=== PATIENT | female | born 1985 | race Caucasian/White ===

== ENCOUNTER 2020-11-22 19:06 | Emergency (ER) | payer BC, OTHER ==
[2020-11-22 19:23] VITALS: BP 149/90; PULSE 89; RESP 16; TEMP 98.7
--- NOTE | 2020-11-22 19:55 | ED ---
Psych HPI - General Chief Complaint: Psychiatric Symptoms Stated Complaint: Mental Health Time Seen by Provider: 11/22/20 19:24 Source: patient Mode of arrival: ambulatory - History of Present Illness Initial Comments: 35-year-old female patient presents to the emergency department today for evaluation of suicidal ideation and auditory hallucinations. Patient states she has had increase in the voices she hears over the last several days. Patient states she has been having thoughts of killing herself. Patient states that she does use heroin and methamphetamine which she thinks is contributing to her symptoms. Last use was 2 days ago. Denies alcohol use. Denies chance of , states she is currently on her period. Denies any current physical symptoms or concerns. Patient denies any recent rash, fever, chills, cough, shortness of breath, chest pain, abdominal pain, nausea, vomiting, diarrhea, constipation, back pain, numbness, tingling, dizziness, weakness, hematuria, dysuria, urinary urgency, urinary frequency, headache, visual changes, or any other complaints. - Related Data Previous Rx's Medication Instructions Recorded Sulfamethoxazole/Trimethoprim 1 tab PO Q12H 7 Days tab 08/21/16 [Bactrim DS 800-160 mg] Allergies Allergy/AdvReac Type Severity Reaction Status Date / Time No Known Allergies Allergy Verified 11/22/20 19:23 Review of Systems ROS Statement: Those systems with pertinent positive or pertinent negative responses have been documented in the HPI. ROS Other: All systems not noted in ROS Statement are negative. Past Medical History Past Medical History: No Reported History History of Any Multi-Drug Resistant Organisms: None Reported Past Surgical History: No Surgical Hx Reported Past Psychological History: Anxiety, Depression Smoking Status: Current every day smoker Past Alcohol Use History: Occasional Past Drug Use History: Heroin, Marijuana General Exam Limitations: no limitations General appearance: alert, in no apparent distress, other (This is a well- developed, well-nourished adult female patient in no acute distress. Vital signs upon presentation are temperature 98.7F, pulse 89, respirations 16, blood pressure 149/90, pulse ox 98% on room air.) Eye exam: Present: normal appearance, PERRL, EOMI. Absent: scleral icterus, conjunctival injection, periorbital swelling ENT exam: Present: normal exam, normal oropharynx, mucous membranes moist Respiratory exam: Present: normal lung sounds bilaterally. Absent: respiratory distress, wheezes, rales, rhonchi, stridor Cardiovascular Exam: Present: regular rate, normal rhythm, normal heart sounds. Absent: systolic murmur, diastolic murmur, rubs, gallop, clicks GI/Abdominal exam: Present: soft, normal bowel sounds. Absent: distended, tenderness, guarding, rebound, rigid Neurological exam: Present: alert, oriented X3, CN II-XII intact Psychiatric exam: Present: normal affect, normal mood Skin exam: Present: warm, dry, intact, normal color. Absent: rash Course Vital Signs 11/22/20 19:20 Temperature 98.7 F Pulse Rate 89 Respiratory 16 Rate Blood Pressure 149/90 O2 Sat by Pulse 98 Oximetry Medical Decision Making - Medical Decision Making 35 year-old female patient presents to the emergency department today for evaluation of suicidal ideation and hallucinations. Patient does admit to drug use including heroin and methamphetamine, last use 2 days ago. She was cleared medically and evaluated by the emergency psychiatric nurse. After being evaluated patient decided that she wanted to go home. She reported no specific plan to take her life. She is quite concerned with getting a job and paying her bills. Believes an admission would only add more stress. She agrees to return if she has any worsening symptoms. Psychiatrist and EPS nurse are in agreement. We will give outpatient referrals for mental health. She verbalizes understanding and agrees with this plan. My attending is Dr. Molina. - Lab Data Lab Results 11/22/20 Range/Units 20:07 Coronavirus (PCR) Not Detected (Not Detectd) Disposition Clinical Impression: Suicidal ideation, Hallucinations, Polysubstance abuse Disposition: Left Against Medical Advice Condition: Good Instructions (If sedation given, give patient instructions): Polysubstance Abuse (ED), Hallucinations (ED), Suicide Prevention (ED) Additional Instructions: Follow-up with outpatient mental health services as discussed. Return immediately if his symptoms worsen or change. Return for any other new, worsening, or concerning symptoms. Is patient prescribed a controlled substance at d/c from ED?: No Referrals: None,Stated [Primary Care Provider] - 1-2 days Time of Disposition: 20:52
== END 2020-11-22 20:55 | disposition left against medical advice (07) ==
LOC: EC 19:06
DX: Z03.818 Encounter for observation for suspected exposure to other biological agents ruled out (principal); R45.851 Suicidal ideations; R44.0 Auditory hallucinations; F19.10 Other psychoactive substance abuse, uncomplicated; F17.200 Nicotine dependence, unspecified, uncomplicated; Z53.29 Procedure and treatment not carried out because of patient's decision for other reasons
CPT/HCPCS: 82075; 87635; 99285

== ENCOUNTER 2022-03-14 13:06 | Inpatient (IN) | payer MEDICAID, OTHER ==
[2022-03-14] MEDS ORDERED: LORazepam 2 MG/ML INJ IM STA ×2 (13:27→16:20)
[2022-03-14] MEDS ORDERED: HALOPERIDOL LACTATE 5 MG/ML 1 ML VIAL IM STA ×2 (13:27→13:28)
[2022-03-14] MEDS ORDERED: diphenhydrAMINE 50 MG/ML 1 ML VIAL IM STA (13:28)
--- NOTE | 2022-03-14 13:32 | ED ---
General Adult HPI - General Source: patient, police, EMS Mode of arrival: EMS <ShaeJonh D - Last Filed: 03/14/22 14:49> <Omar Joaquin - Last Filed: 03/15/22 23:05> - General Chief complaint: Psychiatric Symptoms Stated complaint: Mental Health Time Seen by Provider: 03/14/22 13:10 - History of Present Illness Initial comments: Dictation was produced using [employer] dictation software. please excuse any grammatical, word or spelling errors. Chief Complaint: 36-year-old female brought in by EMS for psychiatric evaluation History of Present Illness: Patient is a 36-year-old female she is brought in by law enforcement and EMS for psychiatric evaluation. Patient is aggressive and not a reliable historian. She allegedly has a history of illicit drug abuse. According to law enforcement patient called 911 and stated she was suicidal. Upon law enforcement arrival patient began showing psychotic symptoms. EMS was called and patient was brought to the ER. Patient is yelling obscenities and is unable to provide history of present illness or medical history Unable to obtain review of systems secondary to mental status PHYSICAL EXAM: General Impression: Aggressive behavior, yelling obscenities, not in acute distress HEENT: Normocephalic atraumatic, extra-ocular movements intact, pupils equal and reactive to light bilaterally, mucous membranes moist. Cardiovascular: Heart regular rate and rhythm Chest: Able to complete full sentences, no retractions, no tachypnea Musculoskeletal: Pulses present and equal in all extremities, no peripheral edema Motor: no focal deficits noted Neurological: CN II-XII grossly intact, no focal motor or sensory deficits noted Skin: Intact with no visualized rashes Psych: Psychotic ED course: She is a 36-year-old female presents to the emergency department for acute psychotic symptoms. She also did report to enforcement that she is suicidal. Signs upon arrival are within acceptable limits. Patient is very aggressive. Verbal de-escalation was attempted however she continues to be aggressive. Patient given sedating medications and also restrained. Laboratory evaluation obtained. CBC metabolic panel is unremarkable. Covid test is negative. Patient medically cleared for EPS evaluation. EKG interpretation: Ventricular rate 84, sinus rhythm,. 125, QS 94, QTC 419. No HI prolongation, no QTC prolongation, no ST or T-wave changes noted. Overall, this EKG is unremarkable (Jonh Kaufman) - Related Data Home Medications Medication Instructions Recorded Confirmed Escitalopram [Lexapro] 10 mg PO DAILY 03/15/22 03/15/22 QUEtiapine [SEROquel] 50 mg PO BID 03/15/22 03/15/22 Allergies Allergy/AdvReac Type Severity Reaction Status Date / Time No Known Allergies Allergy Verified 03/15/22 07:42 Review of Systems ROS Other: All systems not noted in ROS Statement are negative. <Jonh Kaufman - Last Filed: 03/14/22 14:49> ROS Other: All systems not noted in ROS Statement are negative. <Omar Joaquin - Last Filed: 03/15/22 23:05> ROS Statement: Those systems with pertinent positive or pertinent negative responses have been documented in the HPI. Past Medical History Past Medical History: No Reported History History of Any Multi-Drug Resistant Organisms: None Reported Past Surgical History: No Surgical Hx Reported Past Psychological History: Anxiety, Depression Smoking Status: Current every day smoker Past Alcohol Use History: Occasional Past Drug Use History: Heroin, Marijuana <Jonh Kaufman - Last Filed: 03/14/22 14:49> General Exam General appearance: alert, in no apparent distress Head exam: Present: atraumatic, normocephalic, normal inspection Eye exam: Present: normal appearance, PERRL, EOMI. Absent: scleral icterus, conjunctival injection, periorbital swelling ENT exam: Present: normal exam, mucous membranes moist Neck exam: Present: normal inspection. Absent: tenderness, meningismus, lymphadenopathy Respiratory exam: Present: normal lung sounds bilaterally. Absent: respiratory distress, wheezes, rales, rhonchi, stridor Cardiovascular Exam: Present: regular rate, normal rhythm, normal heart sounds. Absent: systolic murmur, diastolic murmur, rubs, gallop, clicks GI/Abdominal exam: Present: soft, normal bowel sounds. Absent: distended, tenderness, guarding, rebound, rigid Extremities exam: Present: normal inspection, full ROM, normal capillary refill. Absent: tenderness, pedal edema, joint swelling, calf tenderness Back exam: Present: normal inspection Neurological exam: Present: alert, oriented X3, CN II-XII intact Psychiatric exam: Present: normal affect, normal mood Skin exam: Present: warm, dry, intact, normal color. Absent: rash <Omar Joaquin - Last Filed: 03/15/22 23:05> Course <Omar Joaquin - Last Filed: 03/15/22 23:05> Vital Signs 03/14/22 03/15/22 03/15/22 13:10 06:01 09:56 Temperature 97.6 F 97.7 F Pulse Rate 75 81 112 H Respiratory 22 16 18 Rate Blood Pressure 148/107 107/78 118/76 O2 Sat by Pulse 99 98 97 Oximetry - Reevaluation(s) Reevaluation #1: 03/15/22 22:58 Medical record is reviewed (Omar Joaquin) Reevaluation #2: 03/15/22 22:58 Patient medically clear for psychiatric evaluation (Omar Joaquin) Procedures - Restraint - Face to Face Restraint Occurrence 1 Patient's Immediate Situation: Endangers self safety, Endangers others' safety Patient's Reaction to the Intervention: Uncooperative, Angry, Bizarre Patient's Medical & Behavioral Condition: Agitated Need to Continue or Terminate Restraint or Seclusion: Continue Face to Face Eval of Restraint Date: 03/14/22 Face to Face Eval of Restraint Time: 13:32 <Jonh Kaufman - Last Filed: 03/14/22 14:49> Medical Decision Making - Lab Data Result diagrams: 03/14/22 14:02 03/14/22 14:02 <Jonh Kaufman - Last Filed: 03/14/22 14:49> - Lab Data Result diagrams: 03/14/22 14:02 03/14/22 14:02 <Omar Joaquin - Last Filed: 03/15/22 23:05> - Medical Decision Making 36 female to the emergency department for evaluation. Patient will be admitted for psychiatric evaluation and treatment (Omar Joaquin) - Lab Data Lab Results 03/14/22 03/14/22 03/14/22 Range/Units 14:02 14:02 14:02 WBC 11.8 H (3.8-10.6) k/uL RBC 4.55 (3.80-5.40) m/uL Hgb 13.4 (11.4-16.0) gm/dL Hct 41.7 (34.0-46.0) % MCV 91.7 (80.0-100.0) fL MCH 29.4 (25.0-35.0) pg MCHC 32.1 (31.0-37.0) g/dL RDW 13.3 (11.5-15.5) % Plt Count 364 (150-450) k/uL MPV 7.2 Neutrophils % 84 % Lymphocytes % 10 % Monocytes % 4 % Eosinophils % 1 % Basophils % 0 % Neutrophils # 9.8 H (1.3-7.7) k/uL Lymphocytes # 1.2 (1.0-4.8) k/uL Monocytes # 0.5 (0-1.0) k/uL Eosinophils # 0.1 (0-0.7) k/uL Basophils # 0.1 (0-0.2) k/uL Sodium 139 (137-145) mmol/L Potassium 3.6 (3.5-5.1) mmol/L Chloride 108 H (98-107) mmol/L Carbon Dioxide 19 L (22-30) mmol/L Anion Gap 12 mmol/L BUN 11 (7-17) mg/dL Creatinine 0.81 (0.52-1.04) mg/dL Est GFR (CKD-EPI)AfAm >90 (>60 ml/min/1.73 sqM) Est GFR (CKD-EPI)NonAf >90 (>60 ml/min/1.73 sqM) Glucose 116 H (74-99) mg/dL Calcium 9.7 (8.4-10.2) mg/dL Creatine Kinase 297 H (30-135) U/L HCG, Quant <2.4 mIU/mL Urine Opiates Screen Not Detected (NotDetected) Ur Oxycodone Screen Not Detected (NotDetected) Urine Methadone Screen Not Detected (NotDetected) Ur Propoxyphene Screen Not Detected (NotDetected) Ur Barbiturates Screen Not Detected (NotDetected) U Tricyclic Antidepress Detected H (NotDetected) Ur Phencyclidine Scrn Not Detected (NotDetected) Ur Amphetamines Screen Not Detected (NotDetected) U Methamphetamines Scrn Not Detected (NotDetected) U Benzodiazepines Scrn Detected H (NotDetected) Urine Cocaine Screen Not Detected (NotDetected) U Marijuana (THC) Screen Detected H (NotDetected) Coronavirus (PCR) (Not Detectd) 03/14/22 Range/Units 14:02 WBC (3.8-10.6) k/uL RBC (3.80-5.40) m/uL Hgb (11.4-16.0) gm/dL Hct (34.0-46.0) % MCV (80.0-100.0) fL MCH (25.0-35.0) pg MCHC (31.0-37.0) g/dL RDW (11.5-15.5) % Plt Count (150-450) k/uL MPV Neutrophils % % Lymphocytes % % Monocytes % % Eosinophils % % Basophils % % Neutrophils # (1.3-7.7) k/uL Lymphocytes # (1.0-4.8) k/uL Monocytes # (0-1.0) k/uL Eosinophils # (0-0.7) k/uL Basophils # (0-0.2) k/uL Sodium (137-145) mmol/L Potassium (3.5-5.1) mmol/L Chloride (98-107) mmol/L Carbon Dioxide (22-30) mmol/L Anion Gap mmol/L BUN (7-17) mg/dL Creatinine (0.52-1.04) mg/dL Est GFR (CKD-EPI)AfAm (>60 ml/min/1.73 sqM) Est GFR (CKD-EPI)NonAf (>60 ml/min/1.73 sqM) Glucose (74-99) mg/dL Calcium (8.4-10.2) mg/dL Creatine Kinase (30-135) U/L HCG, Quant mIU/mL Urine Opiates Screen (NotDetected) Ur Oxycodone Screen (NotDetected) Urine Methadone Screen (NotDetected) Ur Propoxyphene Screen (NotDetected) Ur Barbiturates Screen (NotDetected) U Tricyclic Antidepress (NotDetected) Ur Phencyclidine Scrn (NotDetected) Ur Amphetamines Screen (NotDetected) U Methamphetamines Scrn (NotDetected) U Benzodiazepines Scrn (NotDetected) Urine Cocaine Screen (NotDetected) U Marijuana (THC) Screen (NotDetected) Coronavirus (PCR) Not Detected (Not Detectd) Disposition <Jonh Kaufman - Last Filed: 03/14/22 14:49> Is patient prescribed a controlled substance at d/c from ED?: No <Omar Joaquin - Last Filed: 03/15/22 23:05> Clinical Impression: Depression, Suicidal ideation, Acute psychosis Disposition: TRANSFER TO PSYCH HOSP/UNIT Condition: Fair Referrals: Adore Boo MD [Primary Care Provider] - 1-2 days
[2022-03-14 14:14] LABS: Basophils # (A) 0.1 k/uL (0-0.2); Basophils % (A) 0 %; Eosinophils # (A) 0.1 k/uL (0-0.7); Eosinophils % (A) 1 %; HCT 41.7 % (34.0-46.0); HGB 13.4 gm/dL (11.4-16.0); Lymphocytes # (A) 1.2 k/uL (1.0-4.8); Lymphocytes % (A) 10 %; MCH 29.4 pg (25.0-35.0); MCHC 32.1 g/dL (31.0-37.0); MCV 91.7 fL (80.0-100.0); Mean Platelet Volume 7.2; Monocytes # (A) 0.5 k/uL (0-1.0); Monocytes % (A) 4 %; Neutrophils # (A) 9.8 k/uL (1.3-7.7); Neutrophils % (A) 84 %; Platelet Count 364 k/uL (150-450); RBC 4.55 m/uL (3.80-5.40); RDW 13.3 % (11.5-15.5); WBC 11.8 k/uL (3.8-10.6)
[2022-03-14 14:27] LABS: African American GFR (CKD) >90 (>60 ml/min/1.73 sqM); Anion Gap 12 mmol/L; Blood Urea Nitrogen 11 mg/dL (7-17); Calcium 9.7 mg/dL (8.4-10.2); Carbon Dioxide 19 mmol/L (22-30); Chloride 108 mmol/L (98-107); Creatine Kinase 297 U/L (30-135); Glucose 116 mg/dL (74-99); Non-African American GFR(CKD) >90 (>60 ml/min/1.73 sqM); Potassium 3.6 mmol/L (3.5-5.1); Sodium 139 mmol/L (137-145)
[2022-03-14 14:42] LABS: HCG,Quantitative Serum <2.4 mIU/mL
[2022-03-14] MEDS ORDERED: NICOTINE 7MG/24HR PATCH TRANSDERM STA (17:33)
[2022-03-15] MEDS ORDERED: NICOTINE 14MG/24HR PATCH TRANSDERM STA (07:04)
[2022-03-15] MEDS: QUEtiapine 50 MG TAB PO SCH ×2 (07:35→20:15)
[2022-03-15] MEDS ORDERED: ESCITALOPRAM 10 MG TAB PO STA (08:15)
[2022-03-15 15:47] LABS: Amphetamine Screen,Urine Not Detected (NotDetected); Barbiturate Screen,Urine Not Detected (NotDetected); Benzodiazepines Screen,Urine Detected (NotDetected); Cocaine Screen,Urine Not Detected (NotDetected); Methadone Screen, Urine Not Detected (NotDetected); Opiate Screen,Urine Not Detected (NotDetected); Oxycodone Screen, Urine Not Detected (NotDetected); Phencyclidine Screen,Urine Not Detected (NotDetected); Tricyclic Antidepressant,Urine Detected (NotDetected); Urn Cannabinoid Scrn Detected (NotDetected)
[2022-03-15] MEDS ORDERED: LORazepam 1 MG TAB PO PRN (22:24)
[2022-03-15] MEDS ORDERED: HALOPERIDOL LACTATE 5 MG/ML 1 ML VIAL IM PRN (22:24)
[2022-03-15] MEDS ORDERED: MAGNESIUM HYDROXIDE 2,400 MG/10 ML CUP PO PRN (22:24)
[2022-03-15] MEDS ORDERED: LORazepam 2 MG/ML INJ IM PRN (22:29)
[2022-03-15] MEDS ORDERED: QUEtiapine 50 MG TAB PO SCH (22:30)
[2022-03-15 23:17] LABS: Appearance,Urine Clear (Clear); Bacteria,Urine Rare /hpf; Bilirubin,Urine Negative (Negative); Blood,Urine Trace (Negative); Color,Urine Yellow; Glucose,Urine (UA) Negative (Negative); Ketones,Urine Negative (Negative); Leukocyte Esterase,Urine Negative (Negative); Mucus,Urine Rare /hpf; Nitrite,Urine Negative (Negative); Protein,Urine Negative (Negative); RBC,Urine <1 /hpf (0-5); Specific Gravity,Urine 1.012 (1.001-1.035); Squamous Epithelial Cell,Urine 1 /hpf (0-4); Urobilinogen,Urine <2.0 mg/dL (<2.0); WBC,Urine 1 /hpf (0-5)
[2022-03-16] MEDS ORDERED: LORazepam 1 MG TAB PO STA (00:13)
[2022-03-16] MEDS: ESCITALOPRAM 10 MG TAB PO SCH (08:16)
[2022-03-16] MEDS: QUEtiapine 50 MG TAB PO SCH (08:16)
[2022-03-16] MEDS: NICOTINE 21MG/24HR PATCH TRANSDERM SCH (08:42)
[2022-03-16 09:13] LABS: ALT 20 U/L (4-34); AST 31 U/L (14-36); African American GFR (CKD) >90 (>60 ml/min/1.73 sqM); Albumin 4.5 g/dL (3.5-5.0); Alkaline Phosphatase 46 U/L (38-126); Anion Gap 10 mmol/L; Blood Urea Nitrogen 12 mg/dL (7-17); Carbon Dioxide 20 mmol/L (22-30); Chloride 109 mmol/L (98-107); Glucose 93 mg/dL (74-99); Non-African American GFR(CKD) >90 (>60 ml/min/1.73 sqM); Potassium 4.3 mmol/L (3.5-5.1); Sodium 139 mmol/L (137-145); Total Bilirubin 0.1 mg/dL (0.2-1.3); Total Protein 6.9 g/dL (6.3-8.2)
[2022-03-16] MEDS: hydrOXYzine pamoate 25 MG CAP PO PRN ×2 (14:03→20:25)
--- NOTE | 2022-03-16 14:08 | P.HP ---
Psychiatric H&P - . H&P Date: 03/16/22 History & Physical: Allergies Allergy/AdvReac Type Severity Reaction Status Date / Time No Known Allergies Allergy Verified 03/15/22 07:42 Vital Signs Temp 97.2 F L 03/16/22 08:18 Pulse 90 03/16/22 08:18 Resp 20 03/16/22 08:18 BP 123/59 03/16/22 08:18 Pulse Ox 97 03/16/22 00:57 FiO2 Laboratory Last Values WBC 11.8 k/uL (3.8-10.6) H 03/14/22 14:02 RBC 4.55 m/uL (3.80-5.40) 03/14/22 14:02 Hgb 13.4 gm/dL (11.4-16.0) 03/14/22 14:02 Hct 41.7 % (34.0-46.0) 03/14/22 14:02 MCV 91.7 fL (80.0-100.0) 03/14/22 14:02 MCH 29.4 pg (25.0-35.0) 03/14/22 14:02 MCHC 32.1 g/dL (31.0-37.0) 03/14/22 14:02 RDW 13.3 % (11.5-15.5) 03/14/22 14:02 Plt Count 364 k/uL (150-450) 03/14/22 14:02 MPV 7.2 03/14/22 14:02 Neutrophils % 84 % 03/14/22 14:02 Lymphocytes % 10 % 03/14/22 14:02 Monocytes % 4 % 03/14/22 14:02 Eosinophils % 1 % 03/14/22 14:02 Basophils % 0 % 03/14/22 14:02 Neutrophils # 9.8 k/uL (1.3-7.7) H 03/14/22 14:02 Lymphocytes # 1.2 k/uL (1.0-4.8) 03/14/22 14:02 Monocytes # 0.5 k/uL (0-1.0) 03/14/22 14:02 Eosinophils # 0.1 k/uL (0-0.7) 03/14/22 14:02 Basophils # 0.1 k/uL (0-0.2) 03/14/22 14:02 Sodium 139 mmol/L (137-145) 03/16/22 08:17 Potassium 4.3 mmol/L (3.5-5.1) 03/16/22 08:17 Chloride 109 mmol/L (98-107) H 03/16/22 08:17 Carbon Dioxide 20 mmol/L (22-30) L 03/16/22 08:17 Anion Gap 10 mmol/L 03/16/22 08:17 BUN 12 mg/dL (7-17) 03/16/22 08:17 Creatinine 0.69 mg/dL (0.52-1.04) 03/16/22 08:17 Est GFR (CKD-EPI)AfAm >90 (>60 ml/min/1.73 sqM) 03/16/22 08:17 Est GFR (CKD-EPI)NonAf >90 (>60 ml/min/1.73 sqM) 03/16/22 08:17 Glucose 93 mg/dL (74-99) 03/16/22 08:17 Calcium 9.0 mg/dL (8.4-10.2) 03/16/22 08:17 Total Bilirubin 0.1 mg/dL (0.2-1.3) L 03/16/22 08:17 AST 31 U/L (14-36) 03/16/22 08:17 ALT 20 U/L (4-34) 03/16/22 08:17 Alkaline Phosphatase 46 U/L (38-126) 03/16/22 08:17 Creatine Kinase 297 U/L (30-135) H 03/14/22 14:02 Total Protein 6.9 g/dL (6.3-8.2) 03/16/22 08:17 Albumin 4.5 g/dL (3.5-5.0) 03/16/22 08:17 TSH 2.730 mIU/L (0.465-4.680) 03/16/22 08:17 HCG, Quant <2.4 mIU/mL 03/14/22 14:02 Urine Color Yellow 03/15/22 22:49 Urine Appearance Clear (Clear) 03/15/22 22:49 Urine pH 5.0 (5.0-8.0) 03/15/22 22:49 Ur Specific [place] 1.012 (1.001-1.035) 03/15/22 22:49 Urine Protein Negative (Negative) 03/15/22 22:49 Urine Glucose (UA) Negative (Negative) 03/15/22 22:49 Urine Ketones Negative (Negative) 03/15/22 22:49 Urine Blood Trace (Negative) H 03/15/22 22:49 Urine Nitrite Negative (Negative) 03/15/22 22:49 Urine Bilirubin Negative (Negative) 03/15/22 22:49 Urine Urobilinogen <2.0 mg/dL (<2.0) 03/15/22 22:49 Ur Leukocyte Esterase Negative (Negative) 03/15/22 22:49 Urine RBC <1 /hpf (0-5) 03/15/22 22:49 Urine WBC 1 /hpf (0-5) 03/15/22 22:49 Ur Squamous Epith Cells 1 /hpf (0-4) 03/15/22 22:49 Urine Bacteria Rare /hpf (None) H 03/15/22 22:49 Urine Mucus Rare /hpf (None) H 03/15/22 22:49 Urine HCG, Qual Not Detected (Not Detectd) 03/15/22 22:49 Urine Opiates Screen Not Detected (NotDetected) 03/14/22 14:02 Ur Oxycodone Screen Not Detected (NotDetected) 03/14/22 14:02 Urine Methadone Screen Not Detected (NotDetected) 03/14/22 14:02 Ur Propoxyphene Screen Not Detected (NotDetected) 03/14/22 14:02 Ur Barbiturates Screen Not Detected (NotDetected) 03/14/22 14:02 U Tricyclic Antidepress Detected (NotDetected) H 03/14/22 14:02 Ur Phencyclidine Scrn Not Detected (NotDetected) 03/14/22 14:02 Ur Amphetamines Screen Not Detected (NotDetected) 03/14/22 14:02 U Methamphetamines Scrn Not Detected (NotDetected) 03/14/22 14:02 U Benzodiazepines Scrn Detected (NotDetected) H 03/14/22 14:02 Urine Cocaine Screen Not Detected (NotDetected) 03/14/22 14:02 U Marijuana (THC) Screen Detected (NotDetected) H 03/14/22 14:02 Coronavirus (PCR) Not Detected (Not Detectd) 03/14/22 14:02 03/16/22 14:01 IDENTIFYING DATA: Patient is a 36-year-old female who currently lives with her mother and one son. She is single and unemployed. HPI: Patient presented to the hospital yesterday for psychiatric evaluation and was brought in by EMS and police. Patient was brought in on a petition and certificate. The petition was completed by patient's mother states that "patient is a potential harm to self/others, noncompliance with therapy/medication. Patient endorses suicidal ideations paranoia/delusional". Patient was evaluated in the ER and was aggressive and agitated and required prn medications for agitation. Patient apparently has a history of polysubstance abuse. Patient apparently called 911 and reported that she was suicidal. Patient was also evaluated and believed that she was psychotic. Patient's UDS was positive for TCAs, benzodiazepines and THC. Patient was seen wandering the hallways and agreeable to speak to keno writer/runner today. She appeared to be fairly calm and directable during conversation. She states that she is very distressed due to hearing "a lot of voices". She states that this is going on for the past 4-5 years. She states that the voices were telling her negative things about her and also telling her to "shoot myself". She states that she has a history of a brain injury and was "headed in the head a couple of times". She states that she was " for 18 minutes" before being revised back to life by doctors. She states that she has anxiety and depression at this time. She states that she was taking Seroquel however "it was not enough" and was not being followed by a psychiatrist. She states that she does have mild mood swings at times. She is endorsing poor sleep, fair appetite. Patient denies any suicidal or homicidal ideations intent or plan. At this time patient denies any current auditory or visual hallucinations. Patient denies any flight of ideas racing thoughts and increased in goal directed behavior. Patient admits to using marijuana occasionally and cigarettes daily. She denies any other recreational drug use. PAST PSYCHIATRIC HISTORY: Patient states that she has history of depression and traumatic brain injury. Patient was previously on Seroquel and Lexapro. She states that her last psychiatric hospitalization was 1-1/2 years ago in [place]. Patient denies any psychiatric outpatient follow-up. Patient denies any history of suicide attempts in the past. PMH: Traumatic brain injury ALLERGIES: as per EMR CHEMICAL DEPENDENCY HISTORY: as per HPI FAMILY PSYCHIATRIC/SUBSTANCE USE HISTORY: denies SOCIAL HISTORY: Patient was born and raised in [facility] and also in [place]. She states that she moved to [place] permanently at the age of 11. She states that she completed up to ninth grade in school. 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 She states that she has 1 son and currently lives with her mother. She is single and unemployed. She went to longterm about 2 years ago for driving without a license. MENTAL STATUS EXAM: General Appearance: Patient appears to have several tattoos, unkempt, stated age is alert, directable, and attempts to cooperate. Patient appears to have poor hygiene and grooming. Behavior: Patient is seated without any agitated behavior. Attempts to cooperate. Speech: Patient's speech is fluent and nonpressured. Mood/Affect: Patient reports their mood is depressed and anxious, affect is congruent and constricted. Suicidality/Homicidality: Patient denies having any homicidal ideation intent or plan. Denies any suicidal ideations intent or plan Perceptions: Patient denies any visual hallucinations and denies any auditory hallucinations Though content/process: Patient is logical, not endorsing any delusions at this time. Memory and concentration: AOX3, grossly intact for the purposes of this session. Can spell "WORLD" backwards Judgment and insight: poor STRENGTHS/WEAKNESSES: strength is that patient is resilient. Weakness is that patient has poor judgment and is impulsive INTELLECT: average IMPRESSIONS: Major depressive disorder, with psychotic features Traumatic brain injury Cannabis use disorder mild Nicotine dependence PLAN: -Patient is admitted under voluntary status to [facility] for stabilization of psychiatric symptoms and safety. Patient has signed adult voluntary form and medication consent and is placed in patient's chart. -Medications : Will start patient on Seroquel however increased her dose of 150 mg daily at bedtime for psychosis/insomnia. Continue Lexapro 10 mg daily for mood/anxiety. Added Vistaril when necessary for anxiety. -Ativan and Haldol PRN for agitation/aggression -Patient was counselled on substance abuse and desired to cut back on use -Patient was informed of the risks, benefits and side effects of the medication and patient verbally consented to taking the medications. Patient signed med consent form and was placed in chart. -Internal Medicine consult to perform medical evaluation and physical. -NRT - nicotine patch -SW on board for discharge planning. Encourage patient to participate in groups to work on coping skills.
--- NOTE | 2022-03-16 14:33 | P.HPMEDMHU ---
<Bladimir Bridges - Last Filed: 03/16/22 19:26> History of Present Illness H&P Date: 03/16/22 History of Presenting Illness: Patient is a 36-year-old female with a past medical history of previous traumati c brain injury, anxiety, depression, nicotine dependence, and daily cannabis abuse. She is currently admitted to inpatient mental health unit under psychiatric team and we have been consulted for medical management throughout her hospitalization. Patient seen and fully evaluated on mental health unit. She was alert and oriented to person, place, time, and situation. Patient reports that she has been experiencing severe anxiety and hearing voices. Patient states the voices call her a bitch and many other things. Patient also reports a history of heroin abuse but states it has been years since she last used. Patient denies having any headache, lightheadedness, dizziness, chest pain, palpitations, nausea, vomiting, or experiencing any numbness/tingling/weakness in her extremities. Patient denies having any suicidal or homicidal ideations. Patient reports smoking one pack of cigarettes daily and admits to daily cannabis use. Patient denies having any other drug use and denies alcohol use. Review of systems: Pertinent positives and negatives as discussed in HPI, a complete review of systems was performed and all other systems are negative. Physical exam: Vital signs reviewed and stable. General: Nontoxic, no distress and appears stated age. Derm: Skin warm and dry, normal coloration for ethnicity. Head: Atraumatic, normocephalic and symmetric. Eyes: EOMs intact, no lid lag, and anicteric sclera Mouth: no lip lesions, mucus membranes moist Cardiovascular: regular rate and rhythm with normal S1S2, no murmur, positive posterior tibial pulses bilaterally, and cap refill < 2 seconds. Lungs: Respirations even, regular, and unlabored on room air. Lungs CTA bilat erally, no rhonchi, no rales, no wheezing, and no accessory muscle usage. Abdominal: soft, nontender to palpation, no guarding, no appreciable organomegaly Ext: ROM intact. No gross muscle atrophy, no edema, no contractures Neuro: Speech clear, face symmetrical and CN II-XII grossly intact with no noted focal neuro deficits Psych: Alert and oriented to person, place, time, and situation. Appropriate and pleasant affect. Assessment and Plan of Care: Auditory hallucinations Major depressive disorder with psychiatric features History of traumatic brain injury Cannabis abuse disorder Nicotine dependence History of IVDA with heroin -Management of hallucinations and depression via primary admitting psychiatric team. -Recommend stopping smoking, patient provided with nicotine patch and gum. -Recommend cannabis cessation. Thank you for allowing us to participate in the care of this pleasant patient. Do not hesitate to contact us with questions. Someone can be reached from the [facility] hospitalist group all hours of the day at [phone] or via [employer]. Past Medical History Past Medical History: No Reported History History of Any Multi-Drug Resistant Organisms: None Reported Past Surgical History: No Surgical Hx Reported Past Psychological History: Anxiety, Depression Smoking Status: Current every day smoker Past Alcohol Use History: Occasional Past Drug Use History: Heroin, Marijuana Medications and Allergies Home Medications Medication Instructions Recorded Confirmed Type Escitalopram [Lexapro] 10 mg PO DAILY 03/15/22 03/15/22 History QUEtiapine [SEROquel] 50 mg PO BID 03/15/22 03/15/22 History Allergies Allergy/AdvReac Type Severity Reaction Status Date / Time No Known Allergies Allergy Verified 03/15/22 07:42 Physical Exam Vitals: Vital Signs Temp Pulse Pulse Resp BP BP Pulse Ox 03/16/22 08:18 97.2 F L 90 20 123/59 03/16/22 00:57 98.2 F 88 18 112/70 97 03/16/22 00:20 89 16 115/79 95 Cranial Nerve Examination - Cranial Nerves Cranial Nerve II- Optic: Intact Cranial Nerve III- Oculomotor: Intact Cranial Nerve IV- Trochlear: Intact Cranial Nerve V- Trigeminal: Intact Cranial Nerve - Abducens: Intact Cranial Nerve VII- Facial: Intact Cranial Nerve VIII- Auditory: Intact Cranial Nerve IX- Glossopharyngeal: Intact Cranial Nerve X- Vagus: Intact Cranial Nerve XI- Accessory: Intact Cranial Nerve XII- Hypoglossal: Intact Results CBC & Chem 7: 03/14/22 14:02 03/16/22 08:17 Labs: Abnormal Lab Results - Last 24 Hours (Table) 03/14/22 03/15/22 03/16/22 Range/Units 14:02 22:49 08:17 Chloride 109 H (98-107) mmol/L Carbon Dioxide 20 L (22-30) mmol/L Total Bilirubin 0.1 L (0.2-1.3) mg/dL Urine Blood Trace H (Negative) Urine Bacteria Rare H (None) /hpf Urine Mucus Rare H (None) /hpf U Tricyclic Antidepress Detected H (NotDetected) U Benzodiazepines Scrn Detected H (NotDetected) U Marijuana (THC) Screen Detected H (NotDetected) <DarnellKatie Jo - Last Filed: 03/16/22 22:55> History of Present Illness Bladimir Bridges NP rendered care for this patient independently, reviewed the findings and plan as documented in the note above. I did not physically speak with or examine the patient on this date. Physical Exam Osteopathic Statement: *. No significant issues noted on an osteopathic structural exam other than those noted in the History and Physical/Consult. Vitals: Vital Signs Temp Pulse Pulse Resp BP BP Pulse Ox 03/16/22 08:18 97.2 F L 90 20 123/59 03/16/22 00:57 98.2 F 88 18 112/70 97 03/16/22 00:20 89 16 115/79 95 Results CBC & Chem 7: 03/14/22 14:02 03/16/22 08:17 Labs: Abnormal Lab Results - Last 24 Hours (Table) 03/15/22 03/16/22 Range/Units 22:49 08:17 Chloride 109 H (98-107) mmol/L Carbon Dioxide 20 L (22-30) mmol/L Total Bilirubin 0.1 L (0.2-1.3) mg/dL LDL Cholesterol, Calc 138.4 H (0.0-131.0) mg/dL HDL Cholesterol 36.40 L (40.00-60.00) mg/dL Urine Blood Trace H (Negative) Urine Bacteria Rare H (None) /hpf Urine Mucus Rare H (None) /hpf
[2022-03-16 14:59] LABS: Chol/HDL Ratio 5.49 Ratio; LDL Cholesterol,Calculated 138.4 mg/dL (0.0-131.0)
[2022-03-16] MEDS ORDERED: QUEtiapine 50 MG TAB PO SCH (21:00)
[2022-03-17] MEDS: ESCITALOPRAM 10 MG TAB PO SCH (08:26)
[2022-03-17] MEDS: NICOTINE 21MG/24HR PATCH TRANSDERM SCH (08:26)
[2022-03-17] MEDS: hydrOXYzine pamoate 25 MG CAP PO PRN ×2 (08:35→20:38)
[2022-03-17] MEDS: ACETAMINOPHEN TAB 325 MG TAB PO PRN ×2 (08:36→16:52)
[2022-03-17] MEDS ORDERED: ESCITALOPRAM 10 MG TAB PO STA (09:39)
[2022-03-17] MEDS ORDERED: traZODone HCL 50 MG TAB PO PRN (09:40)
--- NOTE | 2022-03-17 09:50 | P.PN ---
Progress Note - Text Progress Note Date: 03/17/22 Interval History: Patient was seen wandering the hallways and was directable and agreeable to bibi wilks with remote mortgage underwriter in the office. Patient states that she had a bad night last night and mainly complained of hearing voices. She states that the voices intensified last night and were more negative after taking the Seroquel. She states that she is feeling not improved since yesterday. She claims that she would like to try another medication and feels distressed by the voices. She was fairly calm and cooperative. She states that she slept around 6 hours last night. She claims that she has been going to groups however claims that she has not been getting much out of them. She states that she is still dealing with anxiety during the day. At this time patient denies any suicidal or homical ideations, intent or plan. Patient denies any visual hallucinations and denies any paranoia or delusions. Patient denies any side effects from the medications and has been compliant with meds. Mental Status Exam: General Appearance: Patient appears to have several tattoos, unkempt, stated age is alert, directable, and attempts to cooperate. Patient appears to have improving hygiene and grooming. Behavior: Patient is seated without any agitated behavior. Attempts to cooperate. Speech: Patient's speech is fluent and nonpressured. Mood/Affect: Patient reports their mood is anxious, affect is congruent and constricted. Suicidality/Homicidality: Patient denies having any homicidal ideation intent or plan. Denies any suicidal ideations intent or plan Perceptions: Patient denies any visual hallucinations and denies any auditory hallucinations Though content/process: Patient is logical, not endorsing any delusions at this time. Memory and concentration: AOX3, grossly intact for the purposes of this session Judgment and insight: poor, improving mildly IMPRESSIONS: Major depressive disorder, with psychotic features Traumatic brain injury Cannabis use disorder mild Nicotine dependence Plan: -Patient continues to meet criteria for inpatient psychiatric admission for symptom stabilization and safety. Patient has signed adult voluntary form and medication consent and was placed in patient's chart. -Medications: Discontinued Seroquel and replaced with paliperidone by mouth 3 mg twice a day for psychosis. Increase Lexapro to 20 mg daily for mood/anxiety. Vistaril when necessary for anxiety. -When necessary Ativan and Haldol for agitation/aggression. -NRT - nicotine patch -SW on board for discharge planning. Encouraged the patient to participate in milieu.
[2022-03-17] MEDS: PALIPERIDONE 3 MG TAB.ER.24 PO SCH ×2 (09:53→20:19)
[2022-03-17] MEDS: IBUPROFEN 600 MG TAB PO PRN (19:09)
[2022-03-17] MEDS: BENZOCAINE 20 % GEL 11.9 GM TUBE MM PRN (20:19)
[2022-03-18] MEDS ORDERED: traZODone HCL 100 MG TAB PO STA (00:51)
[2022-03-18] MEDS: PALIPERIDONE 3 MG TAB.ER.24 PO SCH (08:19)
[2022-03-18] MEDS: ESCITALOPRAM 20 MG TAB PO SCH (08:19)
[2022-03-18] MEDS: NICOTINE 21MG/24HR PATCH TRANSDERM SCH (08:20)
[2022-03-18] MEDS: IBUPROFEN 600 MG TAB PO PRN (08:20)
[2022-03-18] MEDS ORDERED: traZODone HCL 50 MG TAB PO PRN (09:22)
--- NOTE | 2022-03-18 09:28 | P.PN ---
Progress Note - Text Progress Note Date: 03/18/22 Interval History: Patient was seen wandering the hallways and was directable and agreeable to s peak with engineering technical writer in the office. Patient continues to complain that she is still hearing voices at nighttime and throughout the day. She claims that the paliperidone has not been helping her at all. She wrote down several of the commands and voices that she heard yesterday and showed them to engineering technical writer which were all negative thoughts and statements towards her. She states that she is still feeling depressed however was fairly directable during conversation. She was fairly preoccupied with her medications. She states that she only slept about 2-3 hours last night and needed several medications to sleep. She claims that she has been going to groups however claims that she has not been getting much out of them. She states that she is still dealing with anxiety during the day. At this time patient denies any suicidal or homical ideations, intent or plan. Patient denies any visual hallucinations and denies any paranoia or delusions. Patient denies any side effects from the medications and has been compliant with meds. Mental Status Exam: General Appearance: Patient appears to have several tattoos, unkempt, stated age is alert, directable, and attempts to cooperate. Patient appears to have improving hygiene and grooming. Behavior: Patient is seated without any agitated behavior. Attempts to cooperate. Speech: Patient's speech is fluent and nonpressured. Mood/Affect: Patient reports their mood is anxious, affect is congruent and constricted. Suicidality/Homicidality: Patient denies having any homicidal ideation intent or plan. Denies any suicidal ideations intent or plan Perceptions: Patient denies any visual hallucinations and admits to auditory hallucinations Though content/process: Patient is logical, not endorsing any delusions at this time. Memory and concentration: AOX3, grossly intact for the purposes of this session Judgment and insight: poor, improving mildly IMPRESSIONS: Major depressive disorder, with psychotic features Traumatic brain injury Cannabis use disorder mild Nicotine dependence Plan: -Patient continues to meet criteria for inpatient psychiatric admission for symptom stabilization and safety. Patient has signed adult voluntary form and medication consent and was placed in patient's chart. -Medications: Restarted Seroquel due to patients request as she feels that the invega did not help her with the voices. Start Seroquel 250 mg qhs for psychosis/insomnia, can increase as needed/tolerated. Lexapro to 20 mg daily for mood/anxiety. Vistaril when necessary for anxiety. trazodone 50 mg qhs prn for insomnia -When necessary Ativan and Haldol for agitation/aggression. -NRT - nicotine patch -SW on board for discharge planning. Encouraged the patient to participate in milieu. likely discharge early next week if patient improves psychiatrically.
[2022-03-18] MEDS: QUEtiapine 50 MG TAB PO SCH (09:34)
[2022-03-18] MEDS: ACETAMINOPHEN TAB 325 MG TAB PO PRN (12:22)
[2022-03-18] MEDS: hydrOXYzine pamoate 25 MG CAP PO PRN (13:51)
[2022-03-18] MEDS: QUEtiapine 100 MG TAB PO SCH (19:54)
[2022-03-18] MEDS: traZODone HCL 50 MG TAB PO PRN (21:07)
[2022-03-19] MEDS: ESCITALOPRAM 20 MG TAB PO SCH (08:23)
[2022-03-19] MEDS: QUEtiapine 50 MG TAB PO SCH ×2 (08:23→13:30)
[2022-03-19] MEDS: NICOTINE 21MG/24HR PATCH TRANSDERM SCH (08:23)
[2022-03-19] MEDS: hydrOXYzine pamoate 25 MG CAP PO PRN ×2 (08:25→14:44)
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
[2022-03-19] MEDS: MAG HYDROX/AL HYDROX/SIMETH 30 ML CUP PO PRN (16:05)
[2022-03-19] MEDS: IBUPROFEN 600 MG TAB PO PRN (18:19)
[2022-03-19] MEDS: QUEtiapine 100 MG TAB PO SCH (20:48)
[2022-03-19] MEDS: PRAZOSIN 1 MG CAP PO SCH (20:48)
[2022-03-19] MEDS: traZODone HCL 50 MG TAB PO PRN (21:57)
[2022-03-20] MEDS: NICOTINE 21MG/24HR PATCH TRANSDERM SCH (07:59)
[2022-03-20] MEDS: QUEtiapine 50 MG TAB PO SCH ×2 (07:59→12:31)
[2022-03-20] MEDS: ESCITALOPRAM 20 MG TAB PO SCH (08:00)
[2022-03-20] MEDS: hydrOXYzine pamoate 25 MG CAP PO PRN (11:42)
[2022-03-20] MEDS: IBUPROFEN 600 MG TAB PO PRN ×2 (12:31→19:55)
[2022-03-20] MEDS ORDERED: QUEtiapine 50 MG TAB PO SCH (13:00)
--- NOTE | 2022-03-20 13:22 | P.PN ---
Progress Note - Text Progress Note Date: 03/20/22 Interval History: Patient was directable and agreeable to speak with data analyst report writer in the office. She reports she is feeling "a little better today", and reports she slept better last night than she did the night before. She reports she did not have any nightmares last night. She took the Trazodone 150 mg QHS PRN last night for sleep. She reports she is still hearing voices, has insight into the voices, will go back to her room and isolate because of the voices. She reports her mood today is "It's ok, I'm in a good mood." At this time patient denies any suicidal or homical ideations, intent or plan. Patient denies any side effects from the medications and has been compliant with meds. Mental Status Exam: General Appearance: Patient appears to have several tattoos, unkempt, stated age. Patient appears to have improving hygiene and grooming. Behavior: Patient is seated without any agitated behavior. She is alert, directable, and attempts to cooperate. Speech: Patient's speech is fluent and nonpressured. Mood/Affect: Patient reports their mood is anxious, affect is congruent and constricted. Suicidality/Homicidality: Patient denies having any homicidal ideation intent or plan. Denies any suicidal ideations intent or plan. Perceptions: Patient denies any visual hallucinations and admits to auditory hallucinations. Though content/process: Patient is logical, not endorsing any delusions at this time. Appears to be fixated on her medications. Memory and concentration: AOX3, grossly intact for the purposes of this session Judgment and insight: poor, improving mildly IMPRESSIONS: Major depressive disorder, recurrent, severe with psychotic features Rule out PTSD Traumatic brain injury Cannabis use disorder mild Nicotine dependence Plan: -Patient continues to meet criteria for inpatient psychiatric admission for symptom stabilization and safety. Patient has signed adult voluntary form and medication consent and was placed in patient's chart. -Medications: Increase Seroquel to 100 mg QAM, 50 mg daily after lunch, and 250 mg QHS for psychosis. Continue Prazosin 1 mg QHS for trauma induced nightmares. Continue Lexapro 20 mg daily for mood/anxiety. Continue Vistaril when necessary for anxiety. Change Trazodone 150 mg QHS from as needed to scheduled for insomnia. -When necessary Ativan and Haldol for agitation/aggression. -NRT - nicotine patch -SW on board for discharge planning. Encouraged the patient to participate in milieu. Likely discharge early next week if patient improves psychiatrically.
[2022-03-20] MEDS ORDERED: QUEtiapine 50 MG TAB PO STA (13:23)
[2022-03-20] MEDS: BENZOCAINE 20 % GEL 11.9 GM TUBE MM PRN (14:00)
[2022-03-20] MEDS: traZODone HCL 50 MG TAB PO SCH (19:56)
[2022-03-20] MEDS: QUEtiapine 100 MG TAB PO SCH (19:57)
[2022-03-20] MEDS: PRAZOSIN 1 MG CAP PO SCH (19:58)
[2022-03-21 05:04] VITALS: PULSE 91
[2022-03-21] MEDS: NICOTINE 21MG/24HR PATCH TRANSDERM SCH (07:53)
[2022-03-21] MEDS: ESCITALOPRAM 20 MG TAB PO SCH (07:53)
[2022-03-21] MEDS: QUEtiapine 100 MG TAB PO SCH (07:53)
[2022-03-21] MEDS: hydrOXYzine pamoate 25 MG CAP PO PRN ×3 (07:55→20:26)
[2022-03-21] MEDS: QUEtiapine 50 MG TAB PO SCH (12:46)
[2022-03-21] MEDS ORDERED: QUEtiapine 50 MG TAB PO STA ×2 (14:10)
--- NOTE | 2022-03-21 14:14 | P.PN ---
Progress Note - Text Progress Note Date: 03/21/22 Interval History: Patient was directable and agreeable to speak with show card writer in the office. She reports she is feeling "pretty ok until about noon", she states she didn't hear the voices last night or this morning, but she started hearing the voices again today around noon. She reports she did not have any nightmares last night, but reports sleep was poor last night with multiple nighttime awakenings. At this time patient denies any suicidal or homical ideations, intent or plan. Patient denies any side effects from the medications and has been compliant with meds. Mental Status Exam: General Appearance: Patient appears to have several tattoos, stated age. Patient appears to have improving hygiene and grooming, hair is nicely brushed and is wearing makeup. Behavior: Patient is seated without any agitated behavior. She is alert, directable, and attempts to cooperate. Speech: Patient's speech is fluent and nonpressured. Mood/Affect: Patient reports their mood is good, affect is congruent and constricted. Suicidality/Homicidality: Patient denies having any homicidal ideation intent or plan. Denies any suicidal ideations intent or plan. Perceptions: Patient denies any visual hallucinations and admits to auditory hallucinations. Though content/process: Patient is logical, not endorsing any delusions at this time. Memory and concentration: AOX3, grossly intact for the purposes of this session Judgment and insight: poor, improving mildly IMPRESSIONS: Major depressive disorder, recurrent, severe with psychotic features Rule out PTSD Traumatic brain injury Cannabis use disorder mild Nicotine dependence Plan: -Patient continues to meet criteria for inpatient psychiatric admission for symptom stabilization and safety. Patient has signed adult voluntary form and medication consent and was placed in patient's chart. -Medications: Increase Seroquel to 100 mg QAM, 100 mg daily at noon, and 300 mg QHS for psychosis. We discussed the risks, benefits and side effects of medications, including the risk of daytime sedation with Seroquel. Continue Prazosin 1 mg QHS for trauma induced nightmares. Continue Lexapro 20 mg daily for mood/anxiety. Continue Vistaril when necessary for anxiety. Change Trazodone 150 mg QHS from as needed to scheduled for insomnia. -When necessary Ativan and Haldol for agitation/aggression. -NRT - nicotine patch -SW on board for discharge planning. Encouraged the patient to participate in milieu. Likely discharge early next week if patient improves psychiatrically.
[2022-03-21] MEDS: PRAZOSIN 1 MG CAP PO SCH (19:52)
[2022-03-21] MEDS: traZODone HCL 50 MG TAB PO SCH (19:53)
[2022-03-21] MEDS ORDERED: QUEtiapine 100 MG TAB PO SCH (21:00)
[2022-03-22] MEDS: MAG HYDROX/AL HYDROX/SIMETH 30 ML CUP PO PRN (03:30)
[2022-03-22 03:33] VITALS: RESP 14
[2022-03-22] MEDS: QUEtiapine 100 MG TAB PO SCH (08:20)
[2022-03-22] MEDS: NICOTINE 21MG/24HR PATCH TRANSDERM SCH (08:20)
[2022-03-22] MEDS: ESCITALOPRAM 20 MG TAB PO SCH (08:20)
[2022-03-22] MEDS: hydrOXYzine pamoate 25 MG CAP PO PRN ×3 (08:36→20:56)
--- NOTE | 2022-03-22 10:13 | P.PN ---
Progress Note - Text Progress Note Date: 03/22/22 Interval History: Patient was seen wandering the hallways and was directable and agreeable to sp efe with grant writer in the office. Patient continues to complain that she is still hearing voices. She states that the voices were distressing for her however states that the Seroquel has been definitely helping her. She claims that she does feel anxious during the day and was using Vistaril which has been helping. She was fairly focused on her medications. She states that she slept about 4 hours last night which were interrupted by voices. She states that she did not have nightmares any longer. She claims that she is feeling more optimistic about her medications and was willing to have them increased. She states that she has been going to some groups. She claims that her mood has been gradually improving. At this time patient denies any suicidal or homical ideations, intent or plan. Patient denies any visual hallucinations and denies any paranoia or delusions. Patient denies any side effects from the medications and has been compliant with meds. Mental Status Exam: General Appearance: Patient appears to have several tattoos, unkempt, stated age is alert, directable, and attempts to cooperate. Patient appears to have improving hygiene and grooming. Behavior: Patient is seated without any agitated behavior. Attempts to cooperate. Speech: Patient's speech is fluent and nonpressured. Mood/Affect: Patient reports their mood is improving, affect is congruent Suicidality/Homicidality: Patient denies having any homicidal ideation intent or plan. Denies any suicidal ideations intent or plan Perceptions: Patient denies any visual hallucinations and admits to auditory camille lucinations Though content/process: Patient is logical, not endorsing any delusions at this time. Focused on medications. Memory and concentration: AOX3, grossly intact for the purposes of this session Judgment and insight: improving mildly IMPRESSIONS: Major depressive disorder, with psychotic features Traumatic brain injury Cannabis use disorder mild Nicotine dependence Plan: -Patient continues to meet criteria for inpatient psychiatric admission for symptom stabilization and safety. Patient has signed adult voluntary form and medication consent and was placed in patient's chart. -Medications: increase Seroquel 400 mg qhs for psychosis/insomnia + 100 mg daily. Lexapro to 20 mg daily for mood/anxiety. increase Vistaril to 50 mg q8hr prn for anxiety. trazodone 150 mg qhs prn for insomnia. continue with prazosin 1 mg qhs for nightmares. -When necessary Ativan and Haldol for agitation/aggression. -NRT - nicotine patch -SW on board for discharge planning. Encouraged the patient to participate in milieu. likely discharge tomorrow back home.
[2022-03-22] MEDS ORDERED: QUEtiapine 100 MG TAB PO SCH (12:00)
[2022-03-22] MEDS: PRAZOSIN 1 MG CAP PO SCH (20:08)
[2022-03-22] MEDS: traZODone HCL 50 MG TAB PO SCH (20:09)
[2022-03-22] MEDS ORDERED: QUEtiapine 400 MG TAB PO SCH (21:00)
[2022-03-22] MEDS: IBUPROFEN 600 MG TAB PO PRN (23:37)
[2022-03-23 07:17] VITALS: BP 109/65; TEMP 97.9
[2022-03-23] MEDS: NICOTINE 21MG/24HR PATCH TRANSDERM SCH (07:51)
[2022-03-23] MEDS: ESCITALOPRAM 20 MG TAB PO SCH (07:52)
[2022-03-23] MEDS: QUEtiapine 100 MG TAB PO SCH (07:52)
[2022-03-23] MEDS: hydrOXYzine pamoate 25 MG CAP PO PRN (07:53)
--- NOTE | 2022-03-23 09:22 | P.DS ---
Providers Date of admission: 03/15/22 23:45 Expected date of discharge: 03/23/22 Attending physician: Jhonny Rodriguez MD Consults: 03/15/22 22:24 Consult Physician Routine Consulting Provider: Ayaan Physician Consult Reason/Comments: H and P Do you want consulting provider notified?: Yes, Notify in am Primary care physician: Adore Boo MD - Discharge Diagnosis(es) (1) Major depressive disorder with psychotic features Current Visit: Yes Status: Acute Priority: High (2) Traumatic brain injury Current Visit: Yes Status: Acute Priority: Medium (3) Cannabis use disorder, mild, abuse Current Visit: Yes Status: Acute Priority: Medium (4) Nicotine dependence Current Visit: Yes Status: Acute Priority: Low Hospital Course: Admission HPI: Admission note was completed by database report writer "Patient is a 36-year-old female who currently lives with her mother and one son. She is single and unemployed. Patient presented to the hospital yesterday for psychiatric evaluation and was brought in by EMS and police. Patient was brought in on a petition and certificate. The petition was completed by patient's mother states that "patient is a potential harm to self/others, noncompliance with therapy/medication. Patient endorses suicidal ideations paranoia/delusional". Patient was evaluated in the ER and was aggressive and agitated and required prn medications for agitation. Patient apparently has a history of polysubstance abuse. Patient apparently called 911 and reported that she was suicidal. Patient was also evaluated and believed that she was psychotic. Patient's UDS was positive for TCAs, benzodiazepines and THC. Patient was seen wandering the hallways and agreeable to speak to database report writer today. She appeared to be fairly calm and directable during conversation. She states that she is very distressed due to hearing "a lot of voices". She states that this is going on for the past 4-5 years. She states that the voices were telling her negative things about her and also telling her to "shoot myself". She states that she has a history of a brain injury and was "headed in the head a couple of times". She states that she was " for 18 minutes" before being revised back to life by doctors. She states that she has anxiety and depression at this time. She states that she was taking Seroquel however "it was not enough" and was not being followed by a psychiatrist. She states that she does have mild mood swings at times. She is endorsing poor sleep, fair appetite. Patient denies any suicidal or homicidal ideations intent or plan. At this time patient denies any current auditory or visual hallucinations. Patient denies any flight of ideas racing thoughts and increased in goal directed behavior. Patient admits to using marijuana occas ionally and cigarettes daily. She denies any other recreational drug use." Hospital course: Upon admission to the unit patient was directable and agreeable to commence treatment and signed adult voluntary form . Patient got along well with other patients on the unit and followed unit protocol. Patient was compliant with the medications and denied any side effects throughout hospital course. Patient was started on Seroquel and increased her dose of 400 mg daily at bedtime +100 mg daily for psychosis/insomnia. Patient is also stressed restarted back on Lexapro and increased her dose of 20 mg daily for mood/anxiety. Patient was also started on trazodone increased to a dose of 150 mg daily at bedtime for insomnia. Patient was also started on prazosin 1 mg daily at bedtime for nightmares and Vistaril when necessary for anxiety. Patient spoke of her stressors and engaged in therapy both group and individual. Patient was also seen by medical team for history and physical exam. Throughout the course of the hospitalization patient gradually improved with regards to mood, anxiety, psychosis, sleep and became more future oriented with improved insight and judgment. On the day of discharge patient denied any suicidal or homicidal ideations intent or plan denied any auditory or visual hallucinations. Patient endorsed wanting to live for her health and her future. The patient denied any access to guns or weapons. Patient denied any paranoia and did not endorse any delusions. Patient does have a significant history of substance abuse and was counseled on abstaining from all substances including alcohol and marijuana. Patient elected to do outpatient substance use treatment program through [facility]. Patient was also counseled on the medications and need for regular compliance a nd was encouraged to follow-up with their outpatient appointment for mental health and also for primary care. Prior to discharge a family meeting will be arranged by social insurance specialist to answer any questions and ensure safety upon discharge. Mental status exam: General Appearance: Patient appears to be stated age is alert, pleasant, and cooperative. Patient is in no acute distress and has improved hygiene and grooming Behavior: Patient is calmly seated without any agitated behavior. Speech: Patient's speech is fluent and nonpressured. Mood/Affect: Patient reports their mood is "better", affect is congruent and euthymic. Suicidality/Homicidality: Patient denies having any suicidal or homicidal ideation intent or plan. Perceptions: Patient denies any auditory or visual hallucinations. Though content/process: There is no evidence of any delusional thought content and thought process is linear and goal-directed. more future oriented Memory and concentration: AOX3, grossly intact for the purposes of this session. Can spell "WORLD" backwards correctly. Judgment and insight: chronically poor, however has improved with guarded prognosis Impression: Major depressive disorder, with psychotic features Traumatic brain injury Cannabis use disorder mild Nicotine dependence Plan: -Continue with discharge today as patient has improved and stabilized psychiatrically and is not currently an imminent threat to herself and/or others. -Continue medications: Seroquel 400 mg daily at bedtime +100 mg daily for psychosis/insomnia, Lexapro 20 mg daily for mood/anxiety, Vistaril 50 mg twice a day when necessary for anxiety, trazodone 150 mg daily at bedtime for insomnia, prazosin 1 mg daily at bedtime for nightmares. -Patient was counseled on the need for medication compliance and appropriate follow-up at mental health and also primary care for medical issues. Patient verbalized understanding and agreed. -Social work to arrange for and conduct family meeting to ensure safety upon d ischarge and answer any questions/concerns. Social work also to arrange for patients follow up appointments with [facility] for psychiatric care along with follow up with primary care provider. -Patient counseled on abstaining from recreational drugs and marijuana and alcohol. Was informed/educated on the adverse effects on their physical and mental health. Patient verbally agreed and understood. -Patient was instructed to return to the hospital or seek immediate medical care if their psychiatric or medical symptoms do worsen or reoccur. Allergies Allergy/AdvReac Type Severity Reaction Status Date / Time No Known Allergies Allergy Verified 03/20/22 16:23 Laboratory Results WBC 11.8 k/uL (3.8-10.6) H 03/14/22 14:02 RBC 4.55 m/uL (3.80-5.40) 03/14/22 14:02 Hgb 13.4 gm/dL (11.4-16.0) 03/14/22 14:02 Hct 41.7 % (34.0-46.0) 03/14/22 14:02 MCV 91.7 fL (80.0-100.0) 03/14/22 14:02 MCH 29.4 pg (25.0-35.0) 03/14/22 14:02 MCHC 32.1 g/dL (31.0-37.0) 03/14/22 14:02 RDW 13.3 % (11.5-15.5) 03/14/22 14:02 Plt Count 364 k/uL (150-450) 03/14/22 14:02 MPV 7.2 03/14/22 14:02 Neutrophils % 84 % 03/14/22 14:02 Lymphocytes % 10 % 03/14/22 14:02 Monocytes % 4 % 03/14/22 14:02 Eosinophils % 1 % 03/14/22 14:02 Basophils % 0 % 03/14/22 14:02 Neutrophils # 9.8 k/uL (1.3-7.7) H 03/14/22 14:02 Lymphocytes # 1.2 k/uL (1.0-4.8) 03/14/22 14:02 Monocytes # 0.5 k/uL (0-1.0) 03/14/22 14:02 Eosinophils # 0.1 k/uL (0-0.7) 03/14/22 14:02 Basophils # 0.1 k/uL (0-0.2) 03/14/22 14:02 Sodium 139 mmol/L (137-145) 03/16/22 08:17 Potassium 4.3 mmol/L (3.5-5.1) 03/16/22 08:17 Chloride 109 mmol/L (98-107) H 03/16/22 08:17 Carbon Dioxide 20 mmol/L (22-30) L 03/16/22 08:17 Anion Gap 10 mmol/L 03/16/22 08:17 BUN 12 mg/dL (7-17) 03/16/22 08:17 Creatinine 0.69 mg/dL (0.52-1.04) 03/16/22 08:17 Est GFR (CKD-EPI)AfAm >90 (>60 ml/min/1.73 sqM) 03/16/22 08:17 Est GFR (CKD-EPI)NonAf >90 (>60 ml/min/1.73 sqM) 03/16/22 08:17 Glucose 93 mg/dL (74-99) 03/16/22 08:[address] Glu mg/dL 104 03/16/22 08:17 Hemoglobin A1c 5.3 % (0.0-6.0) 03/16/22 08:17 Calcium 9.0 mg/dL (8.4-10.2) 03/16/22 08:17 Total Bilirubin 0.1 mg/dL (0.2-1.3) L 03/16/22 08:17 AST 31 U/L (14-36) 03/16/22 08:17 ALT 20 U/L (4-34) 03/16/22 08:17 Alkaline Phosphatase 46 U/L (38-126) 03/16/22 08:17 Creatine Kinase 297 U/L (30-135) H 03/14/22 14:02 Total Protein 6.9 g/dL (6.3-8.2) 03/16/22 08:17 Albumin 4.5 g/dL (3.5-5.0) 03/16/22 08:17 Triglycerides 126.00 mg/dL (0.00-149.00) 03/16/22 08:17 Cholesterol 200.00 mg/dL (0.00-200.00) 03/16/22 08:17 LDL Cholesterol, Calc 138.4 mg/dL (0.0-131.0) H 03/16/22 08:17 VLDL Cholesterol, Calc 25.20 mg/dL (5.00-40.00) 03/16/22 08:17 HDL Cholesterol 36.40 mg/dL (40.00-60.00) L 03/16/22 08:17 Cholesterol/HDL Ratio 5.49 Ratio 03/16/22 08:17 TSH 2.730 mIU/L (0.465-4.680) 03/16/22 08:17 HCG, Quant <2.4 mIU/mL 03/14/22 14:02 Urine Color Yellow 03/15/22 22:49 Urine Appearance Clear (Clear) 03/15/22 22:49 Urine pH 5.0 (5.0-8.0) 03/15/22 22:49 Ur Specific Holley 1.012 (1.001-1.035) 03/15/22 22:49 Urine Protein Negative (Negative) 03/15/22 22:49 Urine Glucose (UA) Negative (Negative) 03/15/22 22:49 Urine Ketones Negative (Negative) 03/15/22 22:49 Urine Blood Trace (Negative) H 03/15/22 22:49 Urine Nitrite Negative (Negative) 03/15/22 22: Urine Bilirubin Negative (Negative) 03/15/22 22: Urine Urobilinogen <2.0 mg/dL (<2.0) 03/15/22 22: Ur Leukocyte Esterase Negative (Negative) 03/15/22 22:49 Urine RBC <1 /hpf (0-5) 03/15/22 22:49 Urine WBC 1 /hpf (0-5) 03/15/22 22:49 Ur Squamous Epith Cells 1 /hpf (0-4) 03/15/22 22:49 Urine Bacteria Rare /hpf (None) H 03/15/22 22:49 Urine Mucus Rare /hpf (None) H 03/15/22 22:49 Urine HCG, Qual Not Detected (Not Detectd) 03/15/22 22:49 Urine Opiates Screen Not Detected (NotDetected) 03/14/22 14:02 Ur Oxycodone Screen Not Detected (NotDetected) 03/14/22 14:02 Urine Methadone Screen Not Detected (NotDetected) 03/14/22 14:02 Ur Propoxyphene Screen Not Detected (NotDetected) 03/14/22 14:02 Ur Barbiturates Screen Not Detected (NotDetected) 03/14/22 14:02 U Tricyclic Antidepress Detected (NotDetected) H 03/14/22 14:02 Ur Phencyclidine Scrn Not Detected (NotDetected) 03/14/22 14:02 Ur Amphetamines Screen Not Detected (NotDetected) 03/14/22 14:02 U Methamphetamines Scrn Not Detected (NotDetected) 03/14/22 14:02 U Benzodiazepines Scrn Detected (NotDetected) H 03/14/22 14:02 Urine Cocaine Screen Not Detected (NotDetected) 03/14/22 14:02 U Marijuana (THC) Screen Detected (NotDetected) H 03/14/22 14:02 Coronavirus (PCR) Not Detected (Not Detectd) 03/14/22 14:02 Vital Signs Temp 97.9 F 03/23/22 07:16 Pulse 91 03/23/22 07:16 Resp 14 03/22/22 03:32 BP 109/65 03/23/22 07:16 Pulse Ox 97 03/23/22 07:16 FiO2 Patient Condition at Discharge: Stable Plan - Discharge Summary Discharge Rx Participant: No New Discharge Prescriptions: New Escitalopram [Lexapro] 20 mg PO DAILY 30 Days tab Ibuprofen [Motrin] 600 mg PO QID PRN 14 Days tab PRN Reason: Moderate Pain Benzocaine 20 % Gel [Orajel] 1 applic MM Q8H PRN #0 each PRN Reason: Toothache QUEtiapine [SEROquel] 100 mg PO DAILY 30 Days tab QUEtiapine [SEROquel] 400 mg PO HS 30 Days tab hydrOXYzine pamoate [Vistaril] 50 mg PO BID PRN 14 Days cap PRN Reason: Anxiety Nicotine 21Mg/24Hr Patch [Habitrol] 1 patch TRANSDERM DAILY 14 Days patch Prazosin [Minipress] 1 mg PO HS 30 Days cap traZODone HCL 150 mg PO HS 30 Days tablet Discontinued QUEtiapine [SEROquel] 50 mg PO BID Escitalopram [Lexapro] 10 mg PO DAILY Discharge Medication List Benzocaine 20 % Gel [Orajel] 1 applic MM Q8H PRN #0 each 03/23/22 [Rx] Escitalopram [Lexapro] 20 mg PO DAILY 30 Days tab 03/23/22 [Rx] Ibuprofen [Motrin] 600 mg PO QID PRN 14 Days tab 03/23/22 [Rx] Nicotine 21Mg/24Hr Patch [Habitrol] 1 patch TRANSDERM DAILY 14 Days patch 03/23/22 [Rx] Prazosin [Minipress] 1 mg PO HS 30 Days cap 03/23/22 [Rx] QUEtiapine [SEROquel] 100 mg PO DAILY 30 Days tab 03/23/22 [Rx] QUEtiapine [SEROquel] 400 mg PO HS 30 Days tab 03/23/22 [Rx] hydrOXYzine pamoate [Vistaril] 50 mg PO BID PRN 14 Days cap 03/23/22 [Rx] traZODone HCL 150 mg PO HS 30 Days tablet 03/23/22 [Rx] Follow up Appointment(s)/Referral(s): Adore Boo MD [Primary Care Provider] - 1-2 days Activity/Diet/Wound Care/Special Instructions: Activity and diet as tolerated. Avoid the use of street drugs and alcohol. Take all medications as prescribed. When you are in need of refills on your medications please contact your medical provider and/or outpatient psychiatrist to have this done. Please go to scheduled outpatient appointment for aftercare treatment. If symptoms return or become worse, call the crisis line at and/or go to the nearest emergency room for evaluation Discharge Disposition: HOME SELF-CARE
== END 2022-03-23 15:46 | disposition home or self-care (01) | DRG 885 ==
LOC: EC 13:06 → 3MHU 03-15 23:45
PROVIDERS: ADMIT Psychiatry & Neurology Psychiatry; ATTEND Psychiatry & Neurology Psychiatry
DX: F33.3 Major depressive disorder, recurrent, severe with psychotic symptoms (principal); F23 Brief psychotic disorder; R45.851 Suicidal ideations; F12.90 Cannabis use, unspecified, uncomplicated; F17.210 Nicotine dependence, cigarettes, uncomplicated; F41.9 Anxiety disorder, unspecified; F51.5 Nightmare disorder; G47.00 Insomnia, unspecified; S06.9X9S Unspecified intracranial injury with loss of consciousness of unspecified duration, sequela; Z20.822 Contact with and (suspected) exposure to COVID-19; Z79.899 Other long term (current) drug therapy; Z91.410 Personal history of adult physical and sexual abuse
CPT/HCPCS: 36415; 80048; 80053; 80061; 80306; 81001; 81025; 82075; 82550; 83036; 84443; 84702; 85025; 87635; 93005; 96372; 99285

== ENCOUNTER 2022-04-19 21:12 | Inpatient (IN) | payer OTHER ==
--- NOTE | 2022-04-19 21:53 | ED ---
Overdose HPI - General Chief Complaint: Overdose Stated Complaint: Overdose Time Seen by Provider: 04/19/22 21:22 Source: patient, RN notes reviewed, old records reviewed Mode of arrival: EMS Limitations: altered mental status, physical limitation - History of Present Illness Initial Comments: This is a 36-year-old female the emergency department for evaluation of an suspected are unknown overdose. There is opiate involved as she did respond to Narcan per EMS. Patient does have a mild psychiatric history unsure of any other history and patient is unwilling and unable to participate history taking MD Complaint: accidental overdose -: unknown Intent: unwilling to say How Overdose Was Discovered: family/friend present at time, called 911 Context: Intentional Overdose: drug/ETOH problems Context: Accidental Overdose: wanted to get high Associated Symptoms: depression Treatments Prior to Arrival: narcan - Related Data Home Medications Medication Instructions Recorded Confirmed Nicotine 21Mg/24Hr Patch [Habitrol] 1 patch TRANSDERM DAILY PRN 04/19/22 04/19/22 Prazosin HCl [Minipress] 2 mg PO HS 04/19/22 04/19/22 hydrOXYzine HCL [Atarax] 50 mg PO BID PRN 04/19/22 04/19/22 Previous Rx's Medication Instructions Recorded Benzocaine 20 % Gel [Orajel] 1 applic MM Q8H PRN #0 each 03/23/22 Escitalopram [Lexapro] 20 mg PO DAILY 30 Days tab 03/23/22 Ibuprofen [Motrin] 600 mg PO QID PRN 14 Days tab 03/23/22 QUEtiapine [SEROquel] 100 mg PO DAILY 30 Days tab 03/23/22 QUEtiapine [SEROquel] 400 mg PO HS 30 Days tab 03/23/22 traZODone HCL 150 mg PO HS 30 Days tablet 03/23/22 Allergies Allergy/AdvReac Type Severity Reaction Status Date / Time No Known Allergies Allergy Verified 04/19/22 21:42 Review of Systems ROS Statement: Those systems with pertinent positive or pertinent negative responses have been documented in the HPI. ROS Other: All systems not noted in ROS Statement are negative. Past Medical History Past Medical History: No Reported History History of Any Multi-Drug Resistant Organisms: None Reported Past Surgical History: No Surgical Hx Reported Past Psychological History: Anxiety, Depression Smoking Status: Current every day smoker Past Alcohol Use History: Occasional Past Drug Use History: Heroin, Marijuana General Exam Limitations: altered mental status, physical limitation General appearance: anxious, lethargic, obtunded, in distress Head exam: Present: atraumatic, normocephalic, normal inspection Eye exam: Present: normal appearance, PERRL, EOMI. Absent: scleral icterus, conjunctival injection, periorbital swelling ENT exam: Present: normal exam, mucous membranes moist Neck exam: Present: normal inspection. Absent: tenderness, meningismus, lymphadenopathy Respiratory exam: Present: normal lung sounds bilaterally. Absent: respiratory distress, wheezes, rales, rhonchi, stridor Cardiovascular Exam: Present: regular rate, normal rhythm, normal heart sounds. Absent: systolic murmur, diastolic murmur, rubs, gallop, clicks GI/Abdominal exam: Present: soft, normal bowel sounds. Absent: distended, tenderness, guarding, rebound, rigid Extremities exam: Present: normal inspection, full ROM, normal capillary refill. Absent: tenderness, pedal edema, joint swelling, calf tenderness Back exam: Present: normal inspection Neurological exam: Present: alert, oriented X3, CN II-XII intact Psychiatric exam: Present: normal affect, normal mood Skin exam: Present: warm, dry, intact, normal color. Absent: rash Course Vital Signs 04/19/22 04/19/22 21:41 22:55 Temperature 97.3 F L Pulse Rate 95 Respiratory 16 2 L Rate Blood Pressure 118/78 O2 Sat by Pulse 96 Oximetry - Reevaluation(s) Reevaluation #1: 04/19/22 22:28 Records reviewed Reevaluation #2: 04/19/22 22:28 Condition initially leaning towards discharge her wanting to elope but then became significantly somnolent and less responsive and rest for drive continue to diminish patient required more Narcan Medical Decision Making - Medical Decision Making 36 female will be admitted for monitoring, recurrent OD, somnolence, becoming apneic requiring narcan more than 2x. - Lab Data Result diagrams: 04/19/22 22:51 04/19/22 22:51 Lab Results 04/19/22 04/19/22 Range/Units 22:51 22:51 WBC 28.5 H (3.8-10.6) k/uL RBC 4.07 (3.80-5.40) m/uL Hgb 12.6 (11.4-16.0) gm/dL Hct 38.1 (34.0-46.0) % MCV 93.5 (80.0-100.0) fL MCH 31.0 (25.0-35.0) pg MCHC 33.2 (31.0-37.0) g/dL RDW 13.3 (11.5-15.5) % Plt Count 354 (150-450) k/uL MPV 7.6 Neutrophils % 88 % Lymphocytes % 6 % Monocytes % 5 % Eosinophils % 1 % Basophils % 1 % Neutrophils # 25.0 H (1.3-7.7) k/uL Lymphocytes # 1.6 (1.0-4.8) k/uL Monocytes # 1.3 H (0-1.0) k/uL Eosinophils # 0.3 (0-0.7) k/uL Basophils # 0.2 (0-0.2) k/uL Sodium 140 (137-145) mmol/L Potassium 4.5 (3.5-5.1) mmol/L Chloride 105 (98-107) mmol/L Carbon Dioxide 27 (22-30) mmol/L Anion Gap 8 mmol/L BUN 16 (7-17) mg/dL Creatinine 0.98 (0.52-1.04) mg/dL Est GFR (CKD-EPI)AfAm 85 (>60 ml/min/1.73 sqM) Est GFR (CKD-EPI)NonAf 74 (>60 ml/min/1.73 sqM) Glucose 99 (74-99) mg/dL Calcium 9.0 (8.4-10.2) mg/dL Total Bilirubin 0.2 (0.2-1.3) mg/dL AST 59 H (14-36) U/L ALT 39 H (4-34) U/L Alkaline Phosphatase 61 (38-126) U/L Total Protein 7.5 (6.3-8.2) g/dL Albumin 4.9 (3.5-5.0) g/dL Lipase 67 (23-300) U/L Salicylates <1.0 mg/dL Acetaminophen <10.0 ug/mL Serum Alcohol <10 mg/dL Critical Care Time Critical Care Time: Yes Total Critical Care Time: 31 Disposition Clinical Impression: Drug overdose, Accidental drug overdose, Poisoning by opiates and related narcotics, other Disposition: ADMITTED IP TO THIS HOSP Condition: Fair Instructions (If sedation given, give patient instructions): Adult Overdose (ED) Is patient prescribed a controlled substance at d/c from ED?: No Referrals: None,Stated [Primary Care Provider] - 1-2 days Time of Disposition: 23:05
[2022-04-19] MEDS ORDERED: SODIUM CHLORIDE 0.9% 1,000 ML IV STA (22:22)
[2022-04-19] MEDS ORDERED: NALOXONE 0.4 MG/ML 1 ML VIAL IM STA (22:22)
[2022-04-19 23:02] LABS: Basophils # (A) 0.2 k/uL (0-0.2); Basophils % (A) 1 %; Eosinophils # (A) 0.3 k/uL (0-0.7); Eosinophils % (A) 1 %; HCT 38.1 % (34.0-46.0); HGB 12.6 gm/dL (11.4-16.0); Lymphocytes # (A) 1.6 k/uL (1.0-4.8); Lymphocytes % (A) 6 %; MCHC 33.2 g/dL (31.0-37.0); MCV 93.5 fL (80.0-100.0); Mean Platelet Volume 7.6; Monocytes # (A) 1.3 k/uL (0-1.0); Monocytes % (A) 5 %; Neutrophils % (A) 88 %; Platelet Count 354 k/uL (150-450); RBC 4.07 m/uL (3.80-5.40); RDW 13.3 % (11.5-15.5); WBC 28.5 k/uL (3.8-10.6)
[2022-04-19 23:15] LABS: ALT 39 U/L (4-34); AST 59 U/L (14-36); Acetaminophen <10.0 ug/mL; African American GFR (CKD) 85 (>60 ml/min/1.73 sqM); Albumin 4.9 g/dL (3.5-5.0); Alcohol <10 mg/dL; Alkaline Phosphatase 61 U/L (38-126); Anion Gap 8 mmol/L; Blood Urea Nitrogen 16 mg/dL (7-17); Carbon Dioxide 27 mmol/L (22-30); Chloride 105 mmol/L (98-107); Glucose 99 mg/dL (74-99); Lipase 67 U/L (23-300); Non-African American GFR(CKD) 74 (>60 ml/min/1.73 sqM); Potassium 4.5 mmol/L (3.5-5.1); Salicylate <1.0 mg/dL; Sodium 140 mmol/L (137-145); Total Bilirubin 0.2 mg/dL (0.2-1.3); Total Protein 7.5 g/dL (6.3-8.2)
[2022-04-19] MEDS ORDERED: NALOXONE 0.4 MG/ML 1 ML VIAL IV PRN (23:18)
[2022-04-19] MEDS ORDERED: ONDANSETRON 4 MG/2 ML VIAL IVP PRN (23:18)
[2022-04-20 02:39] LABS: Amphetamine Screen,Urine Not Detected (NotDetected); Benzodiazepines Screen,Urine Not Detected (NotDetected); Cocaine Screen,Urine Not Detected (NotDetected); Opiate Screen,Urine Not Detected (NotDetected); Phencyclidine Screen,Urine Not Detected (NotDetected); Urn Cannabinoid Scrn Not Detected (NotDetected)
[2022-04-20 02:40] LABS: Barbiturate Screen,Urine Not Detected (NotDetected); Methadone Screen, Urine Not Detected (NotDetected); Oxycodone Screen, Urine Not Detected (NotDetected); Tricyclic Antidepressant,Urine Detected (NotDetected)
[2022-04-20] MEDS ORDERED: NICOTINE 14MG/24HR PATCH TRANSDERM STA (03:05)
[2022-04-20] MEDS ORDERED: LORazepam 2 MG/ML INJ IV STA (04:12)
[2022-04-20] MEDS ORDERED: LORazepam 2 MG/ML INJ IV PRN (04:12)
[2022-04-20] MEDS ORDERED: QUEtiapine 25 MG TAB PO STA (04:30)
[2022-04-20] MEDS ORDERED: LORazepam 1 MG/0.5 ML VIAL IV PRN (11:14)
[2022-04-20] MEDS: HALOPERIDOL LACTATE 5 MG/ML 1 ML VIAL IM PRN ×2 (12:35→21:21)
[2022-04-20 12:47] LABS: Basophils % (A) 0 %; Eosinophils % (A) 0 %; HCT 36.7 % (34.0-46.0); Lymphocytes # (A) 1.3 k/uL (1.0-4.8); Lymphocytes % (A) 8 %; MCH 31.2 pg (25.0-35.0); MCHC 32.8 g/dL (31.0-37.0); MCV 95.2 fL (80.0-100.0); Monocytes # (A) 0.8 k/uL (0-1.0); Monocytes % (A) 5 %; Neutrophils # (A) 14.2 k/uL (1.3-7.7); Neutrophils % (A) 86 %; Platelet Count 340 k/uL (150-450); RBC 3.85 m/uL (3.80-5.40); RDW 13.9 % (11.5-15.5); WBC 16.5 k/uL (3.8-10.6)
[2022-04-20 13:23] LABS: ALT 31 U/L (4-34); AST 38 U/L (14-36); African American GFR (CKD) >90 (>60 ml/min/1.73 sqM); Albumin 4.5 g/dL (3.5-5.0); Alkaline Phosphatase 60 U/L (38-126); Anion Gap 5 mmol/L; Blood Urea Nitrogen 14 mg/dL (7-17); Calcium 8.4 mg/dL (8.4-10.2); Carbon Dioxide 25 mmol/L (22-30); Chloride 107 mmol/L (98-107); Glucose 68 mg/dL (74-99); Non-African American GFR(CKD) >90 (>60 ml/min/1.73 sqM); Potassium 4.1 mmol/L (3.5-5.1); Sodium 137 mmol/L (137-145); Total Bilirubin 0.2 mg/dL (0.2-1.3); Total Protein 6.9 g/dL (6.3-8.2)
--- NOTE | 2022-04-20 14:09 | XR ---
EXAMINATION TYPE: XR chest 1V portable DATE OF EXAM: 04/20/2022 Comparison: 08/20/2016 Clinical History: 36-year-old female pneumonia Findings: Low lung volumes. Heart upper limits of normal in size. Increased interstitial and patchy bibasilar o pacities. No pleural effusion. Impression: Hypoventilatory changes. Increased interstitial density and patchy bibasilar infiltrates. Correlate f or underlying pneumonia.
--- NOTE | 2022-04-20 14:21 | HP ---
HISTORY AND PHYSICAL DATE OF SERVICE: 04/20/2022 CHIEF COMPLAINT: Overdose. HISTORY OF PRESENT ILLNESS: This 36-year-old woman with a past medical history of psychiatric problems and previous overdose, admitted with a history of overdose, possibly tricyclics. The patient is combative. Patient is confused. The patient unable to give coherent history. The patient is being closely monitored at this time. The white count is elevated. Urine drug screen is positive for tricyclics. PAST MEDICAL HISTORY: History of depression, schizophrenia, overdose. MEDICATIONS: Home medications reviewed and include: Minipress. Dose and the rest of the medications noted. ALLERGIES: None. Family history, social history and review of systems could not be taken because of patient's change in mental status. PHYSICAL EXAMINATION: Pulse is 85, blood pressure 123/82, respirations 16. HEENT: Conjunctivae normal. NECK: No JVD. CARDIOVASCULAR: S1, S2. RESPIRATION: Breath sounds diminished in the bases. A few scattered rhonchi. ABDOMEN: Soft, nontender. NERVOUS SYSTEM could not be examined completely. Moves all 4 limbs. SKIN: No ulcers, rashes or bleeding. JOINTS: No active deforming arthropathy. LYMPHATICS: No lymph nodes palpable in the neck, axillae or groin. LAB: WBC 28.2. ASSESSMENT: 1. Status post overdose. 2. Increased WBC. 3. History of anxiety, depression. 4. Schizophrenia. 5. History of previous substance abuse. RECOMMENDATIONS AND DISCUSSION: This 36 -year-old woman presented with multiple complex medical issues, we will monitor the patient closely. I recommend close monitoring. Haldol p.r.n. Repeat labs. UA with micro and portable chest x-ray. Otherwise psychiatric evaluation. Cultures. Guarded prognosis because of multiple complex medical issues. Further recommendations to follow. See orders for details. MMODL / IJN: [id number] /
--- NOTE | 2022-04-20 14:26 | P.CN ---
Psychiatric Consult - . Consult date: 04/20/22 Consult:: 04/20/22 14:25 IDENTIFYING DATA: This patient is a , unemployed, 36-year-old female with significant history of substance abuse who presented to the hospital after an overdose HISTORY OF PRESENT ILLNESS: The patient presented to the hospital on 04/19/1022, brought to the hospital by EMS for evaluation of a suspected overdose. The patient did receive Narcan and responded to this medication. The patient was subsequently admitted onto the medical floor. However, the patient was noted to be very agitated and violent requiring restraints and the administration of IM Haldol. The overdose was discovered by family/friend that was present at the time notified EMS services. Upon evaluation on the medical floor, the patient maintains that she was just trying to get high. She is denying that the overdose was with any intention to try and kill herself. She reports that she was using intranasal heroin. However when asked about suicidal ideation, the patient does admit to suicidal ideation and states that she was expressing some suicidal thoughts yesterday as well. She reports no homicidal ideation, intention, and/or plan. History is limited at this time as the patient appears to be quite delirious with waxing and waning cognition. She is unable to recall being agitated and violent toward staff earlier today. She is expressing a desire to eat. She is otherwise unable to provide any clear history of events leading up to this hospitalization. She reports that she "does not remember anything." PAST PSYCHIATRIC HISTORY: Patient has a history of major depressive disorder with psychotic features, traumatic brain injury, nicotine dependence, and cannabis use disorder. She was last discharged from our psychiatric unit in the beginning of March 2022 on a regimen of Lexapro, Seroquel, Vistaril, trazodone, and prazosin. The patient was hospitalized on our unit from 03/16/2022 to 03/23/2022. No reported past suicide attempts. PAST MEDICAL HISTORY: Past Medical History: No Reported History History of Any Multi-Drug Resistant Organisms: None Reported Past Surgical History: No Surgical Hx Reported Past Psychological History: Anxiety, Depression Smoking Status: Current every day smoker Past Alcohol Use History: Occasional Past Drug Use History: Heroin, Marijuana ALLERGIES: NO KNOWN DRUG ALLERGIES CHEMICAL DEPENDENCY HISTORY: The patient admits to cannabis use. She reports that she was using intranasal heroin. She is unable to answer any further questions regarding her chemical dependency history. FAMILY PSYCHIATRIC/SUBSTANCE USE HISTORY: Patient denies. SOCIAL HISTORY: Patient was born and raised in [place], [place] relocated to [place]. She moved to [place] at the age of 11. She completed up to ninth grade of school. 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 She has 1 son and currently lives with her mother. MENTAL STATUS EXAM: General Appearance: Patient appears to be stated age is with waxing and waning cognition. Patient appears to have disheveled hygiene and grooming wearing hospital gown with poor eye contact. There is blood all over her bed sheets. Behavior: Patient is seated upright in bed and currently in soft restraints. The patient displays psychomotor agitation. Speech: Patient's speech is repetitive, nonlinear and at times nonsensical. Mood/Affect: Patient reports their mood is "I'm okay", affect is confused. Suicidality/Homicidality: Patient admits to suicidal ideation and denies any homicidal ideation. Perceptions: Patient denies any visual hallucinations and denies any auditory hallucinations Though content/process: Patient appears to be grossly disorganized. Memory and concentration: Currently, the patient is alert and oriented to person and place only. She guesses the month to be March. Judgment and insight: Very poor. IMPRESSIONS: Overdose - suspected heroin overdose Opiate use disorder Major depressive disorder, as per history Traumatic brain injury Cannabis use disorder Nicotine dependence PLAN: -At this time, it is difficult to ascertain whether the patient is requiring inpatient psychiatric admission. She appears to be acutely under the influence substances or in substance withdrawal. We will continue to reassess the patient as to whether she will require inpatient psychiatric admission. -Delirium precautions recommended with patient including - avoiding use of narcotics and CLAIM EXAMINER sedatives, limit anticholinergic medications when possible, frequent re-orientation, minimize use of restraints, open window shades during the day and close them at night -Would recommend the following medication changes/additions: Agree with Haldol and Ativan for agitation. We will restart Seroquel at 100 mg at bedtime for mood stabilization/psychosis -Continue 1:1 sitter for safety -Cannot leave AMA at this time. Patient will need a petition and certification if attempting to leave AMA. -Will continue to follow along 04/20/22 14:25
[2022-04-20 18:08] LABS: Appearance,Urine Turbid (Clear); Bacteria,Urine Rare /hpf; Bilirubin,Urine Negative (Negative); Blood,Urine Negative (Negative); Calcium Oxalate Crystals,Urine Many /hpf; Color,Urine Yellow; Glucose,Urine (UA) Negative (Negative); Ketones,Urine Negative (Negative); Leukocyte Esterase,Urine Negative (Negative); Mucus,Urine Rare /hpf; Nitrite,Urine Negative (Negative); PH, Urine 5.5 (5.0-8.0); Protein,Urine Trace (Negative); RBC,Urine <1 /hpf (0-5); Specific Gravity,Urine 1.023 (1.001-1.035); Squamous Epithelial Cell,Urine 3 /hpf (0-4); Urobilinogen,Urine <2.0 mg/dL (<2.0)
[2022-04-20] MEDS ORDERED: QUEtiapine 100 MG TAB PO SCH (21:00)
[2022-04-21 08:29] LABS: Basophils % (A) 0 %; Eosinophils # (A) 0.1 k/uL (0-0.7); Eosinophils % (A) 2 %; HGB 11.6 gm/dL (11.4-16.0); Lymphocytes # (A) 1.3 k/uL (1.0-4.8); Lymphocytes % (A) 16 %; MCH 31.2 pg (25.0-35.0); MCHC 33.2 g/dL (31.0-37.0); MCV 93.8 fL (80.0-100.0); Mean Platelet Volume 7.3; Monocytes # (A) 0.5 k/uL (0-1.0); Monocytes % (A) 5 %; Neutrophils # (A) 6.3 k/uL (1.3-7.7); Neutrophils % (A) 75 %; Platelet Count 318 k/uL (150-450); RBC 3.73 m/uL (3.80-5.40); RDW 13.9 % (11.5-15.5); WBC 8.4 k/uL (3.8-10.6)
[2022-04-21 08:43] LABS: ALT 27 U/L (4-34); AST 49 U/L (14-36); African American GFR (CKD) >90 (>60 ml/min/1.73 sqM); Albumin 3.9 g/dL (3.5-5.0); Alkaline Phosphatase 53 U/L (38-126); Anion Gap 7 mmol/L; Blood Urea Nitrogen 8 mg/dL (7-17); Calcium 8.2 mg/dL (8.4-10.2); Carbon Dioxide 24 mmol/L (22-30); Chloride 103 mmol/L (98-107); Glucose 109 mg/dL (74-99); Non-African American GFR(CKD) >90 (>60 ml/min/1.73 sqM); Potassium 3.9 mmol/L (3.5-5.1); Sodium 134 mmol/L (137-145); Total Bilirubin 0.1 mg/dL (0.2-1.3); Total Protein 6.1 g/dL (6.3-8.2)
--- NOTE | 2022-04-21 13:59 | PN ---
PROGRESS NOTE DATE OF SERVICE: 04/21/2022 This 36-year-old woman was admitted with overdose is still combative and agitated. Psychiatry is following the patient closely. No fever. No cough. PHYSICAL EXAMINATION: Pulse is 88, blood pressure 120/80. Respirations 16. Chest: Clear to auscultation. Cardiovascular: S1, S2. Abdomen: Soft. Nervous system: No focal deficits. LABS: Reviewed. Sodium 134. Rest of the labs are reviewed. ASSESSMENT: 1. Status post overdose. 2. Increased WBC. 3. History of anxiety, depression. 4. Schizophrenia. 5. History of previous substance abuse. RECOMMENDATIONS AND DISCUSSION: I recommend to continue current medications, management and symptomatic treatment. Bebe Emmanuel. Otherwise, closely follow with Psychiatry. Further recommendations to follow. Prognosis guarded. MMODL / IJN: [id number] /
--- NOTE | 2022-04-21 14:02 | P.PN ---
Progress Note - Text Progress Note Date: 04/21/22 Interval History: Patient was seen resting in bed and was directable and agreeable to speak with director underwriter sales in her room. Currently, the patient vehemently denying any suicidal or homicidal ideation, intention, and/or plan. The patient states that this was an accidental overdose and that she just wanted to get high. She has been reiterating this statement since admission. The patient has been requesting to be placed back on her Seroquel in order to "calm her nerves." She is currently denying any auditory or visual hallucinations. She reports no paranoia or other delusions. The patient reports that she is feeling better today in regards to the substance use however appears to be pre-contemplative about quitting. She is not endorsing any other psychiatric symptoms at this time. She is tolerating her medications well. Mental Status Exam: General Appearance: Patient appears to be stated age is alert, directable, and cooperative. Behavior: Patient is calmly seated without any agitated behavior. Speech: Patient's speech is fluent and nonpressured. Mood/Affect: Mood is improving mildly, affect is congruent and constricted. Suicidality/Homicidality: Patient denies having any suicidal or homicidal ideation intent or plan. Perceptions: Patient denies any visual hallucinations and denies any auditory hallucinations Though content/process: There is no evidence of any delusional thought content and thought process is linear and goal-directed. Memory and concentration: AOX3, grossly intact for the purposes of this session Judgment and insight: Improving mildly Vital Signs Temp 98.3 F 04/21/22 04:00 Pulse 88 04/21/22 12:00 Resp 16 04/21/22 12:00 BP 124/82 04/21/22 12:00 Pulse Ox 95 04/21/22 12:00 FiO2 Intake & Output 04/20/22 04/21/22 04/21/22 18:59 06:59 18:59 Intake Total 120 600 118 Balance 120 600 118 Intake: Oral 120 600 118 Other: Voiding Method Toilet Toilet # Voids 5 # Bowel Movements 0 Laboratory Results - Last 24 Hours 04/20/22 04/21/22 04/21/22 17:00 06:47 06:47 WBC 8.4 RBC 3.73 L Hgb 11.6 Hct 35.0 MCV 93.8 MCH 31.2 MCHC 33.2 RDW 13.9 Plt Count 318 MPV 7.3 Neutrophils % 75 Lymphocytes % 16 Monocytes % 5 Eosinophils % 2 Basophils % 0 Neutrophils # 6.3 Lymphocytes # 1.3 Monocytes # 0.5 Eosinophils # 0.1 Basophils # 0.0 Sodium 134 L Potassium 3.9 Chloride 103 Carbon Dioxide 24 Anion Gap 7 BUN 8 Creatinine 0.69 Est GFR (CKD-EPI)AfAm >90 Est GFR (CKD-EPI)NonAf >90 Glucose 109 H Calcium 8.2 L Total Bilirubin 0.1 L AST 49 H ALT 27 Alkaline Phosphatase 53 Total Protein 6.1 L Albumin 3.9 Urine Color Yellow Urine Appearance Turbid H Urine pH 5.5 Ur Specific [place] 1.023 Urine Protein Trace H Urine Glucose (UA) Negative Urine Ketones Negative Urine Blood Negative Urine Nitrite Negative Urine Bilirubin Negative Urine Urobilinogen <2.0 Ur Leukocyte Esterase Negative Urine RBC <1 Ur Squamous Epith Cells 3 Calcium Oxalate Crystal Many H Urine Bacteria Rare H Urine Mucus Rare H Allergies Allergy/AdvReac Type Severity Reaction Status Date / Time No Known Allergies Allergy Verified 04/19/22 21:42 Assessment Overdose - suspected heroin overdose Opiate use disorder Major depressive disorder, as per history Traumatic brain injury Cannabis use disorder Nicotine dependence Plan: -At this time, the patient does not present with criteria for inpatient psychiatric admission. She is being maintained denying any suicidal or homicidal ideation, intention, and/or plan. It appears that her overdose was accidental and her primary diagnosis is substance use related. The patient will remain at chronically elevated risk compared to the general population due to her substance abuse however inpatient psychiatric admission is currently not warranted. -Delirium precautions recommended with patient including - avoiding use of narcotics and RISK INVESTIGATOR sedatives, limit anticholinergic medications when possible, frequent re-orientation, minimize use of restraints, open window shades during the day and close them at night -Would recommend the following medication changes/additions: We will restart the patient's Seroquel at 100 mg by mouth every morning and 400 mg at bedtime for mood stabilization Restart Lexapro 20 mg by mouth daily for depression/anxiety We will hold prazosin at this time as the patient has been hypotensive. -Continue 1:1 sitter for safety for now as the patient is a high elopement risk. Should the patient continued to display appropriate behavior, consider discontinuing sitter as per staff discretion. -Recommend outpatient psychiatric follow-up. Recommend the patient is also given resources for substance abuse rehabilitation or outpatient substance abuse treatment. However, the patient appears to be pre-contemplative at this time. -Psychiatry will sign off at this time. Please call us or reconsult us if necessary.
[2022-04-21] MEDS ORDERED: QUEtiapine 200 MG TAB PO SCH (21:00)
[2022-04-21] MEDS: NICOTINE 21MG/24HR PATCH TRANSDERM SCH (21:27)
[2022-04-22 05:42] VITALS: TEMP 98.7
[2022-04-22] MEDS: NICOTINE 21MG/24HR PATCH TRANSDERM SCH (08:52)
[2022-04-22 08:55] VITALS: BP 127/72; PULSE 85; RESP 16
[2022-04-22] MEDS ORDERED: QUEtiapine 100 MG TAB PO SCH (09:00)
[2022-04-22] MEDS ORDERED: ESCITALOPRAM 20 MG TAB PO SCH (09:00)
[2022-04-22 09:11] LABS: ALT 26 U/L (4-34); AST 42 U/L (14-36); African American GFR (CKD) >90 (>60 ml/min/1.73 sqM); Albumin 4.1 g/dL (3.5-5.0); Alkaline Phosphatase 54 U/L (38-126); Anion Gap 7 mmol/L; Blood Urea Nitrogen 13 mg/dL (7-17); Calcium 8.9 mg/dL (8.4-10.2); Carbon Dioxide 24 mmol/L (22-30); Chloride 105 mmol/L (98-107); Glucose 90 mg/dL (74-99); Non-African American GFR(CKD) >90 (>60 ml/min/1.73 sqM); Potassium 3.9 mmol/L (3.5-5.1); Sodium 136 mmol/L (137-145); Total Bilirubin 0.2 mg/dL (0.2-1.3); Total Protein 6.5 g/dL (6.3-8.2)
--- NOTE | 2022-04-22 18:32 | P.DS ---
Providers Date of admission: 04/19/22 23:18 Expected date of discharge: 04/22/22 Attending physician: Ravindra Person Consults: 04/19/22 23:18 Consult Physician Routine Consulting Provider: Jesse Benavidez Consult Reason/Comments: OD Do you want consulting provider notified?: Yes 04/20/22 12:08 Consult Physician Routine Consulting Provider: Psychiatry - [facility] Psych[facility]ry Consult Reason/Comments: overdose/history of overdose Do you want consulting provider notified?: Yes Primary care physician: Stated None Hospital Course: Final diagnosis Status post overdose Increased WBC History of anxiety and depression Schizophrenia History of previous substance abuse Discharge disposition Patient is being discharged in a stable condition with guarded prognosis to home. Patient will follow-up with Dr. Roche in the outpatient setting upon discharge. Patient is to follow up with [facility] as well. Total time taken is greater than 35 minutes. Hospital course This is a 36-year-old female who was recently admitted with overdose and altered mental status. Patient was evaluated by psychiatry and cleared to follow up in the outpatient setting. Patient was resumed on home dose of seroquel and recommend follow up with [facility] on discharge. Currently no reports of chest pain, shortness of breath, or palpitations. Patient is afebrile. No reports of nausea or vomiting and patient is tolerating diet. Patient will be discharged home today. Guarded prognosis as patient is high risk for readmissions and continued drug abuse. Physical Exam: On exam vital signs are stable. Cardio S1, S2 are muffled. Respiratory system shows diminished breath sounds at the bases with no wheezing or rhonchi noted. Abdomen is soft and obese, and nontender. Nervous system shows no focal deficits and steady gait. Please refer to medication reconciliation sheet for a list of medications. The impression and plan of care has been dictated by Sharon Hernandez, Nurse Practitioner as directed. Dr. Doyle MD I have performed a history and examination and MDM of this patient, discussed the same with the dictator, and agree with the dictator's assessment and plan as written ,documented as a scribe. Based on total visit time, I have performed more than 50% of the visit. Patient Condition at Discharge: Fair Plan - Discharge Summary New Discharge Prescriptions: Continue Escitalopram [Lexapro] 20 mg PO DAILY 30 Days tab Ibuprofen [Motrin] 600 mg PO QID PRN 14 Days tab PRN Reason: Moderate Pain Benzocaine 20 % Gel [Orajel] 1 applic MM Q8H PRN #0 each PRN Reason: Toothache QUEtiapine [SEROquel] 100 mg PO DAILY 30 Days tab QUEtiapine [SEROquel] 400 mg PO HS 30 Days tab Nicotine 21Mg/24Hr Patch [Habitrol] 1 patch TRANSDERM DAILY PRN PRN Reason: Nicotine Cravings hydrOXYzine HCL [Atarax] 50 mg PO BID PRN PRN Reason: Anxiety Discontinued traZODone HCL 150 mg PO HS 30 Days tablet Prazosin HCl [Minipress] 2 mg PO HS Discharge Medication List Benzocaine 20 % Gel [Orajel] 1 applic MM Q8H PRN #0 each 03/23/22 [Rx] Escitalopram [Lexapro] 20 mg PO DAILY 30 Days tab 03/23/22 [Rx] Ibuprofen [Motrin] 600 mg PO QID PRN 14 Days tab 03/23/22 [Rx] QUEtiapine [SEROquel] 100 mg PO DAILY 30 Days tab 03/23/22 [Rx] QUEtiapine [SEROquel] 400 mg PO HS 30 Days tab 03/23/22 [Rx] Nicotine 21Mg/24Hr Patch [Habitrol] 1 patch TRANSDERM DAILY PRN 04/19/22 [History] hydrOXYzine HCL [Atarax] 50 mg PO BID PRN 04/19/22 [History] Follow up Appointment(s)/Referral(s): Kristina Roche MD [STAFF PHYSICIAN] - 1 Week None,Stated [Primary Care Provider] - 1-2 days Patient Instructions/Handouts: Adult Overdose (ED) Activity/Diet/Wound Care/Special Instructions: Patient needs substance abuse and [facility] information for discharge Activity Limited until follow-up Follow-up with primary care provider on discharge Continue medications as prescribed Continue to hold Minipress due to lower blood pressures Continue current diet Follow-up with community mental health about substance use and counseling Discharge Disposition: HOME SELF-CARE
== END 2022-04-22 11:39 | disposition home or self-care (01) | DRG 918 ==
LOC: EC 21:12 → 3SCARD 23:18
PROVIDERS: ADMIT Hospitalist; ATTEND Hospitalist
DX: T40.602A Poisoning by unspecified narcotics, intentional self-harm, initial encounter (principal); F11.10 Opioid abuse, uncomplicated; F12.10 Cannabis abuse, uncomplicated; F17.210 Nicotine dependence, cigarettes, uncomplicated; R45.1 Restlessness and agitation; F20.9 Schizophrenia, unspecified; Z87.820 Personal history of traumatic brain injury; Z56.0 Unemployment, unspecified; Z28.310 Unvaccinated for COVID-19; Z28.21 Immunization not carried out because of patient refusal; Z78.1 Physical restraint status; Z79.899 Other long term (current) drug therapy
CPT/HCPCS: 36415; 71045; 80053; 80143; 80179; 80306; 80320; 81001; 81025; 83690; 85025; 87040; 94760; 96372; 99291

== ENCOUNTER 2022-10-27 19:33 | Inpatient (IN) | payer MEDICAID, OTHER ==
--- NOTE | 2022-10-27 22:20 | ED ---
Psych HPI - History of Present Illness MD Complaint: altered mental status -: unknown Associated Psychiatric Symptoms: racing thoughts, auditory hallucinations, visual hallucinations, delusions Quality: constant Improves With: none Worsens With: none Context: recent drug abuse Associated Symptoms: confusion Treatments Prior to Arrival: none <Omar Joaquin - Last Filed: 10/28/22 03:12> - General Source: patient, EMS Mode of arrival: EMS <Shanthi Solomon Jo - Last Filed: 11/04/22 01:12> - General Chief Complaint: Psychiatric Symptoms Stated Complaint: Mental Health Time Seen by Provider: 10/27/22 19:50 - History of Present Illness Initial Comments: 37-year-old female who presents to the emergency department accompanied by [facility]'s office. They were called for a domestic to the patient's house. She was there with her mother who called police. Mother that the patient smoked methamphetamine 3 days ago and has been hallucinating. She states that she has been scratching at the diane. Patient has been physically aggressive to her. The patient reports that that the devil has followed her since she was 4 years old. She has been hospitalized multiple times. The voice is telling her that she is worthless. She has multiple nonsensical statements such as "I punched god in the stomach". She denies concern for . Denies alcohol use. HPI is limited because of the patient's current mental status (JuanitoJoseShanthi Jo) - Related Data Previous Rx's Medication Instructions Recorded Ibuprofen [Motrin] 600 mg PO QID PRN 14 Days tab 03/23/22 Escitalopram [Lexapro] 20 mg PO DAILY 30 Days #30 tab 11/01/22 Nicotine 14Mg/24Hr Patch [Habitrol] 1 patch TRANSDERM DAILY 14 Days 11/01/22 #14 patch Prazosin [Minipress] 2 mg PO HS 30 Days #60 cap 11/01/22 QUEtiapine [SEROquel] 100 mg PO DAILY 30 Days #30 tab 11/01/22 QUEtiapine [SEROquel] 200 mg PO HS 30 Days #30 tab 11/01/22 hydrOXYzine pamoate [Vistaril] 50 mg PO DAILY PRN 30 Days #60 cap 11/01/22 traZODone HCL 150 mg PO HS PRN 30 Days #30 tablet 11/01/22 Allergies Allergy/AdvReac Type Severity Reaction Status Date / Time No Known Allergies Allergy Verified 10/28/22 04:27 Review of Systems ROS Other: All systems not noted in ROS Statement are negative. <Omar Joaquin - Last Filed: 10/28/22 03:12> ROS Other: All systems not noted in ROS Statement are negative. <Shanthi Solomon Jo - Last Filed: 11/04/22 01:12> ROS Statement: Those systems with pertinent positive or pertinent negative responses have been documented in the HPI. Past Medical History Past Medical History: No Reported History History of Any Multi-Drug Resistant Organisms: None Reported Past Surgical History: No Surgical Hx Reported Past Psychological History: Anxiety, Depression, Schizophrenia Additional Psychological History / Comment(s): Hallucinations Smoking Status: Current every day smoker Past Alcohol Use History: Occasional Past Drug Use History: Heroin, Marijuana, Methamphetamine <Shanthi Solomon Jo - Last Filed: 11/04/22 01:12> General Exam Limitations: altered mental status General appearance: alert, in no apparent distress, anxious Head exam: Present: atraumatic, normocephalic, normal inspection Eye exam: Present: normal appearance, PERRL, EOMI. Absent: scleral icterus, conjunctival injection, periorbital swelling ENT exam: Present: normal exam, mucous membranes moist Neck exam: Present: normal inspection. Absent: tenderness, meningismus, lymphadenopathy Respiratory exam: Present: normal lung sounds bilaterally. Absent: respiratory distress, wheezes, rales, rhonchi, stridor Cardiovascular Exam: Present: regular rate, normal rhythm, normal heart sounds. Absent: systolic murmur, diastolic murmur, rubs, gallop, clicks GI/Abdominal exam: Present: soft, normal bowel sounds. Absent: distended, tenderness, guarding, rebound, rigid Extremities exam: Present: normal inspection, full ROM, normal capillary refill. Absent: tenderness, pedal edema, joint swelling, calf tenderness Back exam: Present: normal inspection Neurological exam: Present: alert, oriented X3, CN II-XII intact Psychiatric exam: Present: normal affect, normal mood Skin exam: Present: warm, dry, intact, normal color. Absent: rash <Omar Joaquin - Last Filed: 10/28/22 03:12> Limitations: altered mental status General appearance: alert, in no apparent distress, anxious Head exam: Present: atraumatic, normocephalic, normal inspection Eye exam: Present: normal appearance, PERRL, EOMI. Absent: scleral icterus, conjunctival injection, periorbital swelling ENT exam: Present: normal exam, mucous membranes dry Neck exam: Present: normal inspection. Absent: tenderness, meningismus, lymphadenopathy Respiratory exam: Present: normal lung sounds bilaterally. Absent: respiratory distress, wheezes, rales, rhonchi, stridor Cardiovascular Exam: Present: normal rhythm, tachycardia, normal heart sounds. Absent: systolic murmur, diastolic murmur, rubs, gallop, clicks GI/Abdominal exam: Present: soft, normal bowel sounds. Absent: distended, tenderness, guarding, rebound, rigid Extremities exam: Present: normal inspection, full ROM, normal capillary refill. Absent: tenderness, pedal edema, joint swelling, calf tenderness Back exam: Present: normal inspection Neurological exam: Present: alert, oriented X3, CN II-XII intact Psychiatric exam: Present: agitated, anxious, manic Skin exam: Present: warm, dry, intact, normal color. Absent: rash <Shanthi Solomon - Last Filed: 11/04/22 01:12> Course <Omar Joaquin - Last Filed: 10/28/22 03:12> Vital Signs 10/27/22 19:39 Temperature 98.5 F Pulse Rate 102 H Respiratory 22 Rate O2 Sat by Pulse 95 Oximetry - Reevaluation(s) Reevaluation #1: 10/28/22 03:12 Medical records reviewed Medical clear for psychiatric evaluation (Omar Joaquin) Medical Decision Making <Omar Joaquin - Last Filed: 10/28/22 03:12> - Lab Data Result diagrams: 10/28/22 11:36 10/28/22 11:36 <Shanthi Solomon - Last Filed: 11/04/22 01:12> - Medical Decision Making 29 female will be admitted for psychiatric evaluation and treatment ( Omar Joaquin) Was pt. sent in by a medical professional or institution? police Did you speak to anyone other than the patient for history? EMS, police Did you review nursing and triage notes? yes and I agree Were old charts reviewed? yes, old ER visits Differential Diagnosis? depression, anxiety, SI, HI, drug use, alcoholism EKG interpreted by me (3pts min.)? no X-rays interpreted by me (1pt min.)? no] CT interpreted by me (1pt min.)? no U/S interpreted by me (1pt. min.)? no What testing was considered but not performed? (CT, X-rays, U/S, labs)? Why? none What meds were considered but not given? Why? sedation however patient is cooperative Did you discuss the management of the patient with other professionals? EPS nurse Did you reconcile home meds? yes Was smoking cessation discussed for >3mins.? yes Was critical care preformed (if so, how long)? no Were there social determinants of health that impacted care today? How? (Homelessness, low income, unemployed, alcoholism, drug addiction, transportatio n, low edu. Level, literacy, decrease access to med. care, usp, rehab)? drug addiction Was there de-escalation of care discussed even if they declined? (Discuss DNR or withdrawal of care, Hospice)? no What co-morbidities impacted this encounter? (DM, HTN, Smoking, COPD, CAD, Cancer, CVA, Hep., AIDS, mental health diagnosis, sleep apnea, morbid obesity)? poly drug abuse Was patient admitted / discharged? Upon arrival patient was placed into room 23. I did review the patient's physician by the police radio dispatcher. I evaluated the patient myself. Requested a urine sample. Patient is not intoxicated and therefore cleared for EPS evaluation at this time Undiagnosed new problem with uncertain prognosis? yes Drug Therapy requiring intensive monitoring for toxicity (Heparin, Nitro, Insulin, Cardizem)? no Were any procedures done? no Diagnosis/symptom? acute psychosis Acute, or Chronic, or Acute on Chronic? acute on chronic Uncomplicated (without systemic symptoms) or Complicated (systemic symptoms)? complicated Side effects of treatment? sedation Exacerbation, Progression, or Severe Exacerbation] exacerbation Poses a threat to life or bodily function? yes (Shanthi Solomon) - Lab Data Lab Results 10/28/22 10/28/22 10/28/22 Range/Units 00:32 00:32 02:03 Urine Color Yellow Urine Appearance Cloudy H (Clear) Urine pH 5.5 (5.0-8.0) Ur Specific [place] 1.032 (1.001-1.035) Urine Protein Trace H (Negative) Urine Glucose (UA) Negative (Negative) Urine Ketones Negative (Negative) Urine Blood Trace H (Negative) Urine Nitrite Negative (Negative) Urine Bilirubin Negative (Negative) Urine Urobilinogen <2.0 (<2.0) mg/dL Ur Leukocyte Esterase Negative (Negative) Urine RBC 1 (0-5) /hpf Urine WBC 1 (0-5) /hpf Ur Squamous Epith Cells 10 H (0-4) /hpf Hyaline Casts 1 (0-2) /lpf Urine Mucus Rare H (None) /hpf Urine HCG, Qual Not Detected (Not Detectd) Urine Opiates Screen Not Detected (NotDetected) Ur Oxycodone Screen Not Detected (NotDetected) Urine Methadone Screen Not Detected (NotDetected) Ur Propoxyphene Screen Not Detected (NotDetected) Ur Barbiturates Screen Not Detected (NotDetected) U Tricyclic Antidepress Detected H (NotDetected) Ur Phencyclidine Scrn Not Detected (NotDetected) Ur Amphetamines Screen Detected H (NotDetected) U Methamphetamines Scrn Detected H (NotDetected) U Benzodiazepines Scrn Not Detected (NotDetected) Urine Cocaine Screen Not Detected (NotDetected) U Marijuana (THC) Screen Not Detected (NotDetected) Coronavirus (PCR) Not Detected (Not Detectd) Disposition Is patient prescribed a controlled substance at d/c from ED?: No <Omar Joaquin - Last Filed: 10/28/22 03:12> <Shanthi Solomon A - Last Filed: 11/04/22 01:12> Clinical Impression: Drug overdose, Accidental drug overdose, Acute psychosis, Depression Disposition: TRANSFER TO PSYCH HOSP/UNIT Condition: Stable
[2022-10-28 01:20] LABS: Amphetamine Screen,Urine Detected (NotDetected); Barbiturate Screen,Urine Not Detected (NotDetected); Benzodiazepines Screen,Urine Not Detected (NotDetected); Cocaine Screen,Urine Not Detected (NotDetected); Methadone Screen, Urine Not Detected (NotDetected); Opiate Screen,Urine Not Detected (NotDetected); Oxycodone Screen, Urine Not Detected (NotDetected); Phencyclidine Screen,Urine Not Detected (NotDetected); Tricyclic Antidepressant,Urine Detected (NotDetected); Urn Cannabinoid Scrn Not Detected (NotDetected)
[2022-10-28 02:14] LABS: Appearance,Urine Cloudy (Clear); Bilirubin,Urine Negative (Negative); Blood,Urine Trace (Negative); Color,Urine Yellow; Glucose,Urine (UA) Negative (Negative); Hyaline Casts,Urine 1 /lpf (0-2); Ketones,Urine Negative (Negative); Leukocyte Esterase,Urine Negative (Negative); Mucus,Urine Rare /hpf; Nitrite,Urine Negative (Negative); PH, Urine 5.5 (5.0-8.0); Protein,Urine Trace (Negative); RBC,Urine 1 /hpf (0-5); Specific Gravity,Urine 1.032 (1.001-1.035); Squamous Epithelial Cell,Urine 10 /hpf (0-4); Urobilinogen,Urine <2.0 mg/dL (<2.0); WBC,Urine 1 /hpf (0-5)
[2022-10-28] MEDS ORDERED: HALOPERIDOL LACTATE 5 MG/ML 1 ML VIAL IM PRN (02:55)
[2022-10-28] MEDS ORDERED: ACETAMINOPHEN TAB 325 MG TAB PO PRN (02:55)
[2022-10-28] MEDS ORDERED: MAG HYDROX/AL HYDROX/SIMETH 30 ML CUP PO PRN (02:55)
[2022-10-28] MEDS ORDERED: MAGNESIUM HYDROXIDE 2,400 MG/10 ML CUP PO PRN (02:55)
[2022-10-28] MEDS ORDERED: haloperidoL 5 MG TAB PO PRN (02:59)
[2022-10-28] MEDS ORDERED: LORazepam 2 MG/ML INJ IM PRN (02:59)
[2022-10-28] MEDS: LORazepam 1 MG TAB PO PRN (03:40)
[2022-10-28] MEDS: traZODone HCL 50 MG TAB PO PRN ×2 (03:42→20:54)
[2022-10-28] MEDS: ESCITALOPRAM 20 MG TAB PO SCH (08:27)
[2022-10-28] MEDS: NICOTINE 14MG/24HR PATCH TRANSDERM SCH (08:27)
[2022-10-28 12:13] LABS: Basophils # (A) 0.1 k/uL (0-0.2); Basophils % (A) 1 %; Eosinophils # (A) 0.5 k/uL (0-0.7); Eosinophils % (A) 6 %; HCT 41.6 % (34.0-46.0); HGB 14.1 gm/dL (11.4-16.0); Lymphocytes # (A) 1.9 k/uL (1.0-4.8); Lymphocytes % (A) 22 %; MCHC 33.9 g/dL (31.0-37.0); MCV 85.8 fL (80.0-100.0); Mean Platelet Volume 7.4; Monocytes # (A) 0.6 k/uL (0-1.0); Monocytes % (A) 7 %; Neutrophils # (A) 5.2 k/uL (1.3-7.7); Neutrophils % (A) 62 %; Platelet Count 322 k/uL (150-450); RBC 4.85 m/uL (3.80-5.40); RDW 13.5 % (11.5-15.5); WBC 8.4 k/uL (3.8-10.6)
[2022-10-28 12:36] LABS: ALT 23 U/L (4-34); AST 30 U/L (14-36); African American GFR (CKD) >90 (>60 ml/min/1.73 sqM); Albumin 4.5 g/dL (3.5-5.0); Alkaline Phosphatase 55 U/L (38-126); Anion Gap 8 mmol/L; Blood Urea Nitrogen 23 mg/dL (7-17); Calcium 9.5 mg/dL (8.4-10.2); Carbon Dioxide 25 mmol/L (22-30); Chloride 107 mmol/L (98-107); Glucose 107 mg/dL (74-99); Non-African American GFR(CKD) >90 (>60 ml/min/1.73 sqM); Sodium 140 mmol/L (137-145); Total Bilirubin 0.4 mg/dL (0.2-1.3); Total Protein 7.2 g/dL (6.3-8.2)
[2022-10-28] MEDS ORDERED: hydrOXYzine pamoate 25 MG CAP PO PRN (14:40)
--- NOTE | 2022-10-28 14:42 | P.HP ---
Psychiatric H&P - . H&P Date: 10/28/22 History & Physical: Allergies Allergy/AdvReac Type Severity Reaction Status Date / Time No Known Allergies Allergy Verified 10/28/22 04:27 Vital Signs Temp 97.3 F L 10/28/22 03:31 Pulse 83 10/28/22 03:31 Resp 18 10/28/22 03:31 BP 129/56 10/28/22 03:31 Pulse Ox 98 10/28/22 03:31 FiO2 Intake & Output 10/27/22 10/28/22 10/28/22 18:59 06:59 18:59 Weight 74.3 kg Laboratory Last Values WBC 8.4 k/uL (3.8-10.6) 10/28/22 11:36 RBC 4.85 m/uL (3.80-5.40) 10/28/22 11:36 Hgb 14.1 gm/dL (11.4-16.0) 10/28/22 11:36 Hct 41.6 % (34.0-46.0) 10/28/22 11:36 MCV 85.8 fL (80.0-100.0) 10/28/22 11:36 MCH 29.0 pg (25.0-35.0) 10/28/22 11:36 MCHC 33.9 g/dL (31.0-37.0) 10/28/22 11:36 RDW 13.5 % (11.5-15.5) 10/28/22 11:36 Plt Count 322 k/uL (150-450) 10/28/22 11:36 MPV 7.4 10/28/22 11:36 Neutrophils % 62 % 10/28/22 11:36 Lymphocytes % 22 % 10/28/22 11:36 Monocytes % 7 % 10/28/22 11:36 Eosinophils % 6 % 10/28/22 11:36 Basophils % 1 % 10/28/22 11:36 Neutrophils # 5.2 k/uL (1.3-7.7) 10/28/22 11:36 Lymphocytes # 1.9 k/uL (1.0-4.8) 10/28/22 11:36 Monocytes # 0.6 k/uL (0-1.0) 10/28/22 11:36 Eosinophils # 0.5 k/uL (0-0.7) 10/28/22 11:36 Basophils # 0.1 k/uL (0-0.2) 10/28/22 11:36 Sodium 140 mmol/L (137-145) 10/28/22 11:36 Potassium 4.0 mmol/L (3.5-5.1) 10/28/22 11:36 Chloride 107 mmol/L (98-107) 10/28/22 11:36 Carbon Dioxide 25 mmol/L (22-30) 10/28/22 11:36 Anion Gap 8 mmol/L 10/28/22 11:36 BUN 23 mg/dL (7-17) H 10/28/22 11:36 Creatinine 0.81 mg/dL (0.52-1.04) 10/28/22 11:36 Est GFR (CKD-EPI)AfAm >90 (>60 ml/min/1.73 sqM) 10/28/22 11:36 Est GFR (CKD-EPI)NonAf >90 (>60 ml/min/1.73 sqM) 10/28/22 11:36 Glucose 107 mg/dL (74-99) H 10/28/22 11:36 Calcium 9.5 mg/dL (8.4-10.2) 10/28/22 11:36 Total Bilirubin 0.4 mg/dL (0.2-1.3) 10/28/22 11:36 AST 30 U/L (14-36) 10/28/22 11:36 ALT 23 U/L (4-34) 10/28/22 11:36 Alkaline Phosphatase 55 U/L (38-126) 10/28/22 11:36 Total Protein 7.2 g/dL (6.3-8.2) 10/28/22 11:36 Albumin 4.5 g/dL (3.5-5.0) 10/28/22 11:36 TSH 1.340 mIU/L (0.465-4.680) 10/28/22 11:36 Urine Color Yellow 10/28/22 00:32 Urine Appearance Cloudy (Clear) H 10/28/22 00:32 Urine pH 5.5 (5.0-8.0) 10/28/22 00:32 Ur Specific [place] 1.032 (1.001-1.035) 10/28/22 00:32 Urine Protein Trace (Negative) H 10/28/22 00:32 Urine Glucose (UA) Negative (Negative) 10/28/22 00:32 Urine Ketones Negative (Negative) 10/28/22 00:32 Urine Blood Trace (Negative) H 10/28/22 00:32 Urine Nitrite Negative (Negative) 10/28/22 00:32 Urine Bilirubin Negative (Negative) 10/28/22 00:32 Urine Urobilinogen <2.0 mg/dL (<2.0) 10/28/22 00:32 Ur Leukocyte Esterase Negative (Negative) 10/28/22 00:32 Urine RBC 1 /hpf (0-5) 10/28/22 00:32 Urine WBC 1 /hpf (0-5) 10/28/22 00:32 Ur Squamous Epith Cells 10 /hpf (0-4) H 10/28/22 00:32 Hyaline Casts 1 /lpf (0-2) 10/28/22 00:32 Urine Mucus Rare /hpf (None) H 10/28/22 00:32 Urine HCG, Qual Not Detected (Not Detectd) 10/28/22 00:32 Urine Opiates Screen Not Detected (NotDetected) 10/28/22 00:32 Ur Oxycodone Screen Not Detected (NotDetected) 10/28/22 00:32 Urine Methadone Screen Not Detected (NotDetected) 10/28/22 00:32 Ur Propoxyphene Screen Not Detected (NotDetected) 10/28/22 00:32 Ur Barbiturates Screen Not Detected (NotDetected) 10/28/22 00:32 U Tricyclic Antidepress Detected (NotDetected) H 10/28/22 00:32 Ur Phencyclidine Scrn Not Detected (NotDetected) 10/28/22 00:32 Ur Amphetamines Screen Detected (NotDetected) H 10/28/22 00:32 U Methamphetamines Scrn Detected (NotDetected) H 10/28/22 00:32 U Benzodiazepines Scrn Not Detected (NotDetected) 10/28/22 00:32 Urine Cocaine Screen Not Detected (NotDetected) 10/28/22 00:32 U Marijuana (THC) Screen Not Detected (NotDetected) 10/28/22 00:32 Coronavirus (PCR) Not Detected (Not Detectd) 10/28/22 02:03 10/28/22 13:53 IDENTIFYING DATA: Patient is a 37-year-old female who currently lives with her mother in a house, has 1 son. She is single and unemployed. HPI: Patient presented to the hospital yesterday for psychiatric evaluation and was brought in by EMS and police. Patient was brought in on a petition and certificate. Patient was admitted involuntarily to the mental health unit. Patient apparently was scratching out diane acting bizarre and also endorsing hallucinations. Patient has a history of methamphetamine abuse and also currently follows up at [facility] with Dr. Antony for major depression and polysubstance abuse. Patient claims that "the voices came back" and claims that she has been dealing with them for several days now. She claims that she has been "having a conversation with them". She claims that she was also scratching the diane and feeling that "demons and devils were after me". She also claims that she was able to smell it as well. She states that the voices were "following me around". She was describing elevated levels of anxiety and paranoia. She claims that she has not been following up with her psychiatrist or taking her medications. She is endorsing poor sleep, fair appetite. Patient denies any suicidal or homicidal ideations intent or plan. Patient admits to using meth however was minimizing it and cigarettes daily. She denies any other recreational drug use. PAST PSYCHIATRIC HISTORY: Patient states that she has history of depression and traumatic brain injury, ptsd, polysubstance abuse. Patient was previously on Seroquel and Lexapro and prazosin. her last psychiatric hospitalization was on 04/07 on the [facility]. Patient denies any psychiatric outpatient follow-up. Patient denies any history of suicide attempts in the past. PMH: Traumatic brain injury ALLERGIES: as per EMR CHEMICAL DEPENDENCY HISTORY: as per HPI FAMILY PSYCHIATRIC/SUBSTANCE USE HISTORY: denies SOCIAL HISTORY: Patient was born and raised in [facility] [place] [facility] and also in [place]. She states that she moved to [place] permanently at the age of 11. She states that she completed up to ninth grade in school. 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 She states that she has 1 son and currently lives with her mother. She is single and unemployed. She went to penitentiary about 2 years ago for driving without a license. MENTAL STATUS EXAM: General Appearance: Patient appears to have several tattoos, unkempt, stated age is alert, directable, and attempts to cooperate. Patient appears to have poor hygiene and grooming. Behavior: Patient is seated without any agitated behavior. Attempts to cooperate. responding to internal stimuli Speech: Patient's speech is fluent and nonpressured. Mood/Affect: Patient reports their mood is anxious, affect is congruent and constricted. Suicidality/Homicidality: Patient denies having any homicidal ideation intent or plan. Denies any suicidal ideations intent or plan Perceptions: Patient denies any visual hallucinations and denies any auditory hallucinations Though content/process: Patient is illogical at times. focused on hallucinations. Memory and concentration: AOX3, grossly intact for the purposes of this session. Can spell "WORLD" backwards Judgment and insight: poor STRENGTHS/WEAKNESSES: strength is that patient is resilient. Weakness is that emily joy has poor judgment and is impulsive INTELLECT: average IMPRESSIONS: Psychosis NOS, likely substance induced Traumatic brain injury PTSD methamphetamine abuse Nicotine dependence PLAN: -Patient is admitted under voluntary status to [facility] for stabilization of psychiatric symptoms and safety. Patient has signed adult voluntary form and medication consent and is placed in patient's chart. -Medications : Will start patient on Seroquel 150 mg daily at bedtime for psychosis/insomnia + 50 mg daily. Continue Lexapro 20 mg daily for mood/anxiety. Vistaril when necessary for anxiety. prazosin 2 mg qhs for nightmares, trazodone prn for sleep. -Ativan and Haldol PRN for agitation/aggression -Patient was counselled on substance abuse and desired to cut back on use, was superficial. -Patient was informed of the risks, benefits and side effects of the medication and patient verbally consented to taking the medications. Patient signed med consent form and was placed in chart. -Internal Medicine consult to perform medical evaluation and physical. -NRT - nicotine patch -SW on board for discharge planning. Encourage patient to participate in groups to work on coping skills.
[2022-10-28] MEDS: QUEtiapine 50 MG TAB PO SCH (18:01)
--- NOTE | 2022-10-28 18:17 | P.MDCNMH ---
<Bladimir Bridges - Last Filed: 10/28/22 18:07> History of Present Illness H&P Date: 10/28/22 History of Presenting Illness: Patient is a 37-year-old female with a past medical history of IVDA with heroin and methamphetamine use, anxiety, depression, nicotine dependence, and PTSD. She is currently admitted to inpatient mental health unit under primary admitting psychiatric team and we have been consulted for medical H&P.. Upon evaluation patient ambulatory and psychiatric unit. Walking up and down halls. Patient was agreeable to sit at table and talk for a few moments. Patient reports previous history of IVDA with heroin but states that she has not used in greater than 1 year but reports she has continued to use methamphetamines and smokes one pack of cigarettes daily. Patient denies having any other drug or alcohol use. Currently patient appears very fidgety and anxious but is coopera tive throughout examination. She denies having any complaints at this time including headache, lightheadedness, dizziness, chest pain, palpitations, cough or congestion, or experiencing any numbness/tingling/weakness in her extremities. Patient denies currently having visual or auditory hallucinations. She denies having any suicidal or homicidal ideations. Review of systems: Pertinent positives and negatives as discussed in HPI, a complete review of systems was performed and all other systems are negative. Physical exam: Vital signs reviewed and stable. General: Nontoxic, no distress and appears stated age. Derm: Skin warm and dry, normal coloration for ethnicity. Head: Atraumatic, normocephalic and symmetric. Eyes: EOMs intact, no lid lag, and anicteric sclera Mouth: no lip lesions, mucus membranes moist Cardiovascular: regular rate and rhythm with normal S1S2, no murmur Lungs: Respirations even, regular, and unlabored on room air. Lungs CTA bilaterally, no rhonchi, no rales, no wheezing, and no accessory muscle usage. Abdominal: soft, nontender to palpation, no guarding, no appreciable organomegaly Ext: ROM intact. No gross muscle atrophy, no edema, no contractures. Ambulatory with a steady gait without assistance. Neuro: Speech rapid, face symmetrical and CN II-XII grossly intact with no noted focal neuro deficits Psych: Alert and oriented to person, place, time, and situation. Anxious and fidgety but cooperative with assessment. Assessment and Plan of Care: Methamphetamine abuse -Recommend cessation, discussed this with patient as well as risks of continued use. Patient states she would like to get clean. Nicotine dependence -Recommend smoking cessation. -Nicotine patch Acute psychosis, likely substance induced from methamphetamine abuse Anxiety and depression -Management per primary admitting psychiatric teams including medication management. Thank you for allowing us to participate in the care of this pleasant patient. Do not hesitate to contact us with questions. Someone can be reached from the [facility] hospitalist group all hours of the day at [phone] or via [employer]. Past Medical History Past Medical History: No Reported History History of Any Multi-Drug Resistant Organisms: None Reported Past Surgical History: No Surgical Hx Reported Past Anesthesia/Blood Transfusion Reactions: No Reported Reaction Past Psychological History: Anxiety, Depression, Schizophrenia Additional Psychological History / Comment(s): Hallucinations Smoking Status: Current every day smoker Past Alcohol Use History: None Reported, Occasional Past Drug Use History: Heroin, Marijuana, Methamphetamine Medications and Allergies Home Medications Medication Instructions Recorded Confirmed Type Benzocaine 20 % Gel [Orajel] 1 applic MM Q8H PRN #0 each 03/23/22 10/28/22 Rx Escitalopram [Lexapro] 20 mg PO DAILY 30 Days tab 03/23/22 10/28/22 Rx Ibuprofen [Motrin] 600 mg PO QID PRN 14 Days tab 03/23/22 10/28/22 Rx QUEtiapine [SEROquel] 100 mg PO DAILY 30 Days tab 03/23/22 10/28/22 Rx QUEtiapine [SEROquel] 400 mg PO HS 30 Days tab 03/23/22 10/28/22 Rx Nicotine 21Mg/24Hr Patch [Habitrol] 1 patch TRANSDERM DAILY PRN 04/19/22 10/28/22 History hydrOXYzine HCL [Atarax] 50 mg PO BID PRN 04/19/22 10/28/22 History Allergies Allergy/AdvReac Type Severity Reaction Status Date / Time No Known Allergies Allergy Verified 10/28/22 04:27 Physical Exam Vitals: Vital Signs Temp Pulse Pulse Resp BP Pulse Ox 10/28/22 03:31 97.3 F L 83 18 129/56 98 10/27/22 19:39 98.5 F 102 H 22 95 Intake and Output 10/28/22 10/28/22 10/28/22 06:59 14:59 22:59 Other: Weight 74.3 kg Cranial Nerve Examination - Cranial Nerves Cranial Nerve II- Optic: Intact Cranial Nerve III- Oculomotor: Intact Cranial Nerve IV- Trochlear: Intact Cranial Nerve V- Trigeminal: Intact Cranial Nerve - Abducens: Intact Cranial Nerve VII- Facial: Intact Cranial Nerve VIII- Auditory: Intact Cranial Nerve IX- Glossopharyngeal: Intact Cranial Nerve X- Vagus: Intact Cranial Nerve XI- Accessory: Intact Cranial Nerve XII- Hypoglossal: Intact Results CBC & Chem 7: 10/28/22 11:36 10/28/22 11:36 Labs: Abnormal Lab Results - Last 24 Hours (Table) 10/28/22 10/28/22 Range/Units 00:32 11:36 BUN 23 H (7-17) mg/dL Glucose 107 H (74-99) mg/dL Urine Appearance Cloudy H (Clear) Urine Protein Trace H (Negative) Urine Blood Trace H (Negative) Ur Squamous Epith Cells 10 H (0-4) /hpf Urine Mucus Rare H (None) /hpf U Tricyclic Antidepress Detected H (NotDetected) Ur Amphetamines Screen Detected H (NotDetected) U Methamphetamines Scrn Detected H (NotDetected) <Katie Patrick A - Last Filed: 10/28/22 19:01> History of Present Illness Bladimir Bridges NP rendered care for this patient independently, reviewed the findings and plan as documented in the note above. I did not physically speak with or examine the patient on this date. Physical Exam Osteopathic Statement: *. No significant issues noted on an osteopathic structural exam other than those noted in the History and Physical/Consult. Vitals: Vital Signs Temp Pulse Pulse Resp BP Pulse Ox 10/28/22 03:31 97.3 F L 83 18 129/56 98 10/27/22 19:39 98.5 F 102 H 22 95 Intake and Output 10/28/22 10/28/22 10/28/22 06:59 14:59 22:59 Other: Weight 74.3 kg Results CBC & Chem 7: 10/28/22 11:36 10/28/22 11:36 Labs: Abnormal Lab Results - Last 24 Hours (Table) 10/28/22 10/28/22 Range/Units 00:32 11:36 BUN 23 H (7-17) mg/dL Glucose 107 H (74-99) mg/dL Urine Appearance Cloudy H (Clear) Urine Protein Trace H (Negative) Urine Blood Trace H (Negative) Ur Squamous Epith Cells 10 H (0-4) /hpf Urine Mucus Rare H (None) /hpf U Tricyclic Antidepress Detected H (NotDetected) Ur Amphetamines Screen Detected H (NotDetected) U Methamphetamines Scrn Detected H (NotDetected)
[2022-10-28] MEDS: PRAZOSIN 1 MG CAP PO SCH (20:54)
[2022-10-28] MEDS ORDERED: QUEtiapine 50 MG TAB PO SCH (21:00)
[2022-10-28] MEDS ORDERED: PRAZOSIN 1 MG CAP PO SCH (21:00)
[2022-10-28] MEDS ORDERED: QUEtiapine 100 MG TAB PO SCH (21:00)
[2022-10-29] MEDS: ESCITALOPRAM 20 MG TAB PO SCH (08:50)
[2022-10-29] MEDS: NICOTINE 14MG/24HR PATCH TRANSDERM SCH (08:50)
[2022-10-29] MEDS: QUEtiapine 50 MG TAB PO SCH (08:50)
[2022-10-29] MEDS ORDERED: QUEtiapine 50 MG TAB PO STA (13:48)
--- NOTE | 2022-10-29 14:20 | P.PN ---
Progress Note - Text Progress Note Date: 10/29/22 Interval History: Patient was seen [wandering the hallways] and was directable and agreeable to speak with publications writer in the office. [ Patient appears to have improvement in her hygiene and grooming. She also was not responding to internal stimuli today. More focused with her attention. She also was displaying improvement in her irritability and also concentration. She was logical in her thought processes. She states that she is doing a bit better however continues to have anxiety. She states that she did not sleep well last night with the Seroquel dose and wanted it increased in both the a.m. and also nighttime dose. She is denying any side effects at this time. Claims that she is going to some groups. Continues to have superficial insight and minimizing her drug use]. At this time patient denies any suicidal or homical ideations, intent or plan. Patient denies any auditory, visual hallucinations and denies any paranoia or delusions. Patient denies any side effects from the medications and has been compliant with meds. Mental Status Exam: General Appearance: Patient appears to have several tattoos, unkempt, stated age is alert, directable, and attempts to cooperate. Patient appears to have improving hygiene and grooming. Behavior: Patient is seated without any agitated behavior. Attempts to cooperate. not responding to internal stimuli Speech: Patient's speech is fluent and nonpressured. Mood/Affect: Patient reports their mood is anxious, improving mildly, affect is congruent Suicidality/Homicidality: Patient denies having any homicidal ideation intent or plan. Denies any suicidal ideations intent or plan Perceptions: Patient denies any visual hallucinations and denies any auditory hallucinations Though content/process: Patient is more logical today, goal oriented. Not endorsing any paranoia. 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 Patient has signed [adult voluntary form and] [medication consent] and was placed in patient's chart. -Medications: [increase ]Seroquel 200 mg daily at bedtime for psychosis/insomnia + 100 mg daily. Continue Lexapro 20 mg daily for mood/anxiety. Vistaril when necessary for anxiety. prazosin 2 mg qhs for nightmares, trazodone prn for sleep. -When necessary Ativan and Haldol for agitation/aggression. -NRT - [nicotine patch] -SW on board for discharge planning. Encouraged the patient to participate in milieu. likely discharge tuesdayif patient continues to improve. patient is minimizing her drug use and declines inpt rehab.
[2022-10-29] MEDS: PRAZOSIN 1 MG CAP PO SCH (20:53)
[2022-10-29] MEDS: QUEtiapine 200 MG TAB PO SCH (20:53)
[2022-10-29] MEDS: traZODone HCL 50 MG TAB PO PRN (20:53)
[2022-10-30] MEDS: ESCITALOPRAM 20 MG TAB PO SCH (08:58)
[2022-10-30] MEDS: QUEtiapine 100 MG TAB PO SCH (08:58)
[2022-10-30] MEDS: NICOTINE 14MG/24HR PATCH TRANSDERM SCH (08:58)
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
[2022-10-30] MEDS: PRAZOSIN 1 MG CAP PO SCH (20:24)
[2022-10-30] MEDS: traZODone HCL 50 MG TAB PO PRN (20:25)
[2022-10-30] MEDS: QUEtiapine 200 MG TAB PO SCH (20:25)
[2022-10-31] MEDS: NICOTINE 14MG/24HR PATCH TRANSDERM SCH (09:04)
[2022-10-31] MEDS: ESCITALOPRAM 20 MG TAB PO SCH (09:04)
[2022-10-31] MEDS: QUEtiapine 100 MG TAB PO SCH (09:05)
[2022-10-31] MEDS: LORazepam 1 MG TAB PO PRN (18:22)
[2022-10-31] MEDS: QUEtiapine 200 MG TAB PO SCH (20:23)
[2022-10-31] MEDS: PRAZOSIN 1 MG CAP PO SCH (20:23)
[2022-10-31] MEDS: traZODone HCL 50 MG TAB PO PRN (20:23)
[2022-11-01] MEDS: ESCITALOPRAM 20 MG TAB PO SCH (08:44)
[2022-11-01] MEDS: QUEtiapine 100 MG TAB PO SCH (08:44)
[2022-11-01] MEDS: NICOTINE 14MG/24HR PATCH TRANSDERM SCH (08:44)
[2022-11-01] MEDS: LORazepam 1 MG TAB PO PRN (08:44)
[2022-11-01 08:47] VITALS: BP 116/58; PULSE 100; RESP 16; TEMP 97.7
--- NOTE | 2022-11-01 11:29 | P.DS ---
Providers Date of admission: 10/28/22 02:51 Expected date of discharge: 11/01/22 Attending physician: Jhonny Rodriguez MD Consults: 10/28/22 02:55 Consult Physician Routine Consulting Provider: Ayaan Lackey Consult Reason/Comments: H&P for Mental Health Admisison Do you want consulting provider notified?: Yes Primary care physician: Stated None - Discharge Diagnosis(es) (1) Unspecified psychosis Current Visit: Yes Status: Acute Priority: High (2) Traumatic brain injury Current Visit: Yes Status: Acute Priority: Medium (3) PTSD (post-traumatic stress disorder) Current Visit: Yes Status: Acute Priority: Medium (4) Methamphetamine abuse Current Visit: Yes Status: Acute Priority: High (5) Nicotine dependence Current Visit: Yes Status: Acute Priority: Low Hospital Course: Admission HPI: Admission note was completed by poem writer "Patient is a 37-year-old female who currently lives with her mother in a house, has 1 son. She is single and unemployed. Patient presented to the hospital yesterday for psychiatric evaluation and was brought in by EMS and police. Patient was brought in on a petition and certificate. Patient was admitted involuntarily to the mental health unit. Patient apparently was scratching out diane acting bizarre and also endorsing hallucinations. Patient has a history of methamphetamine abuse and also currently follows up at [facility] with Dr. Antony for major depression and polysubstance abuse. Patient claims that "the voices came back" and claims that she has been dealing with them for several days now. She claims that she has been "having a conversation with them". She claims that she was also scratching the diane and feeling that "demons and devils were after me". She also claims that she was able to smell it as well. She states that the voices were "following me around". She was describing elevated levels of anxiety and para noia. She claims that she has not been following up with her psychiatrist or taking her medications. She is endorsing poor sleep, fair appetite. Patient denies any suicidal or homicidal ideations intent or plan. Patient admits to using meth however was minimizing it and cigarettes daily. She denies any other recreational drug use." Hospital course: Upon admission to the unit patient was directable and agreeable to commence treatment and signed adult voluntary form. Patient got along well with other patients on the unit and followed unit protocol. Patient was compliant with the medications and denied any side effects throughout hospital course. Patient was started on Seroquel 100 mg daily +200 mg daily at bedtime for psychosis/insomnia, Lexapro 20 mg daily for mood/anxiety, Vistaril when necessary for anxiety, prazosin 2 mg daily at bedtime for nightmares, trazodone when necessary for sleep. Patient spoke of her stressors and engaged in therapy both group and individual. Patient was also seen by medical team for history and physical exam. Throughout the course of the hospitalization patient gradually improved with regards to mood, anxiety, sleep and returned back to their baseline level of functioning. On the day of discharge patient denied any suicidal or homicidal ideations intent or plan denied any auditory or visual hallucinations. Patient endorsed wanting to live for her health and her future. The patient denied any access to guns or weapons. Patient denied any paranoia and did not endorse any delusions. Patient does have a significant history of substance abuse and was counseled on abstaining from all substances including alcohol and marijuana. Patient was offered however declined inpatient substance- abuse rehab. Patient was also counseled on the medications and need for regular compliance and was encouraged to follow-up with their outpatient appointment for mental health and also for primary care. Prior to discharge a family meeting will be arranged by social science instructor to answer any questions and ensure safety upon discharge. Mental status exam: General Appearance: Patient appears to be stated age is alert, pleasant, and cooperative. Patient is in no acute distress and has improved hygiene and grooming Behavior: Patient is calmly seated without any agitated behavior. Speech: Patient's speech is fluent and nonpressured. Mood/Affect: Patient reports their mood is "better", affect is congruent and euthymic. Suicidality/Homicidality: Patient denies having any suicidal or homicidal ideation intent or plan. Perceptions: Patient denies any auditory or visual hallucinations. Though content/process: There is no evidence of any delusional thought content and thought process is linear and goal-directed. more future oriented Memory and concentration: AOX3, grossly intact for the purposes of this session. Can spell "WORLD" backwards correctly. Judgment and insight: chronically poor, however has improved with guarded prognosis Impression: Psychosis unspecified, likely substance-induced Dramatic brain injury PTSD Methamphetamine abuse Nicotine dependence Plan: -Continue with discharge today as patient has improved and stabilized psychiatrically and is not currently an imminent threat to herself and/or others. Patient will remain at chronically elevated risk for harm to self and/or others due to her polysubstance abuse. -Continue medications: Seroquel 100 mg daily +200 mg daily at bedtime for psychosis/insomnia, Lexapro 20 mg daily for mood/anxiety, Vistaril when necessary for anxiety, prazosin 2 mg daily at bedtime for nightmares, trazodone 150 mg when necessary for sleep. -Patient was counseled on the need for medication compliance and appropriate follow-up at mental health and also primary care for medical issues. Patient verbalized understanding and agreed. -Social work to arrange for and conduct family meeting to ensure safety upon discharge and answer any questions/concerns. Social work also to arrange for patients follow up appointments with [facility] for psychiatric care along with follow up with primary care provider. -Patient counseled on abstaining from recreational drugs and marijuana and alcohol. Was informed/educated on the adverse effects on their physical and mental health. Patient verbally agreed and understood. Patient was offered substance abuse treatment however declined at this time. -Patient was instructed to return to the hospital or seek immediate medical care if their psychiatric or medical symptoms do worsen or reoccur. Allergies Allergy/AdvReac Type Severity Reaction Status Date / Time No Known Allergies Allergy Verified 10/28/22 04:27 Laboratory Results WBC 8.4 k/uL (3.8-10.6) 10/28/22 11:36 RBC 4.85 m/uL (3.80-5.40) 10/28/22 11:36 Hgb 14.1 gm/dL (11.4-16.0) 10/28/22 11:36 Hct 41.6 % (34.0-46.0) 10/28/22 11:36 MCV 85.8 fL (80.0-100.0) 10/28/22 11:36 MCH 29.0 pg (25.0-35.0) 10/28/22 11:36 MCHC 33.9 g/dL (31.0-37.0) 10/28/22 11:36 RDW 13.5 % (11.5-15.5) 10/28/22 11:36 Plt Count 322 k/uL (150-450) 10/28/22 11:36 MPV 7.4 10/28/22 11:36 Neutrophils % 62 % 10/28/22 11:36 Lymphocytes % 22 % 10/28/22 11:36 Monocytes % 7 % 10/28/22 11:36 Eosinophils % 6 % 10/28/22 11:36 Basophils % 1 % 10/28/22 11:36 Neutrophils # 5.2 k/uL (1.3-7.7) 10/28/22 11:36 Lymphocytes # 1.9 k/uL (1.0-4.8) 10/28/22 11:36 Monocytes # 0.6 k/uL (0-1.0) 10/28/22 11:36 Eosinophils # 0.5 k/uL (0-0.7) 10/28/22 11:36 Basophils # 0.1 k/uL (0-0.2) 10/28/22 11:36 Sodium 140 mmol/L (137-145) 10/28/22 11:36 Potassium 4.0 mmol/L (3.5-5.1) 10/28/22 11:36 Chloride 107 mmol/L (98-107) 10/28/22 11:36 Carbon Dioxide 25 mmol/L (22-30) 10/28/22 11:36 Anion Gap 8 mmol/L 10/28/22 11:36 BUN 23 mg/dL (7-17) H 10/28/22 11:36 Creatinine 0.81 mg/dL (0.52-1.04) 10/28/22 11:36 Est GFR (CKD-EPI)AfAm >90 (>60 ml/min/1.73 sqM) 10/28/22 11:36 Est GFR (CKD-EPI)NonAf >90 (>60 ml/min/1.73 sqM) 10/28/22 11:36 Glucose 107 mg/dL (74-99) H 10/28/22 11:36 Calcium 9.5 mg/dL (8.4-10.2) 10/28/22 11:36 Total Bilirubin 0.4 mg/dL (0.2-1.3) 10/28/22 11:36 AST 30 U/L (14-36) 10/28/22 11:36 ALT 23 U/L (4-34) 10/28/22 11:36 Alkaline Phosphatase 55 U/L (38-126) 10/28/22 11:36 Total Protein 7.2 g/dL (6.3-8.2) 10/28/22 11:36 Albumin 4.5 g/dL (3.5-5.0) 10/28/22 11:36 TSH 1.340 mIU/L (0.465-4.680) 10/28/22 11:36 Urine Color Yellow 10/28/22 00:32 Urine Appearance Cloudy (Clear) H 10/28/22 00:32 Urine pH 5.5 (5.0-8.0) 10/28/22 00:32 Ur Specific [place] 1.032 (1.001-1.035) 10/28/22 00:32 Urine Protein Trace (Negative) H 10/28/22 00:32 Urine Glucose (UA) Negative (Negative) 10/28/22 00:32 Urine Ketones Negative (Negative) 10/28/22 00:32 Urine Blood Trace (Negative) H 10/28/22 00:32 Urine Nitrite Negative (Negative) 10/28/22 00:32 Urine Bilirubin Negative (Negative) 10/28/22 00:32 Urine Urobilinogen <2.0 mg/dL (<2.0) 10/28/22 00:32 Ur Leukocyte Esterase Negative (Negative) 10/28/22 00:32 Urine RBC 1 /hpf (0-5) 10/28/22 00:32 Urine WBC 1 /hpf (0-5) 10/28/22 00:32 Ur Squamous Epith Cells 10 /hpf (0-4) H 10/28/22 00:32 Hyaline Casts 1 /lpf (0-2) 10/28/22 00:32 Urine Mucus Rare /hpf (None) H 10/28/22 00:32 Urine HCG, Qual Not Detected (Not Detectd) 10/28/22 00:32 Urine Opiates Screen Not Detected (NotDetected) 10/28/22 00:32 Ur Oxycodone Screen Not Detected (NotDetected) 10/28/22 00:32 Urine Methadone Screen Not Detected (NotDetected) 10/28/22 00:32 Ur Propoxyphene Screen Not Detected (NotDetected) 10/28/22 00:32 Ur Barbiturates Screen Not Detected (NotDetected) 10/28/22 00:32 U Tricyclic Antidepress Detected (NotDetected) H 10/28/22 00:32 Ur Phencyclidine Scrn Not Detected (NotDetected) 10/28/22 00:32 Ur Amphetamines Screen Detected (NotDetected) H 10/28/22 00:32 U Methamphetamines Scrn Detected (NotDetected) H 10/28/22 00:32 U Benzodiazepines Scrn Not Detected (NotDetected) 10/28/22 00:32 Urine Cocaine Screen Not Detected (NotDetected) 10/28/22 00:32 U Marijuana (THC) Screen Not Detected (NotDetected) 10/28/22 00:32 Coronavirus (PCR) Not Detected (Not Detectd) 10/28/22 02:03 Vital Signs Temp 97.7 F 11/01/22 08:46 Pulse 100 11/01/22 08:46 Resp 16 11/01/22 08:46 BP 116/58 11/01/22 08:46 Pulse Ox 98 11/01/22 08:46 FiO2 Allergies Allergy/AdvReac Type Severity Reaction Status Date / Time No Known Allergies Allergy Verified 10/28/22 04:27 Patient Condition at Discharge: Stable Plan - Discharge Summary Discharge Rx Participant: Yes New Discharge Prescriptions: New Nicotine 14Mg/24Hr Patch [Habitrol] 1 patch TRANSDERM DAILY 14 Days #14 patch QUEtiapine [SEROquel] 200 mg PO HS 30 Days #30 tab traZODone HCL 150 mg PO HS PRN 30 Days #30 tablet PRN Reason: Insomnia Prazosin [Minipress] 2 mg PO HS 30 Days #60 cap QUEtiapine [SEROquel] 100 mg PO DAILY 30 Days #30 tab hydrOXYzine pamoate [Vistaril] 50 mg PO DAILY PRN 30 Days #60 cap PRN Reason: Anxiety Continue Ibuprofen [Motrin] 600 mg PO QID PRN 14 Days tab PRN Reason: Moderate Pain Escitalopram [Lexapro] 20 mg PO DAILY 30 Days #30 tab Discontinued Benzocaine 20 % Gel [Orajel] 1 applic MM Q8H PRN #0 each PRN Reason: Toothache QUEtiapine [SEROquel] 100 mg PO DAILY 30 Days tab QUEtiapine [SEROquel] 400 mg PO HS 30 Days tab Nicotine 21Mg/24Hr Patch [Habitrol] 1 patch TRANSDERM DAILY PRN PRN Reason: Nicotine Cravings hydrOXYzine HCL [Atarax] 50 mg PO BID PRN PRN Reason: Anxiety Discharge Medication List Ibuprofen [Motrin] 600 mg PO QID PRN 14 Days tab 03/23/22 [Rx] Escitalopram [Lexapro] 20 mg PO DAILY 30 Days #30 tab 11/01/22 [Rx] Nicotine 14Mg/24Hr Patch [Habitrol] 1 patch TRANSDERM DAILY 14 Days #14 patch 11/01/22 [Rx] Prazosin [Minipress] 2 mg PO HS 30 Days #60 cap 11/01/22 [Rx] QUEtiapine [SEROquel] 100 mg PO DAILY 30 Days #30 tab 11/01/22 [Rx] QUEtiapine [SEROquel] 200 mg PO HS 30 Days #30 tab 11/01/22 [Rx] hydrOXYzine pamoate [Vistaril] 50 mg PO DAILY PRN 30 Days #60 cap 11/01/22 [Rx] traZODone HCL 150 mg PO HS PRN 30 Days #30 tablet 11/01/22 [Rx] Follow up Appointment(s)/Referral(s): [facility] [Outside] - 11/02/22 2:00 pm (11/02/2022 2:00PM - 3:00PM [facility] ) [facility] [NON-STAFF] - 1 Week Patient Instructions/Handouts: How to Stop Smoking (DC), Depression (DC), Psychotic Disorder (DC) Activity/Diet/Wound Care/Special Instructions: Avoid the use of street drugs and alcohol. Take all prescriptions as prescribed. When you are in need of refills on your medications, please contact your medical provider and/or outpatient psychiatrist to have this done. Please go to scheduled outpatient appointment for aftercare treatment. If symptoms ret urn or become worse, call the crisis line at and/or go to the nearest emergency room for evaluation Discharge Disposition: HOME SELF-CARE
== END 2022-11-01 16:50 | disposition home or self-care (01) | DRG 897 ==
LOC: EC 19:33 → 3MHU 10-28 02:51
PROVIDERS: ADMIT Psychiatry & Neurology Psychiatry; ATTEND Psychiatry & Neurology Psychiatry
DX: F15.151 Other stimulant abuse with stimulant-induced psychotic disorder with hallucinations (principal); S06.9XAA Unspecified intracranial injury with loss of consciousness status unknown, initial encounter; F20.9 Schizophrenia, unspecified; F17.210 Nicotine dependence, cigarettes, uncomplicated; Z71.6 Tobacco abuse counseling; F43.10 Post-traumatic stress disorder, unspecified; F12.90 Cannabis use, unspecified, uncomplicated; F15.10 Other stimulant abuse, uncomplicated; G47.00 Insomnia, unspecified; Z79.899 Other long term (current) drug therapy; Z71.51 Drug abuse counseling and surveillance of drug abuser
CPT/HCPCS: 80053; 80306; 81001; 81025; 82075; 84443; 85025; 87635; 99285

== ENCOUNTER 2024-02-06 21:23 | Emergency (ER) | payer OTHER ==
--- NOTE | 2024-02-06 21:40 | ED ---
General Adult HPI - General Source: patient Mode of arrival: ambulatory Limitations: no limitations <Fabrizio Kumar - Last Filed: 02/06/24 21:40> <Jonh Kaufman - Last Filed: 02/07/24 05:09> <VestaraquelSameer pollock - Last Filed: 02/07/24 14:13> - General Chief complaint: Psychiatric Symptoms Stated complaint: Psychiatric, hearing voices Time Seen by Provider: 02/06/24 21:39 - History of Present Illness Initial comments: 38-year-old female presenting for psychiatric evaluation. Patient reports seeing and hearing things. Reports that the devil is telling her to do things. Denies suicidal or homicidal ideation. (Fabrizio Kumar) Dictation was produced using [employer] dictation software. please excuse any grammatical, word or spelling errors. Chief Complaint: 38-year-old female presents to the emergency department for psychotic symptoms History of Present Illness: Patient 38-year-old female presents to the emergency department. Patient having auditory hallucinations. Patient denies any suicidal homicidal ideation. She states that the voices are of the devil giving her instructions. Patient denies any medical complaints. The ROS documented in this emergency department record has been reviewed and confirmed by me. Those systems with pertinent positive or negative responses have been documented in the HPI. All other systems are other negative and/or noncontributory. (Jonh Kaufman) - Related Data Home Medications Medication Instructions Recorded Confirmed Nicotine 14Mg/24Hr Patch [Habitrol] 1 patch TRANSDERM DAILY PRN 02/07/24 02/07/24 Prazosin HCl 4 mg PO HS 02/07/24 02/07/24 QUEtiapine FUMARATE [SEROquel] 400 mg PO HS 02/07/24 02/07/24 QUEtiapine [SEROquel] 150 mg PO DAILY 02/07/24 02/07/24 hydrOXYzine pamoate [Vistaril] 50 mg PO BID 02/07/24 02/07/24 traZODone HCL 150 mg PO HS 02/07/24 02/07/24 Previous Rx's Medication Instructions Recorded Ibuprofen [Motrin] 600 mg PO QID PRN 14 Days tab 03/23/22 Escitalopram [Lexapro] 20 mg PO DAILY 30 Days #30 tab 11/01/22 Allergies Allergy/AdvReac Type Severity Reaction Status Date / Time No Known Allergies Allergy Verified 02/07/24 11:16 Review of Systems ROS Other: All systems not noted in ROS Statement are negative. <Fabrizio Kumar - Last Filed: 02/06/24 21:40> ROS Other: All systems not noted in ROS Statement are negative. <Jonh Kaufman - Last Filed: 02/07/24 05:09> ROS Other: All systems not noted in ROS Statement are negative. <DharaSameer Adelso - Last Filed: 02/07/24 14:13> ROS Statement: Those systems with pertinent positive or pertinent negative responses have been documented in the HPI. Past Medical History Past Medical History: No Reported History History of Any Multi-Drug Resistant Organisms: None Reported Past Surgical History: No Surgical Hx Reported Past Anesthesia/Blood Transfusion Reactions: No Reported Reaction Past Psychological History: Anxiety, Depression, Schizophrenia Smoking Status: Current every day smoker Past Alcohol Use History: Occasional Past Drug Use History: Heroin, Marijuana, Methamphetamine <Fabrizio Kumar - Last Filed: 02/06/24 21:40> General Exam Limitations: no limitations <Fabrizio Kumar - Last Filed: 02/06/24 21:40> <Jonh Kaufman - Last Filed: 02/07/24 05:09> - General Exam Comments Initial Comments: Visual Physical Exam Vital signs reviewed General: nontoxic. Head: Normocephalic, atraumatic Eyes: PERRLA, EOMI ENT: Airway patent Chest: Nonlabored breathing Skin: No visual rash, normal skin tone Musculoskeletal: No gross abnormalities (Fabrizio Kumar) General: Well-appearing, nontoxic, no acute distress. Head: Normocephalic, atraumatic Eyes: PERRLA, EOMI ENT: Airway patent Chest: Nonlabored breathing Skin: No visual rash, normal skin tone Neuro: Alert and oriented 3 Musculoskeletal: No gross abnormalities (Jonh Kaufman) Course Vital Signs 02/06/24 21:24 Temperature 97.7 F Pulse Rate 109 H Respiratory 18 Rate Blood Pressure 156/111 O2 Sat by Pulse 98 Oximetry Medical Decision Making <Fabrizio Kumar - Last Filed: 02/06/24 21:40> <ShaeJonh D - Last Filed: 02/07/24 05:09> <Sameer Jules - Last Filed: 02/07/24 14:13> - Medical Decision Making Quicknote portion performed. Signed Fabrizio Kumar PA-C (Fabrizio Kumar) Was pt. sent in by a medical professional or institution (, PA, CODING FILE CLERK, urgent care, hospital, or long term...) When possible be specific @ -No Did you speak to anyone other than the patient for history (EMS, parent, family, police, friend...)? What history was obtained from this source @ -No Did you review nursing and triage notes (agree or disagree)? Why? @ -I reviewed and agree with nursing and triage notes Were old charts reviewed (outside hosp., previous admission, EMS record, old EKG, old radiological studies, urgent care reports/EKG's, long term records)? Report findings @ -No old charts were reviewed Differential Diagnosis (chest pain, altered mental status, abdominal pain women, abdominal pain men, vaginal bleeding, musculoskeletal, weakness, fever, dyspnea, syncope, headache, dizziness, GI bleed, back pain, seizure, CVA, palpatations, mental health)? @ -Differential Mental Health: Depression, anxiety, bipolar, psychosis, schizophrenia, borderline personality, situational depression, adjustment disorder, behavioral disorder, brain tumor, malingering, substance abuse, encephalopathy, medication reaction, dementia, hypothyroidism, degenerative neurologic disorder, lupus.... This is not meant to be all-inclusive list EKG interpreted by me (3pts min.). @ -None done X-rays interpreted by me (1pt min.). @ -None done CT interpreted by me (1pt min.). @ -None done U/S interpreted by me (1pt. min.). @ -None done What testing was considered but not performed or refused? (CT, X-rays, U/S, labs)? Why? @ -None What meds were considered but not given or refused? Why? @ -None Did you discuss the management of the patient with other professionals (professionals i.e. , PA, CODING FILE CLERK, lab, RT, psych nurse, social service technician, color printer operator, teacher, security vehicle patrol officer, case repairer)? Give summary @ -No Was smoking cessation discussed for >3mins.? @ -No Was critical care preformed (if so, how long)? @ -No Were there social determinants of health that impacted care today? How? (Homelessness, low income, unemployed, alcoholism, drug addiction, transportation, low edu. Level, literacy, decrease access to med. care, custodial, rehab)? @ -No Was there de-escalation of care discussed even if they declined (Discuss DNR or withdrawal of care, Hospice)? DNR status @ -No What co-morbidities impacted this encounter? (DM, HTN, Smoking, COPD, CAD, Cancer, CVA, ARF, Chemo, Hep., AIDS, mental health diagnosis, sleep apnea, morbid obesity)? @ -None Was patient admitted / discharged? Hospital course, mention meds given and route, prescriptions, significant lab abnormalities, going to OR and other perti nent info. @ -38-year-old female presents to the emergency department with acute psychotic symptoms. Vital signs upon arrival are within acceptable limits. Patient medically cleared. Pending EPS recommendations. Undiagnosed new problem with uncertain prognosis? @ -No Drug Therapy requiring intensive monitoring for toxicity (Heparin, Nitro, Insulin, Cardizem)? @ -No Were any procedures done? @ -No Diagnosis/symptom? Acute, or Chronic, or Acute on Chronic? Uncomplicated (without systemic symptoms) or Complicated (systemic symptoms)? @ -psychosis Side effects of treatment? @ -No Exacerbation, Progression, or Severe Exacerbation? @ -No Poses a threat to life or bodily function? How? (Chest pain, USA, OR, pneumonia, PE, COPD, DKA, ARF, appy, cholecystitis, CVA, Diverticulitis, Homicidal, Suicidal, threat to staff... and all critical care pts) @ -yes (Jonh Kaufamn) Patient care signed out at shift change awaiting EPS evaluation. Patient does admit to methamphetamine use. She has been medically cleared and was evaluated by EPS who recommended continued outpatient follow-up with [facility]. I do agree with this assessment. (Sameer Jules) - Lab Data Lab Results 02/07/24 Range/Units 11:05 Urine Opiates Screen Not Detected (NotDetected) Ur Oxycodone Screen Not Detected (NotDetected) Urine Methadone Screen Not Detected (NotDetected) Ur Barbiturates Screen Not Detected (NotDetected) U Tricyclic Antidepress Detected H (NotDetected) Ur Phencyclidine Scrn Not Detected (NotDetected) Ur Amphetamines Screen Detected H (NotDetected) U Methamphetamines Scrn Detected H (NotDetected) U Benzodiazepines Scrn Not Detected (NotDetected) Urine Cocaine Screen Not Detected (NotDetected) U Marijuana (THC) Screen Not Detected (NotDetected) Disposition <Fabrizio Kumar - Last Filed: 02/06/24 21:40> <Jonh Kaufman - Last Filed: 02/07/24 05:09> Is patient prescribed a controlled substance at d/c from ED?: No Time of Disposition: 14:13 <Sameer Jules - Last Filed: 02/07/24 14:13> Clinical Impression: Acute psychosis, Methamphetamine abuse Disposition: HOME SELF-CARE Condition: Fair Instructions (If sedation given, give patient instructions): Methamphetamine Abuse (ED) Additional Instructions: Please follow-up with community mental health. Referrals: Bhargav Rosario MD [Primary Care Provider] - 1-2 days
[2024-02-06 21:43] VITALS: RESP 18
[2024-02-07 11:42] LABS: Amphetamine Screen,Urine Detected (NotDetected); Barbiturate Screen,Urine Not Detected (NotDetected); Benzodiazepines Screen,Urine Not Detected (NotDetected); Cocaine Screen,Urine Not Detected (NotDetected); Methadone Screen, Urine Not Detected (NotDetected); Opiate Screen,Urine Not Detected (NotDetected); Oxycodone Screen, Urine Not Detected (NotDetected); Phencyclidine Screen,Urine Not Detected (NotDetected); Tricyclic Antidepressant,Urine Detected (NotDetected); Urn Cannabinoid Scrn Not Detected (NotDetected)
[2024-02-07 15:00] VITALS: BP 128/86; PULSE 68; TEMP 98.1
== END 2024-02-07 14:35 | disposition home or self-care (01) ==
LOC: EC 21:23
DX: F23 Brief psychotic disorder (principal); F15.10 Other stimulant abuse, uncomplicated; F17.200 Nicotine dependence, unspecified, uncomplicated
CPT/HCPCS: 80306; 82075; 99284

== ENCOUNTER 2024-02-13 01:23 | Inpatient (IN) | payer MEDICAID, OTHER ==
--- NOTE | 2024-02-13 02:53 | ED ---
Psych HPI - General Chief Complaint: Psychiatric Symptoms Stated Complaint: Mental health Time Seen by Provider: 02/13/24 01:30 Source: patient Mode of arrival: ambulatory - History of Present Illness Initial Comments: 38-year-old female brought into the emergency department with suicidal ideations. States that she is hearing voices that are telling her to harm herse lf. This has been going on for the past 2 weeks. States that the symptoms are getting worse. She has been taking her medications as directed without any improvement in her symptoms. She denies concern for . No drug or alcohol use. No other alleviating, precipitating or modifying factors - Related Data Previous Rx's Medication Instructions Recorded Escitalopram [Lexapro] 20 mg PO DAILY 30 Days #30 tab 02/17/24 Nicotine 21Mg/24Hr Patch [Habitrol] 1 patch TRANSDERM DAILY 14 Days 02/17/24 #14 patch Prazosin [Minipress] 2 mg PO HS 30 Days #60 cap 02/17/24 QUEtiapine [SEROquel] 100 mg PO HS 30 Days #30 tablet 02/17/24 QUEtiapine [SEROquel] 400 mg PO HS 30 Days #30 tab 02/17/24 hydrOXYzine pamoate [Vistaril] 50 mg PO DAILY 30 Days #60 cap 02/17/24 Allergies Allergy/AdvReac Type Severity Reaction Status Date / Time No Known Allergies Allergy Verified 02/07/24 11:16 Review of Systems ROS Statement: Those systems with pertinent positive or pertinent negative responses have been documented in the HPI. ROS Other: All systems not noted in ROS Statement are negative. Past Medical History Past Medical History: No Reported History History of Any Multi-Drug Resistant Organisms: None Reported Past Surgical History: No Surgical Hx Reported Past Anesthesia/Blood Transfusion Reactions: No Reported Reaction Past Psychological History: Anxiety, Depression, Schizophrenia Smoking Status: Current every day smoker Past Alcohol Use History: Occasional Past Drug Use History: Heroin, Marijuana, Methamphetamine - Past Family History Father Family Medical History: No Reported History Mother Family Medical History: No Reported History General Exam Limitations: no limitations General appearance: alert, in no apparent distress Head exam: Present: atraumatic, normocephalic, normal inspection Eye exam: Present: normal appearance, PERRL, EOMI. Absent: scleral icterus, conjunctival injection, periorbital swelling ENT exam: Present: normal exam, mucous membranes moist Neck exam: Present: normal inspection. Absent: tenderness, meningismus, ly mphadenopathy Respiratory exam: Present: normal lung sounds bilaterally. Absent: respiratory distress, wheezes, rales, rhonchi, stridor Cardiovascular Exam: Present: regular rate, normal rhythm, normal heart sounds. Absent: systolic murmur, diastolic murmur, rubs, gallop, clicks GI/Abdominal exam: Present: soft, normal bowel sounds. Absent: distended, tenderness, guarding, rebound, rigid Extremities exam: Present: normal inspection, full ROM, normal capillary refill. Absent: tenderness, pedal edema, joint swelling, calf tenderness Back exam: Present: normal inspection Neurological exam: Present: alert, oriented X3, CN II-XII intact Psychiatric exam: Present: depressed, suicidal ideation Skin exam: Present: warm, dry, intact, normal color. Absent: rash Course Vital Signs 02/13/24 02/13/24 01:26 05:04 Temperature 98.4 F 97.9 F Pulse Rate 90 77 Respiratory 16 17 Rate Blood Pressure 134/90 125/82 O2 Sat by Pulse 97 98 Oximetry Medical Decision Making - Medical Decision Making Was pt. sent in by a medical professional or institution (, PA, ROBOTIC WELDING OPERATOR, urgent care, hospital, or longterm...) When possible be specific @ -No Did you speak to anyone other than the patient for history (EMS, parent, family, police, friend...)? What history was obtained from this source @ -No Did you review nursing and triage notes (agree or disagree)? Why? @ -I reviewed and agree with nursing and triage notes Were old charts reviewed (outside hosp., previous admission, EMS record, old EKG, old radiological studies, urgent care reports/EKG's, longterm records)? Report findings @ -No old charts were reviewed Differential Diagnosis (chest pain, altered mental status, abdominal pain women, abdominal pain men, vaginal bleeding, weakness, fever, dyspnea, syncope, hea dache, dizziness, GI bleed, back pain, seizure, CVA, palpatations, mental health, musculoskeletal)? @ -Differential Mental Health Depression, anxiety, bipolar, psychosis, schizophrenia, borderline personality, situational depression, adjustment disorder, behavioral disorder, brain tumor, malingering, substance abuse, encephalopathy, medication reaction, dementia, hypothyroidism, degenerative neurologic disorder, lupus.... This is not meant to be all-inclusive list EKG interpreted by me (3pts min.). @ -Not done X-rays interpreted by me (1pt min.). @ -None done CT interpreted by me (1pt min.). @ -None done U/S interpreted by me (1pt. min.). @ -None done What testing was considered but not performed or refused? (CT, X-rays, U/S, labs)? Why? @ -None What meds were considered but not given or refused? Why? @ -None Did you discuss the management of the patient with other professionals (professionals i.e. , PA, ROBOTIC WELDING OPERATOR, lab, RT, psych nurse, forensic social worker, company manager, teacher, disability insurance hearing officer, case management coordinator)? Give summary @ -Spoke with the EPS nurse who evaluated the patient Was smoking cessation discussed for >3mins.? @ -No Was critical care preformed (if so, how long)? @ -No Were there social determinants of health that impacted care today? How? (Homelessness, low income, unemployed, alcoholism, drug addiction, transportation, low edu. Level, literacy, decrease access to med. care, longterm, rehab)? @ -No Was there de-escalation of care discussed even if they declined (Discuss DNR or withdrawal of care, Hospice)? DNR status @ -No What co-morbidities impacted this encounter? (DM, HTN, Smoking, COPD, CAD, Cancer, CVA, ARF, Chemo, Hep., AIDS, mental health diagnosis, sleep apnea, morbid obesity)? @ -Methamphetamine abuse, depression Was patient admitted / discharged? Hospital course, mention meds given and route, prescriptions, significant lab abnormalities, going to OR and other pertinent info. @ -Upon arrival patient seen and evaluated. Thorough history and physical exam was performed. She is evaluated by EPS. They do feel that the patient requires admission. Patient admitted to the psychiatric floor in stable condition with a guarded prognosis Undiagnosed new problem with uncertain prognosis? @ -No Drug Therapy requiring intensive monitoring for toxicity (Heparin, Nitro, Insulin, Cardizem)? @ -No Were any procedures done? @ -No Diagnosis/symptom? @ -Acute depression, acute psychosis, suicidal ideations, methamphetamine abuse Acute, or Chronic, or Acute on Chronic? @ -Acute Uncomplicated (without systemic symptoms) or Complicated (systemic symptoms)? @ -Complicated Side effects of treatment? @ -No Exacerbation, Progression, or Severe Exacerbation? @ -No Poses a threat to life or bodily function? How? (Chest pain, USA, SD, pneumonia, PE, COPD, DKA, ARF, appy, cholecystitis, CVA, Diverticulitis, Homicidal, Suicidal, threat to staff... and all critical care pts) @ -Yes as patient is reporting suicidal ideations - Lab Data Result diagrams: 02/14/24 10:59 02/14/24 10:59 Lab Results 02/13/24 Range/Units 05:04 Influenza Type A (PCR) Not Detected (Not Detectd) Influenza Type B (PCR) Not Detected (Not Detectd) RSV (PCR) Not Detected (Not Detectd) SARS-CoV-2 (PCR) Not Detected (Not Detectd) Disposition Clinical Impression: Major depressive disorder with psychotic features, Suicidal ideation Disposition: ADMITTED IP TO THIS [facility] Condition: Stable Is patient prescribed a controlled substance at d/c from ED?: No
[2024-02-13] MEDS: NICOTINE 21MG/24HR PATCH TRANSDERM STA (02:55)
[2024-02-13] MEDS ORDERED: HALOPERIDOL LACTATE 5 MG/ML 1 ML VIAL IM PRN (06:12)
[2024-02-13] MEDS ORDERED: MAGNESIUM HYDROXIDE 2,400 MG/30 ML CUP PO PRN (06:12)
[2024-02-13] MEDS ORDERED: ACETAMINOPHEN TAB 325 MG TAB PO PRN (06:12)
[2024-02-13] MEDS ORDERED: IBUPROFEN 600 MG TAB PO PRN (06:12)
[2024-02-13] MEDS ORDERED: LORazepam 2 MG/ML INJ IM PRN (06:12)
[2024-02-13] MEDS ORDERED: MAG HYDROX/AL HYDROX/SIMETH 355 ML BOTTLE PO PRN (08:00)
[2024-02-13] MEDS: NICOTINE 21MG/24HR PATCH TRANSDERM SCH (09:12)
[2024-02-13] MEDS: ESCITALOPRAM 20 MG TAB PO SCH (09:13)
[2024-02-13] MEDS: hydrOXYzine pamoate 25 MG CAP PO SCH (09:13)
[2024-02-13] MEDS: QUEtiapine 50 MG TAB PO SCH (09:13)
--- NOTE | 2024-02-13 11:37 | P.HP ---
Psychiatric H&P - . H&P Date: 02/13/24 History & Physical: Allergies Allergy/AdvReac Type Severity Reaction Status Date / Time No Known Allergies Allergy Verified 02/07/24 11:16 Vital Signs Temp 98.3 F 02/13/24 06:34 Pulse 100 02/13/24 06:34 Resp 18 02/13/24 06:34 BP 118/74 02/13/24 06:34 Pulse Ox 96 02/13/24 06:34 FiO2 Intake & Output 02/12/24 02/13/24 02/13/24 18:59 06:59 18:59 Weight 69.201 kg Laboratory Last Values Influenza Type A (PCR) Not Detected (Not Detectd) 02/13/24 05:04 Influenza Type B (PCR) Not Detected (Not Detectd) 02/13/24 05:04 RSV (PCR) Not Detected (Not Detectd) 02/13/24 05:04 SARS-CoV-2 (PCR) Not Detected (Not Detectd) 02/13/24 05:04 02/13/24 09:06 IDENTIFYING DATA: Patient is a 38-year-old female, who currently lives alone in an apartment, has 1 son. She is single and unemployed. HPI: Patient presented to the hospital on 02/11. As per EPS note, "Patient presents to the ED with suicidal ideation. Patient states "hearing voices and I want to kill myself" Patient reports that the voices " are telling me to kill myself". Patient reports that she would shoot herself or cut herself. patient denies access to guns. Patient reports that she attempted suicide "a couple of weeks ago" when asked what she did patient states " I don't know". When asked if she could keep herself safe at home alone if she were discharged, patient stated no. Patient unable to safety plan." Patient was seen at the bedside, patient was disheveled, and sleeping. Patient refused to come into the office to speak with scientific writer. Patient uncooperative. P atient is currently endorsing auditory hallucinations. Patient denies any suicidal or homicidal ideations intent or plan. At this time patient endorses auditory and denies visual hallucinations. Patient denies any flight of ideas racing thoughts and increased in goal directed behavior. Patient UDS was positive for methamphetamines and amphetamines. PAST PSYCHIATRIC HISTORY: Patient states that she has history of depression and traumatic brain injury, ptsd, polysubstance abuse. Patient was previously on Seroquel and Lexapro and prazosin. her last psychiatric hospitalization was on 11/08 on the [facility]. Patient follows up through [facility]. Patient denies any history of suicide attempts in the past. PMH:As per ER note ALLERGIES: as per EMR CHEMICAL DEPENDENCY HISTORY: as per HPI FAMILY PSYCHIATRIC/SUBSTANCE USE HISTORY: Denies SOCIAL HISTORY: Patient was born and raised in [facility] and also in [place]. She states that she moved to [place] permanently at the age of 11. She states that she completed up to ninth grade in school. 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 She states that she has 1 son and currently lives with her mother. She is single and unemployed. She went to penitentiary about 3 years ago for driving without a license. MENTAL STATUS EXAM: General Appearance: Patient appears to have several tattoos, unkempt, stated age is somnolent, nondirectable, and will not cooperate. Patient appears to have poor hygiene and grooming. Behavior: Patient is seated without any agitated behavior. mostly somnolent. does not cooperate. responding to internal stimuli Speech: Patient's speech is fluent and nonpressured. Mood/Affect: Patient reports their mood is :fine" affect is constricted, Suicidality/Homicidality: Patient denies having any homicidal ideation intent or plan. Denies any suicidal ideations intent or plan Perceptions: Patient denies any visual hallucinations and admits to auditory hallucinations, non specific. Though content/process: Patient is illogical at times. concrete, evasive. Memory and concentration: AOX2-3, uncooperative with the rest. Judgment and insight: poor STRENGTHS/WEAKNESSES: strength is that patient is resilient. Weakness is that patient has poor judgment and is impulsive INTELLECT: Average IMPRESSIONS: Psychosis NOS history of depressive disorder Traumatic brain injury PTSD methamphetamine abuse Nicotine dependence PLAN: -Patient is admitted under voluntary status to [facility] for stabilization of psychiatric symptoms and safety. Patient has signed adult voluntary form and medication consent and is placed in patient's chart. -Medications : Discontinued morning dose of Seroquel, continue with nighttime dose of 400 mg p.o. Seroquel for mood stabilization/psychosis/insomnia, continue with Lexapro 20 mg daily for mood/anxiety. Continue with home dose of Minipress 2 mg nightly for nightmares. Vistaril as needed for anxiety. -Ativan and Haldol PRN for agitation/aggression -Patient was counselled on substance abuse -Patient was informed of the risks, benefits and side effects of the medication, she did not sign the medications. -Internal Medicine consult to perform medical evaluation and physical. -NRT -nicotine patch -SW on board for discharge planning. Encourage patient to participate in groups to work on coping skills. Will offer patient rehab once she is more stable.
[2024-02-13] MEDS: QUEtiapine 400 MG TAB PO SCH (20:18)
[2024-02-13] MEDS: PRAZOSIN 1 MG CAP PO SCH (20:18)
[2024-02-13] MEDS ORDERED: PRAZOSIN 1 MG CAP PO SCH (21:00)
[2024-02-13] MEDS ORDERED: traZODone HCL 50 MG TAB PO SCH (21:00)
--- NOTE | 2024-02-14 01:42 | P.PN ---
Progress Note - Text Progress Note Date: 02/14/24 Attempted to see the patient in the mental health unit. The patient refused to be seen or be evaluated.
--- NOTE | 2024-02-14 10:26 | P.PN ---
Progress Note - Text Progress Note Date: 02/14/24 Interval history: PAtient was seen today in the hallways and was agreeable to speak to proposal writer in the office. She appears to be more awake today. she claims that she does not remember getting onto the unit or speaking with proposal writer. Patient claims that she has not given a urine drug screen yet however will do so today. She did admit to using methamphetamine prior to coming into the hospital. States that she was hearing demons and other voices talking you were telling her to kill herself. She states that she is still hearing the voices and still has thoughts of harming herself, no specific plan. She denies any homicidal ideations no visual hallucinations. States that she is trying to go to groups. She was fairly superficial about her drug use and had very poor insight as to how it is causing her mental health condition and symptoms. She states that her appetite is fair. She was fairly focused on having her Seroquel increased despite proposal writer offering her other antipsychotics to help further. She claims that she was able to sleep last night, did have some weird dreams. MENTAL STATUS EXAM: General Appearance: Patient appears to have several tattoos, unkempt, stated age is alert, directable, more cooperative today. Patient appears to have improving mildly hygiene and grooming. Behavior: Patient is seated without any agitated behavior. More awake today, fairly superficial vague and evasive. not responding to internal stimuli Speech: Patient's speech is fluent and nonpressured. [place] Mood/Affect: Patient reports their mood is depressed affect is constricted, Suicidality/Homicidality: Patient denies having any homicidal ideation intent or plan. Admits to having suicidal thoughts, no plan. Perceptions: Patient denies any visual hallucinations and admits to auditory hallucinations, of demons talking to her Though content/process: Patient is illogical today, fairly evasive, concrete and vague. Memory and concentration: AOX3, follows commands. Judgment and insight: poor, improving mildly IMPRESSIONS: Psychosis NOS, likely secondary to methamphetamine use history of depressive disorder Traumatic brain injury PTSD methamphetamine abuse Nicotine dependence PLAN: -Patient is admitted under voluntary status to [facility]HU for stabilization of psychiatric symptoms and safety. Patient has signed adult voluntary form and medication consent and is placed in patient's chart. -Medications : at patient's request will increase nighttime dose of Seroquel 500 mg p.o. nightly for mood stabilization/psychosis/insomnia, continue with Lexapro 20 mg daily for mood/anxiety. Continue with home dose of Minipress 2 mg nightly for nightmares. Vistaril as needed for anxiety. If patient's psychiatric symptoms do not improve then consider switching to Risperdal. -Ativan and Haldol PRN for agitation/aggression -NRT -nicotine patch -SW on board for discharge planning. Encourage patient to participate in groups to work on coping skills. Patient states that she is agreeable to call the access line for rehab today, she would like to go to [facility] [facility] [place] upon discharge.
[2024-02-14 11:42] LABS: Basophils # (A) 0.1 k/uL (0-0.2); Basophils % (A) 1 %; Eosinophils # (A) 0.3 k/uL (0-0.7); Eosinophils % (A) 3 %; HCT 44.3 % (34.0-46.0); HGB 14.3 gm/dL (11.4-16.0); Lymphocytes # (A) 1.6 k/uL (1.0-4.8); Lymphocytes % (A) 16 %; MCH 28.4 pg (25.0-35.0); MCHC 32.4 g/dL (31.0-37.0); MCV 87.8 fL (80.0-100.0); Mean Platelet Volume 7.6; Monocytes # (A) 0.5 k/uL (0-1.0); Monocytes % (A) 5 %; Neutrophils # (A) 7.4 k/uL (1.3-7.7); Neutrophils % (A) 74 %; Platelet Count 401 k/uL (150-450); RBC 5.05 m/uL (3.80-5.40); WBC 9.9 k/uL (3.8-10.6)
[2024-02-14 12:03] LABS: ALT 17 U/L (4-34); AST 19 U/L (14-36); African American GFR (CKD) >90 (>60 ml/min/1.73 sqM); Albumin 4.4 g/dL (3.5-5.0); Alkaline Phosphatase 60 U/L (38-126); Anion Gap 6 mmol/L; Blood Urea Nitrogen 15 mg/dL (7-17); Calcium 9.5 mg/dL (8.4-10.2); Carbon Dioxide 25 mmol/L (22-30); Chloride 106 mmol/L (98-107); Glucose 77 mg/dL (74-99); Non-African American GFR(CKD) 82 (>60 ml/min/1.73 sqM); Potassium 4.3 mmol/L (3.5-5.1); Sodium 137 mmol/L (137-145); Total Bilirubin 0.4 mg/dL (0.2-1.3)
[2024-02-14 14:40] LABS: Appearance,Urine Clear (Clear); Bilirubin,Urine Negative (Negative); Blood,Urine Negative (Negative); Color,Urine Light Yellow; Glucose,Urine (UA) Negative (Negative); Ketones,Urine Negative (Negative); Leukocyte Esterase,Urine Negative (Negative); Nitrite,Urine Negative (Negative); Protein,Urine Negative (Negative); Specific Gravity,Urine 1.013 (1.001-1.035); Urobilinogen,Urine <2.0 mg/dL (<2.0)
[2024-02-14 14:52] LABS: Cocaine Screen,Urine Not Detected (NotDetected); Phencyclidine Screen,Urine Not Detected (NotDetected); Urn Cannabinoid Scrn Not Detected (NotDetected)
[2024-02-14 14:53] LABS: Amphetamine Screen,Urine Detected (NotDetected); Barbiturate Screen,Urine Not Detected (NotDetected); Benzodiazepines Screen,Urine Not Detected (NotDetected); Methadone Screen, Urine Not Detected (NotDetected); Opiate Screen,Urine Not Detected (NotDetected); Oxycodone Screen, Urine Not Detected (NotDetected); Tricyclic Antidepressant,Urine Detected (NotDetected)
[2024-02-14] MEDS: QUEtiapine 100 MG TAB PO SCH (20:37)
[2024-02-14 21:32] LABS: Chol/HDL Ratio 5.67 Ratio; LDL Cholesterol,Calculated 152.3 mg/dL (0.0-131.0)
--- NOTE | 2024-02-15 03:30 | P.CONS ---
History of Present Illness - Reason for Consult Consult date: 02/14/24 - History of Present Illness The patient is a 38-year-old female with a PMH of polysubstance abuse who had presented to the emergency room with complaints of hallucinations and depression with suicidal ideation. Patient was admitted to the mental health unit where she was seen and evaluated. Patient reports that she continues to struggle with substance abuse with most recently using methamphetamine just a few days prior to presentation. She denied any physical complaints at the time of interview. Denied experiencing chest discomfort, shortness of breath, fever, chills, cough, nausea, vomiting, abdominal pain, diarrhea. Reports a prior history of using heroin, crack cocaine, and methamphetamine. Review of systems: Pertinent positives and negatives as discussed in HPI, a complete review of systems was performed and all other systems are negative. Physical examination: General: non toxic, no distress, appears at stated age, normal weight Derm: no unusual rashes/lesions, no unusual ecchymoses, warm, dry Head: atraumatic, normocephalic, symmetric Eyes: EOMI, no lid lag, anicteric sclera ENT: Nose and ears atraumatic, no thrush, no pharyngeal erythema Neck: trachea midline, supple Mouth: no lip lesion, mucus membranes moist Cardiovascular: S1S2 reg, no murmur, no edema Lungs: CTA bilateral, no rhonchi, no rales , no accessory muscle use Abdominal: soft, nontender to palpation, no guarding Ext: no gross muscle atrophy, no contractures, Neuro: No gross focal neuro deficits noted Psych: Alert, oriented, appropriate affect Assessment: Polysubstance abuse Psychosis and depression Imaging: None performed Data Review: Reviewed with urine toxicology positive for methamphetamines and TCAs with UA unremarkable Plan: Advised on the importance of cessation from substance use Defer management of psychosis and depression to primary psychiatry service Thank you for allowing us to participate in the care of this patient. We will follow peripherally. Do not hesitate to contact us with questions. Someone can be reached from the [facility] hospitalist group at all hours of the day at [phone]. Past Medical History Past Medical History: No Reported History History of Any Multi-Drug Resistant Organisms: None Reported Past Surgical History: No Surgical Hx Reported Past Anesthesia/Blood Transfusion Reactions: No Reported Reaction Smoking Status: Current every day smoker - Past Family History Father Family Medical History: No Reported History Mother Family Medical History: No Reported History Medications and Allergies Home Medications Medication Instructions Recorded Confirmed Type Ibuprofen [Motrin] 600 mg PO QID PRN 14 Days tab 03/23/22 02/13/24 Rx Escitalopram [Lexapro] 20 mg PO DAILY 30 Days #30 tab 11/01/22 02/13/24 Rx Nicotine 14Mg/24Hr Patch [Habitrol] 1 patch TRANSDERM DAILY PRN 02/07/24 02/13/24 History Prazosin HCl 4 mg PO HS 02/07/24 02/13/24 History QUEtiapine FUMARATE [SEROquel] 400 mg PO HS 02/07/24 02/13/24 History QUEtiapine [SEROquel] 150 mg PO DAILY 02/07/24 02/13/24 History hydrOXYzine pamoate [Vistaril] 50 mg PO BID 02/07/24 02/13/24 History traZODone HCL 150 mg PO HS 02/07/24 02/13/24 History Allergies Allergy/AdvReac Type Severity Reaction Status Date / Time No Known Allergies Allergy Verified 02/07/24 11:16 Physical Exam Vitals: Vital Signs Temp Pulse Resp BP Pulse Ox 02/14/24 06:00 97.9 F 66 18 104/65 98 Results CBC & Chem 7: 02/14/24 10:59 02/14/24 10:59 Labs: Abnormal Lab Results - Last 24 Hours (Table) 02/14/24 02/14/24 Range/Units 01:54 10:59 Triglycerides 202.00 H (0.00-149.00) mg/dL Cholesterol 234.00 H (0.00-200.00) mg/dL LDL Cholesterol, Calc 152.3 H (0.0-131.0) mg/dL VLDL Cholesterol, Calc 40.40 H (5.00-40.00) mg/dL U Tricyclic Antidepress Detected H (NotDetected) Ur Amphetamines Screen Detected H (NotDetected) U Methamphetamines Scrn Detected H (NotDetected)
[2024-02-15 09:18] LABS: Urine Alcohol Negative (Negative); Urine Barbiturate Negative (Negative); Urine Cocaine Negative (Negative); Urine Methadone Negative (Negative); Urine Opiates Negative (Negative); Urine Phencyclidine Negative (Negative)
--- NOTE | 2024-02-15 11:27 | P.PN ---
Progress Note - Text Progress Note Date: 02/15/24 Interval history: PAtient was seen today in the hallways and was agreeable to speak to magnetic tape typewriter operator in the office. She states she is doing better. States she slept well last night. States that she is trying to go to groups. She remains superficial and minimizing her drug use. Continues to have relatively superficial/poor insight into her mental illness. She states that her appetite is fair. She claims she is still quite anxious, and focused on discharge. She does not endorse homicidal or suicidal ideations. She does not endorse paranoid, or auditory or visual hallucinations. Claims that she slept a bit better last night with the Seroquel. She is claiming that she is still fairly anxious during the day. MENTAL STATUS EXAM: General Appearance: Patient appears to have several tattoos, unkempt, stated age is alert, directable, more cooperative today. Patient appears to have improving mildly hygiene and grooming. Behavior: Patient is seated without any agitated behavior. More awake today, fairly superficial vague and evasive. not responding to internal stimuli Speech: Patient's speech is fluent and nonpressured. [place] Mood/Affect: Patient reports their mood is anxiouis affect is constricted, Suicidality/Homicidality: Patient denies having any homicidal ideation intent or plan. denies having suicidal thoughts Perceptions: Patient denies any visual hallucinations and denies auditory hallucinations, Though content/process: Patient is more cooperative today, still fairly evasive, concrete and vague. Memory and concentration: AOX3, follows commands. 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 Patient has signed adult voluntary form and medication consent and is placed in patient's chart. -Medications : Seroquel 500 mg p.o. nightly for mood sta bilization/psychosis/insomnia, Lexapro 20 mg daily for mood/anxiety. Minipress 2 mg nightly for nightmares. Start Vistaril 50 mg daily for anxiety. If patient's psychiatric symptoms do not improve then consider switching to Risperdal. -Will, Ativan and Haldol PRN for agitation/aggression -NRT -nicotine patch -SW on board for discharge planning. Encourage patient to participate in groups to work on coping skills. Likely discharge Tuesday vs Tuesday. Awaiting placement for rehab, patient claims that she completed her screening.
[2024-02-15] MEDS: hydrOXYzine pamoate 25 MG CAP PO SCH (11:41)
[2024-02-15] MEDS: hydrOXYzine pamoate 25 MG CAP PO PRN (20:12)
--- NOTE | 2024-02-16 11:51 | P.PN ---
Progress Note - Text Progress Note Date: 02/16/24 Interval history: PAtient was seen today in the hallways and was agreeable to speak to commercial lines underwriter in the office. She states she is doing better. She states that her anxiety is ok, and her mood is good. States that she is trying to go to groups. Continues to have relatively superficial/poor insight into her mental illness, and drug use. She states that her appetite is fair. She is focused on discharge, she claims that she is losing her car and her apartment, because of being in here. She does not endorse homicidal or suicidal ideations. She does not endorse paranoid, or auditory or visual hallucinations. Claims that she slept a bit better last night with the Seroquel. She is claiming that she is still fairly anxious during the day. MENTAL STATUS EXAM: General Appearance: Patient appears to have several tattoos, unkempt, stated age is alert, directable, more cooperative today. Patient appears to have improving mildly hygiene and grooming. Behavior: Patient is seated without any agitated behavior. More awake today, fairly superficial vague and evasive. mildly improving Speech: Patient's speech is fluent and nonpressured. [place], improving mildly Mood/Affect: Patient reports their mood is anxiouis affect is constricted, Suicidality/Homicidality: Patient denies having any homicidal ideation intent or plan. denies having suicidal thoughts Perceptions: Patient denies any visual hallucinations and denies auditory hallucinations, Though content/process: Patient is more cooperative today, still fairly evasive, concrete and vague. mildly improving Memory and concentration: AOX3, follows commands. 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 Patient has signed adult voluntary form and medication consent and is placed in patient's chart. -Medications : Seroquel 500 mg p.o. nightly for mood stabilization/psychosis/insomnia, Lexapro 20 mg daily for mood/anxiety. Minipress 2 mg nightly for nightmares. Vistaril 50 mg daily for anxiety. -Ativan and Haldol PRN for agitation/aggression -NRT - nicotine patch -SW on board for discharge planning. Encourage patient to participate in groups to work on coping skills. Likely discharge Tuesday back to her apartment. Awaiting placement for rehab, patient claims that she completed her screening.
[2024-02-16] MEDS: LORazepam 1 MG TAB PO PRN (12:43)
[2024-02-16] MEDS: haloperidoL 5 MG TAB PO PRN (15:14)
[2024-02-17 06:42] VITALS: RESP 14; TEMP 97.2
--- NOTE | 2024-02-17 10:35 | P.DS ---
Providers Date of admission: 02/13/24 05:54 Expected date of discharge: 02/17/24 Attending physician: Jhonny Rodriguez MD Consults: 02/13/24 06:12 Consult Physician Routine Consulting Provider: Zahra Veliz Consult Reason/Comments: medical H&P Do you want consulting provider notified?: Yes Primary care physician: Bhargav Martined - Discharge Diagnosis(es) (1) Methamphetamine-induced psychotic disorder Current Visit: Yes Status: Acute Priority: High (2) Depressive disorder Current Visit: Yes Status: Acute Priority: High (3) Methamphetamine abuse Current Visit: No Status: Acute Priority: High (4) Nicotine dependence Current Visit: No Status: Acute Priority: Low (5) PTSD (post-traumatic stress disorder) Current Visit: No Status: Acute Priority: Medium (6) Traumatic brain injury Current Visit: No Status: Acute Priority: Medium Hospital Course: Admission HPI: Admission note was completed by song writer "Patient presented to the hospital on 02/11. As per EPS note, "Patient presents to the ED with suicidal ideation. Patient states "hearing voices and I want to kill myself" Patient reports that the voices " are telling me to kill myself". Patient reports that she would shoot herself or cut herself. patient denies access to guns. Patient reports that she attempted suicide "a couple of weeks ago" when asked what she did patient states " I don't know". When asked if she could keep herself safe at home alone if she were discharged, patient stated no. Patient unable to safety plan." Patient was seen at the bedside, patient was disheveled, and sleeping. Patient refused to come into the office to speak with song writer. Patient uncooperative. Patient is currently endorsing auditory hallucinations. Patient denies any suicidal or homicidal ideations intent or plan. At this time patient endorses auditory and denies visual hallucinations. Patient denies any flight of ideas racing thoughts and increased in goal directed behavior. Patient UDS was positive for methamphetamines and amphetamines." Hospital course: Upon admission to the unit patient was directable and agreeable to commence treatment and signed adult voluntary form. Patient was initially fairly guarded, isolative however with time and treatment she eventually got along well with other patients on the unit and followed unit protocol. Patient was compliant with the medications and denied any side effects throughout hospital course. Patient was started on Seroquel 500 mg nightly for mood stabilization/psychosis/insomnia, Lexapro 20 mg daily for mood/anxiety, Minipress 2 mg nightly for nightmares, Vistaril 50 mg daily for anxiety. Patient spoke of her stressors and engaged in therapy both group and individual. Patient was also seen by medical team for history and physical exam. Throughout the course of the hospitalization patient gradually improved with regards to mood, anxiety, impulsivity, psychosis, sleep and returned back to their baseline level of functioning. On the day of discharge patient denied any suicidal or homicidal ideations intent or plan denied any auditory or visual hallucinations. Patient endorsed wanting to live for her health and her mandaeism. The patient denied any access to guns or weapons. Patient denied any paranoia and did not endorse any delusions. Patient does have a significant history of substance abuse and was counseled on abstaining from all substances including alcohol and marijuana. Patient was offered however declined inpatient substance-abuse rehab. Patient elected to do outpatient substance use treatment program through [facility]. Patient was also counseled on the medications and need for regular compliance and was encouraged to follow-up with their outpatient appointment for mental health and also for primary care. Mental status exam: General Appearance: Patient appears to be thin, stated age is alert, pleasant, and cooperative. Patient is in no acute distress and has improved hygiene and grooming Behavior: Patient is calmly seated without any agitated behavior. Speech: Patient's speech is fluent and nonpressured. Mood/Affect: Patient reports their mood is "better", affect is congruent Suicidality/Homicidality: Patient denies having any suicidal or homicidal ideation intent or plan. Perceptions: Patient denies any auditory or visual hallucinations. Though content/process: There is no evidence of any delusional thought content and thought process is linear and goal-directed. More future oriented Memory and concentration: AOX3, grossly intact for the purposes of this session. Can spell "WORLD" backwards correctly. Judgment and insight: Chronically poor, however has improved with guarded prognosis Impression: Psychosis secondary to methamphetamine use history of depressive disorder History of traumatic brain injury History of PTSD methamphetamine abuse Nicotine dependence Plan: -Continue with discharge today as patient has improved and stabilized psychiatrically and is not currently an imminent threat to herself and/or others. Patient will remain at chronically elevated risk for harm to self and/or others due to his impulsivity and polysubstance abuse. -Continue medications: Seroquel 500 mg p.o. nightly for mood stabilization/psychosis/insomnia, Lexapro 20 mg daily for mood/anxiety, Minipress 2 mg nightly for nightmares, Vistaril 50 mg daily for anxiety. -Patient was counseled on the need for medication compliance and appropriate follow-up at mental health and also primary care for medical issues. Patient verbalized understanding and agreed. -Social work to arrange for discharge tomorrow. Social work also to arrange for patients follow up appointments with [facility] for psychiatric care along with follow up with primary care provider. -Patient counseled on abstaining from recreational drugs and marijuana and alcohol. Was informed/educated on the adverse effects on their physical and mental health. Patient verbally agreed and understood. Patient was offered substance abuse treatment however declined at this time. -Patient was instructed to return to the hospital or seek immediate medical care if their psychiatric or medical symptoms do worsen or reoccur. Allergies Allergy/AdvReac Type Severity Reaction Status Date / Time No Known Allergies Allergy Verified 02/07/24 11:16 Laboratory Results WBC 9.9 k/uL (3.8-10.6) 02/14/24 10:59 RBC 5.05 m/uL (3.80-5.40) 02/14/24 10:59 Hgb 14.3 gm/dL (11.4-16.0) 02/14/24 10:59 Hct 44.3 % (34.0-46.0) 02/14/24 10:59 MCV 87.8 fL (80.0-100.0) 02/14/24 10:59 MCH 28.4 pg (25.0-35.0) 02/14/24 10:59 MCHC 32.4 g/dL (31.0-37.0) 02/14/24 10:59 RDW 15.0 % (11.5-15.5) 02/14/24 10:59 Plt Count 401 k/uL (150-450) 02/14/24 10:59 MPV 7.6 02/14/24 10:59 Neutrophils % 74 % 02/14/24 10:59 Lymphocytes % 16 % 02/14/24 10:59 Monocytes % 5 % 02/14/24 10:59 Eosinophils % 3 % 02/14/24 10:59 Basophils % 1 % 02/14/24 10:59 Neutrophils # 7.4 k/uL (1.3-7.7) 02/14/24 10:59 Lymphocytes # 1.6 k/uL (1.0-4.8) 02/14/24 10:59 Monocytes # 0.5 k/uL (0-1.0) 02/14/24 10:59 Eosinophils # 0.3 k/uL (0-0.7) 02/14/24 10:59 Basophils # 0.1 k/uL (0-0.2) 02/14/24 10:59 Sodium 137 mmol/L (137-145) 02/14/24 10:59 Potassium 4.3 mmol/L (3.5-5.1) 02/14/24 10:59 Chloride 106 mmol/L (98-107) 02/14/24 10:59 Carbon Dioxide 25 mmol/L (22-30) 02/14/24 10:59 Anion Gap 6 mmol/L 02/14/24 10:59 BUN 15 mg/dL (7-17) 02/14/24 10:59 Creatinine 0.89 mg/dL (0.52-1.04) 02/14/24 10:59 Est GFR (CKD-EPI)AfAm >90 (>60 ml/min/1.73 sqM) 02/14/24 10:59 Est GFR (CKD-EPI)NonAf 82 (>60 ml/min/1.73 sqM) 02/14/24 10:59 Glucose 77 mg/dL (74-99) 02/14/24 10:[address] Glu mg/dL 114 mg/dL 02/14/24 10:59 Hemoglobin A1c 5.6 % (<=6.0) 02/14/24 10:59 Calcium 9.5 mg/dL (8.4-10.2) 02/14/24 10:59 Total Bilirubin 0.4 mg/dL (0.2-1.3) 02/14/24 10:59 AST 19 U/L (14-36) 02/14/24 10:59 ALT 17 U/L (4-34) 02/14/24 10:59 Alkaline Phosphatase 60 U/L (38-126) 02/14/24 10:59 Total Protein 7.0 g/dL (6.3-8.2) 02/14/24 10:59 Albumin 4.4 g/dL (3.5-5.0) 02/14/24 10:59 Triglycerides 202.00 mg/dL (0.00-149.00) H 02/14/24 10:59 Cholesterol 234.00 mg/dL (0.00-200.00) H 02/14/24 10:59 LDL Cholesterol, Calc 152.3 mg/dL (0.0-131.0) H 02/14/24 10:59 VLDL Cholesterol, Calc 40.40 mg/dL (5.00-40.00) H 02/14/24 10:59 HDL Cholesterol 41.30 mg/dL (40.00-60.00) 02/14/24 10:59 Cholesterol/HDL Ratio 5.67 Ratio 02/14/24 10:59 TSH 1.080 mIU/L (0.465-4.680) 02/14/24 10:59 Urine Color Light Yellow 02/14/24 01:54 Urine Appearance Clear (Clear) 02/14/24 01:54 Urine pH 5.0 (5.0-8.0) 02/14/24 01:54 Ur Specific [place] 1.013 (1.001-1.035) 02/14/24 01:54 Urine Protein Negative (Negative) 02/14/24 01:54 Urine Glucose (UA) Negative (Negative) 02/14/24 01:54 Urine Ketones Negative (Negative) 02/14/24 01:54 Urine Blood Negative (Negative) 02/14/24 01:54 Urine Nitrite Negative (Negative) 02/14/24 01:54 Urine Bilirubin Negative (Negative) 02/14/24 01:54 Urine Urobilinogen <2.0 mg/dL (<2.0) 02/14/24 01:54 Ur Leukocyte Esterase Negative (Negative) 02/14/24 01:54 Urine HCG, Qual Not Detected (Not Detectd) 02/14/24 01:54 Urine Opiates Screen Negative (Negative) 02/14/24 14:27 Ur Oxycodone Screen Not Detected (NotDetected) 02/14/24 01:54 Urine Methadone Screen Negative (Negative) 02/14/24 14:27 Ur Propoxyphene Screen Negative (Negative) 02/14/24 14:27 Ur Barbiturates Screen Not Detected (NotDetected) 02/14/24 01:54 Urine Barbiturates Negative (Negative) 02/14/24 14:27 U Tricyclic Antidepress Detected (NotDetected) H 02/14/24 01:54 Ur Phencyclidine Scrn Negative (Negative) 02/14/24 14:27 Ur Amphetamine Screen Positive (Negative) A 02/14/24 14:27 Ur Amphetamines Screen Detected (NotDetected) H 02/14/24 01:54 U Methamphetamines Scrn Detected (NotDetected) H 02/14/24 01:54 U Benzodiazepines Scrn Negative (Negative) 02/14/24 14:27 Urine Cocaine Screen Negative (Negative) 02/14/24 14:27 U Cannabinoids Screen Negative (Negative) 02/14/24 14:27 U Marijuana (THC) Screen Not Detected (NotDetected) 02/14/24 01:54 Urine Alcohol Negative (Negative) 02/14/24 14:27 Influenza Type A (PCR) Not Detected (Not Detectd) 02/13/24 05:04 Influenza Type B (PCR) Not Detected (Not Detectd) 02/13/24 05:04 RSV (PCR) Not Detected (Not Detectd) 02/13/24 05:04 SARS-CoV-2 (PCR) Not Detected (Not Detectd) 02/13/24 05:04 Vital Signs Temp 97.2 F L 02/17/24 06:29 Pulse 69 02/17/24 06:29 Resp 14 02/17/24 06:29 BP 115/58 02/17/24 06:29 Pulse Ox 98 02/16/24 20:19 FiO2 Patient Condition at Discharge: Stable Plan - Discharge Summary Discharge Rx Participant: Yes New Discharge Prescriptions: New Nicotine 21Mg/24Hr Patch [Habitrol] 1 patch TRANSDERM DAILY 14 Days #14 patch QUEtiapine [SEROquel] 400 mg PO HS 30 Days #30 tab QUEtiapine [SEROquel] 100 mg PO HS 30 Days #30 tablet hydrOXYzine pamoate [Vistaril] 50 mg PO DAILY 30 Days #60 cap Prazosin [Minipress] 2 mg PO HS 30 Days #60 cap Continue Escitalopram [Lexapro] 20 mg PO DAILY 30 Days #30 tab Discontinued Ibuprofen [Motrin] 600 mg PO QID PRN 14 Days tab PRN Reason: Moderate Pain Nicotine 14Mg/24Hr Patch [Habitrol] 1 patch TRANSDERM DAILY PRN PRN Reason: Nicotine Cravings hydrOXYzine pamoate [Vistaril] 50 mg PO BID QUEtiapine FUMARATE [SEROquel] 400 mg PO HS traZODone HCL 150 mg PO HS QUEtiapine [SEROquel] 150 mg PO DAILY Prazosin HCl 4 mg PO HS Discharge Medication List Escitalopram [Lexapro] 20 mg PO DAILY 30 Days #30 tab 02/17/24 [Rx] Nicotine 21Mg/24Hr Patch [Habitrol] 1 patch TRANSDERM DAILY 14 Days #14 patch 02/17/24 [Rx] Prazosin [Minipress] 2 mg PO HS 30 Days #60 cap 02/17/24 [Rx] QUEtiapine [SEROquel] 100 mg PO HS 30 Days #30 tablet 02/17/24 [Rx] QUEtiapine [SEROquel] 400 mg PO HS 30 Days #30 tab 02/17/24 [Rx] hydrOXYzine pamoate [Vistaril] 50 mg PO DAILY 30 Days #60 cap 02/17/24 [Rx] Follow up Appointment(s)/Referral(s): Bhargav Rosario MD [Primary Care Provider] - 1-2 days Discharge Disposition: HOME SELF-CARE
[2024-02-17 12:34] VITALS: BP 128/77; PULSE 97
== END 2024-02-17 13:01 | disposition home or self-care (01) | DRG 776 ==
LOC: EC 01:23 → 3MHU 05:54
PROVIDERS: ADMIT Psychiatry & Neurology Psychiatry; ATTEND Psychiatry & Neurology Psychiatry
DX: F15.159 Other stimulant abuse with stimulant-induced psychotic disorder, unspecified (principal); F17.200 Nicotine dependence, unspecified, uncomplicated; F32.3 Major depressive disorder, single episode, severe with psychotic features; F43.10 Post-traumatic stress disorder, unspecified; G47.00 Insomnia, unspecified; R45.851 Suicidal ideations; Z91.51 Personal history of suicidal behavior; Z87.820 Personal history of traumatic brain injury; Z79.899 Other long term (current) drug therapy; Z71.51 Drug abuse counseling and surveillance of drug abuser; Z28.310 Unvaccinated for COVID-19; Z28.21 Immunization not carried out because of patient refusal
CPT/HCPCS: 80053; 80061; 80306; 81003; 81025; 82075; 83036; 84443; 85025; 87636; 99285

== ENCOUNTER 2024-02-24 02:28 | Emergency (ER) | payer OTHER ==
[2024-02-24 02:39] VITALS: BP 128/88; PULSE 96; RESP 18; TEMP 98.5
--- NOTE | 2024-02-24 03:14 | ED ---
General Adult HPI - General Chief complaint: Psychiatric Symptoms Stated complaint: mental health Time Seen by Provider: 02/24/24 02:42 Source: patient, RN notes reviewed Mode of arrival: ambulatory - History of Present Illness Initial comments: 38-year-old female presents to the ED with complaints of suicidal ideations. Patient states that for the past few weeks has been hearing voices telling her that she needs to harm herself. Denies any plan at this time. Denies homicidal ideations. No alleviating or aggravating factors. At this time patient denies any medical complaints. Patient reports that she is currently on meth however denies any other drug use. No other complaints at this time. - Related Data Previous Rx's Medication Instructions Recorded Escitalopram [Lexapro] 20 mg PO DAILY 30 Days #30 tab 02/17/24 Nicotine 21Mg/24Hr Patch [Habitrol] 1 patch TRANSDERM DAILY 14 Days 02/17/24 #14 patch Prazosin [Minipress] 2 mg PO HS 30 Days #60 cap 02/17/24 QUEtiapine [SEROquel] 100 mg PO HS 30 Days #30 tablet 02/17/24 QUEtiapine [SEROquel] 400 mg PO HS 30 Days #30 tab 02/17/24 hydrOXYzine pamoate [Vistaril] 50 mg PO DAILY 30 Days #60 cap 02/17/24 Allergies Allergy/AdvReac Type Severity Reaction Status Date / Time No Known Allergies Allergy Verified 02/24/24 02:39 Review of Systems ROS Statement: Those systems with pertinent positive or pertinent negative responses have been documented in the HPI. ROS Other: All systems not noted in ROS Statement are negative. Past Medical History Past Medical History: No Reported History History of Any Multi-Drug Resistant Organisms: None Reported, MRSA Date of last positivie culture/infection: left knee MDRO Source:: 2013 Past Surgical History: No Surgical Hx Reported Past Anesthesia/Blood Transfusion Reactions: No Reported Reaction Past Psychological History: Anxiety, Depression, Schizophrenia Smoking Status: Current every day smoker Past Alcohol Use History: Occasional Past Drug Use History: Heroin, Marijuana, Methamphetamine - Past Family History Father Family Medical History: No Reported History Mother Family Medical History: No Reported History General Exam General appearance: alert, in no apparent distress Eye exam: Present: normal appearance Neck exam: Present: normal inspection Respiratory exam: Present: normal lung sounds bilaterally Cardiovascular Exam: Present: regular rate GI/Abdominal exam: Present: soft, normal bowel sounds. Absent: distended, tenderness, guarding, rebound, rigid Neurological exam: Present: alert, oriented X3 Skin exam: Present: warm, dry Course Vital Signs 02/24/24 02:32 Temperature 98.5 F Pulse Rate 96 Respiratory 18 Rate Blood Pressure 128/88 O2 Sat by Pulse 97 Oximetry Medical Decision Making - Medical Decision Making Was pt. sent in by a medical professional or institution (, PA, VIDEO SPECIALIST, urgent care, hospital, or correction...) When possible be specific @ -No Did you speak to anyone other than the patient for history (EMS, parent, family, police, friend...)? What history was obtained from this source @ -No Did you review nursing and triage notes (agree or disagree)? Why? @ -I reviewed and agree with nursing and triage notes Were old charts reviewed (outside hosp., previous admission, EMS record, old EKG, old radiological studies, urgent care reports/EKG's, correction records)? Report findings @ -No old charts were reviewed Differential Diagnosis (chest pain, altered mental status, abdominal pain women, abdominal pain men, vaginal bleeding, weakness, fever, dyspnea, syncope, heada yousif, dizziness, GI bleed, back pain, seizure, CVA, palpatations, mental health, musculoskeletal)? @ -Differential Mental Health Depression, anxiety, bipolar, psychosis, schizophrenia, borderline personality, situational depression, adjustment disorder, behavioral disorder, brain tumor, malingering, substance abuse, encephalopathy, medication reaction, dementia, hypothyroidism, degenerative neurologic disorder, lupus.... This is not meant to be all-inclusive list EKG interpreted by me (3pts min.). @ -None X-rays interpreted by me (1pt min.). @ -None done CT interpreted by me (1pt min.). @ -None done U/S interpreted by me (1pt. min.). @ -None done What testing was considered but not performed or refused? (CT, X-rays, U/S, labs)? Why? @ -None What meds were considered but not given or refused? Why? @ -None Did you discuss the management of the patient with other professionals (professionals i.e. , PA, VIDEO SPECIALIST, lab, RT, psych nurse, delinquency prevention social worker, inspector circuitry negative, teacher, licensed mortgage loan officer, showcase trimmer)? Give summary @ -No Was smoking cessation discussed for >3mins.? @ -No Was critical care preformed (if so, how long)? @ -No Were there social determinants of health that impacted care today? How? (Homelessness, low income, unemployed, alcoholism, drug addiction, transportation, low edu. Level, literacy, decrease access to med. care, penitentiary, rehab)? @ -No Was there de-escalation of care discussed even if they declined (Discuss DNR or withdrawal of care, Hospice)? DNR status @ -No What co-morbidities impacted this encounter? (DM, HTN, Smoking, COPD, CAD, Ca ncer, CVA, ARF, Chemo, Hep., AIDS, mental health diagnosis, sleep apnea, morbid obesity)? @ -None Was patient admitted / discharged? Hospital course, mention meds given and route, prescriptions, significant lab abnormalities, going to OR and other pertinent info. @ -Discharge 58-year-old female presented to the ED with complaints of suicidal ideations with hallucinations. At this time patient is medically cleared and disposition pending psychiatric evaluation. Patient evaluated by psychiatry. At this time, feel patient is stable for discharge with safety plan. Safety plan discussed with patient. Patient discharged home in stable condition. Undiagnosed new problem with uncertain prognosis? @ -No Drug Therapy requiring intensive monitoring for toxicity (Heparin, Nitro, Insulin, Cardizem)? @ -No Were any procedures done? @ -No Diagnosis/symptom? @ -Suicidal ideation Acute, or Chronic, or Acute on Chronic? @ -Acute Uncomplicated (without systemic symptoms) or Complicated (systemic symptoms)? @ -Uncomplicated Side effects of treatment? @ -No Exacerbation, Progression, or Severe Exacerbation? @ -No Poses a threat to life or bodily function? How? (Chest pain, [place], [place], pneumonia, PE, COPD, DKA, ARF, appy, cholecystitis, CVA, Diverticulitis, Homicidal, Suicidal, threat to staff... and all critical care pts) @ -No Disposition Clinical Impression: Suicidal ideations Disposition: HOME SELF-CARE Condition: Good Additional Instructions: Please return to the Emergency Department if symptoms worsen or any other concerns. Please follow safety plan as discussed by psychiatry. Continue taking medications as prescribed. Is patient prescribed a controlled substance at d/c from ED?: No Referrals: Abraham,Mohammad, MD [Primary Care Provider] - 1-2 days Time of Disposition: 04:05
[2024-02-24 04:04] LABS: Amphetamine Screen,Urine Detected (NotDetected); Barbiturate Screen,Urine Not Detected (NotDetected); Benzodiazepines Screen,Urine Not Detected (NotDetected); Cocaine Screen,Urine Not Detected (NotDetected); Methadone Screen, Urine Not Detected (NotDetected); Opiate Screen,Urine Not Detected (NotDetected); Oxycodone Screen, Urine Not Detected (NotDetected); Phencyclidine Screen,Urine Not Detected (NotDetected); Tricyclic Antidepressant,Urine Detected (NotDetected); Urn Cannabinoid Scrn Not Detected (NotDetected)
[2024-02-24] MEDS: HALOPERIDOL LACTATE 5 MG/ML 1 ML VIAL IM STA (05:33)
== END 2024-02-24 10:00 | disposition home or self-care (01) ==
LOC: EC 02:28
DX: R45.851 Suicidal ideations (principal); F17.200 Nicotine dependence, unspecified, uncomplicated; F12.90 Cannabis use, unspecified, uncomplicated; F15.90 Other stimulant use, unspecified, uncomplicated
CPT/HCPCS: 82075; 80306; 99285; 96372; J1630

== ENCOUNTER 2024-03-12 01:12 | Emergency (ER) | payer OTHER ==
[2024-03-12 03:54] LABS: Amphetamine Screen,Urine Detected (NotDetected); Barbiturate Screen,Urine Not Detected (NotDetected); Benzodiazepines Screen,Urine Not Detected (NotDetected); Cocaine Screen,Urine Not Detected (NotDetected); Methadone Screen, Urine Not Detected (NotDetected); Opiate Screen,Urine Not Detected (NotDetected); Oxycodone Screen, Urine Not Detected (NotDetected); Phencyclidine Screen,Urine Not Detected (NotDetected); Tricyclic Antidepressant,Urine Not Detected (NotDetected); Urn Cannabinoid Scrn Not Detected (NotDetected)
--- NOTE | 2024-03-12 04:15 | ED ---
General Adult HPI - General Source: patient, RN notes reviewed Mode of arrival: ambulatory Limitations: no limitations <Fabrizio Kumar - Last Filed: 03/12/24 04:16> <Sameer Jules - Last Filed: 03/12/24 09:47> - General Chief complaint: Psychiatric Symptoms Stated complaint: Mental health Time Seen by Provider: 03/12/24 02:08 - History of Present Illness Initial comments: 18-year-old female presenting to the ED for mental health evaluation. Patient reports that she has auditory and visual hallucinations however has been ongoing for years. Would not elaborate as to what she is hearing or seeing however denies voices telling her to hurt herself or to hurt anybody. Currently denies any suicidal or homicidal ideation. Reports that she would like to have her head "checked". Denies any recent head injury. Currently denies medical complaints. Denies chest pain, shortness of breath, abdominal pain, changes in bowel or bladder habits, fever, or chills. (Fabrizio Kumar) - Related Data Previous Rx's Medication Instructions Recorded Escitalopram [Lexapro] 20 mg PO DAILY 30 Days #30 tab 02/17/24 Nicotine 21Mg/24Hr Patch [Habitrol] 1 patch TRANSDERM DAILY 14 Days 02/17/24 #14 patch Prazosin [Minipress] 2 mg PO HS 30 Days #60 cap 02/17/24 QUEtiapine [SEROquel] 100 mg PO HS 30 Days #30 tablet 02/17/24 QUEtiapine [SEROquel] 400 mg PO HS 30 Days #30 tab 02/17/24 hydrOXYzine pamoate [Vistaril] 50 mg PO DAILY 30 Days #60 cap 02/17/24 Allergies Allergy/AdvReac Type Severity Reaction Status Date / Time No Known Allergies Allergy Verified 02/24/24 02:39 Review of Systems ROS Other: All systems not noted in ROS Statement are negative. <Fabrizio Kumar - Last Filed: 03/12/24 04:16> ROS Other: All systems not noted in ROS Statement are negative. <Sameer Jules - Last Filed: 03/12/24 09:47> ROS Statement: Those systems with pertinent positive or pertinent negative responses have been documented in the HPI. Past Medical History Past Medical History: No Reported History History of Any Multi-Drug Resistant Organisms: None Reported, MRSA Date of last positivie culture/infection: left knee MDRO Source:: 2013 Past Surgical History: No Surgical Hx Reported Past Anesthesia/Blood Transfusion Reactions: No Reported Reaction Past Psychological History: Anxiety, Depression, Schizophrenia Smoking Status: Current every day smoker, Vaper Past Alcohol Use History: Occasional Past Drug Use History: Heroin, Marijuana, Methamphetamine - Past Family History Father Family Medical History: No Reported History Mother Family Medical History: No Reported History <Fabrizio Kumar - Last Filed: 03/12/24 04:16> General Exam Limitations: no limitations General appearance: alert, in no apparent distress Head exam: Present: other (No middleton signs or raccoon's eyes.) Eye exam: Present: normal appearance Neck exam: Present: normal inspection Respiratory exam: Present: normal lung sounds bilaterally Cardiovascular Exam: Present: regular rate GI/Abdominal exam: Present: soft, normal bowel sounds. Absent: distended, tenderness, guarding, rebound, rigid Back exam: Present: normal inspection Neurological exam: Present: alert Psychiatric exam: Present: other (Anxious appearing. Constantly picking at her skin.) Skin exam: Present: warm, dry <Fabrizio Kumar - Last Filed: 03/12/24 04:16> Course Vital Signs 03/12/24 03/12/24 01:53 09:43 Temperature 98.2 F 98.0 F Pulse Rate 100 90 Respiratory 22 17 Rate Blood Pressure 132/81 128/76 O2 Sat by Pulse 96 97 Oximetry Medical Decision Making <Fabrizio Kumar - Last Filed: 03/12/24 04:16> <Sameer Jules - Last Filed: 03/12/24 09:47> - Medical Decision Making Was pt. sent in by a medical professional or institution (, PA, CONVENTION MANAGER, urgent care, hospital, or retirement...) When possible be specific @ -No Did you speak to anyone other than the patient for history (EMS, parent, family, police, friend...)? What history was obtained from this source @ -No Did you review nursing and triage notes (agree or disagree)? Why? @ -I reviewed and agree with nursing and triage notes Were old charts reviewed (outside hosp., previous admission, EMS record, old EKG, old radiological studies, urgent care reports/EKG's, retirement records)? Report findings @ -No old charts were reviewed Differential Diagnosis (chest pain, altered mental status, abdominal pain women, abdominal pain men, vaginal bleeding, weakness, fever, dyspnea, syncope, head ache, dizziness, GI bleed, back pain, seizure, CVA, palpatations, mental health, musculoskeletal)? @ -Differential Mental Health Depression, anxiety, bipolar, psychosis, schizophrenia, borderline personality, situational depression, adjustment disorder, behavioral disorder, brain tumor, malingering, substance abuse, encephalopathy, medication reaction, dementia, hypothyroidism, degenerative neurologic disorder, lupus.... This is not meant to be all-inclusive list EKG interpreted by me (3pts min.). @ -None X-rays interpreted by me (1pt min.). @ -None done CT interpreted by me (1pt min.). @ -None done U/S interpreted by me (1pt. min.). @ -None done What testing was considered but not performed or refused? (CT, X-rays, U/S, labs)? Why? @ -None What meds were considered but not given or refused? Why? @ -None Did you discuss the management of the patient with other professionals (professionals i.e. , PA, CONVENTION MANAGER, lab, RT, psych nurse, social welfare clerk, viscose cellar charge hand, te acher, senior commercial loan officer, disease case manager)? Give summary @ -No Was smoking cessation discussed for >3mins.? @ -No Was critical care preformed (if so, how long)? @ -No Were there social determinants of health that impacted care today? How? (Homelessness, low income, unemployed, alcoholism, drug addiction, transportation, low edu. Level, literacy, decrease access to med. care, custodial, rehab)? @ -No Was there de-escalation of care discussed even if they declined (Discuss DNR or withdrawal of care, Hospice)? DNR status @ -No What co-morbidities impacted this encounter? (DM, HTN, Smoking, COPD, CAD, C ancer, CVA, ARF, Chemo, Hep., AIDS, mental health diagnosis, sleep apnea, morbid obesity)? @ -None Was patient admitted / discharged? Hospital course, mention meds given and route, prescriptions, significant lab abnormalities, going to OR and other pertinent info. @ -Pending 38-year-old female presenting to the ED for mental health evaluation. Reports auditory and visual hallucinations. No recent head injury. At this time denies any medical complaints. Patient is medically cleared and disposition pending psychiatric evaluation. Undiagnosed new problem with uncertain prognosis? (Fabrizio Kumar) Patient was evaluated by EPS and felt to be safe for discharge. Patient is able to sign a safety plan. Follow-up with [facility] (Sameer Jules) - Lab Data Lab Results 03/12/24 Range/Units 03:13 Urine Opiates Screen Not Detected (NotDetected) Ur Oxycodone Screen Not Detected (NotDetected) Urine Methadone Screen Not Detected (NotDetected) Ur Barbiturates Screen Not Detected (NotDetected) U Tricyclic Antidepress Not Detected (NotDetected) Ur Phencyclidine Scrn Not Detected (NotDetected) Ur Amphetamines Screen Detected H (NotDetected) U Methamphetamines Scrn Detected H (NotDetected) U Benzodiazepines Scrn Not Detected (NotDetected) Urine Cocaine Screen Not Detected (NotDetected) U Marijuana (THC) Screen Not Detected (NotDetected) Disposition <Fabrizio Kumar - Last Filed: 03/12/24 04:16> Is patient prescribed a controlled substance at d/c from ED?: No Time of Disposition: 09:47 <Sameer Jules - Last Filed: 03/12/24 09:47> Clinical Impression: Depression, Methamphetamine-induced psychotic disorder Disposition: HOME SELF-CARE Condition: Fair Instructions (If sedation given, give patient instructions): Depression (ED) Referrals: Ankur Rosario MD [Primary Care Provider] - 1-2 days
[2024-03-12] MEDS ORDERED: hydrOXYzine HCL 25 MG TAB PO PRN (04:30)
[2024-03-12] MEDS ORDERED: LORazepam 2 MG/ML INJ IM PRN (04:57)
[2024-03-12] MEDS ORDERED: HALOPERIDOL LACTATE 5 MG/ML 1 ML VIAL IM PRN (04:58)
[2024-03-12 10:21] VITALS: BP 128/76; PULSE 90; RESP 17; TEMP 98
== END 2024-03-12 09:51 | disposition home or self-care (01) ==
LOC: EC 01:12
DX: F32.A Depression, unspecified (principal); F15.151 Other stimulant abuse with stimulant-induced psychotic disorder with hallucinations; F17.200 Nicotine dependence, unspecified, uncomplicated
CPT/HCPCS: 80306; 82075; 96372; 99285

== ENCOUNTER 2024-04-04 11:38 | Inpatient (IN) | payer MEDICAID, OTHER ==
--- NOTE | 2024-04-04 15:13 | ED ---
Psych HPI - General Chief Complaint: Psychiatric Symptoms Stated Complaint: mental health Time Seen by Provider: 04/04/24 12:07 Source: police Mode of arrival: ambulatory - History of Present Illness Initial Comments: 38-year-old female with past medical history of methamphetamine abuse who presents emergency department reporting hallucinations. [place] the [place] She was reporting that she was trying to "kill the demons" and therefore she jumped into the water. Patient did not injure herself. There is no submersion. Bystander did call police. Patient has a history of methamphetamine abuse with hallucinations. She denies any suicidal or homicidal ideations. No other alleviating, precipitating or modifying factors - Related Data Previous Rx's Medication Instructions Recorded Escitalopram [Lexapro] 10 mg PO DAILY 30 Days #30 tab 04/11/24 Nicotine 21Mg/24Hr Patch [Habitrol] 1 patch TRANSDERM DAILY 14 Days 04/11/24 #14 patch hydrOXYzine pamoate [Vistaril] 50 mg PO DAILY PRN 30 Days #60 cap 04/11/24 risperiDONE ER inj [Perseris] 120 mg SQ QMONTHLY #1 kit 04/11/24 traZODone HCL 150 mg PO HS PRN 30 Days #30 tablet 04/11/24 Allergies Allergy/AdvReac Type Severity Reaction Status Date / Time No Known Allergies Allergy Verified 04/04/24 14:33 Review of Systems ROS Statement: Those systems with pertinent positive or pertinent negative responses have been documented in the HPI. ROS Other: All systems not noted in ROS Statement are negative. Past Medical History Past Medical History: No Reported History History of Any Multi-Drug Resistant Organisms: None Reported, MRSA Date of last positivie culture/infection: left knee MDRO Source:: 2013 Past Surgical History: No Surgical Hx Reported Past Anesthesia/Blood Transfusion Reactions: No Reported Reaction Past Psychological History: Anxiety, Depression, Schizophrenia Smoking Status: Current every day smoker, Vaper Past Alcohol Use History: Occasional Past Drug Use History: Heroin, Marijuana, Methamphetamine - Past Family History Father Family Medical History: No Reported History Mother Family Medical History: No Reported History General Exam Limitations: altered mental status General appearance: alert, in no apparent distress Head exam: Present: atraumatic, normocephalic, normal inspection Eye exam: Present: normal appearance, PERRL, EOMI. Absent: scleral icterus, conjunctival injection, periorbital swelling ENT exam: Present: normal exam, mucous membranes moist Neck exam: Present: normal inspection. Absent: tenderness, meningismus, lymphadenopathy Respiratory exam: Present: normal lung sounds bilaterally. Absent: respiratory distress, wheezes, rales, rhonchi, stridor Cardiovascular Exam: Present: regular rate, normal rhythm, normal heart sounds. Absent: systolic murmur, diastolic murmur, rubs, gallop, clicks GI/Abdominal exam: Present: soft, normal bowel sounds. Absent: distended, tenderness, guarding, rebound, rigid Extremities exam: Present: normal inspection, full ROM, normal capillary refill. Absent: tenderness, pedal edema, joint swelling, calf tenderness Back exam: Present: normal inspection Neurological exam: Present: alert, oriented X3, CN II-XII intact Psychiatric exam: Present: other (Psychosis with visual and auditory hallucinations) Skin exam: Present: warm, dry, intact, normal color. Absent: rash Course Vital Signs 04/04/24 04/04/24 12:35 16:18 Temperature 98.2 F Pulse Rate 99 83 Respiratory 18 18 Rate Blood Pressure 133/81 109/71 O2 Sat by Pulse 99 99 Oximetry Medical Decision Making - Medical Decision Making Was pt. sent in by a medical professional or institution (, PA, WHEELMAN, urgent care, hospital, or long-term...) When possible be specific @ -No Did you speak to anyone other than the patient for history (EMS, parent, family, police, friend...)? What history was obtained from this source @ -Patient was brought in by EMS and I did speak to them with a history Did you review nursing and triage notes (agree or disagree)? Why? @ -I reviewed and agree with nursing and triage notes Were old charts reviewed (outside hosp., previous admission, EMS record, old EKG, old radiological studies, urgent care reports/EKG's, long-term records)? Report findings @ -No old charts were reviewed Differential Diagnosis (chest pain, altered mental status, abdominal pain women, abdominal pain men, vaginal bleeding, weakness, fever, dyspnea, syncope, headache, dizziness, GI bleed, back pain, seizure, CVA, palpatations, mental hea lth, musculoskeletal)? @ -Differential Mental Health Depression, anxiety, bipolar, psychosis, schizophrenia, borderline personality, situational depression, adjustment disorder, behavioral disorder, brain tumor, malingering, substance abuse, encephalopathy, medication reaction, dementia, hypothyroidism, degenerative neurologic disorder, lupus.... This is not meant to be all-inclusive list EKG interpreted by me (3pts min.). @ -Not done X-rays interpreted by me (1pt min.). @ -None done CT interpreted by me (1pt min.). @ -None done U/S interpreted by me (1pt. min.). @ -None done What testing was considered but not performed or refused? (CT, X-rays, U/S, labs)? Why? @ -None What meds were considered but not given or refused? Why? @ -None Did you discuss the management of the patient with other professionals (professionals i.e. , PA, WHEELMAN, lab, RT, psych nurse, drug abuse social worker, divorce lawyer, teacher, financial aid officer, director of casework department)? Give summary @ -Spoke with the EPS nurse for history Was smoking cessation discussed for >3mins.? @ -No Was critical care preformed (if so, how long)? @ -No Were there social determinants of health that impacted care today? How? (Homelessness, low income, unemployed, alcoholism, drug addiction, transportation, low edu. Level, literacy, decrease access to med. care, assisted, rehab)? @ -No Was there de-escalation of care discussed even if they declined (Discuss DNR or withdrawal of care, Hospice)? DNR status @ -No What co-morbidities impacted this encounter? (DM, HTN, Smoking, COPD, CAD, Cancer, CVA, ARF, Chemo, Hep., AIDS, mental health diagnosis, sleep apnea, morbid obesity)? @ -Methamphetamine abuse Was patient admitted / discharged? Hospital course, mention meds given and route, prescriptions, significant lab abnormalities, going to OR and other pertinent info. @ -Upon arrival patient seen and evaluated in room 14. Thorough history and ph ysical exam was performed. Urinalysis was completed. Patient is evaluated by EPS. Patient does require inpatient psychiatric admission. She was agreeable to this Undiagnosed new problem with uncertain prognosis? @ -No Drug Therapy requiring intensive monitoring for toxicity (Heparin, Nitro, Ins ulin, Cardizem)? @ -No Were any procedures done? @ -No Diagnosis/symptom? @ -Acute auditory and visual hallucinations, acute psychosis, methamphetamine use, cocaine use Acute, or Chronic, or Acute on Chronic? @ -Acute Uncomplicated (without systemic symptoms) or Complicated (systemic symptoms)? @ -Complicated Side effects of treatment? @ -No Exacerbation, Progression, or Severe Exacerbation? @ -No Poses a threat to life or bodily function? How? (Chest pain, USA, IA, pneumonia, PE, COPD, DKA, ARF, appy, cholecystitis, CVA, Diverticulitis, Homicidal, Suicidal, threat to staff... and all critical care pts) @ -No - Lab Data Result diagrams: 04/07/24 08:53 04/07/24 08:53 Lab Results 04/04/24 04/04/24 04/04/24 Range/Units 16:24 16:24 16:24 Urine Color Yellow Urine Appearance Cloudy H (Clear) Urine pH 5.0 (5.0-8.0) Ur Specific [place] 1.030 (1.001-1.035) Urine Protein Trace H (Negative) Urine Glucose (UA) Negative (Negative) Urine Ketones Negative (Negative) Urine Blood Moderate H (Negative) Urine Nitrite Negative (Negative) Urine Bilirubin Negative (Negative) Urine Urobilinogen <2.0 (<2.0) mg/dL Ur Leukocyte Esterase Negative (Negative) Urine RBC 5 (0-5) /hpf Urine WBC 2 (0-5) /hpf Ur Squamous Epith Cells 1 (0-4) /hpf Amorphous Sediment Rare H (None) /hpf Urine Bacteria Rare H (None) /hpf Hyaline Casts 5 H (0-2) /lpf Urine Mucus Rare H (None) /hpf Urine HCG, Qual Not Detected (Not Detectd) Urine Opiates Screen Not Detected (NotDetected) Ur Oxycodone Screen Not Detected (NotDetected) Urine Methadone Screen Not Detected (NotDetected) Ur Barbiturates Screen Not Detected (NotDetected) U Tricyclic Antidepress Not Detected (NotDetected) Ur Phencyclidine Scrn Not Detected (NotDetected) Ur Amphetamines Screen Detected H (NotDetected) U Methamphetamines Scrn Detected H (NotDetected) U Benzodiazepines Scrn Not Detected (NotDetected) Urine Cocaine Screen Detected H (NotDetected) U Marijuana (THC) Screen Not Detected (NotDetected) SARS-CoV-2 (PCR) Not Detected (Not Detectd) Disposition Clinical Impression: Methamphetamine abuse, Acute psychosis Disposition: TRANSFER TO PSYCH HOSP/UNIT Condition: Stable Is patient prescribed a controlled substance at d/c from ED?: No Time of Disposition: 15:13
[2024-04-04 16:56] LABS: Amorphous Sediment,Urine Rare /hpf; Appearance,Urine Cloudy (Clear); Bacteria,Urine Rare /hpf; Bilirubin,Urine Negative (Negative); Blood,Urine Moderate (Negative); Color,Urine Yellow; Glucose,Urine (UA) Negative (Negative); Hyaline Casts,Urine 5 /lpf (0-2); Ketones,Urine Negative (Negative); Leukocyte Esterase,Urine Negative (Negative); Mucus,Urine Rare /hpf; Nitrite,Urine Negative (Negative); Protein,Urine Trace (Negative); RBC,Urine 5 /hpf (0-5); Squamous Epithelial Cell,Urine 1 /hpf (0-4); Urobilinogen,Urine <2.0 mg/dL (<2.0); WBC,Urine 2 /hpf (0-5)
[2024-04-04 17:17] LABS: Amphetamine Screen,Urine Detected (NotDetected); Barbiturate Screen,Urine Not Detected (NotDetected); Benzodiazepines Screen,Urine Not Detected (NotDetected); Cocaine Screen,Urine Detected (NotDetected); Methadone Screen, Urine Not Detected (NotDetected); Opiate Screen,Urine Not Detected (NotDetected); Oxycodone Screen, Urine Not Detected (NotDetected); Phencyclidine Screen,Urine Not Detected (NotDetected); Tricyclic Antidepressant,Urine Not Detected (NotDetected); Urn Cannabinoid Scrn Not Detected (NotDetected)
[2024-04-04] MEDS ORDERED: MAG HYDROX/AL HYDROX/SIMETH 355 ML BOTTLE PO PRN (17:37)
[2024-04-04] MEDS ORDERED: MAGNESIUM HYDROXIDE 2,400 MG/30 ML CUP PO PRN (17:37)
[2024-04-04] MEDS ORDERED: OLANZapine 10 MG VIAL IM PRN (17:40)
[2024-04-04] MEDS ORDERED: LORazepam 2 MG/ML INJ IM PRN (17:40)
[2024-04-04] MEDS ORDERED: LORazepam 1 MG TAB PO PRN (17:40)
[2024-04-04] MEDS ORDERED: NICOTINE 14MG/24HR PATCH TRANSDERM ONE (18:50)
[2024-04-04] MEDS: NICOTINE 14MG/24HR PATCH TRANSDERM SCH (18:51)
[2024-04-04] MEDS: traZODone HCL 50 MG TAB PO PRN (21:29)
--- NOTE | 2024-04-05 00:44 | P.HPIM ---
History of Present Illness H&P Date: 04/05/24 The patient is a 38-year-old female with a PMH of substance abuse who was brought into the emergency room under police custody for altered mental status. The patient was actively psychotic in the emergency room and was admitted to the mental health unit where she was seen and evaluated accompanied by mental health unit RN. Patient reports that she has recently been using methamphetamines which has been an issue for her for the past several years. She denied any physical complaints at the time of interview. She also reports using some other substances but did not wish to clarify further. Denied experiencing chest discomfort, shortness breath, fever, chills, cough, nausea, vomiting, abdominal pain, diarrhea. Review of systems: Pertinent positives and negatives as discussed in HPI, a complete review of systems was performed and all other systems are negative. Physical examination: General: non toxic, no distress, appears older than stated age, normal weight Derm: no unusual rashes/lesions, no unusual ecchymoses, warm, dry Head: atraumatic, normocephalic, symmetric Eyes: EOMI, no lid lag, anicteric sclera ENT: Nose and ears atraumatic, no thrush, no pharyngeal erythema Neck: trachea midline, supple Mouth: no lip lesion, mucus membranes moist Cardiovascular: S1S2 reg, no murmur, no edema Lungs: CTA bilateral, no rhonchi, no rales , no accessory muscle use Abdominal: soft, nontender to palpation, no guarding Ext: no gross muscle atrophy, no contractures, Neuro: No gross focal neuro deficits noted Psych: Alert, oriented, appropriate affect Assessment: Polysubstance abuse Psychosis Imaging: None performed Data Review: Urine toxicology positive for amphetamines, methamphetamines, and cocaine with UA unremarkable Plan: Strongly advised on the importance of cessation from substance use Defer management of psychosis to primary psychiatry service Thank you for allowing us to participate in the care of this patient. We will follow peripherally. Do not hesitate to contact us with questions. Someone can be reached from the [facility] hospitalist group at all hours of the day at [phone]. Past Medical History Past Medical History: No Reported History History of Any Multi-Drug Resistant Organisms: None Reported, MRSA Date of last positivie culture/infection: left knee MDRO Source:: 2013 Past Surgical History: No Surgical Hx Reported Past Anesthesia/Blood Transfusion Reactions: No Reported Reaction Smoking Status: Current every day smoker - Past Family History Father Family Medical History: No Reported History Mother Family Medical History: Chest Pain / Angina Medications and Allergies Home Medications Medication Instructions Recorded Confirmed Type No Known Home Medications 04/04/24 04/04/24 History Allergies Allergy/AdvReac Type Severity Reaction Status Date / Time No Known Allergies Allergy Verified 04/04/24 14:33 Physical Exam Vitals: Vital Signs Temp Pulse Pulse Resp BP BP Pulse Ox 04/04/24 18:40 98.2 F 84 16 103/68 98 04/04/24 16:18 83 18 109/71 99 04/04/24 12:35 98.2 F 99 18 133/81 99 Intake and Output 04/04/24 04/04/24 04/05/24 14:59 22:59 06:59 Other: Weight 68.039 kg 63 kg Results Labs: Abnormal Lab Results - Last 24 Hours (Table) 04/04/24 Range/Units 16:24 Urine Appearance Cloudy H (Clear) Urine Protein Trace H (Negative) Urine Blood Moderate H (Negative) Amorphous Sediment Rare H (None) /hpf Urine Bacteria Rare H (None) /hpf Hyaline Casts 5 H (0-2) /lpf Urine Mucus Rare H (None) /hpf Ur Amphetamines Screen Detected H (NotDetected) U Methamphetamines Scrn Detected H (NotDetected) Urine Cocaine Screen Detected H (NotDetected) Thrombosis Risk Factor Assmnt - Choose All That Apply Any of the Below Risk Factors Present?: Yes Each Factor Represents 1 point: Obesity (BMI >25) Other Risk Factors: No Other congenital or acquired thrombophilia - If yes, enter type in comment: No Thrombosis Risk Factor Assessment Total Risk Factor Score: 1 Thrombosis Risk Factor Assessment Level: Low Risk
[2024-04-05] MEDS: ESCITALOPRAM 10 MG TAB PO SCH (12:37)
--- NOTE | 2024-04-05 12:59 | P.HP ---
Psychiatric H&P - . H&P Date: 04/05/24 History & Physical: Allergies Allergy/AdvReac Type Severity Reaction Status Date / Time No Known Allergies Allergy Verified 04/04/24 14:33 Vital Signs Temp 98.2 F 04/04/24 18:40 Pulse 84 04/04/24 18:40 Resp 16 04/04/24 18:40 BP 103/68 04/04/24 18:40 Pulse Ox 98 04/04/24 18:40 FiO2 Intake & Output 04/04/24 04/05/24 04/05/24 18:59 06:59 18:59 Weight 68.039 kg 63 kg Laboratory Last Values Urine Color Yellow 04/04/24 16:24 Urine Appearance Cloudy (Clear) H 04/04/24 16:24 Urine pH 5.0 (5.0-8.0) 04/04/24 16:24 Ur Specific [place] 1.030 (1.001-1.035) 04/04/24 16:24 Urine Protein Trace (Negative) H 04/04/24 16:24 Urine Glucose (UA) Negative (Negative) 04/04/24 16:24 Urine Ketones Negative (Negative) 04/04/24 16:24 Urine Blood Moderate (Negative) H 04/04/24 16:24 Urine Nitrite Negative (Negative) 04/04/24 16:24 Urine Bilirubin Negative (Negative) 04/04/24 16:24 Urine Urobilinogen <2.0 mg/dL (<2.0) 04/04/24 16:24 Ur Leukocyte Esterase Negative (Negative) 04/04/24 16:24 Urine RBC 5 /hpf (0-5) 04/04/24 16:24 Urine WBC 2 /hpf (0-5) 04/04/24 16:24 Ur Squamous Epith Cells 1 /hpf (0-4) 04/04/24 16:24 Amorphous Sediment Rare /hpf (None) H 04/04/24 16:24 Urine Bacteria Rare /hpf (None) H 04/04/24 16:24 Hyaline Casts 5 /lpf (0-2) H 04/04/24 16:24 Urine Mucus Rare /hpf (None) H 04/04/24 16:24 Urine HCG, Qual Not Detected (Not Detectd) 04/04/24 16:24 Urine Opiates Screen Not Detected (NotDetected) 04/04/24 16:24 Ur Oxycodone Screen Not Detected (NotDetected) 04/04/24 16:24 Urine Methadone Screen Not Detected (NotDetected) 04/04/24 16:24 Ur Barbiturates Screen Not Detected (NotDetected) 04/04/24 16:24 U Tricyclic Antidepress Not Detected (NotDetected) 04/04/24 16:24 Ur Phencyclidine Scrn Not Detected (NotDetected) 04/04/24 16:24 Ur Amphetamines Screen Detected (NotDetected) H 04/04/24 16:24 U Methamphetamines Scrn Detected (NotDetected) H 04/04/24 16:24 U Benzodiazepines Scrn Not Detected (NotDetected) 04/04/24 16:24 Urine Cocaine Screen Detected (NotDetected) H 04/04/24 16:24 U Marijuana (THC) Screen Not Detected (NotDetected) 04/04/24 16:24 SARS-CoV-2 (PCR) Not Detected (Not Detectd) 04/04/24 16:24 04/05/24 08:55 IDENTIFYING DATA: Patient is a 38-year-old female, who currently lives alone in an apartment, has 1 son. She is single and unemployed. HPI: Patient presented to the hospital on 04/04 As per EPS note, "presenting via PD with PET due to being found after jumping into the river due to "demons". Police report that cl states they are seeing demons and being followed by demons. Police report several witnesses called to report the cl being in the water. Cl reports having vis camille of " demons and people with black eyes following them." Cl admits to jumping in the [place]. " I went into the water to kill the demons on shore. I think I took care of the ones on the [place] side too. Cl observed in constant psycho motor agitation, respoding to internal stimuli, bizarre behaviors. Cl reports being open with [facility] and on medications. Upon reviewing [facility] cl has not been seen by [facility] psychiatrist since 07/13/23, and likely is false reporting taking their medications." Upon today's interview, patient was in her room, sleeping. She woke easily. She had slept through breakfast, and was not sure what time it was, or how long she had been asleep. She claims to be good today, and stated that she just went to the river to go for a swim because it was hot out, she got out of the river, and laid on a big rock to dry off, and that is when the police showed up to bring her to the hospital. She states that she does not know why she is here. When lyric writer read the petition from the police to her, she stated that she did not see demons, she heard them. She states that she hasn't taken any medication since she was discharged from the hospital, because she wanted to see if the voices would go away on their own. She does not think she needs treatment or medications. She has very poor hygiene and poor grooming, poor impulse control and poor insight. Patient denies any suicidal or homicidal ideations intent or plan. At this time patient endorses auditory and denies visual hallucinations. Patient denies any flight of ideas racing thoughts. Patient UDS was positive for cocaine, methamphetamines and amphetamines. Patient is a smoker. PAST PSYCHIATRIC HISTORY: Patient states that she has history of depression and traumatic brain injury, ptsd, polysubstance abuse. Patient was previously on Seroquel and Lexapro and prazosin. her [facility] psychiatric [facility] [place] Patient has NOT received any medications since recent d/c from [facility] on 02/17/24. Pt has not followed up with a prescriber at [facility] since 06/2023. Patient denies any history of suicide attempts in the past. PMH:As per ER note ALLERGIES: as per EMR CHEMICAL DEPENDENCY HISTORY: as per HPI FAMILY PSYCHIATRIC/SUBSTANCE USE HISTORY: Denies SOCIAL HISTORY: Patient was born and raised in [facility] and also in [place]. She states that she moved to [place] permanently at the age of 11. She states that she completed up to ninth grade in school. 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 She states that she has 1 son and currently lives with her mother. She is single and unemployed. She went to [facility] about 3 years ago for driving without a license. MENTAL STATUS EXAM: General Appearance: Patient appears to have several tattoos, unkempt, stated age. Patient is nondirectable, and will not cooperate. Patient appears to have poor hygiene and grooming. Behavior: Patient is seated without any agitated behavior. mostly somnolent. does not cooperate. responding to internal stimuli Speech: Patient's speech is fluent and nonpressured. Mood/Affect: Patient reports their mood is "fine" affect is congruent and constricted, Suicidality/Homicidality: Patient denies having any homicidal ideation intent or plan. Denies any suicidal ideations intent or plan Perceptions: Patient denies any visual hallucinations and admits to auditory casey llucinations, non specific. Though content/process: Patient is illogical at times. concrete, evasive. Memory and concentration: AOX2-3, uncooperative with the rest. Judgment and insight: chronically poor STRENGTHS/WEAKNESSES: strength is that patient is resilient. 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 Patient has not signed adult voluntary form or medication consent and is placed in patient's chart. Faxed certs and petition to the court -Medications : Invega 3mg qhs for psychosis, Lexapro 10 mg daily for mood/anxiety. trazodone 100mg qhs prn for sleep, Vistaril 50mg q8 hours as needed for anxiety. -Ativan and Haldol PRN for agitation/aggression -Patient was counselled on substance abuse -Patient was informed of the risks, benefits and side effects of the medication, she did not sign the medications. -Internal Medicine consult to perform medical evaluation and physical. -NRT -nicotine patch - on board for discharge planning. Encourage patient to participate in groups to work on coping skills. Will offer patient rehab once she is more stable. will await deferral and court. 04/05/24 12:20 04/05/24 12:57
[2024-04-05] MEDS: PALIPERIDONE 3 MG TAB.ER.24 PO SCH (20:48)
[2024-04-05] MEDS: LORazepam 1 MG TAB PO PRN (20:50)
[2024-04-05] MEDS: hydrOXYzine pamoate 25 MG CAP PO PRN (20:51)
[2024-04-05] MEDS: OLANZapine 5 MG TAB PO PRN (20:51)
[2024-04-05] MEDS: IBUPROFEN 600 MG TAB PO PRN (21:07)
[2024-04-05] MEDS: traZODone HCL 100 MG TAB PO PRN (21:08)
--- NOTE | 2024-04-06 11:25 | P.PN ---
Progress Note - Text Progress Note Date: 04/06/24 Interval History: Patient was seen today for psychiatric follow-up. Patient has been mainly iso lating in her room, continues to be fairly disheveled in appearance. She was sleeping this morning was awoken by expert medical writer. She appeared to be less irritable today more cooperative. She claims that she is hearing voices on and off, talking to her. She did not state what they are saying to her. She claims that she was able to sleep about 3 to 4 hours last night. Claims that her appetite is fair. Continues to be fairly superficial have fairly poor insight. She has not been going to many groups. She was encouraged to shower and ambulate more and take part in group today, she agreed. Claims that her mood and anxiety been mildly improving. Not having any problems with the medications at this time. At this time patient denies any suicidal or homical ideations, intent or plan. Patient denies any auditory, visual hallucinations and denies any paranoia or delusions. Patient denies any side effects from the medications and has been compliant with meds. Also spoke about the deferral process and she is likely to refer with the rib bender when she speaks with them MENTAL STATUS EXAM: General Appearance: Patient appears to have several tattoos, unkempt, stated age. Patient is more directable, times to cooperate. Patient appears to have poor hygiene and grooming. Disheveled appearance. Behavior: Patient is seated without any agitated behavior. mostly somnolent. More directable today. Speech: Patient's speech is fluent and nonpressured. [place] Mood/Affect: Patient reports their mood is "ok" affect is congruent and constricted, Suicidality/Homicidality: Patient denies having any homicidal ideation intent or plan. Denies any suicidal ideations intent or plan Perceptions: Patient denies any visual hallucinations and admits to auditory hallucinations, non specific. Though content/process: Patient is illogical at times. concrete, evasive. Improving mildly Memory and concentration: AOX3. Concentration improving. 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 Patient has not signed adult voluntary form or medication consent and is placed in patient's chart. -Medications : Increase Invega 6 mg qhs for psychosis, Lexapro 10 mg daily for mood/anxiety. trazodone 100mg qhs prn for sleep, Vistaril 50mg q8 hours as needed for anxiety. -Ativan and Haldol PRN for agitation/aggression -NRT -nicotine patch -SW on board for discharge planning. Encourage patient to participate in groups to work on coping skills. Will offer patient rehab once she is more stable. will await deferral and court.
[2024-04-06] MEDS: NICOTINE 14MG/24HR PATCH TRANSDERM SCH (12:11)
[2024-04-06] MEDS: PALIPERIDONE 6 MG TAB.ER.24 PO SCH (20:45)
[2024-04-07 06:39] VITALS: RESP 16
[2024-04-07 10:05] LABS: Basophils # (A) 0.1 k/uL (0-0.2); Basophils % (A) 1 %; Eosinophils # (A) 0.2 k/uL (0-0.7); Eosinophils % (A) 4 %; HCT 41.5 % (34.0-46.0); HGB 13.2 gm/dL (11.4-16.0); Lymphocytes % (A) 39 %; MCH 29.3 pg (25.0-35.0); MCHC 31.9 g/dL (31.0-37.0); MCV 92.1 fL (80.0-100.0); Mean Platelet Volume 7.8; Monocytes # (A) 0.3 k/uL (0-1.0); Monocytes % (A) 6 %; Neutrophils # (A) 2.4 k/uL (1.3-7.7); Neutrophils % (A) 47 %; Platelet Count 316 k/uL (150-450); RBC 4.51 m/uL (3.80-5.40); RDW 14.1 % (11.5-15.5); WBC 5.2 k/uL (3.8-10.6)
[2024-04-07 10:22] LABS: ALT 21 U/L (4-34); AST 25 U/L (14-36); African American GFR (CKD) >90 (>60 ml/min/1.73 sqM); Albumin 3.8 g/dL (3.5-5.0); Alkaline Phosphatase 52 U/L (38-126); Anion Gap 7 mmol/L; Blood Urea Nitrogen 8 mg/dL (7-17); Calcium 9.3 mg/dL (8.4-10.2); Carbon Dioxide 24 mmol/L (22-30); Chloride 109 mmol/L (98-107); Glucose 100 mg/dL (74-99); Non-African American GFR(CKD) >90 (>60 ml/min/1.73 sqM); Sodium 140 mmol/L (137-145); Total Bilirubin 0.2 mg/dL (0.2-1.3)
--- NOTE | 2024-04-07 11:31 | P.PN ---
Progress Note - Text Progress Note Date: 04/07/24 Interval History: Patient was seen today for psychiatric follow-up. Patient has been mainly iso lating in her room, continues to be fairly disheveled in appearance. She was sleeping this morning was awoken by mortgage or loan underwriter. She is irritable and says "I don't need to be here". She claims that she is hearing AH, talking to her. Despite being asked to do so, patient was fairly guarded and would not disclose the content of the auditory hallucinations. She simply states "there is just too much going on". She claims that she was able to sleep about 3 to 4 hours last night. Claims that her appetite is fair. Continues to be fairly superficial and have fairly poor insight. She has not been going to many groups. Encouraged behavioral activation and participating on the milieu. Claims that her mood and anxiety been mildly improving. Not having any problems with the medications at this time. At this time patient denies any suicidal or homical ideations, intent or plan. Patient denies any auditory, visual hallucinations and denies any paranoia or delusions. Patient denies any side effects from the medications and has been compliant with meds. MENTAL STATUS EXAM: General Appearance: Patient appears to have several tattoos, unkempt, stated age. Patient is more directable, times to cooperate. Patient appears to have poor hygiene and grooming. Disheveled appearance. Behavior: Patient is seated without any agitated behavior. mostly somnolent. Speech: Patient's speech is fluent and nonpressured. [place] Mood/Affect: Patient reports their mood is "fine" affect is Irritable, Suicidality/Homicidality: Patient denies having any homicidal ideation intent or plan. Denies any suicidal ideations intent or plan Perceptions: Patient denies any visual hallucinations and admits to auditory hallucinations, non specific. Though content/process: Patient is illogical at times. concrete, evasive. Improving mildly Memory and concentration: AOX3. Concentration improving. 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 Patient has not signed adult voluntary form or medication consent and is placed in patient's chart. -Medications : Increase Invega to 9 mg qhs for psychosis, Lexapro 10 mg daily for mood/anxiety. trazodone 100mg qhs prn for sleep, Vistaril 50mg q8 hours as needed for anxiety. -Ativan, Vistaril and Zyprexa PRN for agitation/aggression -NRT -nicotine patch -SW on board for discharge planning. Encourage patient to participate in groups to work on coping skills. Will offer patient rehab once she is more stable. will await deferral and court.
[2024-04-07] MEDS: PALIPERIDONE 3 MG TAB.ER.24 PO SCH (22:10)
[2024-04-08] MEDS: NICOTINE 21MG/24HR PATCH TRANSDERM SCH (09:26)
--- NOTE | 2024-04-08 12:00 | P.PN ---
Progress Note - Text Progress Note Date: 04/08/24 Interval History: Patient was seen today for psychiatric follow-up. Patient has been mainly iso lating in her room, continues to be fairly disheveled in appearance. She was sleeping this morning and was awoken by television script writer. She is less irritable today and says that she has been feeling "good ". She reports improvement in auditory hallucinations and feels that the medications have been more helpful. She is worried about her housing situation and requests for social work to be helping her for finding a custodial. Patient is not fully engaged in considering rehab. She endorses sleeping and eating well. She denies any other concerns At this time patient denies any suicidal or homical ideations, intent or plan. Patient denies any visual hallucinations and denies any paranoia or delusions. Patient denies any side effects from the medications and has been compliant with meds. Vital Signs Temp 97.7 F 04/07/24 06:00 Pulse 74 04/08/24 07:09 Resp 16 04/07/24 06:00 BP 105/69 04/08/24 07:09 Pulse Ox 99 04/07/24 06:00 FiO2 MENTAL STATUS EXAM: General Appearance: Patient appears to have several tattoos, unkempt, stated age. Patient is more directable, times to cooperate. Patient appears to have poor hygiene and grooming. Disheveled appearance. Behavior: Patient is seated without any agitated behavior. mostly somnolent. Speech: Patient's speech is fluent and nonpressured. [place] Mood/Affect: Patient reports their mood is "good" affect is tired, constricted Suicidality/Homicidality: Patient denies having any homicidal ideation intent or plan. Denies any suicidal ideations intent or plan Perceptions: Patient denies any visual hallucinations and admits to improvement in auditory hallucinations, non specific. Though content/process: Patient is illogical at times. concrete. Improving mildly Memory and concentration: AOX3. Concentration improving. 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 Patient has not signed adult voluntary form or medication consent and is placed in patient's chart. -Medications : Invega 9 mg qhs for psychosis, Lexapro 10 mg daily for mood/anxiety. trazodone 100mg qhs prn for sleep, Vistaril 50mg q8 hours as needed for anxiety. -Ativan, Vistaril and Zyprexa PRN for agitation/aggression -NRT -nicotine patch -SW on board for discharge planning. Patient requests help with finding shelters -request social work to assist. Encourage patient to participate in groups to work on coping skills. Will offer patient rehab once she is more stable. will await deferral and court.
--- NOTE | 2024-04-09 11:13 | P.PN ---
Progress Note - Text Progress Note Date: 04/09/24 Interval History: Patient was seen today for psychiatric follow-up. She was seen at the bedside, and agreeable to speak with this ticket writer. Patient continues to be isolating in her room, continues to be disheveled in appearance. She was sleeping this morning was awoken by ticket writer. She states that she is ok today. Claims that her appetite is fair. Continues to be fairly superficial have fairly poor insight. She has not been going to groups. Claims that her mood and anxiety been mildly improving. Not having any problems with the medications at this time. At this time patient denies any suicidal or homicidal ideations, intent or plan. Patient denies any auditory, visual hallucinations and denies any paranoia or delusions. Patient denies any side effects from the medications and has been compliant with meds. Industrial Coffee Grinder offered patient rehab upon discharge. Patient is refusing rehab at this time. MENTAL STATUS EXAM: General Appearance: Patient appears to have several tattoos, unkempt, stated age. Patient is more directable, times to cooperate. Patient appears to have poor hygiene and grooming. Disheveled appearance. Behavior: Patient is seated without any agitated behavior. mostly somnolent. More directable today. Speech: Patient's speech is fluent and nonpressured. [place] Mood/Affect: Patient reports their mood is "ok" affect is congruent and constricted, Suicidality/Homicidality: Patient denies having any homicidal ideation intent or plan. Denies any suicidal ideations intent or plan Perceptions: Patient denies any visual hallucinations and denies auditory hallucinations today. Though content/process: Patient is illogical at times. concrete, evasive. Improving mildly Memory and concentration: AOX3. Concentration improving. 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 Patient has not signed adult voluntary form or medication consent and is placed in patient's chart. -Medications : Invega 9 mg qhs for psychosis, Lexapro 10 mg daily for mood/anxiety. trazodone 100mg qhs prn for sleep, Vistaril 50mg q8 hours as needed for anxiety. Will attempt to transition patient onto long-acting injection to help ensure compliance. -Ativan and Haldol PRN for agitation/aggression -NRT -nicotine patch -SW on board for discharge planning. Encourage patient to participate in groups to work on coping skills. Patient refusing rehab at this time. Deferral 04/09, Full 04/18
[2024-04-09] MEDS: ACETAMINOPHEN TAB 325 MG TAB PO PRN (12:35)
[2024-04-10 07:11] VITALS: BP 131/91; PULSE 85; TEMP 97.9
--- NOTE | 2024-04-10 10:17 | P.PN ---
Progress Note - Text Progress Note Date: 04/10/24 Interval History: Patient was seen today for psychiatric follow-up. She was seen in the [facility], and agreeable to speak with this brief writer in the office. Patient appears much brighter today. She is more visible on the unit. Claims that her appetite is fair. Continues to be fairly superficial have fairly poor insight, and is minimizing her drug use and need for mental health treatment. [employer] spoke with the patient about getting a ULRICH, and explained the court process, and patient willing to get the ULRICH. She has not been going to groups. Claims that her mood and anxiety are improving. Not having any problems with the medications at this time. At this time patient denies any suicidal or homicidal ideations, intent or plan. Patient denies any auditory, visual hallucinations and denies any paranoia or delusions. Patient denies any side effects from the medications and has been compliant with meds. Patient is refusing rehab at this time. MENTAL STATUS EXAM: General Appearance: Patient appears to have several tattoos, unkempt, stated age. Patient is more directable, times to cooperate. Patient appears to have improved hygiene and grooming. Behavior: Patient is seated without any agitated behavior. mostly somnolent. More directable today. Improving Speech: Patient's speech is fluent and nonpressured. Mood/Affect: Patient reports their mood is "ok" affect is congruent and constricted, improving Suicidality/Homicidality: Patient denies having any homicidal ideation intent or plan. Denies any suicidal ideations intent or plan Perceptions: Patient denies any visual hallucinations and denies auditory hallucinations today. Though content/process: Patient is illogical at times. concrete, evasive. Improving Memory and concentration: AOX3. Concentration improving. 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 Patient has not signed adult voluntary form or medication consent and is placed in patient's chart. -Medications : Start Perseris 120 mg sq monthly. First dose today, 04/10, next due 05/08. Invega 9 mg qhs for psychosis will be discontinued tomorrow, Lexapro 10 mg daily for mood/anxiety. trazodone 100mg qhs prn for sleep, Vistaril 50mg q8 hours as needed for anxiety. Will attempt to transition patient onto long- acting injection to help ensure compliance. -Ativan and Haldol PRN for agitation/aggression -NRT -nicotine patch -SW on board for discharge planning. Encourage patient to participate in groups to work on coping skills. Patient refusing rehab at this time. Patient deferred with criminal defense attorney. Discharge tomorrow.
[2024-04-10] MEDS: risperiDONE 120 MG SYR (NO COST) PHARMACY STOCK SQ SCH (12:20)
--- NOTE | 2024-04-11 09:54 | P.DS ---
Providers Date of admission: 04/04/24 17:31 Expected date of discharge: 04/11/24 Attending physician: Jhonny Rodriguez MD Consults: 04/04/24 17:37 Consult Physician Routine Consulting Provider: Ayaan Lackey Consult Reason/Comments: H&P Do you want consulting provider notified?: Yes Primary care physician: Stated None - Discharge Diagnosis(es) (1) Psychosis Current Visit: Yes Status: Acute Priority: High (2) History of depression Current Visit: Yes Status: Acute Priority: Medium (3) TBI (traumatic brain injury) Current Visit: Yes Status: Acute Priority: High (4) PTSD (post-traumatic stress disorder) Current Visit: Yes Status: Acute Priority: Medium (5) Cocaine abuse Current Visit: Yes Status: Acute Priority: High (6) Methamphetamine abuse Current Visit: Yes Status: Acute Priority: High (7) Nicotine abuse Current Visit: Yes Status: Acute Priority: Low Hospital Course: Admission HPI: Admission note was completed by comic book writer "Patient presented to the hospital on 04/04 As per EPS note, "presenting via PD with PET due to being found after jumping into the river due to "demons". Police report that cl states they are seeing demons and being followed by demons. Police report several witnesses called to report the cl being in the water. Cl reports having vis camille of " demons and people with black eyes following them." Cl admits to jumping in the [place] river. " I went into the water to kill the demons on shore. I think I took care of the ones on the [place] side too. Cl observed in constant psycho motor agitation, respoding to internal stimuli, bizarre behaviors. Cl reports being open with [facility] and on medications. Upon reviewing [facility] cl has not been seen by [facility] psychiatrist since 07/13/23, and likely is false reporting taking their medications." Upon today's interview, patient was in her room, sleeping. She woke easily. She had slept through breakfast, and was not sure what time it was, or how long she had been asleep. She claims to be good today, and stated that she just went to the river to go for a swim because it was hot out, she got out of the river, and laid on a big rock to dry off, and that is when the police showed up to bring her to the hospital. She states that she does not know why she is here. When comic book writer read the petition from the police to her, she stated that she did not see demons, she heard them. She states that she hasn't taken any medication since she was discharged from the hospital, because she wanted to see if the voices would go away on their own. She does not think she needs treatment or medications. She has very poor hygiene and poor grooming, poor impulse control and poor insight. Patient denies any suicidal or homicidal ideations intent or plan. At this time patient endorses auditory and denies visual hallucinations. Patient denies any flight of ideas racing thoughts. Patient UDS was positive for cocaine, methamphetamines and amphetamines. Patient is a smoker." Hospital course: Upon admission to the unit patient was admitted involuntarily on a petition and certificate and a second certificate was completed and faxed with the courts. Patient ended up signing a deferral with the securities attorney and agreeing to treatment. Patient was initially bizarre, isolative however with time and treatment she eventually got along well with other patients on the unit and followed unit protocol. Patient was compliant with the medications and denied any side effects throughout hospital course. Patient was started on Invega p.o. increased to dose of 9 mg daily for psychosis/mood stabilization, due to patient's poor medication compliance, she was agreeable to be transitioned onto long-acting injection. Given Perseris subcutaneous 120 mg q. monthly, first dose given on 04/10 next dose will be due on 05/08. Lexapro 10 mg daily for mood/anxiety, trazodone 150 mg nightly as needed for sleep, Vistaril as needed for anxiety. Patient spoke of her stressors and engaged in therapy both group and individual. Patient was also seen by medical team for history and physical exam. Throughout the course of the hospitalization patient gradually improved with regards to mood, anxiety, psychosis, sleep and returned back to their baseline level of functioning. On the day of discharge patient denied any suicidal or homicidal ideations intent or plan denied any auditory or visual hallucinations. Patient endorsed wanting to live for her health and her son. The patient denied any access to guns or weapons. Patient denied any paranoia and did not endorse any delusions. Patient does have a significant history of substance abuse and was counseled on abstaining from all substances including alcohol and marijuana. Patient was offered however declined inpatient substance-abuse rehab. Patient was also counseled on the medications and need for regular compliance and was encouraged to follow-up with their outpatient a ppointment for mental health and also for primary care. Patient will be discharged back to her home and will follow-up at [facility]. Mental status exam: General Appearance: Patient appears to be stated age is alert, pleasant, and cooperative. Patient is in no acute distress and has improved hygiene and grooming Behavior: Patient is calmly seated without any agitated behavior. Speech: Patient's speech is fluent and nonpressured. Mood/Affect: Patient reports their mood is "good", affect is congruent Suicidality/Homicidality: Patient denies having any suicidal or homicidal ideation intent or plan. Perceptions: Patient denies any auditory or visual hallucinations. Though content/process: There is no evidence of any delusional thought content and thought process is linear and goal-directed. Memory and concentration: AOX3, grossly intact for the purposes of this session. Can spell "WORLD" backwards correctly. 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 Patient will remain at chronically elevated risk for harm to self and/or others due to her impulsivity and polysubstance abuse. -Continue medications: Invega p.o. was discontinued. Patient was transitioned onto Perseris subcutaneous 120 mg q. monthly, last dose was given on 04/10, next dose will be due at [facility] on 05/08. Lexapro 10 mg daily for mood/anxiety, trazodone 150 mg nightly as needed for sleep, Vistaril 50 mg daily as needed for anxiety. -Patient was counseled on the need for medication compliance and appropriate follow-up at mental health and also primary care for medical issues. Patient verbalized understanding and agreed. -Social work to help coordinate patient's discharge today back home. Social work also to arrange for patients follow up appointments with [facility] for psychiatric care along with follow up with primary care provider. -Patient counseled on abstaining from recreational drugs and marijuana and alcohol. Was informed/educated on the adverse effects on their physical and mental health. Patient verbally agreed and understood. Patient was offered substance abuse treatment however declined at this time. -Patient was instructed to return to the hospital or seek immediate medical care if their psychiatric or medical symptoms do worsen or reoccur. Allergies Allergy/AdvReac Type Severity Reaction Status Date / Time No Known Allergies Allergy Verified 04/04/24 14:33 Laboratory Results WBC 5.2 k/uL (3.8-10.6) 04/07/24 08:53 RBC 4.51 m/uL (3.80-5.40) 04/07/24 08:53 Hgb 13.2 gm/dL (11.4-16.0) 04/07/24 08:53 Hct 41.5 % (34.0-46.0) 04/07/24 08:53 MCV 92.1 fL (80.0-100.0) 04/07/24 08:53 MCH 29.3 pg (25.0-35.0) 04/07/24 08:53 MCHC 31.9 g/dL (31.0-37.0) 04/07/24 08:53 RDW 14.1 % (11.5-15.5) 04/07/24 08:53 Plt Count 316 k/uL (150-450) 04/07/24 08:53 MPV 7.8 04/07/24 08:53 Neutrophils % 47 % 04/07/24 08:53 Lymphocytes % 39 % 04/07/24 08:53 Monocytes % 6 % 04/07/24 08:53 Eosinophils % 4 % 04/07/24 08:53 Basophils % 1 % 04/07/24 08:53 Neutrophils # 2.4 k/uL (1.3-7.7) 04/07/24 08:53 Lymphocytes # 2.0 k/uL (1.0-4.8) 04/07/24 08:53 Monocytes # 0.3 k/uL (0-1.0) 04/07/24 08:53 Eosinophils # 0.2 k/uL (0-0.7) 04/07/24 08:53 Basophils # 0.1 k/uL (0-0.2) 04/07/24 08:53 Sodium 140 mmol/L (137-145) 04/07/24 08:53 Potassium 4.0 mmol/L (3.5-5.1) 04/07/24 08:53 Chloride 109 mmol/L (98-107) H 04/07/24 08:53 Carbon Dioxide 24 mmol/L (22-30) 04/07/24 08:53 Anion Gap 7 mmol/L 04/07/24 08:53 BUN 8 mg/dL (7-17) 04/07/24 08:53 Creatinine 0.64 mg/dL (0.52-1.04) 04/07/24 08:53 Est GFR (CKD-EPI)AfAm >90 (>60 ml/min/1.73 sqM) 04/07/24 08:53 Est GFR (CKD-EPI)NonAf >90 (>60 ml/min/1.73 sqM) 04/07/24 08:53 Glucose 100 mg/dL (74-99) H 04/07/24 08:[address] Glu mg/dL 117 mg/dL 04/07/24 08:53 Hemoglobin A1c 5.7 % (<=6.0) 04/07/24 08:53 Calcium 9.3 mg/dL (8.4-10.2) 04/07/24 08:53 Total Bilirubin 0.2 mg/dL (0.2-1.3) 04/07/24 08:53 AST 25 U/L (14-36) 04/07/24 08:53 ALT 21 U/L (4-34) 04/07/24 08:53 Alkaline Phosphatase 52 U/L (38-126) 04/07/24 08:53 Total Protein 6.0 g/dL (6.3-8.2) L 04/07/24 08:53 Albumin 3.8 g/dL (3.5-5.0) 04/07/24 08:53 TSH 5.360 mIU/L (0.465-4.680) H 04/07/24 08:53 Free T4 1.04 ng/dL (0.78-2.19) 04/07/24 16:24 Urine Color Yellow 04/04/24 16:24 Urine Appearance Cloudy (Clear) H 04/04/24 16:24 Urine pH 5.0 (5.0-8.0) 04/04/24 16:24 Ur Specific [place] 1.030 (1.001-1.035) 04/04/24 16:24 Urine Protein Trace (Negative) H 04/04/24 16:24 Urine Glucose (UA) Negative (Negative) 04/04/24 16:24 Urine Ketones Negative (Negative) 04/04/24 16:24 Urine Blood Moderate (Negative) H 04/04/24 16:24 Urine Nitrite Negative (Negative) 04/04/24 16:24 Urine Bilirubin Negative (Negative) 04/04/24 16:24 Urine Urobilinogen <2.0 mg/dL (<2.0) 04/04/24 16:24 Ur Leukocyte Esterase Negative (Negative) 04/04/24 16:24 Urine RBC 5 /hpf (0-5) 04/04/24 16:24 Urine WBC 2 /hpf (0-5) 04/04/24 16:24 Ur Squamous Epith Cells 1 /hpf (0-4) 04/04/24 16:24 Amorphous Sediment Rare /hpf (None) H 04/04/24 16:24 Urine Bacteria Rare /hpf (None) H 04/04/24 16:24 Hyaline Casts 5 /lpf (0-2) H 04/04/24 16:24 Urine Mucus Rare /hpf (None) H 04/04/24 16:24 Urine HCG, Qual Not Detected (Not Detectd) 04/04/24 16:24 Urine Opiates Screen Not Detected (NotDetected) 04/04/24 16:24 Ur Oxycodone Screen Not Detected (NotDetected) 04/04/24 16:24 Urine Methadone Screen Not Detected (NotDetected) 04/04/24 16:24 Ur Barbiturates Screen Not Detected (NotDetected) 04/04/24 16:24 U Tricyclic Antidepress Not Detected (NotDetected) 04/04/24 16:24 Ur Phencyclidine Scrn Not Detected (NotDetected) 04/04/24 16:24 Ur Amphetamines Screen Detected (NotDetected) H 04/04/24 16:24 U Methamphetamines Scrn Detected (NotDetected) H 04/04/24 16:24 U Benzodiazepines Scrn Not Detected (NotDetected) 04/04/24 16:24 Urine Cocaine Screen Detected (NotDetected) H 04/04/24 16:24 U Marijuana (THC) Screen Not Detected (NotDetected) 04/04/24 16:24 SARS-CoV-2 (PCR) Not Detected (Not Detectd) 04/04/24 16:24 Vital Signs Temp 97.9 F 04/10/24 06:21 Pulse 85 04/10/24 06:21 Resp 16 04/10/24 06:21 BP 131/91 04/10/24 06:21 Pulse Ox 97 04/10/24 06:21 FiO2 Patient Condition at Discharge: Stable Plan - Discharge Summary Discharge Rx Participant: No New Discharge Prescriptions: New hydrOXYzine pamoate [Vistaril] 50 mg PO DAILY PRN 30 Days #60 cap PRN Reason: Anxiety Nicotine 21Mg/24Hr Patch [Habitrol] 1 patch TRANSDERM DAILY 14 Days #14 patch Escitalopram [Lexapro] 10 mg PO DAILY 30 Days #30 tab risperiDONE ER inj [Perseris] 120 mg SQ QMONTHLY #1 kit traZODone HCL 150 mg PO HS PRN 30 Days #30 tablet PRN Reason: Insomnia Discharge Medication List Escitalopram [Lexapro] 10 mg PO DAILY 30 Days #30 tab 04/11/24 [Rx] Nicotine 21Mg/24Hr Patch [Habitrol] 1 patch TRANSDERM DAILY 14 Days #14 patch 04/11/24 [Rx] hydrOXYzine pamoate [Vistaril] 50 mg PO DAILY PRN 30 Days #60 cap 04/11/24 [Rx] risperiDONE ER inj [Perseris] 120 mg SQ QMONTHLY #1 kit 04/11/24 [Rx] traZODone HCL 150 mg PO HS PRN 30 Days #30 tablet 04/11/24 [Rx] Follow up Appointment(s)/Referral(s): [facility] [place] [Outside] - 04/12/24 1:30 pm (04/12/2024 1:30PM - 2:00PM LENIN PLATA 04/17/2024 3:00PM - 4:00PM SIDRA OLIVEROS ) None,Stated [Primary Care Provider] - 1-2 days Activity/Diet/Wound Care/Special Instructions: Avoid the use of street drugs and alcohol. Take all medications as prescribed. When you are in need of refills on your medications, please contact your medical provider and/or outpatient psychiatrist/provider to have this done. Please go to your scheduled outpatient appointment for aftercare treatment. If symptoms return or become worse, call the crisis line at and/or go to the nearest emergency room for evaluation. National Suicide Hotline 988 Discharge Disposition: HOME SELF-CARE
== END 2024-04-11 11:44 | disposition home or self-care (01) | DRG 751 ==
LOC: EC 11:38 → 3MHU 17:31
PROVIDERS: ADMIT Psychiatry & Neurology Psychiatry; ATTEND Psychiatry & Neurology Psychiatry
DX: F29 Unspecified psychosis not due to a substance or known physiological condition (principal); F14.10 Cocaine abuse, uncomplicated; F15.10 Other stimulant abuse, uncomplicated; F17.200 Nicotine dependence, unspecified, uncomplicated; F43.10 Post-traumatic stress disorder, unspecified; R45.851 Suicidal ideations; Z91.148 Patient's other noncompliance with medication regimen for other reason; Z79.899 Other long term (current) drug therapy; F41.9 Anxiety disorder, unspecified; Z28.310 Unvaccinated for COVID-19; Z28.21 Immunization not carried out because of patient refusal; Z11.52 Encounter for screening for COVID-19; Z87.820 Personal history of traumatic brain injury; Z56.0 Unemployment, unspecified
CPT/HCPCS: 80053; 80306; 81001; 81025; 82075; 83036; 84439; 84443; 85025; 87635; 99285

== ENCOUNTER 2024-06-13 10:39 | Inpatient (IN) | payer MEDICAID, OTHER ==
--- NOTE | 2024-06-13 13:43 | ED ---
Psych HPI - General Chief Complaint: Psychiatric Symptoms Stated Complaint: Mental health Time Seen by Provider: 06/13/24 10:58 Source: patient, RN notes reviewed Mode of arrival: ambulatory Limitations: no limitations - History of Present Illness Initial Comments: 38-year-old female presents emergency department chief complaint of depression, suicidal ideation. Patient states she has had worsening thoughts of harming self and states she plans to jump off a bridge. Patient does admit to methamphetamine abuse denies any alcohol abuse no physical complaints. Patient states she is on psychiatric medications. - Related Data Home Medications Medication Instructions Recorded Confirmed Prazosin HCl [Minipress] 4 mg PO HS 06/13/24 06/13/24 QUEtiapine [SEROquel] 400 mg PO HS 06/13/24 06/13/24 Previous Rx's Medication Instructions Recorded Escitalopram [Lexapro] 10 mg PO DAILY 30 Days #30 tab 04/11/24 Nicotine 21Mg/24Hr Patch [Habitrol] 1 patch TRANSDERM DAILY 14 Days 04/11/24 #14 patch hydrOXYzine pamoate [Vistaril] 50 mg PO DAILY PRN 30 Days #60 cap 04/11/24 traZODone HCL 150 mg PO HS PRN 30 Days #30 tablet 04/11/24 Allergies Allergy/AdvReac Type Severity Reaction Status Date / Time No Known Allergies Allergy Verified 06/13/24 13:00 Review of Systems ROS Statement: Those systems with pertinent positive or pertinent negative responses have been documented in the HPI. ROS Other: All systems not noted in ROS Statement are negative. Past Medical History Past Medical History: No Reported History History of Any Multi-Drug Resistant Organisms: None Reported, MRSA Date of last positivie culture/infection: left knee MDRO Source:: 2013 Past Surgical History: No Surgical Hx Reported Past Anesthesia/Blood Transfusion Reactions: No Reported Reaction Past Psychological History: Anxiety, Depression, Schizophrenia Smoking Status: Current every day smoker, Vaper Past Alcohol Use History: Occasional Past Drug Use History: Heroin, Marijuana, Methamphetamine - Past Family History Father Family Medical History: No Reported History Mother Family Medical History: No Reported History General Exam Limitations: no limitations General appearance: alert, in no apparent distress Head exam: Present: atraumatic, normocephalic, normal inspection ENT exam: Present: normal exam, normal oropharynx, mucous membranes moist Neck exam: Present: normal inspection. Absent: tenderness, meningismus, lymphadenopathy Respiratory exam: Present: normal lung sounds bilaterally. Absent: respiratory distress, wheezes, rales, rhonchi, stridor Cardiovascular Exam: Present: regular rate, normal rhythm, normal heart sounds. Absent: systolic murmur, diastolic murmur, rubs, gallop, clicks Neurological exam: Present: alert, oriented X3, CN II-XII intact, reflexes normal. Absent: motor sensory deficit Skin exam: Present: warm, dry, intact, normal color. Absent: rash Course Vital Signs 06/13/24 06/13/24 10:41 13:52 Temperature 98.2 F 98.1 F Pulse Rate 80 92 Respiratory 20 18 Rate Blood Pressure 126/85 124/85 O2 Sat by Pulse 99 99 Oximetry Medical Decision Making - Medical Decision Making Was pt. sent in by a medical professional or institution (, ELE, MINI BAR ATTENDANT, urgent care, hospital, or skilled nursing...) When possible be specific @ -No Did you speak to anyone other than the patient for history (EMS, parent, family, police, friend...)? What history was obtained from this source @ -No Did you review nursing and triage notes (agree or disagree)? Why? @ -I reviewed and agree with nursing and triage notes Were old charts reviewed (outside hosp., previous admission, EMS record, old EKG, old radiological studies, urgent care reports/EKG's, skilled nursing records)? Report findings @ -No old charts were reviewed Differential Diagnosis (chest pain, altered mental status, abdominal pain women, abdominal pain men, vaginal bleeding, weakness, fever, dyspnea, syncope, headache, dizziness, GI bleed, back pain, seizure, CVA, palpatations, mental health, musculoskeletal)? @ -Differential Mental Health Depression, anxiety, bipolar, psychosis, schizophrenia, borderline personality, situational depression, adjustment disorder, behavioral disorder, brain tumor, malingering, substance abuse, encephalopathy, medication reaction, dementia, hypothyroidism, degenerative neurologic disorder, lupus.... This is not meant to be all-inclusive list EKG interpreted by me (3pts min.). @ -None X-rays interpreted by me (1pt min.). @ -None done CT interpreted by me (1pt min.). @ -None done U/S interpreted by me (1pt. min.). @ -None done What testing was considered but not performed or refused? (CT, X-rays, U/S, labs)? Why? @ -None What meds were considered but not given or refused? Why? @ -None Did you discuss the management of the patient with other professionals (professionals i.e. , PA, MINI BAR ATTENDANT, lab, RT, psych nurse, professor of social work, director of consumer marketing, teacher, fourth officer, director case management)? Give summary @ -ED yes we evaluated patient and recommended inpatient hospitalization Was smoking cessation discussed for >3mins.? @ -No Was critical care preformed (if so, how long)? @ -No Were there social determinants of health that impacted care today? How? (Homelessness, low income, unemployed, alcoholism, drug addiction, transportation, low edu. Level, literacy, decrease access to med. care, care home, rehab)? @ -No Was there de-escalation of care discussed even if they declined (Discuss DNR or withdrawal of care, Hospice)? DNR status @ -No What co-morbidities impacted this encounter? (DM, HTN, Smoking, COPD, CAD, Cancer, CVA, ARF, Chemo, Hep., AIDS, mental health diagnosis, sleep apnea, morbid obesity)? @ -Drug abuse, depression Was patient admitted / discharged? Hospital course, mention meds given and route, prescriptions, significant lab abnormalities, going to OR and other pertinent info. @ -[Admitted to 3 W. Undiagnosed new problem with uncertain prognosis? @ -No Drug Therapy requiring intensive monitoring for toxicity (Heparin, Nitro, Insulin, Cardizem)? @ -No Were any procedures done? @ -No Diagnosis/symptom? @ -Drug abuse, depression, suicide nation Acute, or Chronic, or Acute on Chronic? @ -[Acute Uncomplicated (without systemic symptoms) or Complicated (systemic symptoms)? @ -, Complicated Side effects of treatment? @ -No Exacerbation, Progression, or Severe Exacerbation? @ -No Poses a threat to life or bodily function? How? (Chest pain, [place], [place], pneumonia, PE, COPD, DKA, ARF, appy, cholecystitis, CVA, Diverticulitis, Homicidal, Suicidal, threat to staff... and all critical care pts) @ -Yes suicidal - Lab Data Lab Results 06/13/24 06/13/24 Range/Units 11:19 13:05 Urine Opiates Screen Not Detected (NotDetected) Ur Oxycodone Screen Not Detected (NotDetected) Urine Methadone Screen Not Detected (NotDetected) Ur Barbiturates Screen Not Detected (NotDetected) U Tricyclic Antidepress Not Detected (NotDetected) Ur Phencyclidine Scrn Not Detected (NotDetected) Ur Amphetamines Screen Detected H (NotDetected) U Methamphetamines Scrn Detected H (NotDetected) U Benzodiazepines Scrn Not Detected (NotDetected) Urine Cocaine Screen Detected H (NotDetected) U Marijuana (THC) Screen Detected H (NotDetected) SARS-CoV-2 (PCR) Not Detected (Not Detectd) Disposition Clinical Impression: Depression, Suicidal ideation, Drug abuse Disposition: TRANSFER TO PSYCH HOSP/UNIT Referrals: None,Stated [Primary Care Provider] - 1-2 days Time of Disposition: 14:35
[2024-06-13 14:00] LABS: Amphetamine Screen,Urine Detected (NotDetected); Barbiturate Screen,Urine Not Detected (NotDetected); Benzodiazepines Screen,Urine Not Detected (NotDetected); Cocaine Screen,Urine Detected (NotDetected); Methadone Screen, Urine Not Detected (NotDetected); Opiate Screen,Urine Not Detected (NotDetected); Oxycodone Screen, Urine Not Detected (NotDetected); Phencyclidine Screen,Urine Not Detected (NotDetected); Tricyclic Antidepressant,Urine Not Detected (NotDetected); Urn Cannabinoid Scrn Detected (NotDetected)
[2024-06-13] MEDS ORDERED: ACETAMINOPHEN TAB 325 MG TAB PO PRN (15:39)
[2024-06-13] MEDS ORDERED: MAG HYDROX/AL HYDROX/SIMETH 355 ML BOTTLE PO PRN (15:39)
[2024-06-13] MEDS ORDERED: MAGNESIUM HYDROXIDE 2,400 MG/30 ML CUP PO PRN (15:39)
[2024-06-13] MEDS ORDERED: OLANZapine 10 MG VIAL IM PRN (15:42)
[2024-06-13] MEDS ORDERED: LORazepam 2 MG/ML INJ IM PRN (15:42)
[2024-06-13] MEDS: IBUPROFEN 600 MG TAB PO PRN (16:40)
[2024-06-13] MEDS: LORazepam 1 MG TAB PO PRN (16:40)
[2024-06-13] MEDS: OLANZapine 10 MG TAB PO PRN (20:32)
[2024-06-14] MEDS: NICOTINE 14MG/24HR PATCH TRANSDERM SCH (08:21)
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
[2024-06-14] MEDS: PALIPERIDONE IM 234 MG/1.5 ML SYG IM STA (18:19)
[2024-06-14] MEDS: traZODone HCL 100 MG TAB PO PRN (20:32)
--- NOTE | 2024-06-15 00:03 | P.PN ---
Progress Note - Text Progress Note Date: 06/15/24 Attempted to see the patient in the mental health unit on 06/14 at 2100. The patient refused to be seen or be evaluated.
[2024-06-15] MEDS: ESCITALOPRAM 10 MG TAB PO SCH (10:19)
--- NOTE | 2024-06-15 11:17 | P.PN ---
Progress Note - Text Progress Note Date: 06/15/24 Interval History: Patient was seen [wandering the hallways] and was directable and agreeable to speak with board writer in the office. She states that she is "really shitty, because I can't sleep, and they took my seroquel away from me". She states that the voices are too loud, and she can not relax. She is minimizing her drug use, and how it is affecting her mental health. She is medication seeking. At this time patient endorses suicidal and homicidal ideations, intent or plan. Patient endorses auditory hallucinations, denies visual hallucinations and denies any paranoia or delusions. Patient denies any side effects from the medications and has been compliant with meds. MENTAL STATUS EXAM: General Appearance: Patient appears to have several tattoos, unkempt, older than stated age. Patient is directable, and cooperative. Patient appears to have poor hygiene and grooming. Behavior: Patient is sitting without any agitated behavior. drug seeking, demanding. Speech: Patient's speech is fluent and nonpressured. Mood/Affect: Patient reports their mood is "shitty" affect is congruent and constricted, Suicidality/Homicidality: Patient admits having homicidal ideation and suicidal ideations, no intent or plan Perceptions: Patient denies any visual hallucinations and admits to auditory hallucinations, non specific. Though content/process: Patient is concrete, evasive. minimizing her addiction Memory and concentration: AOX3, Judgment and insight: chronically poor IMPRESSIONS: Psychosis unspecified history of depressive disorder Traumatic brain injury PTSD cocaine abuse methamphetamine abuse cannabis use Nicotine dependence homelessness noncompliance to medication PLAN: -Patient is admitted under voluntary status to MHU for stabilization of psychiatric symptoms and safety. Patient has signed adult voluntary form or medication consent and is placed in patient's chart. Patient is on a deferral order until 10/06/24 -Medications : Invega Sustenna 234mg, 06/14 for psychosis, next dose due 06/21 of 156mg. Lexapro 10 mg daily for mood/anxiety. trazodone 100mg qhs prn for sleep, Vistaril 50mg q8 hours as needed for anxiety. Add Seroquel 100mg qhs for sleep +100mg now as requested. -Ativan and Haldol PRN for agitation/aggression -NRT -nicotine patch -SW on board for discharge planning. Encourage patient to participate in groups to work on coping skills. Will offer patient rehab once she is more stable. signed a waive and stip and is now on an active treatment order as of 06/15/24
[2024-06-15] MEDS: QUEtiapine 100 MG TAB PO STA (11:36)
[2024-06-15] MEDS ORDERED: NICOTINE 21MG/24HR PATCH TRANSDERM ONE (12:02)
[2024-06-15] MEDS: NICOTINE 21MG/24HR PATCH TRANSDERM SCH (12:02)
[2024-06-15] MEDS: BACITRACIN OINT 1 EACH PACKET TOPICAL PRN (12:08)
[2024-06-15] MEDS: hydrOXYzine pamoate 25 MG CAP PO PRN (20:33)
[2024-06-15] MEDS: QUEtiapine 100 MG TAB PO SCH (20:33)
--- NOTE | 2024-06-16 03:17 | P.PN ---
Progress Note - Text Progress Note Date: 06/16/24 Attempted to see the patient in the mental health unit. Informed by the MHU RN that the patient is refusing to be seen or be evaluated.
[2024-06-16 12:25] LABS: Amorphous Sediment,Urine Rare /hpf; Appearance,Urine Turbid (Clear); Bacteria,Urine Many /hpf; Bilirubin,Urine Negative (Negative); Blood,Urine Large (Negative); Color,Urine Yellow; Glucose,Urine (UA) Negative (Negative); Ketones,Urine Negative (Negative); Leukocyte Esterase,Urine Negative (Negative); Mucus,Urine Occasional /hpf; Nitrite,Urine Negative (Negative); PH, Urine 6.5 (5.0-8.0); Protein,Urine 1+ (Negative); Specific Gravity,Urine 1.038 (1.001-1.035); Urobilinogen,Urine <2.0 mg/dL (<2.0); WBC,Urine 29 /hpf (0-5)
--- NOTE | 2024-06-16 18:11 | P.PN ---
Progress Note - Text Progress Note Date: 06/16/24 Interval history: Patient was seen resting in bed and was directable and somewhat agreeable to speak with promotion writer. She was largely irritable during our visit but describes her mood as "okay" she endorsed experiencing auditory hallucinations that "will not stop talking to me". When asked more about the voices she describes them as "familiar" and "mean". Does endorse having suicidal ideation, though became particularly irritable and guarded when asked more about those thoughts. She declined to elaborate further. She shared her frustration that her home Seroquel dose had been decreased; she reports having taken 150 mg in the morning and 100 mg at night prior to admission. She would not share further about the circumstances that brought her into the hospital, and stated that she just needed to rest.. Patient denies any side effects from the medications and has been compliant with meds. Mental status exam: General Appearance: Patient appears to be older than stated age is alert, directable, and very minimally cooperative. Behavior: No agitated behavior. Patient is irritable and minimally engaged. Her eyes remained closed throughout the visit. Speech: Patient's speech is fluent and nonpressured. Mood/Affect: Mood is "okay", affect is congruent and constricted. Suicidality/Homicidality: Patient denies having homicidal ideation intent or plan. Endorses suicidal ideation. Perceptions: Patient denies any visual hallucinations. Endorses chronic auditory hallucinations. Though content/process: There is no evidence of any delusional thought content and thought process is goal-directed. Memory and concentration: AOX3, grossly intact for the purposes of this session Judgment and insight: improving mildly Assessment/Plan: Patient continues to meet criteria for inpatient psychiatric admission for symptom stabilization and safety. Currently on a deferral order until 10/06/24 (active treatment order initiated 06/15/24) Continue with current diagnoses: TBI, unspecified psychosis, PTSD, chronic substance abuse (methamphetamine, cannabis, cocaine, nicotine), homelessness, medication nonadherence Patient will be maintained on current psychotropic medication regimen: Invega Sustenna 234mg, 06/14 for psychosis, next dose due 06/21 of 156mg. Lexapro 10 mg daily for mood/anxiety. Trazodone 100mg qhs prn for sleep, Vistaril 50mg q8 hours as needed for anxiety. Continue Seroquel 100mg qhs for sleep; will also add 100 mg QAM per patient request to align with reported home regimen. Monitor for medication compliance and for any psychotropic medication side effects. Will continue to monitor ongoing response to treatment. Encouraged participation in milieu.
[2024-06-16] MEDS: QUEtiapine 100 MG TAB PO SCH (20:11)
--- NOTE | 2024-06-17 19:17 | P.PN ---
Progress Note - Text Progress Note Date: 06/17/24 Interval history: Patient was again resting in bed today at the time of the visit. She was matt nable to a brief check-in. She described her mood as "good". She does not feel the medication has been helpful for her at this point. She does endorse sleeping okay. She continues to report suicidal ideation and would not elaborate further on her experience of these thoughts. She also endorses auditory hallucination which she describes as "voices" but did not provide further context. She denies homicidal ideation intent and plan. She did not have any additional questions. Mental status exam: General Appearance: Patient appears to be older than stated age is reasonably alert, directable. Behavior: No agitated behavior. Patient is minimally engaged though less irritable. Her eyes briefly opened at the start of our visit. Speech: Patient's speech is fluent and nonpressured. Mood/Affect: Mood is "good", affect is congruent and constricted. Suicidality/Homicidality: Patient denies having homicidal ideation intent or plan. Endorses suicidal ideation. Perceptions: Patient denies any visual hallucinations. Endorses chronic auditory hallucinations. Though content/process: There is no evidence of any delusional thought content and thought process is goal-directed. Memory and concentration: AOX3, grossly intact for the purposes of this session Judgment and insight: improving mildly Assessment/Plan: - Continue with current diagnoses: TBI, unspecified psychosis, PTSD, chronic substance abuse (methamphetamine, cannabis, cocaine, nicotine), homelessness, medication nonadherence - Patient continues to meet criteria for inpatient psychiatric admission for symptom stabilization and safety. Currently on a deferral order until 10/06/24 (active treatment order initiated 06/15/24) - Patient will be maintained on current psychotropic medication regimen: Invega Sustenna 234mg, 06/14 for psychosis, next dose due 06/21 of 156mg. Lexapro 10 mg daily for mood/anxiety. Trazodone 100mg qhs prn for sleep, Vistaril 50mg q8 hours as needed for anxiety. Continue Seroquel 100mg BID. - Monitor for medication compliance and for any psychotropic medication side effects. - Will continue to monitor ongoing response to treatment. - Encouraged participation in milieu.
--- NOTE | 2024-06-18 11:06 | P.PN ---
Progress Note - Text Progress Note Date: 06/18/24 Interval History: Patient was seen laying in bed today and was agreeable to speak to telegraphic typewriter installer. She continues to state that she is still hearing voices, they have improved mildly since she came in. She claims that she is still having passive suicidal thoughts, continues to endorse anxiety asked if telegraphic typewriter installer could prescribe her medications for anxiety when she is to go home. Continues to have very poor insight and judgment. States that she is sleeping and napping during the day and on and off at nighttime, has a mildly improving appetite. She is medication seeking. At this time patient endorses suicidal and homicidal ideations, intent or plan. Patient endorses auditory hallucinations, denies visual hallucinations and denies any paranoia or delusions. Patient denies any side effects from the medications and has been compliant with meds. MENTAL STATUS EXAM: General Appearance: Patient appears to have several tattoos, unkempt, older than stated age. Patient is directable, and cooperative. Patient appears to have poor hygiene and grooming. Behavior: Patient is sitting without any agitated behavior. drug seeking, demanding. Improving mildly Speech: Patient's speech is fluent and nonpressured. [place] Mood/Affect: Patient reports their mood is "same and still anxious" affect is congruent and constricted, improving mildly Suicidality/Homicidality: Patient admits having homicidal ideation and suicidal ideations, no intent or plan Perceptions: Patient denies any visual hallucinations and admits to auditory hallucinations, non specific. Though content/process: Patient is concrete, evasive. Memory and concentration: AOX3, Judgment and insight: chronically poor IMPRESSIONS: Psychosis unspecified history of depressive disorder Traumatic brain injury PTSD cocaine abuse methamphetamine abuse cannabis use Nicotine dependence homelessness noncompliance to medication PLAN: -Patient is admitted under voluntary status to MHU for stabilization of psychiatric symptoms and safety. Patient has signed adult voluntary form or medication consent and is placed in patient's chart. Patient is on a deferral order until 10/06/24 -Medications : Invega Sustenna 234mg, 06/14 for psychosis, next dose due 06/21 of 156mg. increase Lexapro 20 mg daily for mood/anxiety. trazodone 100mg qhs prn for sleep, Vistaril 50mg q8 hours as needed for anxiety. increase Seroquel 150 mg qhs for sleep/psychosis adjunct -Ativan and Haldol PRN for agitation/aggression -NRT -nicotine patch -SW on board for discharge planning. Encourage patient to participate in groups to work on coping skills. Will offer patient rehab once she is more stable. signed a waive and stip and is now on an active treatment order as of 06/15/24
[2024-06-18] MEDS: LORazepam 1 MG TAB PO PRN (14:44)
[2024-06-18] MEDS: QUEtiapine 50 MG TAB PO SCH (20:00)
[2024-06-19] MEDS: ESCITALOPRAM 20 MG TAB PO SCH (10:58)
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
[2024-06-19] MEDS: QUEtiapine 100 MG TAB PO SCH (12:05)
[2024-06-19] MEDS: PALIPERIDONE IM 156 MG/ML SYG IM STA (14:26)
--- NOTE | 2024-06-19 17:29 | P.HPMEDMHU ---
History of Present Illness Patient is a 38-year-old female with a past medical history of depression and traumatic brain injury and PTSD and polysubstance abuse who is admitted to [facility]. Medicine has been consulted for medical H&P. Patient told me that she has no significant medical history. She states that she is established with [facility]. She is denying any acute complaints. She appears to be in good spirits. She states that she does smoke cigarettes. She states that she drinks socially ROS: 10 ROS reviewed and are negative except as noted in HPI Physical exam General: [Alert and oriented, well nourished, no acute distress]. Eye: [PERRL, EOMI, normal conjunctiva]. HENT: [Normocephalic, clear tympanic membranes, normal hearing, moist oral mucosa, no scleral icterus, no sinus tenderness]. Neck: [Supple, non-tender, no carotid bruits, no JVD, no lymphadenopathy]. Lungs: [Clear to auscultation and percussion, non-labored respiration]. Heart: [Normal rate, regular rhythm, no murmur, gallop or edema]. Abdomen: [Soft, non-tender, non-distended, normal bowel sounds, no masses]. Musculoskeletal: [Normal range of motion and strength, no tenderness or swelling]. Skin: [Skin is warm, dry and pink, no rashes or lesions]. Neurologic: [Awake, alert, and oriented X3, CN II-XII intact]. Psychiatric: [Cooperative, appropriate mood and affect]. Assessment and plan Polysubstance abuse Patient counseled on cessation Tobacco abuse Continue nicotine patch Psychiatric disorder As per your psychiatry management Please do not hesitate to contact sound physicians with any questions or concerns Past Medical History Past Medical History: No Reported History History of Any Multi-Drug Resistant Organisms: None Reported, MRSA Date of last positivie culture/infection: left knee MDRO Source:: 2013 Past Surgical History: No Surgical Hx Reported Past Anesthesia/Blood Transfusion Reactions: No Reported Reaction Past Psychological History: Anxiety, Depression, Schizophrenia Additional Psychological History / Comment(s): Hallucinations Smoking Status: Current every day smoker, Vaper Past Alcohol Use History: Occasional Past Drug Use History: Cocaine, Heroin, Marijuana, Methamphetamine - Past Family History Father Family Medical History: No Reported History Mother Family Medical History: No Reported History Medications and Allergies Home Medications Medication Instructions Recorded Confirmed Type Escitalopram [Lexapro] 10 mg PO DAILY 30 Days #30 tab 04/11/24 06/13/24 Rx Nicotine 21Mg/24Hr Patch [Habitrol] 1 patch TRANSDERM DAILY 14 Days 04/11/24 06/13/24 Rx #14 patch hydrOXYzine pamoate [Vistaril] 50 mg PO DAILY PRN 30 Days #60 cap 04/11/24 06/13/24 Rx traZODone HCL 150 mg PO HS PRN 30 Days #30 tablet 04/11/24 06/13/24 Rx Prazosin HCl [Minipress] 4 mg PO HS 06/13/24 06/13/24 History QUEtiapine [SEROquel] 400 mg PO HS 06/13/24 06/13/24 History Allergies Allergy/AdvReac Type Severity Reaction Status Date / Time No Known Allergies Allergy Verified 06/13/24 13:00 Physical Exam Osteopathic Statement: *. No significant issues noted on an osteopathic structural exam other than those noted in the History and Physical/Consult. Vitals: Vital Signs Temp Pulse Resp BP Pulse Ox 06/19/24 06:40 97.2 F L 72 14 123/82 96 Cranial Nerve Examination - Cranial Nerves Cranial Nerve I- Olfactory: Intact Cranial Nerve II- Optic: Intact Cranial Nerve III- Oculomotor: Intact Cranial Nerve IV- Trochlear: Intact Cranial Nerve V- Trigeminal: Intact Cranial Nerve - Abducens: Intact Cranial Nerve VII- Facial: Intact Cranial Nerve VIII- Auditory: Intact Cranial Nerve IX- Glossopharyngeal: Intact Cranial Nerve X- Vagus: Intact Cranial Nerve XI- Accessory: Intact Cranial Nerve XII- Hypoglossal: Intact Thrombosis Risk Factor Assmnt - Choose All That Apply Any of the Below Risk Factors Present?: Yes Each Factor Represents 1 point: Obesity (BMI >25) Other Risk Factors: No Other congenital or acquired thrombophilia - If yes, enter type in comment: No Thrombosis Risk Factor Assessment Total Risk Factor Score: 1 Thrombosis Risk Factor Assessment Level: Low Risk
--- NOTE | 2024-06-20 11:46 | P.PN ---
Progress Note - Text Progress Note Date: 06/20/24 Interval History: Patient was seen in her room today and was agreeable to speak to creative services writer at the bedside. She states that she is doing a bit better today, and the voices are getting quieter. Continues to have very poor insight and judgment. The patient endorses good sleep and good appetite. She states the daily dose of Seroquel has helped her tremendously. At this time patient endorses suicidal ideations, but the thoughts are improving, and denies homicidal ideations, intent or plan. Patient endorses auditory hallucinations, which are improving, and denies visual hallucinations and denies any paranoia or delusions. Patient denies any side effects from the medications and has been compliant with meds. MENTAL STATUS EXAM: General Appearance: Patient appears to have several tattoos, unkempt, older than stated age. Patient is directable, and cooperative. Patient appears to have improving hygiene and grooming. Behavior: Patient is laying in bed without any agitated behavior. Improving mildly Speech: Patient's speech is fluent and nonpressured. [place], mildly improving Mood/Affect: Patient reports their mood is "same and still anxious" affect is congruent and constricted, improving mildly Suicidality/Homicidality: Patient admits having homicidal ideation and suicidal ideations, no intent or plan Perceptions: Patient denies any visual hallucinations and admits to auditory hallucinations, non specific., improving Though content/process: Patient is concrete, evasive. mildly improving Memory and concentration: AOX3, Judgment and insight: chronically poor IMPRESSIONS: Psychosis unspecified history of depressive disorder Traumatic brain injury PTSD cocaine abuse methamphetamine abuse cannabis use Nicotine dependence homelessness noncompliance to medication PLAN: -Patient is admitted under voluntary status to [facility] for stabilization of psychiatric symptoms and safety. Patient has signed adult voluntary form or medication consent and is placed in patient's chart. Patient is on a deferral order until 10/06/24 -Medications : Invega Sustenna 234mg, 06/14 for psychosis, give Invega Sustenna 156mg today, 06/19, next maintenance dose due 07/17 of 234 mg IM. Lexapro 20 mg daily for mood/anxiety. trazodone 100mg qhs prn for sleep, Vistaril 50mg q8 hours as needed for anxiety. Seroquel 150 mg qhs + 100mg daily for sleep/psychosis adjunct -Ativan and Haldol PRN for agitation/aggression -NRT -nicotine patch -SW on board for discharge planning. Encourage patient to participate in groups to work on coping skills. Will offer patient rehab once she is more stable. signed a waive and stip and is now on an active treatment order as of 06/15/24
[2024-06-21] MEDS ORDERED: hydrOXYzine pamoate 25 MG CAP PO PRN (10:51)
--- NOTE | 2024-06-21 10:54 | P.PN ---
Progress Note - Text Progress Note Date: 06/21/24 Interval History: Patient was seen in her room today and was agreeable to speak to commercial loan underwriter at the bedside. She states that she is doing better today, and the voices continue getting quieter. The patient endorses fair sleep and good appetite. Museum Exhibit Technician spoke with patient about going to rehab. Patient states that she just got out of rehab, and it don't work for her. She is looking into options of [facility] vs staying in a tent in her ex husbands back yard. At this time patient denies suicidal ideations and denies homicidal ideations, intent or plan. Patient endorses auditory hallucinations, which are improving, and denies visual hallucinations and denies any paranoia or delusions. Patient denies any side effects from the medications and has been compliant with meds. MENTAL STATUS EXAM: General Appearance: Patient appears to have several tattoos, older than stated age. Patient is directable, and cooperative. Patient appears to have improving hygiene and grooming. Behavior: Patient is sitting in bed without any agitated behavior. Improving mildly Speech: Patient's speech is fluent and nonpressured. [place], mildly improving Mood/Affect: Patient reports their mood is improving affect is congruent and constricted, improving mildly Suicidality/Homicidality: Patient denies having homicidal ideation and suicidal ideations, no intent or plan Perceptions: Patient denies any visual hallucinations and admits to auditory hallucinations, non specific, improving Though content/process: Patient is concrete, evasive. mildly improving Memory and concentration: AOX3, fair concentration. Judgment and insight: chronically poor, improving mildly IMPRESSIONS: Psychosis unspecified history of depressive disorder Traumatic brain injury PTSD cocaine abuse methamphetamine abuse cannabis use Nicotine dependence homelessness noncompliance to medication PLAN: -Patient is admitted under voluntary status to [facility] for stabilization of psychiatric symptoms and safety. Patient has signed adult voluntary form or medication consent and is placed in patient's chart. Patient is on a deferral order until 10/06/24 -Medications : Invega Sustenna 234mg, 06/14 for psychosis, give Invega Sustenna 156mg today, 06/19, next maintenance dose due 07/17 of 234 mg IM. Lexapro 20 mg daily for mood/anxiety. increase trazodone 150mg qhs prn for sleep, increase Vistaril 50mg q6 hours as needed for anxiety. increase Seroquel 200 mg qhs + 100mg daily for sleep/psychosis adjunct -Ativan and Haldol PRN for agitation/aggression -NRT - nicotine patch -SW on board for discharge planning. Encourage patient to participate in groups to work on coping skills. Will offer patient rehab once she is more stable. signed a waive and stip and is now on an active treatment order as of 06/15/24. Patient refusing rehab. Likely discharge tomorrow, [facility] a spot at the [facility] vs staying at a friends house
[2024-06-21] MEDS: QUEtiapine 200 MG TAB PO SCH (20:03)
[2024-06-21] MEDS: traZODone HCL 50 MG TAB PO SCH (20:03)
[2024-06-22 06:23] VITALS: BP 103/65; PULSE 71; RESP 18; TEMP 97.3
--- NOTE | 2024-06-22 11:08 | P.DS ---
Providers Date of admission: 06/13/24 15:35 Expected date of discharge: 06/22/24 Attending physician: Jhonny Rodriguez MD Consults: 06/13/24 15:39 Consult Physician Routine Consulting Provider: Ayaan Lackey Consult Reason/Comments: History and Physical, New Admission Do you want consulting provider notified?: Yes Primary care physician: Stated None - Discharge Diagnosis(es) (1) Unspecified psychosis Current Visit: Yes Status: Acute Priority: High (2) Depressive disorder Current Visit: Yes Status: Acute Priority: Medium (3) Traumatic brain injury Current Visit: Yes Status: Acute Priority: Medium (4) PTSD (post-traumatic stress disorder) Current Visit: Yes Status: Acute Priority: Medium (5) Cocaine abuse Current Visit: Yes Status: Acute Priority: High (6) Methamphetamine abuse Current Visit: Yes Status: Acute Priority: High (7) Cannabis use disorder Current Visit: Yes Status: Acute Priority: Medium (8) Nicotine dependence Current Visit: Yes Status: Acute Priority: Low (9) Homelessness Current Visit: Yes Status: Acute Priority: Medium (10) Non compliance w medication regimen Current Visit: Yes Status: Acute Priority: High Hospital Course: Admission HPI: Admission note was completed by physician underwriter "patient is a 38-year-old female, who currently is homeless, has 1 son. She is single and unemployed. Patient presented to the hospital on 06/13 As per EPS note, "Pt brought self to the ER f or increased SI. Pt states that "I ama going through alot". She states since d/c from [facility] she did not follow up with [facility], not compliant with her medications, lost her car, lost her job, and was evicted for non-payment. "I am having a hard time getting on my feet". 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 Pt feels like she can not keep herself safe and if she left she would hurt herself, "I haven't thought of how but I know that I would". During continued conversation she states that she would potentially jump off the bridge or just jump into the river and drown d/t the currents. Pt denies any medical conditions. Pt admits to methamphetamine use 2 days ago. Denies any recent ETOH. Pt denies HI or paranoia. Pt admits to ongoing AH, she denies that they are command in nature. Pt is on a current deferral order until 10/06/24. " Upon today's interview, she was laying in bed. She was not agreeable to come into the office, but agreeable to chat at the bedside. She states she has been doing drugs, and that her "life is going to shit" She is currently homeless, and she does not know how to deal with the stresses of everyday life. She states that she is hearing voices, talking back to her, with the thoughts in her head. She has very poor hygiene and poor grooming, poor impulse control and poor insight. admits to non compliance with medications and receiving her [facility] from [facility]. Patient denies any suicidal or homicidal ideations intent or plan. At this time patient endorses auditory and denies visual hallucinations. Patient denies any flight of ideas racing thoughts. Patient UDS was positive for cocaine, methamphetamines and amphetamines. Patient is a smoker." Hospital course: Upon admission to the unit patient was admitted on a active deferral, she met with the corporate associate attorney and signed a waive and stip and consented to the mental health treatment order. Patient was initially isolative, keeping herself in her bed, she was also psychotic aggressive however with time of treatment she eventually got along well with other patients on the unit and followed unit protocol. Patient was compliant with the medications and denied any side effects throughout hospital course. Patient was started on Invega Sustenna given the loading dose 234 mg IM on 06/14, second dose of 156 mg IM was given on 06/19, monthly maintenance dose of 234 mg IM will be due on 07/17. Lexapro 20 mg daily for mood/anxiety, trazodone 150 mg nightly for sleep, Vistaril as needed for anxiety, Seroquel increased to dose of 100 mg daily +200 mg nightly for sleep/psychosis adjunct. Patient spoke of her stressors and engaged in therapy both group and individual. Patient was also seen by medical team for history and physical exam. Throughout the course of the hospitalization patient gradually improved with regards to mood, anxiety, psychosis, hallucinations, sleep and returned back to their baseline level of functioning. On the day of discharge patient denied any suicidal or homicidal ideations intent or plan denied any auditory or visual hallucinations. Patient endorsed wanting to live for her sobriety and future. The patient denied any access to guns or weapons. Patient denied any paranoia and did not endorse any delusions. Patient does have a significant history of substance abuse and was counseled on abstaining from all substances including alcohol and marijuana. Patient claims that she will be staying with a friend until Tuesday where a bed at [facility] will open up and she will do the treatment program there. Patient was also counseled on the medications and need for regular compliance and was encouraged to follow- up with their outpatient appointment for mental health and also for primary care. farmworker will help with discharge today, coordinate with [facility] for outpatient care. Mental status exam: General Appearance: Patient appears to be mildly disheveled, several tattoos, stated age is alert, pleasant, and cooperative. Patient is in no acute distress and has improved hygiene and grooming Behavior: Patient is calmly seated without any agitated behavior. Speech: Patient's speech is fluent and nonpressured. Mood/Affect: Patient reports their mood is "good", affect is congruent and euthymic. Suicidality/Homicidality: Patient denies having any suicidal or homicidal ideation intent or plan. Perceptions: Patient denies any auditory or visual hallucinations. Though content/process: There is no evidence of any delusional thought content and thought process is linear and goal-directed. More future oriented Memory and concentration: AOX3, grossly intact for the purposes of this session. Can spell "WORLD" backwards correctly. Judgment and insight: Chronically poor, however has improved with guarded prognosis Impression: Psychosis unspecified Depressive disorder Methamphetamine use disorder Cannabis use disorder Nicotine dependence Homelessness Noncompliance to medication regimen PTSD Traumatic brain injury Cocaine abuse Plan: -Continue with discharge today as patient has improved and stabilized psychiatrically and is not currently an imminent threat to themself and/or others. Patient will remain at chronically elevated risk for harm to self and/or others due to their impulsivity and polysubstance abuse. -Continue medications: Patient was given loading dose of Invega Sustenna 234 mg IM on 06/14, second dose of 156 mg IM was given on 06/19, maintenance dose of 234 mg IM will be due on 07/17, Lexapro 20 mg daily for mood/anxiety, trazodone 150 mg nightly for sleep/mood, Vistaril 50 mg p.o. twice daily as needed for anxiety, Seroquel 100 mg daily +200 mg nightly for sleep/psychosis adjunct. -Patient was counseled on the need for medication compliance and appropriate follow-up at mental health and also primary care for medical issues. Patient verbalized understanding and agreed. -Social work to help coordinate patients discharge today, she will be staying with her friend until Tuesday when a [facility] bed will open up and she will start treatment there. also to ensure safe home environment that guns/weapons are either removed from the home or locked away. Social work also to arrange for patients follow up appointments with [facility] for psychiatric care along with follow up with primary care provider. -Patient counseled on abstaining from recreational drugs and marijuana and alcohol. Was informed/educated on the adverse effects on their physical and mental health. Patient verbally agreed and understood. -Patient was instructed to return to the hospital or seek immediate medical care if their psychiatric or medical symptoms do worsen or reoccur. Allergies Allergy/AdvReac Type Severity Reaction Status Date / Time No Known Allergies Allergy Verified 06/13/24 13:00 Laboratory Results Urine Color Yellow 06/13/24 13:05 Urine Appearance Turbid (Clear) H 06/13/24 13:05 Urine pH 6.5 (5.0-8.0) 06/13/24 13:05 Ur Specific Mode 1.038 (1.001-1.035) H 06/13/24 13:05 Urine Protein 1+ (Negative) H 06/13/24 13:05 Urine Glucose (UA) Negative (Negative) 06/13/24 13:05 Urine Ketones Negative (Negative) 06/13/24 13:05 Urine Blood Large (Negative) H 06/13/24 13:05 Urine Nitrite Negative (Negative) 06/13/24 13:05 Urine Bilirubin Negative (Negative) 06/13/24 13:05 Urine Urobilinogen <2.0 mg/dL (<2.0) 06/13/24 13:05 Ur Leukocyte Esterase Negative (Negative) 06/13/24 13:05 Urine WBC 29 /hpf (0-5) H 06/13/24 13:05 Amorphous Sediment Rare /hpf (None) H 06/13/24 13:05 Urine Bacteria Many /hpf (None) H 06/13/24 13:05 Urine Mucus Occasional /hpf (None) H 06/13/24 13:05 Urine HCG, Qual Not Detected (Not Detectd) 06/13/24 13:05 Urine Opiates Screen Not Detected (NotDetected) 06/13/24 13:05 Ur Oxycodone Screen Not Detected (NotDetected) 06/13/24 13:05 Urine Methadone Screen Not Detected (NotDetected) 06/13/24 13:05 Ur Barbiturates Screen Not Detected (NotDetected) 06/13/24 13:05 U Tricyclic Antidepress Not Detected (NotDetected) 06/13/24 13:05 Ur Phencyclidine Scrn Not Detected (NotDetected) 06/13/24 13:05 Ur Amphetamines Screen Detected (NotDetected) H 06/13/24 13:05 U Methamphetamines Scrn Detected (NotDetected) H 06/13/24 13:05 U Benzodiazepines Scrn Not Detected (NotDetected) 06/13/24 13:05 Urine Cocaine Screen Detected (NotDetected) H 06/13/24 13:05 U Marijuana (THC) Screen Detected (NotDetected) H 06/13/24 13:05 Influenza Type A (PCR) Not Detected (Not Detectd) 06/20/24 09:00 Influenza Type B (PCR) Not Detected (Not Detectd) 06/20/24 09:00 RSV (PCR) Not Detected (Not Detectd) 06/20/24 09:00 SARS-CoV-2 (PCR) Not Detected (Not Detectd) 06/20/24 09:00 Vital Signs Temp 97.3 F L 06/22/24 06:00 Pulse 71 06/22/24 06:00 Resp 18 06/22/24 06:00 BP 103/65 06/22/24 06:00 Pulse Ox 96 06/22/24 06:00 FiO2 Patient Condition at Discharge: Stable Plan - Discharge Summary Discharge Rx Participant: No New Discharge Prescriptions: New Escitalopram [Lexapro] 20 mg PO DAILY 30 Days #30 tab QUEtiapine [SEROquel] 200 mg PO HS 30 Days #30 tab traZODone HCL 150 mg PO HS 30 Days #30 tablet Nicotine 21Mg/24Hr Patch [Habitrol] 1 patch TRANSDERM DAILY 14 Days #14 patch QUEtiapine [SEROquel] 100 mg PO DAILY 30 Days #30 tab hydrOXYzine pamoate [Vistaril] 50 mg PO BID PRN 30 Days #120 cap PRN Reason: Anxiety Discontinued hydrOXYzine pamoate [Vistaril] 50 mg PO DAILY PRN 30 Days #60 cap PRN Reason: Anxiety Prazosin HCl [Minipress] 4 mg PO HS Nicotine 21Mg/24Hr Patch [Habitrol] 1 patch TRANSDERM DAILY 14 Days #14 patch Escitalopram [Lexapro] 10 mg PO DAILY 30 Days #30 tab traZODone HCL 150 mg PO HS PRN 30 Days #30 tablet PRN Reason: Insomnia QUEtiapine [SEROquel] 400 mg PO HS Discharge Medication List Escitalopram [Lexapro] 20 mg PO DAILY 30 Days #30 tab 06/22/24 [Rx] Nicotine 21Mg/24Hr Patch [Habitrol] 1 patch TRANSDERM DAILY 14 Days #14 patch 06/22/24 [Rx] QUEtiapine [SEROquel] 100 mg PO DAILY 30 Days #30 tab 06/22/24 [Rx] QUEtiapine [SEROquel] 200 mg PO HS 30 Days #30 tab 06/22/24 [Rx] hydrOXYzine pamoate [Vistaril] 50 mg PO BID PRN 30 Days #120 cap 06/22/24 [Rx] traZODone HCL 150 mg PO HS 30 Days #30 tablet 06/22/24 [Rx] Follow up Appointment(s)/Referral(s): [facility] [Outside] - 06/28/24 8:00 am (06/28/2024 8:00AM - 9:00AM LENIN PLATA 06/28/2024 9:30AM - 10:30AM SIDRA OLIVEROS ) [facility] [NON-STAFF] - 1 Week Patient Instructions/Handouts: How to Stop Smoking (DC), Depression (DC), Brief Psychotic Disorder (DC), Post Traumatic Stress Disorder (DC) Discharge Disposition: HOME SELF-CARE
== END 2024-06-22 11:15 | disposition home or self-care (01) | DRG 751 ==
LOC: EC 10:39 → 3MHU 15:35
PROVIDERS: ADMIT Psychiatry & Neurology Psychiatry; ATTEND Psychiatry & Neurology Psychiatry
DX: F29 Unspecified psychosis not due to a substance or known physiological condition (principal); R45.850 Homicidal ideations; Z91.148 Patient's other noncompliance with medication regimen for other reason; R45.851 Suicidal ideations; F20.9 Schizophrenia, unspecified; F32.A Depression, unspecified; F14.10 Cocaine abuse, uncomplicated; F15.10 Other stimulant abuse, uncomplicated; F41.9 Anxiety disorder, unspecified; F43.10 Post-traumatic stress disorder, unspecified; F12.90 Cannabis use, unspecified, uncomplicated; F17.210 Nicotine dependence, cigarettes, uncomplicated; Z87.820 Personal history of traumatic brain injury; Z59.00 Homelessness unspecified; Z56.0 Unemployment, unspecified; Z91.199 Patient's noncompliance with other medical treatment and regimen due to unspecified reason
CPT/HCPCS: 80306; 81001; 81025; 82075; 87635; 87636; 99285

== ENCOUNTER 2024-08-16 21:37 | Inpatient (IN) | payer MEDICAID, OTHER ==
--- NOTE | 2024-08-16 22:13 | ED ---
Psych HPI - General Stated Complaint: Mental Health Time Seen by Provider: 08/16/24 21:50 Source: patient, RN notes reviewed - History of Present Illness Initial Comments: This is a 39-year-old female with no signifiicant past medical history who is presenting to the emergency department chief complaint of auditory hallucinations and suicidal ideation. Patient states that her hallucinations are telling her to kill herself. Additionally states that she is having suicidal ideations with no overt plan however states she would jump off a bridge if she were to commit suicide. Patient admits to recent psychiatric inpatient hospitalization two months ago. Patient states that she had symptoms like this in the past when she has been off of her medications. No other acute complaints at this time. - Related Data Previous Rx's Medication Instructions Recorded Escitalopram [Lexapro] 20 mg PO DAILY 30 Days #30 tab 06/22/24 Nicotine 21Mg/24Hr Patch [Habitrol] 1 patch TRANSDERM DAILY 14 Days 06/22/24 #14 patch Paliperidone IM [Invega Sustenna] 234 mg IM QMONTHLY #1 each 06/22/24 QUEtiapine [SEROquel] 100 mg PO DAILY 30 Days #30 tab 06/22/24 QUEtiapine [SEROquel] 200 mg PO HS 30 Days #30 tab 06/22/24 hydrOXYzine pamoate [Vistaril] 50 mg PO BID PRN 30 Days #120 cap 06/22/24 traZODone HCL 150 mg PO HS 30 Days #30 tablet 06/22/24 Allergies Allergy/AdvReac Type Severity Reaction Status Date / Time No Known Allergies Allergy Verified 06/13/24 13:00 Review of Systems ROS Statement: Those systems with pertinent positive or pertinent negative responses have been documented in the HPI. ROS Other: All systems not noted in ROS Statement are negative. Past Medical History Past Medical History: No Reported History History of Any Multi-Drug Resistant Organisms: None Reported, MRSA Date of last positivie culture/infection: left knee MDRO Source:: 2013 Past Surgical History: No Surgical Hx Reported Past Anesthesia/Blood Transfusion Reactions: No Reported Reaction Past Psychological History: Anxiety, Depression, Schizophrenia Additional Psychological History / Comment(s): Hallucinations Smoking Status: Current every day smoker, Vaper Past Alcohol Use History: Occasional Past Drug Use History: Cocaine, Heroin, Marijuana, Methamphetamine - Past Family History Father Family Medical History: No Reported History Mother Family Medical History: No Reported History General Exam - General Exam Comments Initial Comments: Visual Physical Exam Vital signs reviewed General: ill appearing, nontoxic, anxious Head: Normocephalic, atraumatic Eyes: PERRLA, EOMI ENT: Airway patent Chest: Nonlabored breathing Skin: No visual rash, normal skin tone Neuro: Alert and oriented 3 Musculoskeletal: No gross abnormalities General appearance: alert, in no apparent distress Eye exam: Present: normal appearance, PERRL, EOMI. Absent: scleral icterus, conjunctival injection, periorbital swelling ENT exam: Present: normal exam, mucous membranes moist Neck exam: Present: normal inspection. Absent: tenderness, meningismus, lymphadenopathy Respiratory exam: Present: normal lung sounds bilaterally. Absent: respiratory distress, wheezes, rales, rhonchi, stridor Cardiovascular Exam: Present: regular rate, normal rhythm, normal heart sounds. Absent: systolic murmur, diastolic murmur, rubs, gallop, clicks GI/Abdominal exam: Present: soft, normal bowel sounds. Absent: distended, tenderness, guarding, rebound, rigid Extremities exam: Present: normal inspection, full ROM, normal capillary refill. Absent: tenderness, pedal edema, joint swelling, calf tenderness Back exam: Present: normal inspection Psychiatric exam: Present: normal affect, normal mood, suicidal ideation Skin exam: Present: warm, dry, intact, normal color. Absent: rash Course Vital Signs 08/16/24 08/17/24 22:58 06:13 Temperature 98.2 F 98.7 F Pulse Rate 109 H 87 Respiratory 22 18 Rate Blood Pressure 123/85 98/65 O2 Sat by Pulse 98 97 Oximetry Medical Decision Making - Medical Decision Making Was pt. sent in by a medical professional or institution (, PA, WHOLESALE BUYER, urgent care, hospital, or jail...) When possible be specific @ -No Did you speak to anyone other than the patient for history (EMS, parent, family, police, friend...)? What history was obtained from this source @ -No Did you review nursing and triage notes (agree or disagree)? Why? @ -I reviewed and agree with nursing and triage notes Were old charts reviewed (outside hosp., previous admission, EMS record, old EKG, old radiological studies, urgent care reports/EKG's, jail records)? Report findings @ -No old charts were reviewed Differential Diagnosis (chest pain, altered mental status, abdominal pain women, abdominal pain men, vaginal bleeding, weakness, fever, dyspnea, syncope, headache, dizziness, GI bleed, back pain, seizure, CVA, palpatations, mental health, musculoskeletal)? @ -Differential Mental Health Depression, anxiety, bipolar, psychosis, schizophrenia, borderline personality, situational depression, adjustment disorder, behavioral disorder, brain tumor, malingering, substance abuse, encephalopathy, medication reaction, dementia, hy pothyroidism, degenerative neurologic disorder, lupus.... This is not meant to be all-inclusive list EKG interpreted by me (3pts min.). @ -none X-rays interpreted by me (1pt min.). @ -None done CT interpreted by me (1pt min.). @ -None done U/S interpreted by me (1pt. min.). @ -None done What testing was considered but not performed or refused? (CT, X-rays, U/S, labs)? Why? @ -None What meds were considered but not given or refused? Why? @ -None Did you discuss the management of the patient with other professionals (professionals i.e. , PA, WHOLESALE BUYER, lab, RT, psych nurse, social services assistant, mountain bike guide, te acher, air intelligence officer, manager of case management)? Give summary @ -Spoke with EPS which states that the patient is accepted for admission and requires a CERT. Was smoking cessation discussed for >3mins.? @ -No Was critical care preformed (if so, how long)? @ -No Were there social determinants of health that impacted care today? How? (Homelessness, low income, unemployed, alcoholism, drug addiction, transportat ion, low edu. Level, literacy, decrease access to med. care, fci, rehab)? @ -No Was there de-escalation of care discussed even if they declined (Discuss DNR or withdrawal of care, Hospice)? DNR status @ -No What co-morbidities impacted this encounter? (DM, HTN, Smoking, COPD, CAD, Cancer, CVA, ARF, Chemo, Hep., AIDS, mental health diagnosis, sleep apnea, morbid obesity)? @ -None Was patient admitted / discharged? Hospital course, mention meds given and route, prescriptions, significant lab abnormalities, going to OR and other pertinent info. @ -admitted to psych. 39-year-old female with auditory hallucinations and suicidal ideation. on patient's discussion with nursing staff she is denying symptoms as described in HPI. Therefore petition has been placed for the patient complaints of suicidal ideation and auditory hallucinations that have been informing her to kill herself. patient is accepted for admission for SI with auditory hallucinations and medication non-compliance, requiring cert. Undiagnosed new problem with uncertain prognosis? @ -No Drug Therapy requiring intensive monitoring for toxicity (Heparin, Nitro, Insulin, Cardizem)? @ -No Were any procedures done? @ -No Diagnosis/symptom? @ -suicidal ideation, auditory hallucinations Acute, or Chronic, or Acute on Chronic? @ -acute Uncomplicated (without systemic symptoms) or Complicated (systemic symptoms)? @ -complicated Side effects of treatment? @ -No Exacerbation, Progression, or Severe Exacerbation? @ -No Poses a threat to life or bodily function? How? (Chest pain, USA, AL, pneumonia, PE, COPD, DKA, ARF, appy, cholecystitis, CVA, Diverticulitis, Homicidal, Suicidal, threat to staff... and all critical care pts) @ -yes - Lab Data Result diagrams: 08/17/24 07:16 08/17/24 07:11 Lab Results 08/17/24 Range/Units 04:11 Influenza Type A (PCR) Not Detected (Not Detectd) Influenza Type B (PCR) Not Detected (Not Detectd) RSV (PCR) Not Detected (Not Detectd) SARS-CoV-2 (PCR) Not Detected (Not Detectd) Disposition Clinical Impression: Suicidal ideation, Auditory hallucination Disposition: ADMITTED IP TO THIS HOSP
[2024-08-17] MEDS: LORazepam 1 MG TAB PO STA (00:19)
[2024-08-17] MEDS ORDERED: MAG HYDROX/AL HYDROX/SIMETH 355 ML BOTTLE PO PRN (06:08)
[2024-08-17] MEDS ORDERED: ACETAMINOPHEN TAB 325 MG TAB PO PRN (06:08)
[2024-08-17] MEDS ORDERED: LORazepam 2 MG/ML INJ IM PRN (06:08)
[2024-08-17] MEDS ORDERED: HALOPERIDOL LACTATE 5 MG/ML 1 ML VIAL IM PRN (06:08)
[2024-08-17] MEDS ORDERED: IBUPROFEN 600 MG TAB PO PRN (06:08)
[2024-08-17] MEDS ORDERED: MAGNESIUM HYDROXIDE 2,400 MG/30 ML CUP PO PRN (06:08)
[2024-08-17 07:38] LABS: Basophils # (A) 0.1 k/uL (0-0.2); Basophils % (A) 1 %; Eosinophils # (A) 0.1 k/uL (0-0.7); Eosinophils % (A) 1 %; HCT 47.1 % (34.0-46.0); HGB 15.7 gm/dL (11.4-16.0); Lymphocytes # (A) 2.9 k/uL (1.0-4.8); Lymphocytes % (A) 24 %; MCH 29.5 pg (25.0-35.0); MCHC 33.3 g/dL (31.0-37.0); MCV 88.8 fL (80.0-100.0); Mean Platelet Volume 6.7; Monocytes # (A) 0.8 k/uL (0-1.0); Monocytes % (A) 7 %; Neutrophils # (A) 7.8 k/uL (1.3-7.7); Neutrophils % (A) 65 %; Platelet Count 383 k/uL (150-450); RDW 13.4 % (11.5-15.5)
[2024-08-17 07:39] LABS: ALT 21 U/L (4-34); AST 26 U/L (14-36); African American GFR (CKD) 71 (>60 ml/min/1.73 sqM); Albumin 5.6 g/dL (3.5-5.0); Alkaline Phosphatase 59 U/L (38-126); Anion Gap 15 mmol/L; Blood Urea Nitrogen 26 mg/dL (7-17); Calcium 10.1 mg/dL (8.4-10.2); Carbon Dioxide 23 mmol/L (22-30); Chloride 102 mmol/L (98-107); Glucose 132 mg/dL (74-99); Non-African American GFR(CKD) 62 (>60 ml/min/1.73 sqM); Potassium 3.6 mmol/L (3.5-5.1); Sodium 140 mmol/L (137-145); Total Protein 8.9 g/dL (6.3-8.2)
[2024-08-17] MEDS: NICOTINE 14MG/24HR PATCH TRANSDERM SCH (09:28)
--- NOTE | 2024-08-17 09:58 | P.HP ---
Psychiatric H&P - . H&P Date: 08/17/24 History & Physical: Allergies Allergy/AdvReac Type Severity Reaction Status Date / Time No Known Allergies Allergy Verified 06/13/24 13:00 Vital Signs Temp 97.8 F 08/17/24 06:38 Pulse 93 08/17/24 06:38 Resp 18 08/17/24 06:38 BP 121/82 08/17/24 06:38 Pulse Ox 100 08/17/24 06:38 FiO2 Intake & Output 08/16/24 08/17/24 08/17/24 18:59 06:59 18:59 Weight 70.307 kg Laboratory Last Values WBC 12.0 k/uL (3.8-10.6) H 08/17/24 07:16 RBC 5.30 m/uL (3.80-5.40) 08/17/24 07:16 Hgb 15.7 gm/dL (11.4-16.0) 08/17/24 07:16 Hct 47.1 % (34.0-46.0) H 08/17/24 07:16 MCV 88.8 fL (80.0-100.0) 08/17/24 07:16 MCH 29.5 pg (25.0-35.0) 08/17/24 07:16 MCHC 33.3 g/dL (31.0-37.0) 08/17/24 07:16 RDW 13.4 % (11.5-15.5) 08/17/24 07:16 Plt Count 383 k/uL (150-450) 08/17/24 07:16 MPV 6.7 08/17/24 07:16 Neutrophils % 65 % 08/17/24 07:16 Lymphocytes % 24 % 08/17/24 07:16 Monocytes % 7 % 08/17/24 07:16 Eosinophils % 1 % 08/17/24 07:16 Basophils % 1 % 08/17/24 07:16 Neutrophils # 7.8 k/uL (1.3-7.7) H 08/17/24 07:16 Lymphocytes # 2.9 k/uL (1.0-4.8) 08/17/24 07:16 Monocytes # 0.8 k/uL (0-1.0) 08/17/24 07:16 Eosinophils # 0.1 k/uL (0-0.7) 08/17/24 07:16 Basophils # 0.1 k/uL (0-0.2) 08/17/24 07:16 Sodium 140 mmol/L (137-145) 08/17/24 07:11 Potassium 3.6 mmol/L (3.5-5.1) 08/17/24 07:11 Chloride 102 mmol/L (98-107) 08/17/24 07:11 Carbon Dioxide 23 mmol/L (22-30) 08/17/24 07:11 Anion Gap 15 mmol/L 08/17/24 07:11 BUN 26 mg/dL (7-17) H 08/17/24 07:11 Creatinine 1.12 mg/dL (0.52-1.04) H 08/17/24 07:11 Est GFR (CKD-EPI)AfAm 71 (>60 ml/min/1.73 sqM) 08/17/24 07:11 Est GFR (CKD-EPI)NonAf 62 (>60 ml/min/1.73 sqM) 08/17/24 07:11 Glucose 132 mg/dL (74-99) H 08/17/24 07:11 Calcium 10.1 mg/dL (8.4-10.2) 08/17/24 07:11 Total Bilirubin 1.0 mg/dL (0.2-1.3) 08/17/24 07:11 AST 26 U/L (14-36) 08/17/24 07:11 ALT 21 U/L (4-34) 08/17/24 07:11 Alkaline Phosphatase 59 U/L (38-126) 08/17/24 07:11 Total Protein 8.9 g/dL (6.3-8.2) H 08/17/24 07:11 Albumin 5.6 g/dL (3.5-5.0) H 08/17/24 07:11 TSH 4.270 mIU/L (0.465-4.680) 08/17/24 07:11 Influenza Type A (PCR) Not Detected (Not Detectd) 08/17/24 04:11 Influenza Type B (PCR) Not Detected (Not Detectd) 08/17/24 04:11 RSV (PCR) Not Detected (Not Detectd) 08/17/24 04:11 SARS-CoV-2 (PCR) Not Detected (Not Detectd) 08/17/24 04:11 08/17/24 09:42 IDENTIFYING DATA: Patient is a 39-year-old female well-known to this hospital recently discharged at the beginning of June for similar presentation of psychosis and meth use. Patient is currently homeless and unemployed. HPI: Patient presented to the hospital auditory hallucinations and brief suicidal thoughts. Patient notes that 2 days ago she went off of her medications. She also notes that she has been using meth on a daily basis. She notes that she started having auditory hallucinations (inside her head, male multiple, unfamiliar, come and go, drugs make him worse, currently having conversations in her head). He denied any visual hallucinations but notes that she is chronically paranoid. She currently notes that she has not going through any severe depression or anxiety. He notes that she has not been sleeping for a while. She notes energy, appetite and concentration are normal. She denies any feelings of helplessness, hopelessness or worthlessness. She notes bouts of crying and feelings of guilt and shame. Currently today she is denying any suicidal ideations and does not have any homicidal ideations or access to guns. Review of psychiatric systems notes past history of mood swings and impulsive behavior but denies any sleep disruption during nondrug periods. She also denies any grandiose thoughts. Patient describes herself as OCD but just relates this to cleaning. She denies any past history of anxiety and currently denies any PTSD symptoms. PAST PSYCHIATRIC HISTORY: Patient has a history of unspecified psychotic disorder, PTSD, depression, TBI, methamphetamine use disorder, cocaine use disorder, cannabis use disorder. Patient has been noncompliant with medications. Patient has had multiple admissions specifically this year more than 4. He has 1 prior suicide attempt 6 months ago. She follows up with [facility]. She currently is unaware of past trials or names of medications. PMH: as per ER note ALLERGIES: as per EMR CHEMICAL DEPENDENCY HISTORY: as per HPI Caffeine-positive Tobacco-vapes Cannabis-Daily Meth-smokes daily Coke-past history FAMILY PSYCHIATRIC/SUBSTANCE USE HISTORY: Unable to answer SOCIAL HISTORY: Patient was born and raised in [place]. The patient notes that she dropped out in the ninth grade because she was expelled. She notes good grades going through school. He has 1 prior marriage and 3 children. She is currently unemployed and homeless. She notes that she is spiritual. She denies any prior service. When asking about her childhood she described it as "peachy". MENTAL STATUS EXAM: General Appearance: Patient appears to be her stated age is alert, directable, and attempts to cooperate. Patient appears to have fair hygiene and grooming. Behavior: Patient is seated without any agitated behavior. Guarded at times Speech: Patient's speech is fluent and nonpressured. Mood/Affect: Patient reports their mood is irritable, affect is congruent and constricted. Suicidality/Homicidality: Patient denies having any homicidal ideation intent or plan. Denies any suicidal ideations intent or plan Perceptions: Patient denies any visual hallucinations and is having auditory hallucinations Though content/process: There is no evidence of any delusional thought content and thought process is linear and goal-directed. Memory and concentration: AOX3, grossly intact for the purposes of this session. Judgment and insight: Poor STRENGTHS/WEAKNESSES: strength is that patient is resilient. Weakness is that patient has poor judgment and is impulsive INTELLECT: Average IMPRESSIONS: Psychosis unspecified History of depressive disorder Traumatic brain injury PTSD Cocaine abuse Methamphetamine abuse Cannabis use Nicotine dependence Homelessness Noncompliance to medication Assessment: 39-year-old female presenting after failure to comply with medication treatments and relapsing on methamphetamines presenting with auditory hallucinations and brief suicidal thoughts. Patient has an extensive history of admissions with similar presentations. There are some indications for secondary gain to these admissions including homelessness. Further investigation will be needed to rule in malingering. Current presentation makes the patient a risk to herself and hospitalizations required at this point. However, due to possible meth induced psychosis we will hold off on any long-acting injectables or antipsychotics and review the patient's symptoms on follow-ups. PLAN: -Patient is admitted under involuntary status to [facility] for stabilization of psychiatric symptoms and safety. Patient has not signed adult voluntary form and medication consent and is placed in patient's chart. -Medications : Restart Lexapro 20 mg daily for mood/anxiety Restart trazodone 150 mg nightly for sleep/mood Restart Vistaril 50 mg p.o. twice daily as needed for anxiety Restart Seroquel 100 mg daily +200 mg nightly for sleep/psychosis adjunct Start patient on one-time dose of vitamin B12 1000 mcg IM for meth use -Ativan and Haldol PRN for agitation/aggression -Patient was counselled on substance abuse and desired to cut back on use-Will offer patient subtance use rehab -Patient was informed of the risks, benefits and side effects of the medication and patient verbally consented to taking the medications. Patient signed med consent form and was placed in chart. -Internal Medicine consult to perform medical evaluation and physical. -NRT -nicotine patch -SW on board for discharge planning. Encourage patient to participate in groups to work on coping skills. Will await deferral and court date. 08/17/24 09:44
[2024-08-17] MEDS: CYANOCOBALAMIN 1,000 MCG/ML 1 ML VIAL IM ONE (13:22)
[2024-08-17 15:12] LABS: LDL Cholesterol,Calculated 206.3 mg/dL (0.0-131.0)
[2024-08-17] MEDS: LORazepam 1 MG TAB PO PRN (15:25)
[2024-08-17] MEDS: traZODone HCL 50 MG TAB PO SCH (22:40)
[2024-08-17] MEDS: QUEtiapine 100 MG TAB PO SCH (22:40)
[2024-08-17] MEDS: hydrOXYzine pamoate 25 MG CAP PO SCH (22:41)
--- NOTE | 2024-08-17 23:18 | P.MDCNMH ---
History of Present Illness Reason for consultation: Medical management History of present illness; 39-year-old female with no past medical history presenting after having auditory hallucinations and brief suicidal thoughts. Patient is laying down in bed rest ing with no complaints of pain. Patient reports absence of fever, chills, weight loss, chest pain, palpitations, diaphoresis, dyspnea, cough, nausea, vomiting, constipation, abdominal pain, weakness, myalgia, dizziness, headache, and dysuria. Internal medicine was consulted for medical management. Admits to diarrhea. Social history: Admits to occasionally drinking alcohol (does not specify amount ), admits to marijuana use, and admits to meth use daily. REVIEW OF SYSTEMS: All systems reviewed, pertinent positives and negatives noted in HPI. All other symptoms are negative. PHYSICAL EXAMINATION: Vitals reviewed GENERAL: No acute distress. Well developed, well nourished. HEENT: Pupils are round and equally reacting to light. EOMI. No scleral icterus. Normocephalic, atraumatic. CARDIOVASCULAR: S1 and S2 present. No murmurs, rubs, or gallops. PULMONARY: Chest is clear to auscultation, no wheezing, rhonchi, or crackles. ABDOMEN: Soft, nontender, nondistended, normoactive bowel sounds. No palpable organomegaly. MUSCULOSKELETAL: No apparent joint swelling and deformities. EXTREMITIES: No apparent cyanosis, clubbing, or pedal edema. NEUROLOGICAL: The patient is alert and oriented x3, Gross neurological examination did not reveal any focal deficits. 5/5 strength bilateral UE and LE. Cranial nerves II through XII intact. SKIN: No apparent rashes. Assessment and plan 39-year-old female with no past medical history presenting after having auditory hallucinations and brief suicidal thoughts. Internal medicine is consulted for medical management while the patient is admitted to the inpatient psych [facility]as[facility]. Chronic Medical Conditions No known medical problems # Unspecified psychotic disorder, PTSD, depression, TBI, methamphetamine use disorder, cocaine use disorder, cannabis use disorder -Psychiatric conditions managed per primary psychiatric team Code status: Full code Patient is stable from medical stand point Past Medical History Past Medical History: No Reported History History of Any Multi-Drug Resistant Organisms: None Reported, MRSA Date of last positivie culture/infection: left knee MDRO Source:: 2013 Past Surgical History: No Surgical Hx Reported Past Anesthesia/Blood Transfusion Reactions: No Reported Reaction Past Psychological History: Anxiety, Depression, Schizophrenia Additional Psychological History / Comment(s): Hallucinations Smoking Status: Current every day smoker, Vaper Past Alcohol Use History: Occasional Past Drug Use History: Cocaine, Heroin, Marijuana, Methamphetamine - Past Family History Father Family Medical History: No Reported History Mother Family Medical History: No Reported History Medications and Allergies Home Medications Medication Instructions Recorded Confirmed Type Escitalopram [Lexapro] 20 mg PO DAILY 30 Days #30 tab 06/22/24 Rx Nicotine 21Mg/24Hr Patch [Habitrol] 1 patch TRANSDERM DAILY 14 Days 06/22/24 Rx #14 patch Paliperidone IM [Invega Sustenna] 234 mg IM QMONTHLY #1 each 06/22/24 Rx QUEtiapine [SEROquel] 100 mg PO DAILY 30 Days #30 tab 06/22/24 Rx QUEtiapine [SEROquel] 200 mg PO HS 30 Days #30 tab 06/22/24 Rx hydrOXYzine pamoate [Vistaril] 50 mg PO BID PRN 30 Days #120 cap 06/22/24 Rx traZODone HCL 150 mg PO HS 30 Days #30 tablet 06/22/24 Rx Allergies Allergy/AdvReac Type Severity Reaction Status Date / Time No Known Allergies Allergy Verified 06/13/24 13:00 Physical Exam Vitals: Vital Signs Temp Pulse Pulse Resp BP BP Pulse Ox 08/17/24 06:38 97.8 F 93 18 121/82 100 08/17/24 06:13 98.7 F 87 18 98/65 97 08/16/24 22:58 98.2 F 109 H 22 123/85 98 Results CBC & Chem 7: 08/17/24 07:16 08/17/24 07:11 Labs: Abnormal Lab Results - Last 24 Hours (Table) 08/17/24 08/17/24 Range/Units 07:11 07:16 WBC 12.0 H (3.8-10.6) k/uL Hct 47.1 H (34.0-46.0) % Neutrophils # 7.8 H (1.3-7.7) k/uL BUN 26 H (7-17) mg/dL Creatinine 1.12 H (0.52-1.04) mg/dL Glucose 132 H (74-99) mg/dL Total Protein 8.9 H (6.3-8.2) g/dL Albumin 5.6 H (3.5-5.0) g/dL Triglycerides 181.00 H (0.00-149.00) mg/dL Cholesterol 292.00 H (0.00-200.00) mg/dL LDL Cholesterol, Calc 206.3 H (0.0-131.0) mg/dL
[2024-08-18 03:09] LABS: Urine Alcohol Negative (Negative); Urine Barbiturate Negative (Negative); Urine Cocaine Negative (Negative); Urine Methadone Negative (Negative); Urine Opiates Negative (Negative); Urine Phencyclidine Negative (Negative)
[2024-08-18] MEDS: ESCITALOPRAM 20 MG TAB PO SCH (13:24)
--- NOTE | 2024-08-18 19:36 | P.PN ---
Progress Note - Text Progress Note Date: 08/18/24 Interval history: Patient was directable and agreeable to speak with junior technical writer. She reports she continues to hear voices during the days and would like to schedule some Seroquel for the morning. She reports command auditory hallucinations but is able to ignore them. At this time patient denies any suicidal or homicidal ideation, intent or plan. She denies visual hallucinations. Patient denies any side effects from the medications and has been compliant with meds. Mental status exam: General Appearance: Patient appears to be stated age is alert, directable, and cooperative. Behavior: No agitated behavior. Patient is directable and able to make needs known. Speech: Patient's speech is fluent and nonpressured. Mood/Affect: Mood is improving mildly, affect is congruent and constricted. Suicidality/Homicidality: Patient denies having any suicidal or homicidal ideati on intent or plan. Perceptions: Patient endorses auditory hallucinations. Denies visual hallucinations. Though content/process: There is no evidence of any overt delusional thought content and thought process is linear and goal-directed. Memory and concentration: AOX3, grossly intact for the purposes of this session Judgment and insight: improving mildly Assessment/Plan: Continue with current diagnosis. Patient continues to meet criteria for inpatient psychiatric admission for symptom stabilization and safety. Add Seroquel 100 mg QAM for auditory hallucinations. Monitor for medication compliance and for any psychotropic medication side effects. Will continue to monitor ongoing response to treatment. Encouraged participation in milieu.
[2024-08-19] MEDS: QUEtiapine 100 MG TAB PO SCH (08:28)
--- NOTE | 2024-08-19 21:22 | P.PN ---
Progress Note - Text Progress Note Date: 08/19/24 Interval history: Patient was found asleep in her room. On awakening, she is a bit irritable but not agitated, and rushes to dinner so she doesn't miss it. She reports the addition of AM Seroquel is working well and denies daytime oversedation, denies auditory hallucinations today. She is guarded, keeps to herself. At this time patient denies any suicidal or homicidal ideation, intent or plan. She denies visual hallucinations. Patient denies any side effects from the medications and has been compliant with meds. Mental status exam: General Appearance: Patient appears to be stated age is alert, directable, and cooperative. Behavior: No agitated behavior. Patient is directable and able to make needs known. Speech: Patient's speech is fluent and nonpressured. Mood/Affect: Mood is improving mildly, affect is congruent and constricted. Suicidality/Homicidality: Patient denies having any suicidal or homicidal ideation intent or plan. Perceptions: Denies auditory hallucinations. Denies visual hallucinations. Though content/process: There is no evidence of any overt delusional thought content and thought process is linear and goal-directed. Memory and concentration: AOX3, grossly intact for the purposes of this session Judgment and insight: improving mildly Assessment/Plan: Continue with current diagnosis. Patient continues to meet criteria for inpatient psychiatric admission for symptom stabilization and safety. Continue Seroquel 100 mg QAM for auditory hallucinations. Monitor for medication compliance and for any psychotropic medication side effects. Will continue to monitor ongoing response to treatment. Encouraged participation in milieu.
[2024-08-20 07:18] VITALS: RESP 16
--- NOTE | 2024-08-20 11:22 | P.PN ---
Progress Note - Text Progress Note Date: 08/20/24 Interval History: Patient was seen wandering the hallways and was directable and agreeable to sp efe with underwriter solicitation director in the office. Today, she states she missed 3 doses of her meds, and she started hearing voices, so she came to the hospital. She was also using meth prior to coming to the hospital. She is in denial of the problem with her addiction. She is refusing rehab. continues to minimize her subtance abuse and focused on discharge. She is making excuses as to why she does not want to go to rehab. She claims that she is no longer hearing voices. Patient is agreeable to getting a ULRICH. Patient endorses good sleep and appetite. At this time patient denies any suicidal or homicidal ideations, intent or plan. Patient denies any auditory, visual hallucinations and denies any paranoia or delusions. Patient denies any side effects from the medications and has been compliant with meds. MENTAL STATUS EXAM: General Appearance: Patient appears to be her stated age is alert, directable, and attempts to cooperate. Patient appears to have poor hygiene and grooming. Disheveled. Behavior: Patient is seated without any agitated behavior. Guarded at times, Irritable Speech: Patient's speech is fluent and nonpressured. Mood/Affect: Patient reports their mood is irritable, affect is congruent and constricted. Suicidality/Homicidality: Patient denies having any homicidal ideation intent or plan. Denies any suicidal ideations intent or plan Perceptions: Patient denies any visual hallucinations and denies auditory hallucinations. Minimizing need for treatment/substance use Though content/process: There is no evidence of any delusional thought content and thought process is linear and goal-directed. Memory and concentration: AOX3, grossly intact for the purposes of this session. Judgment and insight: chronically Poor IMPRESSIONS: Psychosis unspecified History of depressive disorder Traumatic brain injury PTSD Cocaine abuse Methamphetamine abuse Cannabis use Nicotine dependence Homelessness Noncompliance to medication PLAN: -Patient is admitted under involuntary status to [facility] for stabilization of psychiatric symptoms and safety. -Medications : Add Invega 3mg PO bid for psychosis, with plan to transition onto ULRICH Lexapro 20 mg daily for mood/anxiety trazodone 150 mg nightly for sleep/mood Vistaril 50 mg p.o. twice daily as needed for anxiety D/C Seroquel -Ativan and Haldol PRN for agitation/aggression -NRT -nicotine patch -SW on board for discharge planning. Encourage patient to participate in groups to work on coping skills. [place] expires 12/24/24. Discharge once patient is transitioned onto ULRICH 08/17/24 09:44
[2024-08-20] MEDS: PALIPERIDONE 3 MG TAB.ER.24 PO SCH (17:36)
[2024-08-20] MEDS ORDERED: QUEtiapine 100 MG TAB PO SCH (21:00)
[2024-08-21] MEDS: haloperidoL 5 MG TAB PO PRN (08:18)
--- NOTE | 2024-08-21 09:49 | P.PN ---
Progress Note - Text Progress Note Date: 08/21/24 Interval History: Patient was seen in her room, and was directable and agreeable to speak with billy chin at the bedside. She was resting in bed. She states that she is good today, and is not having any side effects from the change in medication. Patient is agreeable to getting a ULRICH. She is not endorsing any depression or anxiety today. She states she is no longer hearing voices. She states that she does not attend groups, because she doesn't like them, and there is nothing to do in them. Guest Room Inspector encouraged patient to attend them anyway. Patient endorses good sleep and appetite. At this time patient denies any suicidal or homicidal ideations, intent or plan. Patient denies any auditory, visual hallucinations and denies any paranoia or delusions. Patient denies any side effects from the medications and has been compliant with meds. MENTAL STATUS EXAM: General Appearance: Patient appears to be her stated age is alert, directable, and attempts to cooperate. Patient appears to have poor hygiene and grooming. Disheveled. Behavior: Patient is laying in bed without any agitated behavior. Speech: Patient's speech is fluent and nonpressured. Mood/Affect: Patient reports their mood is ok, affect is congruent and constricted. Suicidality/Homicidality: Patient denies having any homicidal ideation intent or plan. Denies any suicidal ideations intent or plan Perceptions: Patient denies any visual hallucinations and denies auditory hallucinations. Though content/process: There is no evidence of any delusional thought content and thought process is linear and goal-directed. Memory and concentration: AOX3, grossly intact for the purposes of this session. Judgment and insight: chronically Poor IMPRESSIONS: Psychosis unspecified History of depressive disorder Traumatic brain injury PTSD Cocaine abuse Methamphetamine abuse Cannabis use Nicotine dependence Homelessness Noncompliance to medication PLAN: -Patient is admitted under involuntary status to [facility] for stabilization of psychiatric symptoms and safety. -Medications : Invega 3mg PO bid for psychosis, with plan to transition onto ULRICH likely tomorrow if patient is tolerating medications well. Lexapro 20 mg daily for mood/anxiety trazodone 150 mg nightly for sleep/mood Vistaril 50 mg p.o. twice daily as needed for anxiety -Ativan and Haldol PRN for agitation/aggression -NRT -nicotine patch -SW on board for discharge planning. Encourage patient to participate in groups to work on coping skills. [place] expires 12/24/24. Discharge once patient is transitioned onto ULRICH
[2024-08-21 13:55] LABS: Appearance,Urine Clear (Clear); Bilirubin,Urine Negative (Negative); Blood,Urine Negative (Negative); Color,Urine Colorless; Glucose,Urine (UA) Negative (Negative); Ketones,Urine Negative (Negative); Leukocyte Esterase,Urine Negative (Negative); Nitrite,Urine Negative (Negative); PH, Urine 5.5 (5.0-8.0); Protein,Urine Negative (Negative); Specific Gravity,Urine 1.021 (1.001-1.035); Urobilinogen,Urine <2.0 mg/dL (<2.0)
[2024-08-22] MEDS ORDERED: NICOTINE GUM (POLACRILEX) 2 MG GUM BUCCAL PRN (11:02)
--- NOTE | 2024-08-22 11:13 | P.PN ---
Progress Note - Text Progress Note Date: 08/22/24 Interval History: Patient was seen in the hallway, and was directable and agreeable to speak with verse writer in the office. She reports that her mood is good today. She required PRN's for anxiety, stating that she is anxious about a job interview that she has on Tuesday. Claims Assistant spoke to the patient about getting the ULRICH, and explained the process of getting the first and second dose of it prior to her leaving to ensure compliance. Patient is upset that she will be here through the weekend to get both doses, but is agreeable to receive it. She is requesting her nicotine patch to be increased, and her anxiety medication to be increased. Patient endorses good sleep and appetite. At this time patient denies any suicidal or homicidal ideations, intent or plan. Patient denies any auditory, visual hallucinations and denies any paranoia or delusions. Patient denies any side effects from the medications and has been compliant with meds. MENTAL STATUS EXAM: General Appearance: Patient appears to be her stated age is alert, directable, and attempts to cooperate. Patient appears to have poor hygiene and grooming. Disheveled. Behavior: Patient is laying in bed without any agitated behavior. Speech: Patient's speech is fluent and nonpressured. Mood/Affect: Patient reports their mood improving, affect is congruent and constricted. Suicidality/Homicidality: Patient denies having any homicidal ideation intent or plan. Denies any suicidal ideations intent or plan Perceptions: Patient denies any visual hallucinations and denies auditory hallucinations. Though content/process: There is no evidence of any delusional thought content and thought process is linear and goal-directed. Memory and concentration: AOX3, grossly intact for the purposes of this session. Judgment and insight: chronically Poor IMPRESSIONS: Psychosis unspecified History of depressive disorder Traumatic brain injury PTSD Cocaine abuse Methamphetamine abuse Cannabis use Nicotine dependence Homelessness Noncompliance to medication PLAN: -Patient is admitted under involuntary status to [facility] for stabilization of psychiatric symptoms and safety. -Medications : Invega Sustenna 234mg IM today, 08/22, next dose of 156mg due Tuesday, 08/27, then monthly, 117mg IM due 09/24 given patients high risk for rehospitalization and non compliance, will need to give patient first 2 doses of ULRICH. Invega 3mg PO bid for psychosis will d.c tomorrow Lexapro 20 mg daily for mood/anxiety trazodone 150 mg nightly for sleep/mood Vistaril 50 mg p.o. twice daily as needed for anxiety Add buspar 20mg tid for anxiety -Ativan and Haldol PRN for agitation/aggression -NRT -nicotine patch -SW on board for discharge planning. Encourage patient to participate in groups to work on coping skills. [place] expires 12/24/24. Discharge once patient is transitioned onto ULRICH
[2024-08-22] MEDS: NICOTINE 21MG/24HR PATCH TRANSDERM SCH (11:25)
[2024-08-22] MEDS: busPIRone HCl 10 MG TAB PO SCH (11:25)
[2024-08-22] MEDS: PALIPERIDONE IM 234 MG/1.5 ML SYG IM STA (11:57)
[2024-08-22] MEDS: PALIPERIDONE 3 MG TAB.ER.24 PO SCH (19:45)
--- NOTE | 2024-08-23 11:35 | P.PN ---
Progress Note - Text Progress Note Date: 08/23/24 Interval History: Patient was seen in the hallway, and was directable and agreeable to speak with typewriter aligner in the office. She reports a good mood today. She states she is having a lot of anxiety due to a male patient on the unit. She has been instructed to stay away from the patient. She is adamant about being discharged Tuesday, stating she has a job interview. Building Construction Ironworker reiterated to the patient that she does have to wait until at least Tuesday to get her second dose of Invega, due to her noncompliance. continues to have limited insight and judgment. is going to groups. Patient endorses good sleep and appetite. At this time patient denies any suicidal or homicidal ideations, intent or plan. Patient denies any auditory, visual hallucinations and denies any paranoia or delusions. Patient denies any side effects from the medications and has been compliant with meds. MENTAL STATUS EXAM: General Appearance: Patient appears to be her stated age is alert, directable, and attempts to cooperate. Patient appears to have improving hygiene and grooming. Behavior: Patient is seated without any agitated behavior. Manipulative Speech: Patient's speech is fluent and nonpressured. Mood/Affect: Patient reports their mood improving, affect is congruent and constricted. improving mildly Suicidality/Homicidality: Patient denies having any homicidal ideation intent or plan. Denies any suicidal ideations intent or plan Perceptions: Patient denies any visual hallucinations and denies auditory h allucinations. Though content/process: There is no evidence of any delusional thought content and thought process is linear and goal-directed. Memory and concentration: AOX3, grossly intact for the purposes of this session. Judgment and insight: chronically Poor IMPRESSIONS: Psychosis unspecified History of depressive disorder Traumatic brain injury PTSD Cocaine abuse Methamphetamine abuse Cannabis use Nicotine dependence Homelessness Noncompliance to medication PLAN: -Patient is admitted under involuntary status to [facility] for stabilization of psychiatric symptoms and safety. -Medications : Invega Sustenna 234mg IM 08/22, next dose of 156mg due Tuesday, 08/27, then monthly, 117mg IM due 09/24 given patients high risk for re-hospitalization and non compliance, will need to give patient first 2 doses of ULRICH. D/C Invega PO Lexapro 20 mg daily for mood/anxiety trazodone 150 mg nightly for sleep/mood Vistaril 50 mg p.o. twice daily as needed for anxiety buspar 20mg tid for anxiety -Ativan and Haldol PRN for agitation/aggression -NRT -nicotine patch + nicotine gum -SW on board for discharge planning. Encourage patient to participate in groups to work on coping skills. [place] expires 12/24/24. Discharge once patient is transitioned onto ULRICH, hopeful for tuesday
[2024-08-23] MEDS: NICOTINE GUM (POLACRILEX) 2 MG GUM BUCCAL PRN (11:41)
[2024-08-24] MEDS: diphenhydrAMINE 25 MG CAP PO PRN (11:06)
--- NOTE | 2024-08-24 11:06 | P.PN ---
Progress Note - Text Progress Note Date: 08/24/24 Interval History: Patient was seen in the hallway, and was directable and agreeable to speak with story writer in the office. She reports a pretty good mood. She complains that the soap is making her itchy, requested Benedryl. Recording Studio Intern told her that she does have PRN benedryl ordered. She states her anxiety is very high, due to a co patient that is on the unit following her around. Continues to have limited insight and judgment. She is going to groups. Patient endorses good sleep and appetite. At t his time patient denies any suicidal or homicidal ideations, intent or plan. Patient denies any auditory, visual hallucinations and denies any paranoia or delusions. Patient denies any side effects from the medications and has been compliant with meds. MENTAL STATUS EXAM: General Appearance: Patient appears to be her stated age is alert, directable, and attempts to cooperate. Patient appears to have improving hygiene and grooming. Behavior: Patient is seated without any agitated behavior. Speech: Patient's speech is fluent and nonpressured. Mood/Affect: Patient reports their mood improving, affect is congruent and constricted. improving mildly Suicidality/Homicidality: Patient denies having any homicidal ideation intent or plan. Denies any suicidal ideations intent or plan Perceptions: Patient denies any visual hallucinations and denies auditory hallucinations. Though content/process: There is no evidence of any delusional thought content and thought process is linear and goal-directed. Memory and concentration: AOX3, grossly intact for the purposes of this session. Judgment and insight: chronically Poor IMPRESSIONS: Psychosis unspecified History of depressive disorder Traumatic brain injury PTSD Cocaine abuse Methamphetamine abuse Cannabis use Nicotine dependence Homelessness Noncompliance to medication PLAN: -Patient is admitted under involuntary status to [facility] for stabilization of psychiatric symptoms and safety. -Medications : Invega Sustenna 234mg IM 08/22, next dose of 156mg due Tuesday, 08/27, then monthly, 117mg IM due 09/24 given patients high risk for re-hospitalization and non compliance, will need to give patient first 2 doses of ULRICH. Lexapro 20 mg daily for mood/anxiety increase trazodone 200 mg nightly for sleep/mood Add Melatonin 5mg qhs for sleep Vistaril 50 mg p.o. twice daily as needed for anxiety buspar 20mg tid for anxiety -Ativan and Haldol PRN for agitation/aggression -NRT -nicotine patch + nicotine gum -SW on board for discharge planning. Encourage patient to participate in groups to work on coping skills. [place] expires 12/24/24. Discharge once patient is transitioned onto ULRICH, hopeful for tuesday
[2024-08-24] MEDS: LORazepam 1 MG TAB PO PRN (16:14)
[2024-08-24] MEDS: MELATONIN 5 MG TABLET PO SCH (20:47)
[2024-08-24] MEDS: traZODone HCL 100 MG TAB PO SCH (20:47)
--- NOTE | 2024-08-25 10:44 | P.PN ---
Progress Note - Text Progress Note Date: 08/25/24 Interval History: Patient was seen in the hallway, and was directable and agreeable to speak with teletypewriter operator in the office. She reports a "good" mood. She requests increase in Benadryl due to itchy scalp. Agreeable with steroid cream PRN that may be applied on affected area and increase in Benadryl. She is going to groups. Patient endorses fair sleep with increased trazodone and melatonin and good appetite. At this time patient denies any suicidal or homicidal ideation, intent or plan. Patient denies any auditory, visual hallucinations and denies any paranoia or delusions. Patient denies any side effects from the medications and has been compliant with meds. Agreeable with continuing injections and denies concerns. MENTAL STATUS EXAM: General Appearance: Patient appears to be her stated age is alert, directable, and attempts to cooperate. Patient appears to have improving hygiene and grooming. Behavior: Patient is seated without any agitated behavior. Energetic Speech: Patient's speech is fluent and nonpressured. Mood/Affect: Patient reports their mood improving, affect is congruent and constricted. improving mildly Suicidality/Homicidality: Patient denies having any homicidal ideation intent or plan. Denies any suicidal ideation intent or plan Perceptions: Patient denies any visual hallucinations and denies auditory hallucinations. Though content/process: There is no evidence of any delusional thought content and thought process is linear and goal-directed. Memory and concentration: AOX3, grossly intact for the purposes of this session. Judgment and insight: chronically Poor IMPRESSIONS: Psychosis unspecified History of depressive disorder Traumatic brain injury PTSD Cocaine abuse Methamphetamine abuse Cannabis use Nicotine dependence Homelessness Noncompliance to medication PLAN: -Patient is admitted under involuntary status to [facility] for stabilization of ps ychiatric symptoms and safety. -Medications : Invega Sustenna 234mg IM 08/22, next dose of 156mg due Tuesday, 08/27, then monthly, 117mg IM due 09/24 given patients high risk for re-hospitalization and non compliance, will need to give patient first 2 doses of ULRICH. Lexapro 20 mg daily for mood/anxiety trazodone 200 mg nightly for sleep/mood Melatonin 5mg qhs for sleep Vistaril 50 mg p.o. twice daily as needed for anxiety buspar 20mg tid for anxiety -Ativan and Haldol PRN for agitation/aggression -NRT -nicotine patch + nicotine gum -SW on board for discharge planning. Encourage patient to participate in groups to work on coping skills. [place] expires 12/24/24. Discharge once patient is transitioned onto U[facility]ICH, hopeful for tuesday
[2024-08-25] MEDS: diphenhydrAMINE 25 MG CAP PO ONE (11:29)
[2024-08-25 14:01] LABS: African American GFR (CKD) 90 (>60 ml/min/1.73 sqM); Anion Gap 9 mmol/L; Blood Urea Nitrogen 17 mg/dL (7-17); Carbon Dioxide 27 mmol/L (22-30); Chloride 104 mmol/L (98-107); Glucose 83 mg/dL (74-99); Non-African American GFR(CKD) 78 (>60 ml/min/1.73 sqM); Potassium 4.8 mmol/L (3.5-5.1); Sodium 140 mmol/L (137-145)
[2024-08-25] MEDS: diphenhydrAMINE 50 MG CAP PO PRN (16:10)
[2024-08-25] MEDS: HYDROCORTISONE 1% CREAM 30 GM TUBE TOPICAL PRN (16:11)
[2024-08-25 16:28] LABS: Appearance,Urine Cloudy (Clear); Bacteria,Urine Rare /hpf; Bilirubin,Urine Negative (Negative); Blood,Urine Negative (Negative); Color,Urine Light Yellow; Glucose,Urine (UA) Negative (Negative); Ketones,Urine Negative (Negative); Leukocyte Esterase,Urine Small (Negative); Mucus,Urine Rare /hpf; Nitrite,Urine Negative (Negative); PH, Urine 6.5 (5.0-8.0); Protein,Urine Trace (Negative); RBC,Urine 5 /hpf (0-5); Specific Gravity,Urine 1.027 (1.001-1.035); Squamous Epithelial Cell,Urine 32 /hpf (0-4); Urobilinogen,Urine <2.0 mg/dL (<2.0); WBC,Urine 9 /hpf (0-5)
--- NOTE | 2024-08-26 11:28 | P.PN ---
Progress Note - Text Progress Note Date: 08/26/24 Interval History: Patient was seen in the hallway, and was directable and agreeable to speak with consumer loan underwriter in the office. She reports a "great" mood. she is excited about potentially being discharged tomorrow. She is agreeable with continuing with Invega ULRICH. She denies any other concerns. She reports sleeping adequately and having a good appetite. She endorses good energy during the daytime. She says scalp itchiness has improved with hydrocortisone cream. Discussed lab results with patient. Patient denies dysuria or frequency but reports unable to hold her urine for long periods of time. Discussed kegel exercises and provided info for pt on this. Also informed to f/u with PCP. At this time patient denies any suicidal or homicidal ideation, intent or plan. Patient denies any auditory, visual hallucinations and denies any paranoia or delusions. Patient denies any side effects from the medications and has been compliant with meds. Agreeable with continuing injections and denies concerns. MENTAL STATUS EXAM: General Appearance: Patient appears to be her stated age is alert, directable, and attempts to cooperate. Patient appears to have improving hygiene and grooming. Behavior: Patient is seated without any agitated behavior. Energetic Speech: Patient's speech is fluent and nonpressured. Mood/Affect: Patient reports their mood improving, affect is congruent and constricted. improving mildly Suicidality/Homicidality: Patient denies having any homicidal ideation intent or plan. Denies any suicidal ideation intent or plan Perceptions: Patient denies any visual hallucinations and denies auditory hallucinations. Though content/process: There is no evidence of any delusional thought content and thought process is linear and goal-directed. Memory and concentration: AOX3, grossly intact for the purposes of this session. Judgment and insight: chronically Poor IMPRESSIONS: Psychosis unspecified History of depressive disorder Traumatic brain injury PTSD Cocaine abuse Methamphetamine abuse Cannabis use Nicotine dependence Homelessness Noncompliance to medication PLAN: -Patient is admitted under involuntary status to [facility] for stabilization of psychiatric symptoms and safety. -Medications : Invega Sustenna 234mg IM 08/22, next dose of 156mg due Tuesday, 08/27, then monthly, 117mg IM due 09/24 given patients high risk for re-hospitalization and non compliance, will need to give patient first 2 doses of ULRICH. Lexapro 20 mg daily for mood/anxiety trazodone 200 mg nightly for sleep/mood Melatonin 5mg qhs for sleep Vistaril 50 mg p.o. twice daily as needed for anxiety buspar 20mg tid for anxiety - BMP wnl -Ativan and Haldol PRN for agitation/aggression -NRT -nicotine patch + nicotine gum -SW on board for discharge planning. Encourage patient to participate in groups to work on coping skills. [place] expires 12/24/24. Discharge once patient is transitioned onto U[facility]ICH, hopeful for tuesday
[2024-08-26 12:05] VITALS: TEMP 97.7
[2024-08-27 06:44] VITALS: BP 100/62; PULSE 70
[2024-08-27] MEDS: PALIPERIDONE IM 156 MG/ML SYG IM ONE (09:56)
--- NOTE | 2024-08-27 10:20 | P.DS ---
Providers Date of admission: 08/17/24 05:59 Expected date of discharge: 08/27/24 Attending physician: Jhonny Rodriguez MD Consults: 08/17/24 06:08 Consult Physician Routine Consulting Provider: Ayaan Lackey Consult Reason/Comments: H&P for admission Do you want consulting provider notified?: Yes Primary care physician: Stated None - Discharge Diagnosis(es) (1) Unspecified psychosis Current Visit: Yes Status: Acute Priority: High (2) History of depression Current Visit: Yes Status: Acute Priority: Medium (3) TBI (traumatic brain injury) Current Visit: Yes Status: Acute Priority: High (4) PTSD (post-traumatic stress disorder) Current Visit: Yes Status: Acute Priority: Medium (5) Cocaine abuse Current Visit: Yes Status: Acute Priority: High (6) Methamphetamine abuse Current Visit: Yes Status: Acute Priority: High (7) Cannabis use disorder Current Visit: Yes Status: Acute Priority: Medium (8) Nicotine dependence Current Visit: Yes Status: Acute Priority: Low (9) Noncompliance with medication regimen Current Visit: Yes Status: Acute Priority: Medium Hospital Course: Admission HPI: Admission note was completed by Dr Obrien "Patient presented to the hospital auditory hallucinations and brief suicidal thoughts. Patient notes that 2 days ago she went off of her medications. She also notes that she has been using meth on a daily basis. She notes that she started having auditory hallucinations (inside her head, male multiple, unfamiliar, come and go, drugs make him worse, currently having conversations in her head). He denied any visual hallucinations but notes that she is chronically paranoid. She currently notes that she has not going through any severe depression or anxiety. He notes that she has not been sleeping for a while. She notes energy, appetite and concentration are normal. She denies any feelings of helplessness, hopelessness or worthlessness. She notes bouts of crying and feelings of guilt and shame. Currently today she is denying any suicidal ideations and does not have any homicidal ideations or access to guns. Review of psychiatric systems notes past history of mood swings and impulsive behavior but denies any sleep disruption during nondrug periods. She also denies any grandiose thoughts. Patient describes herself as OCD but just relates this to cleaning. She denies any past history of anxiety and currently denies any PTSD symptoms." Hospital course: Upon admission to the unit patient was admitted to the mental health unit on an active treatment order involuntarily. The [place] expires on 12/24/2024. Patient was initially bizarre psychotic however with time and treatment she eventually got along well with other patients on the unit and followed unit protocol. Patient was compliant with the medications and denied any side effects throughout hospital course. Patient was started on Invega p.o, increased to dose of 6 mg total daily for psychosis/mood stabilization. Due to patient's history of noncompliance, patient was agreeable to be transitioned onto Invega Sustenna, given 234 mg IM on 08/22. Second dose of 156 mg IM was given on 08/27, monthly maintenance dose of 117 mg IM will be next due at [facility] on 09/24. Continued with Lexapro 20 mg daily for mood/anxiety, trazodone increased to 200 mg nightly for sleep/mood, melatonin 5 mg nightly for sleep, Vistaril 50 mg twice daily for anxiety, BuSpar 30 mg twice daily for anxiety. Patient spoke of his stressors and engaged in therapy both group and individual. Patient was also seen by medical team for history and physical exam. Throughout the course of the hospitalization patient gradually improved with regards to mood, anxiety, psychosis, sleep and returned back to their baseline level of functioning. On the day of discharge patient denied any suicidal or homicidal ideations intent or plan denied any auditory or visual hallucinations. Patient endorsed wanting to live for her health, work and family. The patient denied any access to guns or weapons. Patient denied any paranoia and did not endorse any delusions. Patient does have a significant history of substance abuse and was counseled on abstaining from all substances including alcohol and marijuana. Patient was offered however declined inpatient substance-abuse rehab. Patient elected to do outpatient substance use treatment program through [facility]. Patient was also counseled on the medications and need for regular compliance and was encouraged to follow-up with their outpatient appointment for mental health and also for primary care. Mental status exam: General Appearance: Patient appears to be have several tattoos, stated age is alert, pleasant, and cooperative. Patient is in no acute distress and has improved hygiene and grooming Behavior: Patient is calmly seated without any agitated behavior. more pleasant today Speech: Patient's speech is fluent and nonpressured. Mood/Affect: Patient reports their mood is "better", affect is congruent and euthymic. Suicidality/Homicidality: Patient denies having any suicidal or homicidal ideation intent or plan. Perceptions: Patient denies any auditory or visual hallucinations. Though content/process: There is no evidence of any delusional thought content and thought process is linear and goal-directed Memory and concentration: AOX3, grossly intact for the purposes of this session. Can spell "WORLD" backwards correctly Judgment and insight: Chronically poor, however has improved with guarded prognosis Impression: Psychosis unspecified History of depressive disorder Traumatic brain injury PTSD Cocaine abuse Methamphetamine abuse Cannabis use Nicotine dependence Noncompliance to medication Plan: -Continue with discharge today as patient has improved and stabilized psychiatrically and is not currently an imminent threat to herself and/or others. Patient will remain at chronically elevated risk for harm to self and/or others due to her impulsivity and substance abuse. -Continue medications: Patient was given Invega Sustenna 234 mg IM on 08/22, second dose of 156 mg IM was given on 08/27, monthly maintenance dose of 117 mg IM will be due on 09/24 at [facility]. Continue with Lexapro 20 mg daily for mood/anxiety, trazodone 200 mg nightly for sleep/mood, melatonin 5 mg nightly for sleep, Vistaril 50 mg twice daily as needed for anxiety, BuSpar 30 mg twice daily for anxiety. -Patient was counseled on the need for medication compliance and appropriate follow-up at mental health and also primary care for medical issues. Patient verbalized understanding and agreed. -Social work to arrange for and conduct family meeting to ensure safety upon discharge and answer any questions/concerns. Social work also to arrange for patients follow up appointments with [facility] for psychiatric care along with follow up with primary care provider. -Patient counseled on abstaining from recreational drugs and marijuana and alcohol. Was informed/educated on the adverse effects on their physical and mental health. Patient verbally agreed and understood. Patient was offered substance abuse treatment however declined at this time. -Patient was instructed to return to the hospital or seek immediate medical care if their psychiatric or medical symptoms do worsen or reoccur. Allergies Allergy/AdvReac Type Severity Reaction Status Date / Time No Known Allergies Allergy Verified 06/13/24 13:00 Laboratory Results WBC 12.0 k/uL (3.8-10.6) H 08/17/24 07:16 RBC 5.30 m/uL (3.80-5.40) 08/17/24 07:16 Hgb 15.7 gm/dL (11.4-16.0) 08/17/24 07:16 Hct 47.1 % (34.0-46.0) H 08/17/24 07:16 MCV 88.8 fL (80.0-100.0) 08/17/24 07:16 MCH 29.5 pg (25.0-35.0) 08/17/24 07:16 MCHC 33.3 g/dL (31.0-37.0) 08/17/24 07:16 RDW 13.4 % (11.5-15.5) 08/17/24 07:16 Plt Count 383 k/uL (150-450) 08/17/24 07:16 MPV 6.7 08/17/24 07:16 Neutrophils % 65 % 08/17/24 07:16 Lymphocytes % 24 % 08/17/24 07:16 Monocytes % 7 % 08/17/24 07:16 Eosinophils % 1 % 08/17/24 07:16 Basophils % 1 % 08/17/24 07:16 Neutrophils # 7.8 k/uL (1.3-7.7) H 08/17/24 07:16 Lymphocytes # 2.9 k/uL (1.0-4.8) 08/17/24 07:16 Monocytes # 0.8 k/uL (0-1.0) 08/17/24 07:16 Eosinophils # 0.1 k/uL (0-0.7) 08/17/24 07:16 Basophils # 0.1 k/uL (0-0.2) 08/17/24 07:16 Sodium 140 mmol/L (137-145) 08/25/24 13:12 Potassium 4.8 mmol/L (3.5-5.1) 08/25/24 13:12 Chloride 104 mmol/L (98-107) 08/25/24 13:12 Carbon Dioxide 27 mmol/L (22-30) 08/25/24 13:12 Anion Gap 9 mmol/L 08/25/24 13:12 BUN 17 mg/dL (7-17) 08/25/24 13:12 Creatinine 0.93 mg/dL (0.52-1.04) 08/25/24 13:12 Est GFR (CKD-EPI)AfAm 90 (>60 ml/min/1.73 sqM) 08/25/24 13:12 Est GFR (CKD-EPI)NonAf 78 (>60 ml/min/1.73 sqM) 08/25/24 13:12 Glucose 83 mg/dL (74-99) 08/25/24 13:[address] Glu mg/dL 120 mg/dL 08/17/24 07:16 Hemoglobin A1c 5.8 % (<=6.0) 08/17/24 07:16 Calcium 10.0 mg/dL (8.4-10.2) 08/25/24 13:12 Total Bilirubin 1.0 mg/dL (0.2-1.3) 08/17/24 07:11 AST 26 U/L (14-36) 08/17/24 07:11 ALT 21 U/L (4-34) 08/17/24 07:11 Alkaline Phosphatase 59 U/L (38-126) 08/17/24 07:11 Total Protein 8.9 g/dL (6.3-8.2) H 08/17/24 07:11 Albumin 5.6 g/dL (3.5-5.0) H 08/17/24 07:11 Triglycerides 181.00 mg/dL (0.00-149.00) H 08/17/24 07:11 Cholesterol 292.00 mg/dL (0.00-200.00) H 08/17/24 07:11 LDL Cholesterol, Calc 206.3 mg/dL (0.0-131.0) H 08/17/24 07:11 VLDL Cholesterol, Calc 36.20 mg/dL (5.00-40.00) 08/17/24 07:11 HDL Cholesterol 49.50 mg/dL (40.00-60.00) 08/17/24 07:11 Cholesterol/HDL Ratio 5.90 Ratio 08/17/24 07:11 TSH 4.270 mIU/L (0.465-4.680) 08/17/24 07:11 Urine Color Light Yellow 08/25/24 16:05 Urine Appearance Cloudy (Clear) H 08/25/24 16:05 Urine pH 6.5 (5.0-8.0) 08/25/24 16:05 Ur Specific [place] 1.027 (1.001-1.035) 08/25/24 16:05 Urine Protein Trace (Negative) H 08/25/24 16:05 Urine Glucose (UA) Negative (Negative) 08/25/24 16:05 Urine Ketones Negative (Negative) 08/25/24 16:05 Urine Blood Negative (Negative) 08/25/24 16:05 Urine Nitrite Negative (Negative) 08/25/24 16:05 Urine Bilirubin Negative (Negative) 08/25/24 16:05 Urine Urobilinogen <2.0 mg/dL (<2.0) 08/25/24 16:05 Ur Leukocyte Esterase Small (Negative) H 08/25/24 16:05 Urine RBC 5 /hpf (0-5) 08/25/24 16:05 Urine WBC 9 /hpf (0-5) H 08/25/24 16:05 Ur Squamous Epith Cells 32 /hpf (0-4) H 08/25/24 16:05 Urine Bacteria Rare /hpf (None) H 08/25/24 16:05 Urine Mucus Rare /hpf (None) H 08/25/24 16:05 Urine HCG, Qual Not Detected (Not Detectd) 08/21/24 13:27 Urine Opiates Screen Negative (Negative) 08/17/24 15:57 Urine Methadone Screen Negative (Negative) 08/17/24 15:57 Ur Propoxyphene Screen Negative (Negative) 08/17/24 15:57 Urine Barbiturates Negative (Negative) 08/17/24 15:57 Ur Phencyclidine Scrn Negative (Negative) 08/17/24 15:57 Ur Amphetamine Screen Positive (Negative) A 08/17/24 15:57 U Benzodiazepines Scrn Negative (Negative) 08/17/24 15:57 Urine Cocaine Screen Negative (Negative) 08/17/24 15:57 U Cannabinoids Screen Positive (Negative) A 08/17/24 15:57 Urine Alcohol Negative (Negative) 08/17/24 15:57 U Creatinine Drug Scrn 303.0 mg/dL (>=20.0) 08/17/24 15:57 Influenza Type A (PCR) Not Detected (Not Detectd) 08/17/24 04:11 Influenza Type B (PCR) Not Detected (Not Detectd) 08/17/24 04:11 RSV (PCR) Not Detected (Not Detectd) 08/17/24 04:11 SARS-CoV-2 (PCR) Not Detected (Not Detectd) 08/17/24 04:11 Vital Signs Temp 97.7 F 08/26/24 12:02 Pulse 70 08/27/24 06:44 Resp 16 08/26/24 12:02 BP 100/62 08/27/24 06:44 Pulse Ox 100 08/26/24 12:02 FiO2 Intake & Output 08/26/24 08/27/24 08/27/24 18:59 06:59 18:59 Weight 81.7 kg Patient Condition at Discharge: Stable Plan - Discharge Summary Discharge Rx Participant: Yes New Discharge Prescriptions: New traZODone HCL [Desyrel] 200 mg PO HS 30 Days #60 tab Nicotine 21Mg/24Hr Patch [Habitrol] 1 patch TRANSDERM DAILY 14 Days #14 patch Hydrocortisone Cream [Hydrocortisone 1% Cream] 1 applic TOPICAL DAILY PRN #1 each PRN Reason: Skin Irritation hydrOXYzine pamoate [Vistaril] 50 mg PO BID 30 Days #120 cap diphenhydrAMINE [Benadryl] 50 mg PO QID PRN cap PRN Reason: Rash busPIRone HCL [Buspar] 30 mg PO BID 30 Days #60 tablet Paliperidone Palmitate [Invega Sustenna] 117 mg IM QMONTHLY #1 each Escitalopram [Lexapro] 20 mg PO DAILY 30 Days #30 tab Melatonin 5 mg PO HS 30 Days #30 tab Nicotine Gum (Polacrilex) [Nicorette] 2 mg BUCCAL Q4HR PRN 30 Days #180 pieceofgum PRN Reason: Nicotine Cravings Discontinued Escitalopram [Lexapro] 20 mg PO DAILY 30 Days #30 tab QUEtiapine [SEROquel] 200 mg PO HS 30 Days #30 tab traZODone HCL 150 mg PO HS 30 Days #30 tablet Paliperidone IM [Invega Sustenna] 234 mg IM QMONTHLY #1 each Nicotine 21Mg/24Hr Patch [Habitrol] 1 patch TRANSDERM DAILY 14 Days #14 patch QUEtiapine [SEROquel] 100 mg PO DAILY 30 Days #30 tab hydrOXYzine pamoate [Vistaril] 50 mg PO BID PRN 30 Days #120 cap PRN Reason: Anxiety Discharge Medication List Escitalopram [Lexapro] 20 mg PO DAILY 30 Days #30 tab 08/27/24 [Rx] Hydrocortisone Cream [Hydrocortisone 1% Cream] 1 applic TOPICAL DAILY PRN #1 each 08/27/24 [Rx] Melatonin 5 mg PO HS 30 Days #30 tab 08/27/24 [Rx] Nicotine 21Mg/24Hr Patch [Habitrol] 1 patch TRANSDERM DAILY 14 Days #14 patch 08/27/24 [Rx] Nicotine Gum (Polacrilex) [Nicorette] 2 mg BUCCAL Q4HR PRN 30 Days #180 pieceofgum 08/27/24 [Rx] Paliperidone Palmitate [Invega Sustenna] 117 mg IM QMONTHLY #1 each 08/27/24 [Rx] busPIRone HCL [Buspar] 30 mg PO BID 30 Days #60 tablet 08/27/24 [Rx] diphenhydrAMINE [Benadryl] 50 mg PO QID PRN cap 08/27/24 [Rx] hydrOXYzine pamoate [Vistaril] 50 mg PO BID 30 Days #120 cap 08/27/24 [Rx] traZODone HCL [Desyrel] 200 mg PO HS 30 Days #60 tab 08/27/24 [Rx] Follow up Appointment(s)/Referral(s): None,Stated [Primary Care Provider] - 1-2 days Activity/Diet/Wound Care/Special Instructions: Avoid the use of street drugs and alcohol. Take all medications as prescribed. When you are in need of refills on your medications, please contact your medical provider and/or outpatient psychiatrist/provider to have this done. Please go to your scheduled outpatient appointment for aftercare treatment. If symptoms return or become worse, call the crisis line at and/or go to the nearest emergency room for evaluation. National Suicide Hotline 988 Discharge Disposition: HOME SELF-CARE
== END 2024-08-27 11:35 | disposition home or self-care (01) | DRG 751 ==
LOC: EC 21:37 → 3MHU 08-17 05:59
PROVIDERS: ADMIT Psychiatry & Neurology Psychiatry; ATTEND Psychiatry & Neurology Psychiatry
DX: F29 Unspecified psychosis not due to a substance or known physiological condition (principal); Z91.148 Patient's other noncompliance with medication regimen for other reason; R45.851 Suicidal ideations; F14.10 Cocaine abuse, uncomplicated; F15.10 Other stimulant abuse, uncomplicated; F32.A Depression, unspecified; F17.290 Nicotine dependence, other tobacco product, uncomplicated; F43.10 Post-traumatic stress disorder, unspecified; R19.7 Diarrhea, unspecified; F41.9 Anxiety disorder, unspecified; Z79.899 Other long term (current) drug therapy; Z59.00 Homelessness unspecified; Z56.0 Unemployment, unspecified; Z91.51 Personal history of suicidal behavior; Z87.820 Personal history of traumatic brain injury
CPT/HCPCS: 80048; 80053; 80061; 80306; 81001; 81003; 81025; 82075; 83036; 84443; 85025; 87636; 99285

== ENCOUNTER 2024-09-30 12:45 | Observation (INO) | payer OTHER ==
--- NOTE | 2024-09-30 12:54 | ED ---
General Adult HPI - General Stated complaint: psych, OD Time Seen by Provider: 09/30/24 12:46 Source: patient, police, EMS, RN notes reviewed Mode of arrival: EMS Limitations: altered mental status - History of Present Illness Initial comments: Patient is a 39-year-old female presenting to the emergency department with concern for using too much meth. Patient's mother called. No reported suicidal threats. Patient is reluctant to provide history at this time. Patient is al ert and labile - Related Data Home Medications Medication Instructions Recorded Confirmed QUEtiapine [SEROquel] 200 mg PO HS 09/30/24 09/30/24 hydrOXYzine pamoate [Vistaril] 50 mg PO TID PRN 09/30/24 09/30/24 Previous Rx's Medication Instructions Recorded Hydrocortisone Cream 1 applic TOPICAL DAILY PRN #1 each 08/27/24 [Hydrocortisone 1% Cream] Melatonin 5 mg PO HS 30 Days #30 tab 08/27/24 Nicotine Gum (Polacrilex) 2 mg BUCCAL Q4HR PRN 30 Days #180 08/27/24 [Nicorette] pieceofgum busPIRone HCL [Buspar] 30 mg PO BID 30 Days #60 tablet 08/27/24 diphenhydrAMINE [Benadryl] 50 mg PO QID PRN cap 08/27/24 traZODone HCL [Desyrel] 200 mg PO HS 30 Days #60 tab 08/27/24 Allergies Allergy/AdvReac Type Severity Reaction Status Date / Time No Known Allergies Allergy Verified 09/30/24 17:06 Review of Systems ROS Statement: Those systems with pertinent positive or pertinent negative responses have been documented in the HPI. ROS Other: All systems not noted in ROS Statement are negative. Limitations: ROS unobtainable due to patients medical condition Past Medical History Past Medical History: No Reported History History of Any Multi-Drug Resistant Organisms: None Reported, MRSA Date of last positivie culture/infection: left knee MDRO Source:: 2013 Past Surgical History: No Surgical Hx Reported Past Anesthesia/Blood Transfusion Reactions: No Reported Reaction Past Psychological History: Anxiety, Depression, Schizophrenia Additional Psychological History / Comment(s): Hallucinations Smoking Status: Current every day smoker, Vaper Past Alcohol Use History: Occasional Past Drug Use History: Cocaine, Heroin, Marijuana, Methamphetamine - Past Family History Father Family Medical History: No Reported History Mother Family Medical History: No Reported History General Exam Limitations: altered mental status General appearance: alert Head exam: Present: atraumatic Expanded Pupils: Mydriasis: Bilateral ENT exam: Present: normal oropharynx Neck exam: Present: normal inspection Respiratory exam: Present: normal lung sounds bilaterally Cardiovascular Exam: Present: regular rate, normal rhythm GI/Abdominal exam: Present: soft. Absent: tenderness Neurological exam: Present: alert Expanded Focused psych exam: Present: internal stimuli Skin exam: Present: normal color Course Vital Signs 09/30/24 09/30/24 12:48 14:48 Temperature 97.5 F L Pulse Rate 122 H 89 Respiratory 30 H 16 Rate Blood Pressure 128/108 106/72 O2 Sat by Pulse 100 97 Oximetry EKG Findings - EKG Results: EKG: interpreted by AASHISHD, sinus rhythm, normal axis, normal QRS, normal ST/T Medical Decision Making - Medical Decision Making Was pt. sent in by a medical professional or institution (, PA, CHILDREN TEACHER, urgent ca re, hospital, or skilled nursing...) When possible be specific @ - Did you speak to anyone other than the patient for history (EMS, parent, family, police, friend...)? What history was obtained from this source @ -Please officers and EMS help provide history as patient speaks nonsensical Did you review nursing and triage notes (agree or disagree)? Why? @ -I reviewed and agree with nursing and triage notes Were old charts reviewed (outside hosp., previous admission, EMS record, old EKG, old radiological studies, urgent care reports/EKG's, skilled nursing records)? Report findings @ -No old charts were reviewed Differential Diagnosis (chest pain, altered mental status, abdominal pain women, abdominal pain men, vaginal bleeding, weakness, fever, dyspnea, syncope, headache, dizziness, GI bleed, back pain, seizure, CVA, palpatations, mental health, musculoskeletal)? @ -Differential Altered Mental Status: Hypoglycemia, DKA, hypercapnia, ETOH, overdose, CO poisoning, trauma, myxedema coma, HTN encephalopathy, infection, encephalitis, psychosis, intercranial hemorrhage, hepatic encephalopathy, meningitis, CVA, this is not meant to be an all-inclusive list EKG interpreted by me (3pts min.). @ -As above X-rays interpreted by me (1pt min.). @ -None done CT interpreted by me (1pt min.). @ -CT scan of the brain does not reveal acute abnormality U/S interpreted by me (1pt. min.). @ -None done What testing was considered but not performed or refused? (CT, X-rays, U/S, labs)? Why? @ -None What meds were considered but not given or refused? Why? @ -None Did you discuss the management of the patient with other professionals (professionals i.e. , PA, CHILDREN TEACHER, lab, RT, psych nurse, social work supervisor, pricing/signage team member, teacher, classification officer, case resource manager)? Give summary @ -Case was discussed with practitioner Leslie who will admit covering hospital call Was smoking cessation discussed for >3mins.? @ -No Was critical care preformed (if so, how long)? @ -No Were there social determinants of health that impacted care today? How? (Homelessness, low income, unemployed, alcoholism, drug addiction, transportation, low edu. Level, literacy, decrease access to med. care, penitentiary, rehab)? @ -No Was there de-escalation of care discussed even if they declined (Discuss DNR or withdrawal of care, Hospice)? DNR status @ -No What co-morbidities impacted this encounter? (DM, HTN, Smoking, COPD, CAD, Cancer, CVA, ARF, Chemo, Hep., AIDS, mental health diagnosis, sleep apnea, morbid obesity)? @ -History of drug use Was patient admitted / discharged? Hospital course, mention meds given and route, prescriptions, significant lab abnormalities, going to OR and other pertinent info. @ -Patient presents with reported concerns for significant methamphetamine use over the past few days. Patient presents altered and speaking nonsensical. Patient is restless and comes down with Ativan. Patient reevaluated and remains relatively nonsensical. Evaluation otherwise nonremarkable. Patient will be admitted, admission orders written Undiagnosed new problem with uncertain prognosis? @ -No Drug Therapy requiring intensive monitoring for toxicity (Heparin, Nitro, Insulin, Cardizem)? @ -No Were any procedures done? @ -No Diagnosis/symptom? @ -Methamphetamine abuse, altered mental status Acute, or Chronic, or Acute on Chronic? @ -Acute Uncomplicated (without systemic symptoms) or Complicated (systemic symptoms)? @ -Default Side effects of treatment? @ -No Exacerbation, Progression, or Severe Exacerbation? @ -No Poses a threat to life or bodily function? How? (Chest pain, [place], [place], pneumonia, PE, COPD, DKA, ARF, appy, cholecystitis, CVA, Diverticulitis, Homicidal, Suicidal, threat to staff... and all critical care pts) @ -Threat to neurological and psychiatric function - Lab Data Result diagrams: 09/30/24 13:01 09/30/24 13:01 Lab Results 09/30/24 09/30/24 Range/Units 13:01 13:01 WBC 13.3 H (3.8-10.6) k/uL RBC 5.35 (3.80-5.40) m/uL Hgb 15.1 (11.4-16.0) gm/dL Hct 45.9 (34.0-46.0) % MCV 85.8 (80.0-100.0) fL MCH 28.3 (25.0-35.0) pg MCHC 33.0 (31.0-37.0) g/dL RDW 13.2 (11.5-15.5) % Plt Count 459 H (150-450) k/uL MPV 6.7 Neutrophils % 73 % Lymphocytes % 19 % Monocytes % 7 % Eosinophils % 0 % Basophils % 0 % Neutrophils # 9.7 H (1.3-7.7) k/uL Lymphocytes # 2.5 (1.0-4.8) k/uL Monocytes # 0.9 (0-1.0) k/uL Eosinophils # 0.1 (0-0.7) k/uL Basophils # 0.1 (0-0.2) k/uL Sodium 134 L (137-145) mmol/L Potassium 4.1 (3.5-5.1) mmol/L Chloride 102 (98-107) mmol/L Carbon Dioxide 13 L (22-30) mmol/L Anion Gap 19 mmol/L BUN 21 H (7-17) mg/dL Creatinine 1.12 H (0.52-1.04) mg/dL Est GFR (CKD-EPI)AfAm 71 (>60 ml/min/1.73 sqM) Est GFR (CKD-EPI)NonAf 62 (>60 ml/min/1.73 sqM) Glucose 210 H (74-99) mg/dL Calcium 10.6 H (8.4-10.2) mg/dL Total Bilirubin 1.1 (0.2-1.3) mg/dL AST 28 (14-36) U/L ALT 22 (4-34) U/L Alkaline Phosphatase 62 (38-126) U/L Total Protein 8.6 H (6.3-8.2) g/dL Albumin 5.6 H (3.5-5.0) g/dL Salicylates <1.0 mg/dL Acetaminophen <10.0 ug/mL Serum Alcohol <10 mg/dL Disposition Clinical Impression: Methamphetamine abuse Disposition: ADMITTED IP TO THIS HOSP Is patient prescribed a controlled substance at d/c from ED?: No Referrals: None,Stated [Primary Care Provider] - 1-2 days Time of Disposition: 17:33
[2024-09-30] MEDS: LORazepam 2 MG/ML INJ IV STA (12:58)
[2024-09-30] MEDS: SODIUM CHLORIDE 0.9% 1,000 ML IV STA (13:28)
[2024-09-30 13:38] LABS: Acetaminophen <10.0 ug/mL; African American GFR (CKD) 71 (>60 ml/min/1.73 sqM); Albumin 5.6 g/dL (3.5-5.0); Alcohol <10 mg/dL; Anion Gap 19 mmol/L; Blood Urea Nitrogen 21 mg/dL (7-17); Calcium 10.6 mg/dL (8.4-10.2); Carbon Dioxide 13 mmol/L (22-30); Chloride 102 mmol/L (98-107); Glucose 210 mg/dL (74-99); Non-African American GFR(CKD) 62 (>60 ml/min/1.73 sqM); Salicylate <1.0 mg/dL; Sodium 134 mmol/L (137-145); Total Bilirubin 1.1 mg/dL (0.2-1.3); Total Protein 8.6 g/dL (6.3-8.2)
[2024-09-30 13:45] LABS: Basophils % (A) 0 %; Eosinophils # (A) 0.1 k/uL (0-0.7); Eosinophils % (A) 0 %; HCT 45.9 % (34.0-46.0); HGB 15.1 gm/dL (11.4-16.0); Lymphocytes # (A) 2.5 k/uL (1.0-4.8); Lymphocytes % (A) 19 %; MCH 28.3 pg (25.0-35.0); MCV 85.8 fL (80.0-100.0); Mean Platelet Volume 6.7; Monocytes # (A) 0.9 k/uL (0-1.0); Monocytes % (A) 7 %; Neutrophils # (A) 9.7 k/uL (1.3-7.7); Neutrophils % (A) 73 %; Platelet Count 459 k/uL (150-450); RBC 5.35 m/uL (3.80-5.40); RDW 13.2 % (11.5-15.5); WBC 13.3 k/uL (3.8-10.6)
[2024-09-30 13:46] LABS: Basophils # (A) 0.1 k/uL (0-0.2)
[2024-09-30 14:02] LABS: ALT 22 U/L (4-34); AST 28 U/L (14-36); Alkaline Phosphatase 62 U/L (38-126); Potassium 4.1 mmol/L (3.5-5.1)
--- NOTE | 2024-09-30 17:10 | CT ---
EXAMINATION TYPE: CT brain wo con DATE OF EXAM: 09/30/2024 5:04 PM COMPARISON: None available. CLINICAL INDICATION: Female, 39 years old with history of ams, ams, overdose TECHNIQUE: Brain: Axial CT images of the brain were obtained with coronal and sagittal reformats created and rev iewed. Contrast used: None. Oral contrast used: None. CT DLP: 1090.4 mGycm, Automated exposure control for dose reduction was used. FINDINGS: Brain: Extra-axial spaces: No abnormal extra-axial fluid collections. Ventricular system: Within normal limits Cerebral parenchyma: No acute intraparenchymal hemorrhage or mass effect. The ortega-white junction is well differentiated. Cerebellum: Unremarkable. Mass effect: No evidence of midline shift. Intracranial vasculature: unremarkable Soft tissues: Normal. Calvarium/osseous structures: No depressed skull fracture. Paranasal sinuses and mastoid air cells: Mild scattered paranasal sinus disease. Visualized orbits: Orbital contents are intact. IMPRESSION: No acute intracranial process. [facility], , 09/30/2024 5:07 PM
[2024-09-30] MEDS ORDERED: NALOXONE 0.4 MG/ML 1 ML VIAL IV PRN (17:34)
[2024-09-30] MEDS ORDERED: LORazepam 2 MG/ML INJ IV PRN (17:36)
[2024-09-30] MEDS: SODIUM CHLORIDE 0.9% 1,000 ML IV SCH (18:44)
[2024-10-01 01:11] LABS: Appearance,Urine Cloudy (Clear); Bilirubin,Urine Negative (Negative); Blood,Urine Negative (Negative); Color,Urine Light Yellow; Glucose,Urine (UA) Negative (Negative); Ketones,Urine Negative (Negative); Leukocyte Esterase,Urine Negative (Negative); Mucus,Urine Rare /hpf; Nitrite,Urine Negative (Negative); PH, Urine 5.5 (5.0-8.0); Protein,Urine Negative (Negative); RBC,Urine 1 /hpf (0-5); Specific Gravity,Urine 1.018 (1.001-1.035); Squamous Epithelial Cell,Urine 7 /hpf (0-4); Urobilinogen,Urine <2.0 mg/dL (<2.0); WBC,Urine 3 /hpf (0-5)
[2024-10-01 01:20] LABS: Amphetamine Screen,Urine Detected (NotDetected); Barbiturate Screen,Urine Not Detected (NotDetected); Benzodiazepines Screen,Urine Detected (NotDetected); Cocaine Screen,Urine Not Detected (NotDetected); Methadone Screen, Urine Not Detected (NotDetected); Opiate Screen,Urine Not Detected (NotDetected); Oxycodone Screen, Urine Not Detected (NotDetected); Phencyclidine Screen,Urine Not Detected (NotDetected); Tricyclic Antidepressant,Urine Not Detected (NotDetected); Urn Cannabinoid Scrn Detected (NotDetected)
[2024-10-01 07:41] VITALS: BP 120/81; PULSE 100; RESP 16; TEMP 98.1
== END 2024-10-01 08:25 | disposition left against medical advice (07) ==
LOC: EC 12:45 → 5NMEDONC 17:34
PROVIDERS: ADMIT Hospitalist; ATTEND Hospitalist
DX: F15.10 Other stimulant abuse, uncomplicated (principal); F20.9 Schizophrenia, unspecified; F17.200 Nicotine dependence, unspecified, uncomplicated; F32.A Depression, unspecified; F41.9 Anxiety disorder, unspecified; Z79.899 Other long term (current) drug therapy; Z53.29 Procedure and treatment not carried out because of patient's decision for other reasons
CPT/HCPCS: 96361; 96374; 99285; 36415; 93005; 80053; 85025; 81001; 81025; 80306; 80143; 80320; 80179; 70450; G0378 ×2; J2060

== ENCOUNTER 2025-03-17 15:23 | Emergency (ER) | payer OTHER ==
[2025-03-17 15:27] VITALS: BP 141/101; PULSE 104; RESP 16; TEMP 97.9
--- NOTE | 2025-03-17 15:58 | ED ---
Psych HPI - General Source: patient, RN notes reviewed Mode of arrival: ambulatory Limitations: no limitations <Elbert Yadav - Last Filed: 03/17/25 15:57> <Omar Joaquin - Last Filed: 03/17/25 18:55> - General Chief Complaint: Psychiatric Symptoms Stated Complaint: Mental health Time Seen by Provider: 03/17/25 15:42 - History of Present Illness Initial Comments: 39-year-old female presents emergency department with chief complaint of hearing voices. Patient has underlying psychiatric disorders in which she states she has not refilled her medication recently. She has been suicidal homicidal denies any illicit drug use currently but does have a history denies alcohol abuse no physical complaints. (Elbert Yadav) - Related Data Home Medications Medication Instructions Recorded Confirmed QUEtiapine [SEROquel] 200 mg PO HS 09/30/24 09/30/24 hydrOXYzine pamoate [Vistaril] 50 mg PO TID PRN 09/30/24 09/30/24 Previous Rx's Medication Instructions Recorded Hydrocortisone Cream 1 applic TOPICAL DAILY PRN #1 each 08/27/24 [Hydrocortisone 1% Cream] Melatonin 5 mg PO HS 30 Days #30 tab 08/27/24 Nicotine Gum (Polacrilex) 2 mg BUCCAL Q4HR PRN 30 Days #180 08/27/24 [Nicorette] pieceofgum busPIRone HCL [Buspar] 30 mg PO BID 30 Days #60 tablet 08/27/24 diphenhydrAMINE [Benadryl] 50 mg PO QID PRN cap 08/27/24 traZODone HCL [Desyrel] 200 mg PO HS 30 Days #60 tab 08/27/24 Allergies Allergy/AdvReac Type Severity Reaction Status Date / Time No Known Allergies Allergy Verified 03/17/25 15:27 Review of Systems ROS Other: All systems not noted in ROS Statement are negative. <Elbert Yadav - Last Filed: 03/17/25 15:57> ROS Other: All systems not noted in ROS Statement are negative. <Omar Joaquin - Last Filed: 03/17/25 18:55> ROS Statement: Those systems with pertinent positive or pertinent negative responses have been documented in the HPI. Past Medical History Past Medical History: No Reported History History of Any Multi-Drug Resistant Organisms: None Reported, MRSA Date of last positivie culture/infection: left knee MDRO Source:: 2013 Past Surgical History: No Surgical Hx Reported Past Anesthesia/Blood Transfusion Reactions: No Reported Reaction Past Psychological History: Anxiety, Depression, Schizophrenia Smoking Status: Current every day smoker, Vaper Past Alcohol Use History: Occasional Past Drug Use History: Cocaine, Heroin, Marijuana, Methamphetamine - Past Family History Father Family Medical History: No Reported History Mother Family Medical History: No Reported History <Elbert Yadav - Last Filed: 03/17/25 15:57> General Exam Limitations: no limitations General appearance: alert, in no apparent distress Head exam: Present: atraumatic, normocephalic, normal inspection Eye exam: Present: normal appearance, PERRL, EOMI. Absent: scleral icterus, conjunctival injection, periorbital swelling ENT exam: Present: normal exam, mucous membranes moist Neck exam: Present: normal inspection, full ROM. Absent: tenderness, meningismus, lymphadenopathy Respiratory exam: Present: normal lung sounds bilaterally. Absent: respiratory distress, wheezes, rales, rhonchi, stridor Cardiovascular Exam: Present: regular rate, normal rhythm, normal heart sounds. Absent: systolic murmur, diastolic murmur, rubs, gallop, clicks GI/Abdominal exam: Present: soft, normal bowel sounds. Absent: distended, tenderness, guarding, rebound, rigid Neurological exam: Present: alert, oriented X3 Psychiatric exam: Present: anxious Skin exam: Present: warm, dry, intact, normal color. Absent: rash <Elbert Yadav - Last Filed: 03/17/25 15:57> General appearance: alert, in no apparent distress Head exam: Present: atraumatic, normocephalic, normal inspection Eye exam: Present: normal appearance, PERRL, EOMI. Absent: scleral icterus, conjunctival injection, periorbital swelling ENT exam: Present: normal exam, mucous membranes moist Neck exam: Present: normal inspection. Absent: tenderness, meningismus, lymphadenopathy Respiratory exam: Present: normal lung sounds bilaterally. Absent: respiratory distress, wheezes, rales, rhonchi, stridor Cardiovascular Exam: Present: regular rate, normal rhythm, normal heart sounds. Absent: systolic murmur, diastolic murmur, rubs, gallop, clicks GI/Abdominal exam: Present: soft, normal bowel sounds. Absent: distended, tenderness, guarding, rebound, rigid Extremities exam: Present: normal inspection, full ROM, normal capillary refill. Absent: tenderness, pedal edema, joint swelling, calf tenderness Back exam: Present: normal inspection Neurological exam: Present: alert, oriented X3, CN II-XII intact Psychiatric exam: Present: normal affect, normal mood Skin exam: Present: warm, dry, intact, normal color. Absent: rash <Omar Joaquin - Last Filed: 03/17/25 18:55> Course <Omar Joaquin - Last Filed: 03/17/25 18:55> Vital Signs 03/17/25 15:25 Temperature 97.9 F Pulse Rate 104 H Respiratory 16 Rate Blood Pressure 141/101 O2 Sat by Pulse 98 Oximetry - Reevaluation(s) Reevaluation #1: 03/17/25 18:54 Medical records reviewed (Omar Joaquin) Reevaluation #2: 03/17/25 18:54 Medically cleared for psychiatric evaluation (Omar Joaquin) Medical Decision Making <Omar Joaquin - Last Filed: 03/17/25 18:55> - Medical Decision Making 39 female with acute psychosis and psychiatric illness patient will be started on medications and can be discharged home (Omar Joaquin) Disposition <Elbert Yadav - Last Filed: 03/17/25 15:57> Is patient prescribed a controlled substance at d/c from ED?: No <Omar Joaquin - Last Filed: 03/17/25 18:55> Clinical Impression: Major depressive disorder with psychotic features Disposition: HOME SELF-CARE Condition: Fair Instructions (If sedation given, give patient instructions): Mood Disorders (ED), Brief Psychotic Disorder (ED) Referrals: None,Stated [Primary Care Provider] - 1-2 days
== END 2025-03-17 17:45 | disposition home or self-care (01) ==
LOC: EC 15:23
DX: F32.3 Major depressive disorder, single episode, severe with psychotic features (principal); F17.290 Nicotine dependence, other tobacco product, uncomplicated
CPT/HCPCS: 82075; 99284